=== PATIENT | male | born 1960 | race Asian ===

== ENCOUNTER 2016-11-29 18:27 | Inpatient (IN) | payer MEDICARE, OTHER ==
[~2016-11-29] VITALS: Ht 188 cm; Wt 108.4 kg
[~2016-11-29 18:27] MED LIST: DEPAKOTE ER250 MG ORAL
[2016-11-29 19:20] VITALS: BP 113/70
[2016-11-29] MEDS ORDERED: QUETIAPINE FUMA50 MG ORAL (19:25)
[2016-11-29] MEDS ORDERED: DEPAKOTE ER500 MG ORAL (19:25)
[2016-11-29] MEDS ORDERED: FLUOXETINE HCL20 MG ORAL (19:25)
[2016-11-29 19:34] LABS: EOSINOPHILS % (AUTO) 4.4 % (0.0-3.0); LYMPHOCYTES % (AUTO) 34.8 % (20.0-45.0); MEAN CORPUSCULAR HEMOGLOBIN 33.9 PG (27.0-31.0); MEAN CORPUSCULAR HGB CONC 35.6 G/DL (32.0-36.0); MEAN CORPUSCULAR VOLUME 95 FL (80-99); MEAN PLATELET VOLUME 8.1 FL (6.5-10.1); MONOCYTES % (AUTO) 8.4 % (1.0-10.0); NEUTROPHILS % (AUTO) 51.4 % (45.0-75.0); PLATELET COUNT 131 K/UL (150-450); RED BLOOD COUNT 3.56 M/UL (4.70-6.10); RED CELL DISTRIBUTION WIDTH 12.1 % (11.6-14.8); WHITE BLOOD COUNT 5.6 K/UL (4.8-10.8)
[2016-11-29 19:53] LABS: ANION GAP 15 (5-15); CARBON DIOXIDE 17 mEQ/L (20-30); CHLORIDE 113 mEQ/L (98-107); CREATININE 0.4 mg/dL (0.7-1.2); GLOMERULAR FILTRATION RATE > 60 mL/min (>60); HEMOLYSIS 67; POTASSIUM 2.8 mEQ/L (3.4-4.9); SODIUM 145 mEQ/L (135-145); VALPROIC ACID 27 ug/mL (50-100)
[2016-11-29 20:00] LABS: CALCIUM 5.8 mg/dL (8.6-10.2)
[2016-11-29 20:28] LABS: APPEARANCE,URINE CLEAR; KETONES,URINE NEGATIVE (NEGATIVE); LEUKOCYTE ESTERASE ,URINE NEGATIVE (NEGATIVE); NITRITE,URINE NEGATIVE (NEGATIVE); PH,URINE 6.5 (4.5-8.0); PROTEIN,URINE NEGATIVE (NEGATIVE); UROBILINOGEN,URINE NORMAL MG/DL (0.0-1.0)
--- NOTE | 2016-11-29 20:29 | Emergency Room Report ---
History of Present Illness General Chief Complaint: Behavioral Complaint Source: EMS Present Illness HPI The patient is a 56-year-old male brought in by ambulance from a senior care facility with a history of schizophrenia and seizure disorder for possible seizure. The patient states that he was feeling an aura and had a friend called 911. He denies actually having a seizure and EMS states patient did not have any signs of seizure. The patient denies any symptoms at this time including pain, dizziness, blurred vision, chest pain, shortness of breath Allergies: Coded Allergies: No Known Allergies (Unverified , 04/27/13) Patient History Past Medical History: see triage record, psych hx Pertinent Family History: none Reviewed Nursing Documentation: PMH: Agreed, PSxH: Agreed Nursing Documentation-PMH Past Medical History: No History, Except For History Of Psychiatric Problem: Yes - schizophrenia Hx Seizures: Yes Review of Systems All Other Systems: negative except mentioned in HPI Physical Exam Vital Signs Date Time Temp Pulse Resp B/P Pulse Ox O2 Delivery O2 Flow Rate FiO2 11/29/16 18:20 76 20 113/70 98 Room Air Sp02 EP Interpretation: reviewed, normal General Appearance: no apparent distress, alert, GCS 15, non-toxic Head: normocephalic, atraumatic Eyes: bilateral eye PERRL, bilateral eye normal inspection ENT: hearing grossly normal, normal pharynx, no angioedema, normal voice Neck: full range of motion, supple/symm/no masses Respiratory: chest non-tender, lungs clear, normal breath sounds, speaking full sentences Cardiovascular #1: regular rate, rhythm, no edema Cardiovascular #2: 2+ carotid (R), 2+ carotid (L), 2+ radial (R), 2+ radial (L) , 2+ dorsalis pedis (R), 2+ dorsalis pedis (L) Gastrointestinal: normal bowel sounds, non tender, soft, non-distended, no guarding, no rebound Rectal: deferred Genitourinary: normal inspection, no CVA tenderness Musculoskeletal: back normal, gait/station normal, normal range of motion, non- tender Neurologic: alert, responsive, motor strength/tone normal, sensory intact, speech normal Psychiatric: memory normal, no suicidal/homicidal ideation, no delusions, depressed affect Reflexes: 3+ bicep (R), 3+ bicep (L), 3+ tricep (R), 3+ tricep (L), 3+ knee (R) , 3+ knee (L) Skin: normal color, no rash, warm/dry, well hydrated Lymphatic: no adenopathy Medical Decision Making PA Attestation Dr. Almodovar is my supervising physician. Patient management was discussed with my supervising physician Diagnostic Impression: Primary Impression: Seizure disorder Additional Impressions: subtherapeutic antiepileptics Hypokalemia Hypocalcemia ER Course The patient is a 56-year-old male with a history of schizophrenia and seizure disorder presenting for possible seizure Differential diagnoses considered but not limited to: Seizure, psychosis, anxiety, electrolyte imbalance Physical exam: Vitals within normal limits. No apparent distress. The patient appears tired and continues to follow sleep during exam. PERRL. no tremors. No neurological deficit HEENT exam is unremarkable. RRR Lungs CTA bilat Abdomen is soft and nontender Lab work is significant for hypokalemia, hypocalcemia, and subtherapeutic Depakote levels. The patient is given IV fluids, potassium, and Depakote. The patient is stable and will be admitted to this hospital. This case was discussed with Dr. Almodovar who will speak with the admitting physician. The patient was informed that he will be admitted. Laboratory Tests Test 11/29/16 19:20 White Blood Count 5.6 K/UL (4.8-10.8) Red Blood Count 3.56 M/UL (4.70-6.10) L Hemoglobin 12.1 G/DL (14.2-18.0) L Hematocrit 34.0 % (42.0-52.0) L Mean Corpuscular Volume 95 FL (80-99) Mean Corpuscular Hemoglobin 33.9 PG (27.0-31.0) H Mean Corpuscular Hemoglobin Concent 35.6 G/DL (32.0-36.0) Red Cell Distribution Width 12.1 % (11.6-14.8) Platelet Count 131 K/UL (150-450) L Mean Platelet Volume 8.1 FL (6.5-10.1) Neutrophils (%) (Auto) 51.4 % (45.0-75.0) Lymphocytes (%) (Auto) 34.8 % (20.0-45.0) Monocytes (%) (Auto) 8.4 % (1.0-10.0) Eosinophils (%) (Auto) 4.4 % (0.0-3.0) H Basophils (%) (Auto) 1.0 % (0.0-2.0) Urine Color Pale yellow Urine Appearance Clear Urine pH 6.5 (4.5-8.0) Urine Specific [place] 1.010 (1.005-1.035) Urine Protein Negative (NEGATIVE) Urine Glucose (UA) Negative (NEGATIVE) Urine Ketones Negative (NEGATIVE) Urine Occult Blood Negative (NEGATIVE) Urine Nitrite Negative (NEGATIVE) Urine Bilirubin Negative (NEGATIVE) Urine Urobilinogen Normal MG/DL (0.0-1.0) Urine Leukocyte Esterase Negative (NEGATIVE) Sodium Level 145 mEQ/L (135-145) Potassium Level 2.8 mEQ/L (3.4-4.9) L Chloride Level 113 mEQ/L (98-107) H Carbon Dioxide Level 17 mEQ/L (20-30) L Anion Gap 15 (5-15) Blood Urea Nitrogen 10 mg/dL (7-23) Creatinine 0.4 mg/dL (0.7-1.2) L Estimate Glomerular Filtration Rate > 60 mL/min (>60) Glucose Level 69 mg/dL (74-106) L Calcium Level 5.8 mg/dL (8.6-10.2) *L Urine Opiates Screen Pending Urine Barbiturates Screen Pending Valproic Acid Level 27 ug/mL (50-100) L Phencyclidine (PCP) Screen Pending Urine Amphetamines Screen Pending Urine Benzodiazepines Screen Pending Urine Cocaine Screen Pending Urine Marijuana (THC) Screen Pending Lab Results Impression CBC unremarkable. BMP shows significant hypokalemia with hypocalcemia. Ionized calcium was ordered. Depakote levels are subtherapeutic Last Vital Signs Date Time Temp Pulse Resp B/P Pulse Ox O2 Delivery O2 Flow Rate FiO2 11/29/16 19:20 86 20 113/70 98 Room Air Status: improved Disposition: ADMITTED INPATIENT Condition: Stable CORONA KLINE November 29, 2016 20:28
[2016-11-29] MEDS ORDERED: Depakote 500mg tab ORAL ONE (20:30)
[2016-11-29] MEDS ORDERED: Zolpidem 5mg tab ORAL PRN (22:30)
[2016-11-29] MEDS ORDERED: Miralax 17gm pkt ORAL PRN (22:30)
[2016-11-29] MEDS ORDERED: Mylanta II UD 30ml ORAL PRN (22:30)
[2016-11-29] MEDS ORDERED: LORazepam Inj 2mg/ml 1ml IV PRN (22:30)
[2016-11-29] MEDS ORDERED: Morphine Sulfate 2mg/ml Inj IVP PRN (22:30)
--- NOTE | 2016-11-30 00:12 | History and Physical ---
History of Present Illness General Date patient seen: November 29, 2016 Reason for Hospitalization: Behavioral Complaint Present Illness HPI 56-year-old male with hx of schizophrenia, brought in by ambulance from [facility] for possible seizure. The patient states that he was feeling an aura and had a friend called 911. He denies actually having a seizure and EMS states patient did not have any signs of seizure. The patient denies any symptoms at this time including pain, dizziness, blurred vision, chest pain, shortness of breath. His Ca was extremely low in ER, therefore he is admitted for further work up. Allergies: Coded Allergies: No Known Allergies (Unverified , 04/27/13) Medication History Scheduled Divalproex Sodium* (Depakote Er*), 500 MG ORAL EVERY 12 HOURS, (Reported) Fluoxetine Hcl* (Fluoxetine Hcl*), 20 MG ORAL DAILY, (Reported) Quetiapine Fumarate* (Quetiapine Fumarate*), 100 MG ORAL DAILY, (Reported) Discontinued Medications Divalproex Sodium* (Depakote Er*), 250 MG ORAL EVERY 12 HOURS, (Reported) Discontinued Reason: Medication dose changed Patient History Healthcare decision maker Resuscitation status Advanced Directive on File Past Medical/Surgical History Past Medical/Surgical History: (1) Schizo-affective schizophrenia (2) Seizure disorder Review of Systems All Other Systems: negative except mentioned in HPI Physical Exam General Appearance: WD/WN Lines, tubes and drains: peripheral HEENT: normocephalic, atraumatic Neck: non-tender, normal alignment Respiratory/Chest: chest wall non-tender, lungs clear Cardiovascular/Chest: normal peripheral pulses, normal rate Abdomen: normal bowel sounds, non tender Genitourinary/Rectal: normal genital exam Extremities: normal range of motion 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 Last 24 Hour Vital Signs Date Time Temp Pulse Resp B/P Pulse Ox O2 Delivery O2 Flow Rate FiO2 11/29/16 19:20 86 20 113/70 98 Room Air 11/29/16 18:20 76 20 113/70 98 Room Air Intake and Output 11/29/16 11/30/16 19:00 07:00 Output Total 1000 ml Balance -1000 ml Output Urine Total 1000 ml # Voids 1 Laboratory Tests Test 11/29/16 19:20 11/29/16 22:29 White Blood Count 5.6 K/UL (4.8-10.8) Red Blood Count 3.56 M/UL (4.70-6.10) L Hemoglobin 12.1 G/DL (14.2-18.0) L Hematocrit 34.0 % (42.0-52.0) L Mean Corpuscular Volume 95 FL (80-99) Mean Corpuscular Hemoglobin 33.9 PG (27.0-31.0) H Mean Corpuscular Hemoglobin Concent 35.6 G/DL (32.0-36.0) Red Cell Distribution Width 12.1 % (11.6-14.8) Platelet Count 131 K/UL (150-450) L Mean Platelet Volume 8.1 FL (6.5-10.1) Neutrophils (%) (Auto) 51.4 % (45.0-75.0) Lymphocytes (%) (Auto) 34.8 % (20.0-45.0) Monocytes (%) (Auto) 8.4 % (1.0-10.0) Eosinophils (%) (Auto) 4.4 % (0.0-3.0) H Basophils (%) (Auto) 1.0 % (0.0-2.0) Urine Color Pale yellow Urine Appearance Clear Urine pH 6.5 (4.5-8.0) Urine Specific [place] 1.010 (1.005-1.035) Urine Protein Negative (NEGATIVE) Urine Glucose (UA) Negative (NEGATIVE) Urine Ketones Negative (NEGATIVE) Urine Occult Blood Negative (NEGATIVE) Urine Nitrite Negative (NEGATIVE) Urine Bilirubin Negative (NEGATIVE) Urine Urobilinogen Normal MG/DL (0.0-1.0) Urine Leukocyte Esterase Negative (NEGATIVE) Sodium Level 145 mEQ/L (135-145) Potassium Level 2.8 mEQ/L (3.4-4.9) L Chloride Level 113 mEQ/L (98-107) H Carbon Dioxide Level 17 mEQ/L (20-30) L Anion Gap 15 (5-15) Blood Urea Nitrogen 10 mg/dL (7-23) Creatinine 0.4 mg/dL (0.7-1.2) L Estimat Glomerular Filtration Rate > 60 mL/min (>60) Glucose Level 69 mg/dL (74-106) L Calcium Level 5.8 mg/dL (8.6-10.2) *L Urine Opiates Screen Negative (NEGATIVE) Urine Barbiturates Screen Negative (NEGATIVE) Valproic Acid (Depakene) Level 27 ug/mL (50-100) L Phencyclidine (PCP) Screen Negative (NEGATIVE) Urine Amphetamines Screen Negative (NEGATIVE) Urine Benzodiazepines Screen Negative (NEGATIVE) Urine Cocaine Screen Negative (NEGATIVE) Urine Marijuana (THC) Screen Negative (NEGATIVE) Ionized Calcium (Measured) Pending Height (Feet): 6 Height (Inches): 2.00 Weight (Pounds): 245 Medications Current Medications Medications (Trade) Dose Ordered Sig/Jonathan Route PRN Reason Start Time Stop Time Status Last Admin Dose Admin Acetaminophen (Tylenol) 650 mg Q4H PRN ORAL fever 11/29/16 22:30 12/29/16 22:29 Al Hydroxide/Mg Hydroxide (Mylanta II) 30 ml Q6H PRN ORAL dyspepsia 11/29/16 22:30 12/29/16 22:29 Dextrose STAT PRN IV Hypoglycemia 11/29/16 22:30 12/29/16 22:29 Divalproex Sodium (Depakote ER) 500 mg EVERY 12 HOURS ORAL 11/30/16 09:00 12/30/16 08:59 Fluoxetine HCl (PROzac) 20 mg DAILY ORAL 11/30/16 09:00 12/30/16 08:59 Folic Acid/ Magnesium Sulfate/ Multivitamins/ Calcium Gluconate/ Sodium Chloride (Folvite/ Magnesium Sulfate/ M.v.i.-12/Calcium Gluconate 10%/NS w/KCl 20mEq) 1,024.2 ml @ 125 mls/ hr Q24H IV 11/30/16 16:00 12/30/16 15:59 Heparin Sodium (Porcine) (Heparin 5000 units/ml) 5,000 units EVERY 12 HOURS SUBQ 11/30/16 09:00 12/30/16 08:59 UNV Lorazepam (Ativan 2mg/ml 1ml) 2 mg EVERY HOUR PRN IV seizures 11/29/16 22:30 12/06/16 22:29 Morphine Sulfate (Morphine Sulfate) 1 mg EVERY 4 HOURS PRN IVP For Pain 11/29/16 22:30 12/06/16 22:29 Ondansetron HCl (Zofran) 4 mg Q6H PRN IVP Nausea & Vomiting 11/29/16 22:30 12/29/16 22:29 Polyethylene Glycol (Miralax) 17 gm HSPRN PRN ORAL Constipation 11/29/16 22:30 12/29/16 22:29 Quetiapine Fumarate (SEROquel) 100 mg DAILY ORAL 11/30/16 09:00 12/30/16 08:59 Zolpidem Tartrate (Ambien) 5 mg HSPRN PRN ORAL Insomnia 11/29/16 22:30 12/29/16 22:29 Assessment/Plan Problem List: (1) Seizure disorder (2) Hypocalcemia ICD Codes: E83.51 - Hypocalcemia SNOMED: 4750357 (3) Hypokalemia ICD Codes: E87.6 - Hypokalemia SNOMED: 69094547 (4) Schizo-affective schizophrenia ICD Codes: F25.0 - Schizoaffective disorder, bipolar type SNOMED: 514242081 Assessment/Plan Ca supplement Renal w/u Neuro and psych to see. check electrolytes MARLENY JAIMES November 30, 2016 00:12
[2016-11-30 00:30] VITALS: BP 105/60
[2016-11-30 07:51] LABS: BASOPHILS % (AUTO) 2.3 % (0.0-2.0); EOSINOPHILS % (AUTO) 5.2 % (0.0-3.0); LYMPHOCYTES % (AUTO) 32.1 % (20.0-45.0); MEAN CORPUSCULAR HEMOGLOBIN 30.9 PG (27.0-31.0); MEAN CORPUSCULAR HGB CONC 32.2 G/DL (32.0-36.0); MEAN CORPUSCULAR VOLUME 96 FL (80-99); MEAN PLATELET VOLUME 8.1 FL (6.5-10.1); NEUTROPHILS % (AUTO) 51.4 % (45.0-75.0); PLATELET COUNT 127 K/UL (150-450); RED BLOOD COUNT 3.96 M/UL (4.70-6.10); RED CELL DISTRIBUTION WIDTH 12.5 % (11.6-14.8); WHITE BLOOD COUNT 4.1 K/UL (4.8-10.8)
[2016-11-30 08:00] VITALS: BP 103/61
[2016-11-30 08:13] LABS: ALANINE AMINOTRANSFERASE 10 U/L (3-41); ALBUMIN/GLOBULIN RATIO 1.8 (1.0-2.7); ANION GAP 13 (5-15); ASPARTATE AMINO TRANSFERASE 21 U/L (5-40); CALCIUM 8.8 mg/dL (8.6-10.2); CARBON DIOXIDE 24 mEQ/L (20-30); CHLORIDE 103 mEQ/L (98-107); CREATININE 0.7 mg/dL (0.7-1.2); GLOMERULAR FILTRATION RATE > 60 mL/min (>60); HEMOLYSIS 65; POTASSIUM 4.7 mEQ/L (3.4-4.9); SODIUM 140 mEQ/L (135-145); TOTAL PROTEIN 5.5 g/dL (6.6-8.7)
[2016-11-30 08:26] LABS: MAGNESIUM 1.9 mg/dL (1.7-2.5); PHOSPHORUS 2.9 mg/dL (2.5-4.8); URIC ACID 7.5 mg/dL (3.0-7.5)
[2016-11-30 08:36] LABS: THYROID STIMULATING HORMONE 1.03 uIU/mL (0.300-4.500)
[2016-11-30] MEDS: Heparin 5000 units/ml inj SUBQ SCH ×2 (08:47→22:35)
[2016-11-30] MEDS ORDERED: MULTIVITAMIN IV SCH ×11 (09:00→16:00)
[2016-11-30] MEDS ORDERED: Depakote ER 500mg tab ORAL SCH (09:00)
[2016-11-30] MEDS ORDERED: FOLIC ACID IV SCH ×11 (09:00→16:00)
[2016-11-30] MEDS ORDERED: [UNRECOGNIZED DRUG - OTHER] IV SCH (09:00)
[2016-11-30] MEDS ORDERED: MAGNESIUM SULFATE IV SCH ×10 (09:00→16:00)
[2016-11-30] MEDS ORDERED: CALCIUM GLUCONATE IV SCH (09:00)
[2016-11-30] MEDS ORDERED: [UNRECOGNIZED DRUG - OTHER] IV SCH ×10 (09:00→16:00)
--- NOTE | 2016-11-30 09:33 | Pulmonology Progress Note ---
Assessment/Plan Problems: (1) Seizure disorder (2) Hypocalcemia (3) Hypokalemia (4) Schizo-affective schizophrenia Assessment/Plan Ca better neuro and psych pending med/surg echo and venous doppler to evaluate pedeal edema Subjective ROS Limited/Unobtainable: No Interval Events: no new complains, doing better Allergies: Coded Allergies: No Known Allergies (Unverified , 04/27/13) Objective Last 24 Hour Vital Signs Date Time Temp Pulse Resp B/P Pulse Ox O2 Delivery O2 Flow Rate FiO2 11/30/16 04:00 61 11/30/16 00:30 97.5 65 20 105/60 98 Room Air 11/30/16 00:20 78 18 117/76 98 Room Air 11/29/16 19:20 86 20 113/70 98 Room Air 11/29/16 18:20 76 20 113/70 98 Room Air Intake and Output 11/29/16 11/30/16 19:00 07:00 Intake Total 120 ml Output Total 1000 ml Balance -880 ml Intake Oral 120 ml Output Urine Total 1000 ml # Voids 2 General Appearance: WD/WN HEENT: normocephalic, atraumatic Respiratory/Chest: chest wall non-tender, lungs clear Cardiovascular: normal peripheral pulses, normal rate Abdomen: normal bowel sounds, soft, non tender Genitourinary: normal external genitalia Skin: no rash 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 Lymphatic: no neck adenopathy Laboratory Tests 11/29/16 19:20: White Blood Count 5.6, Red Blood Count 3.56L, Hemoglobin 12.1L, Hematocrit 34.0L , Mean Corpuscular Volume 95, Mean Corpuscular Hemoglobin 33.9H, Mean Corpuscular Hemoglobin Concent 35.6, Red Cell Distribution Width 12.1, Platelet Count 131L, Mean Platelet Volume 8.1, Neutrophils (%) (Auto) 51.4, Lymphocytes ( %) (Auto) 34.8, Monocytes (%) (Auto) 8.4, Eosinophils (%) (Auto) 4.4H, Basophils (%) (Auto) 1.0, Urine Color Pale yellow, Urine Appearance Clear, Urine pH 6.5, Urine Specific [place] 1.010, Urine Protein Negative, Urine Glucose (UA) Negative, Urine Ketones Negative, Urine Occult Blood Negative, Urine Nitrite Negative, Urine Bilirubin Negative, Urine Urobilinogen Normal, Urine Leukocyte Esterase Negative, Sodium Level 145, Potassium Level 2.8L, Chloride Level 113H, Carbon Dioxide Level 17L, Anion Gap 15, Blood Urea Nitrogen 10, Creatinine 0.4L, Estimat Glomerular Filtration Rate > 60, Glucose Level 69L, Calcium Level 5.8*L, Urine Opiates Screen Negative, Urine Barbiturates Screen Negative, Valproic Acid (Depakene) Level 27L, Phencyclidine (PCP) Screen Negative, Urine Amphetamines Screen Negative, Urine Benzodiazepines Screen Negative, Urine Cocaine Screen Negative, Urine Marijuana (THC) Screen Negative 11/29/16 22:29: Ionized Calcium (Measured) 0.97L 11/30/16 06:40: White Blood Count 4.1L, Red Blood Count 3.96L, Hemoglobin 12.3L, Hematocrit 38.1L, Mean Corpuscular Volume 96, Mean Corpuscular Hemoglobin 30.9, Mean Corpuscular Hemoglobin Concent 32.2, Red Cell Distribution Width 12.5, Platelet Count 127L, Mean Platelet Volume 8.1, Neutrophils (%) (Auto) 51.4, Lymphocytes ( %) (Auto) 32.1, Monocytes (%) (Auto) 9.0, Eosinophils (%) (Auto) 5.2H, Basophils (%) (Auto) 2.3H, Sodium Level 140, Potassium Level 4.7#, Chloride Level 103, Carbon Dioxide Level 24, Anion Gap 13, Blood Urea Nitrogen 11, Creatinine 0.7#, Estimat Glomerular Filtration Rate > 60, Glucose Level 86, Calcium Level 8.8#, Uric Acid 7.5, Phosphorus Level 2.9, Magnesium Level 1.9, Total Bilirubin 0.3, Aspartate Amino Transf (AST/SGOT) 21, Alanine Aminotransferase (ALT/SGPT) 10, Alkaline Phosphatase 45, Total Protein 5.5L, Albumin 3.6, Globulin 1.9, Albumin/Globulin Ratio 1.8, Thyroid Stimulating Hormone (TSH) 1.030 Current Medications Medications (Trade) Dose Ordered Sig/Jonathan Route PRN Reason Start Time Stop Time Status Last Admin Dose Admin Acetaminophen (Tylenol) 650 mg Q4H PRN ORAL fever 11/29/16 22:30 12/29/16 22:29 Al Hydroxide/Mg Hydroxide (Mylanta II) 30 ml Q6H PRN ORAL dyspepsia 11/29/16 22:30 12/29/16 22:29 Dextrose STAT PRN IV Hypoglycemia 11/29/16 22:30 12/29/16 22:29 Divalproex Sodium (Depakote ER) 500 mg EVERY 12 HOURS ORAL 11/30/16 09:00 12/30/16 08:59 11/30/16 08:31 Fluoxetine HCl (PROzac) 20 mg DAILY ORAL 11/30/16 09:00 12/30/16 08:59 11/30/16 08:31 Folic Acid 1 mg/ Multivitamins 10 ml/Calcium Gluconate 1 gm/ Sodium Chloride 1,020.2 ml @ 124.512 mls/hr Q24H IV 11/30/16 09:00 12/30/16 08:59 Heparin Sodium (Porcine) (Heparin 5000 units/ml) 5,000 units EVERY 12 HOURS SUBQ 11/30/16 09:00 12/30/16 08:59 11/30/16 08:47 Lorazepam (Ativan 2mg/ml 1ml) 2 mg EVERY HOUR PRN IV seizures 11/29/16 22:30 12/06/16 22:29 11/30/16 01:30 Magnesium Sulfate 100 ml @ 100 mls/hr DAILY@0900 IVPB 11/30/16 09:00 12/30/16 08:59 11/30/16 08:32 Magnesium Sulfate (Magnesium Sulfate 1gm/100ml) 100 ml @ 100 mls/hr DAILY@1000 IVPB 11/30/16 10:00 12/30/16 09:59 Morphine Sulfate (Morphine Sulfate) 1 mg EVERY 4 HOURS PRN IVP For Pain 11/29/16 22:30 12/06/16 22:29 Ondansetron HCl (Zofran) 4 mg Q6H PRN IVP Nausea & Vomiting 11/29/16 22:30 12/29/16 22:29 Polyethylene Glycol (Miralax) 17 gm HSPRN PRN ORAL Constipation 11/29/16 22:30 12/29/16 22:29 Quetiapine Fumarate (SEROquel) 100 mg DAILY ORAL 11/30/16 09:00 12/30/16 08:59 11/30/16 08:31 Zolpidem Tartrate (Ambien) 5 mg HSPRN PRN ORAL Insomnia 11/29/16 22:30 12/29/16 22:29 MARLENY JAIMES November 30, 2016 09:33
--- NOTE | 2016-11-30 09:52 | Consultation ---
Consult Note Consult Note asked to eval for low K and low Ca The patient is a 56-year-old male brought in by ambulance from a shelter facility with a history of schizophrenia and seizure disorder for possible seizure. The patient states that he was feeling an aura and had a friend called 911. He denies actually having a seizure and EMS states patient did not have any signs of seizure. The patient denies any symptoms at this time including pain, dizziness, blurred vision, chest pain, shortness of breath Past Medical History: No History, Except For History Of Psychiatric Problem: Yes - schizophrenia Hx Seizures: Yes interviewed examined data reviewed Assessment/Plan (1) Seizure disorder (2) Hypocalcemia- corrected (3) Hypokalemia- corrected (4) Schizo-affective schizophrenia (5) Previous right leg surgery Plan: Observe for Sz monitor DEMETRIS Deras November 30, 2016 09:52
--- NOTE | 2016-11-30 11:28 | Diagnostic Imaging Report ---
Indication: DYSPNEA Technique: Single portable AP view of the chest. Findings: Comparison: None. The bones and extra pulmonary soft tissues, cardiomediastinal silhouette, pulmonary vasculature and parenchyma, and pleural surfaces are unremarkable. IMPRESSION: Negative portable AP chest.
[2016-11-30 11:57] VITALS: BP 99/50
--- NOTE | 2016-11-30 15:10 | Neurology Progress Note ---
Interim History Interim History ROS Limited/Unobtainable: No Objective Physical Exam Last Vital Signs Date Time Temp Pulse Resp B/P Pulse Ox O2 Delivery O2 Flow Rate FiO2 11/30/16 11:57 97.7 59 21 99/50 97 Room Air Laboratory Tests Test 11/29/16 19:20 11/29/16 22:29 11/30/16 06:40 White Blood Count 5.6 K/UL (4.8-10.8) 4.1 K/UL (4.8-10.8) L Red Blood Count 3.56 M/UL (4.70-6.10) L 3.96 M/UL (4.70-6.10) L Hemoglobin 12.1 G/DL (14.2-18.0) L 12.3 G/DL (14.2-18.0) L Hematocrit 34.0 % (42.0-52.0) L 38.1 % (42.0-52.0) L Mean Corpuscular Volume 95 FL (80-99) 96 FL (80-99) Mean Corpuscular Hemoglobin 33.9 PG (27.0-31.0) H 30.9 PG (27.0-31.0) Mean Corpuscular Hemoglobin Concent 35.6 G/DL (32.0-36.0) 32.2 G/DL (32.0-36.0) Red Cell Distribution Width 12.1 % (11.6-14.8) 12.5 % (11.6-14.8) Platelet Count 131 K/UL (150-450) L 127 K/UL (150-450) L Mean Platelet Volume 8.1 FL (6.5-10.1) 8.1 FL (6.5-10.1) Neutrophils (%) (Auto) 51.4 % (45.0-75.0) 51.4 % (45.0-75.0) Lymphocytes (%) (Auto) 34.8 % (20.0-45.0) 32.1 % (20.0-45.0) Monocytes (%) (Auto) 8.4 % (1.0-10.0) 9.0 % (1.0-10.0) Eosinophils (%) (Auto) 4.4 % (0.0-3.0) H 5.2 % (0.0-3.0) H Basophils (%) (Auto) 1.0 % (0.0-2.0) 2.3 % (0.0-2.0) H Urine Color Pale yellow Urine Appearance Clear Urine pH 6.5 (4.5-8.0) Urine Specific [place] 1.010 (1.005-1.035) Urine Protein Negative (NEGATIVE) Urine Glucose (UA) Negative (NEGATIVE) Urine Ketones Negative (NEGATIVE) Urine Occult Blood Negative (NEGATIVE) Urine Nitrite Negative (NEGATIVE) Urine Bilirubin Negative (NEGATIVE) Urine Urobilinogen Normal MG/DL (0.0-1.0) Urine Leukocyte Esterase Negative (NEGATIVE) Sodium Level 145 mEQ/L (135-145) 140 mEQ/L (135-145) Potassium Level 2.8 mEQ/L (3.4-4.9) L 4.7 mEQ/L (3.4-4.9) # Chloride Level 113 mEQ/L (98-107) H 103 mEQ/L (98-107) Carbon Dioxide Level 17 mEQ/L (20-30) L 24 mEQ/L (20-30) Anion Gap 15 (5-15) 13 (5-15) Blood Urea Nitrogen 10 mg/dL (7-23) 11 mg/dL (7-23) Creatinine 0.4 mg/dL (0.7-1.2) L 0.7 mg/dL (0.7-1.2) # Estimat Glomerular Filtration Rate > 60 mL/min (>60) > 60 mL/min (>60) Glucose Level 69 mg/dL (74-106) L 86 mg/dL (74-106) Calcium Level 5.8 mg/dL (8.6-10.2) *L 8.8 mg/dL (8.6-10.2) # Urine Opiates Screen Negative (NEGATIVE) Urine Barbiturates Screen Negative (NEGATIVE) Valproic Acid (Depakene) Level 27 ug/mL (50-100) L Phencyclidine (PCP) Screen Negative (NEGATIVE) Urine Amphetamines Screen Negative (NEGATIVE) Urine Benzodiazepines Screen Negative (NEGATIVE) Urine Cocaine Screen Negative (NEGATIVE) Urine Marijuana (THC) Screen Negative (NEGATIVE) Ionized Calcium (Measured) 0.97 mmol/L (1.10-1.35) L Uric Acid 7.5 mg/dL (3.0-7.5) Phosphorus Level 2.9 mg/dL (2.5-4.8) Magnesium Level 1.9 mg/dL (1.7-2.5) Total Bilirubin 0.3 mg/dL (0.0-1.2) Aspartate Amino Transf (AST/SGOT) 21 U/L (5-40) Alanine Aminotransferase (ALT/SGPT) 10 U/L (3-41) Alkaline Phosphatase 45 U/L (40-129) Total Protein 5.5 g/dL (6.6-8.7) L Albumin 3.6 g/dL (3.5-5.2) Globulin 1.9 g/dL Albumin/Globulin Ratio 1.8 (1.0-2.7) Thyroid Stimulating Hormone (TSH) 1.030 uIU/mL (0.300-4.500) Impression/Recommendations Problems: (1) h/o single generalised seizure in 1979 (2) transient both hands ,face twitching , very likely 2/2 hypocalcemia.r/o seizure event. (3) Schizo-affective schizophrenia (4) Hypocalcemia (5) subtherapeutic antiepileptics Status: unchanged Recommendations #[id number] DANIELE DUMONT November 30, 2016 15:10
--- NOTE | 2016-11-30 15:50 | Cardiology Report ---
APPROVED REPORT EXAM: Two-dimensional and M-mode echocardiogram with Doppler and color Doppler. INDICATION LV function M-Mode DIMENSIONS IVSd1.3 (0.7-1.1cm)Left Atrium (MM)3.9 (1.6-4.0cm) LVDd6.8 (3.5-5.6cm)Aortic Root4.2 (2.0-3.7cm) PWd1.3 (0.7-1.1cm)Aortic Cusp Exc.2.3 (1.5-2.0cm) LVDs4.5 (2.5-4.0cm) PWs2.1 cm Technically difficult study witih poor apical endocardial definition Left ventricular enlargement. Normal left ventricular systolic function and wall motion to the extent visualized Left ventricular ejection fraction estimated to be 55-60 %. Mild left ventricular hypertrophy. Anterior Echo-free space, may be due to pericardial fat or effusion. Mild bi-atrial enlargement. Right ventricular chamber size is within normal limits. Mild focal aortic valve sclerosis with adequate cusp excursion. Mildly thickened mitral valve leaflets with normal excursion. Mitral valve prolapse. Mitral annulus and aortic root calcification. Pulmonic valve not well visualized. Normal tricuspid valve structure. IVC dilated at 2.2 cm and and slightly collapsing with respiration suggestive of increased RA pressure. A color flow and spectral Doppler study was performed and revealed: Trace aortic insufficiency. Mild to moderate mitral regurgitation. Mitral inflow indicate normal left ventricular diastolic function. Trace to mild tricuspid regurgitation. Tricuspid systolic velocities suggests peak right ventricular systolic pressure of 38 mmHg, consistent with mild pulmonary hypertension.
[2016-11-30 15:59] VITALS: BP 99/62
[2016-11-30 20:00] VITALS: BP 104/61
[2016-11-30] MEDS ORDERED: Depakote 500mg tab ORAL SCH (21:00)
[2016-11-30] MEDS: Valproic Acid 250mg/5ml Liquid ORAL SCH (22:37)
--- NOTE | 2016-11-30 23:20 | Consultation ---
DATE OF CONSULTATION: 11/30/2016 HISTORY OF PRESENT ILLNESS: This is a 56-year-old male with a history of schizoaffective disorder, who has been admitted to the hospital for electrolyte imbalance and possible seizure. During the evaluation, the patient does not endorse any manic psychotic or depressive symptoms. However, he is anxious. He has been treated with fluoxetine and Seroquel. He denied any suicidal or homicidal ideation. He is afraid of having another seizure. PAST PSYCHIATRIC HISTORY: He has a history of schizophrenia versus schizoaffective disorder. Several psychiatric hospitalizations. He has been treated with fluoxetine as well as Seroquel. No suicide attempt in the past. PAST MEDICAL HISTORY: Seizure disorder and electrolyte imbalance. PAST SURGICAL HISTORY: Right neck surgery. ALLERGIES: No known drug allergies. SUBSTANCE ABUSE HISTORY: Denies any history of illicit drug use or alcohol. MENTAL STATUS EXAMINATION: The patient is alert and oriented x3. Cooperative with examination. Mood is anxious. Affect is constricted. Congruent with mood. Thought process is concrete. Thought content, there is no suicidal or homicidal ideation. Positive for paranoid ideation. ASSESSMENT: Schizophrenia versus schizoaffective disorder. PLAN: 1. We will increase the Seroquel to 150 mg h.s. 2. We will continue the fluoxetine 20 mg in the morning. 3. We will provide the patient with supportive therapy and reality orientation. Klaudia Little M.D. DR: EDGAR JOB#: [id number] CC:
[2016-12-01] VITALS: BP 118/67
--- NOTE | 2016-12-01 00:11 | Consultation ---
DATE OF CONSULTATION: 11/30/2016 NEUROLOGICAL CONSULTATION CONSULTING PHYSICIAN: Amol Campoverde M.D. REFERRING PHYSICIAN: Faviola Savage M.D. HISTORY OF PRESENT ILLNESS: This 66 years gentleman seen in neurological consultation to evaluate the possible seizure activity. According to the patient, approximately in 1979, he had an episode of generalized seizure. There was no further seizure except few years ago when he had "probably seizure" when he was at [facility]. He was treated with phenobarbital, Depakote, and Dilantin. Yesterday, he was feeling fairly well and was painting when suddenly, he felt what appears to be seizures. He developed a sensation of being woozy. There was a jerking in the left arm, which then switched to the right arm. He was doing quite weird movement with his mouth like trying to bite his tongue. His roommate tried to call administration, but then called 911 who found him fully awake, complaining of headaches. He was lying in bed and was screaming, punching in the air, grabbing and throwing his bed sheets. He stated that he thought he was going to have a seizure, but he did not. He had complaints of headache on the left side of the head. He complained of feeling like he is an "alien and it is trying to get out of him." The patient was brought to emergency room where he was stabilized and his vital signs were stable. He was in no apparent distress and alert. His Travis coma scale was 15. His examination was rather unremarkable. Laboratory work was obtained. This revealed valproic acid level of 27. Chemistry panel with very low calcium of 5.8, creatinine 0.4, potassium 2.8, ionized calcium came back at 0.97 with a total protein 5.5., and normal TSH. His hematology panel with mild anemia, hemoglobin 12.1, hematocrit 34.0, and platelet count 131,000. His chest x-ray was unremarkable. The patient was admitted. There was no further seizure activities reported. PAST MEDICAL HISTORY: The patient has a history of chronic psychiatric disorder. He is maintained on quetiapine 100 mg daily and fluoxetine 20 mg daily. He is on Depakote 500 mg b.i.d. There is no evidence of taking phenobarbital or Dilantin as the patient claimed. The patient noted to have pedal edema. Venous Dopplers were requested. He is hypercalcemia and hypokalemia during hospitalization and were corrected. MEDICATIONS: Current treatment list included normal saline, Tylenol p.r.n., Depakote 500 mg b.i.d. with extra dose 500 mg given on the site, fluoxetine, subcutaneous heparin, Ativan p.r.n., morphine p.r.n., Zofran p.r.n., MiraLAX, potassium supplement, and Seroquel 150 mg at bedtime. ALLERGIES: None reported. SOCIAL HISTORY: Resident of a [facility]. No alcohol. No drug abuse. Nonsmoker. FAMILY HISTORY: Noncontributory. REVIEW OF SYMPTOMS: At this time, the patient has no complaints except being concerned that he might have another seizure. He denies headache or dizziness. No chest pain. No palpitations. No respiratory problems. Denies abdominal pain or discomfort. No urine or bowel incontinence. PHYSICAL EXAMINATION: GENERAL: A well-developed, well-nourished man, not in acute distress, lying comfortably in bed. He is asleep, but arousable. VITAL SIGNS: His vital signs now are stable. Blood pressure 99/50, heart rate of 59, and afebrile. HEENT: Head, normocephalic. There is no evidence of injuries. Eyes, ears, nose, and throat are clear. NECK: Supple. No meningeal signs. MUSCULOSKELETAL: Examination unremarkable. No deformities. There is a slight puffiness of both ankles. There appears to be rash on both shins, more on the right. The patient informed this started only recently. PERIPHERAL PULSES: 1+ symmetric. NEUROLOGIC: Mental Status: He is alert and oriented x3. His speech is fluent with no evidence of aphasia or apraxia. Emotionally inappropriate, contradictory description of events. CRANIAL NERVE II: Pupils both responding to light and accommodation. Extraocular movements intact. No nystagmus. CRANIAL NERVE V: Corneal responses. CRANIAL NERVE VII: No facial asymmetry. CRANIAL NERVE VIII: Grossly normal hearing. CRANIAL NERVES IX THROUGH XII: Within normal limits. MOTOR EXAMINATION: Normal muscle tone. Strength 5/5 in all extremities. No involuntary movement. Deep tendon reflexes 1+ and symmetric with downgoing toes on both sides. SENSORY EXAM: Normal to pinprick and light touch. Gait is stable. IMPRESSION: 1. History of single generalized seizure episode. 2. New onset of involuntary both upper extremities and facial twitching, now resolved. Rule out probably result of significant hypocalcemia. Doubt presence of new seizure activities. 3. Chronic psychiatric disorder. 4. Seizure disorder. 5. Both lower extremity rash. Rule out scabies. RECOMMENDATIONS: 1. Maintain Dilantin level in the midtherapeutic range. Increase daily doses to 750 mg b.i.d. 2. EEG. 3. Observe for any paroxysmal events. 4. Continue with his current treatment. Thank you for allowing me to see this interesting patient in neurological consultation. Amol Anirudh Campoverde DR: YULISA JOB#: [id number] CC:
[2016-12-01 04:00] VITALS: BP 90/51
[2016-12-01 06:27] LABS: BASOPHILS % (AUTO) 0.8 % (0.0-2.0); EOSINOPHILS % (AUTO) 5.1 % (0.0-3.0); LYMPHOCYTES % (AUTO) 42.8 % (20.0-45.0); MEAN CORPUSCULAR HEMOGLOBIN 30.9 PG (27.0-31.0); MEAN CORPUSCULAR HGB CONC 32.6 G/DL (32.0-36.0); MEAN CORPUSCULAR VOLUME 95 FL (80-99); MEAN PLATELET VOLUME 8.4 FL (6.5-10.1); MONOCYTES % (AUTO) 7.9 % (1.0-10.0); NEUTROPHILS % (AUTO) 43.3 % (45.0-75.0); PLATELET COUNT 155 K/UL (150-450); RED BLOOD COUNT 4.03 M/UL (4.70-6.10); RED CELL DISTRIBUTION WIDTH 12.5 % (11.6-14.8)
[2016-12-01 06:52] LABS: ALANINE AMINOTRANSFERASE 9 U/L (3-41); ALBUMIN/GLOBULIN RATIO 1.6 (1.0-2.7); ANION GAP 12 (5-15); ASPARTATE AMINO TRANSFERASE 16 U/L (5-40); CALCIUM 9.1 mg/dL (8.6-10.2); CARBON DIOXIDE 27 mEQ/L (20-30); CHLORIDE 101 mEQ/L (98-107); CREATININE 0.8 mg/dL (0.7-1.2); GLOMERULAR FILTRATION RATE > 60 mL/min (>60); HEMOLYSIS 3; MAGNESIUM 1.9 mg/dL (1.7-2.5); PHOSPHORUS 3.1 mg/dL (2.5-4.8); POTASSIUM 4.3 mEQ/L (3.4-4.9); SODIUM 140 mEQ/L (135-145)
[2016-12-01 07:17] LABS: INR 1.1 (0.9-1.1); PROTHROMBIN TIME 10.8 SEC (9.30-11.50)
[2016-12-01 08:08] VITALS: BP 101/70
[2016-12-01] MEDS: Valproic Acid 250mg/5ml Liquid ORAL SCH (08:31)
[2016-12-01] MEDS: Heparin 5000 units/ml inj SUBQ SCH (08:33)
--- NOTE | 2016-12-01 11:18 | General Progress Note ---
Assessment/Plan Status: stable Status Narrative renal parameters and lytes now WNL Assessment/Plan status: (1) Seizure disorder (2) Hypocalcemia- corrected (3) Hypokalemia- corrected (4) Schizo-affective schizophrenia (5) Previous right leg surgery Plan: Observe for Sz monitor lytes Subjective ROS Limited/Unobtainable: No Allergies: Coded Allergies: No Known Allergies (Unverified , 04/27/13) Objective Last 24 Hour Vital Signs Date Time Temp Pulse Resp B/P Pulse Ox O2 Delivery O2 Flow Rate FiO2 12/01/16 08:08 97.2 63 20 101/70 100 Room Air 12/01/16 08:00 82 12/01/16 04:00 98.0 56 21 90/51 98 Room Air 12/01/16 04:00 63 12/01/16 01:11 63 12/01/16 00:00 97.7 61 20 118/67 97 Room Air 11/30/16 20:00 70 11/30/16 20:00 97.5 68 18 104/61 98 Room Air 11/30/16 15:59 98.2 63 21 99/62 98 Room Air 11/30/16 15:07 63 11/30/16 11:57 97.7 59 21 99/50 97 Room Air 11/30/16 11:51 63 Intake and Output 11/30/16 12/01/16 19:00 07:00 Intake Total 720 ml Output Total 300 ml Balance 420 ml Intake Oral 620 ml IV Total 100 ml Output Urine Total 300 ml # Voids 3 1 Laboratory Tests 12/01/16 05:50: White Blood Count 4.0L, Red Blood Count 4.03L, Hemoglobin 12.4L, Hematocrit 38.2L, Mean Corpuscular Volume 95, Mean Corpuscular Hemoglobin 30.9, Mean Corpuscular Hemoglobin Concent 32.6, Red Cell Distribution Width 12.5, Platelet Count 155, Mean Platelet Volume 8.4, Neutrophils (%) (Auto) 43.3L, Lymphocytes ( %) (Auto) 42.8, Monocytes (%) (Auto) 7.9, Eosinophils (%) (Auto) 5.1H, Basophils (%) (Auto) 0.8, Prothrombin Time 10.8, Prothromb Time International Ratio 1.1, Activated Partial Thromboplast Time 31, Sodium Level 140, Potassium Level 4.3, Chloride Level 101, Carbon Dioxide Level 27, Anion Gap 12, Blood Urea Nitrogen 14, Creatinine 0.8, Estimat Glomerular Filtration Rate > 60, Glucose Level 88, Uric Acid 7.3, Calcium Level 9.1, Phosphorus Level 3.1, Magnesium Level 1.9, Total Bilirubin 0.3, Aspartate Amino Transf (AST/SGOT) 16, Alanine Aminotransferase (ALT/SGPT) 9, Alkaline Phosphatase 46, Total Protein 6.0L, Albumin 3.7, Globulin 2.3, Albumin/Globulin Ratio 1.6 Height (Feet): 6 Height (Inches): 2.00 Weight (Pounds): 239 General Appearance: no apparent distress Objective no change DEMETRIS KAHN December 01, 2016 11:18
[2016-12-01 11:57] VITALS: BP 103/58
--- NOTE | 2016-12-01 13:08 | Pulmonology Progress Note ---
Assessment/Plan Problems: (1) Seizure disorder (2) Hypocalcemia (3) Hypokalemia (4) Schizo-affective schizophrenia Assessment/Plan electroltyes better no more seizures. dc to boarding care. Subjective ROS Limited/Unobtainable: No Constitutional: Reports: no symptoms HEENT: Repors: no symptoms Respiratory: Reports: no symptoms Allergies: Coded Allergies: No Known Allergies (Unverified , 04/27/13) Objective Last 24 Hour Vital Signs Date Time Temp Pulse Resp B/P Pulse Ox O2 Delivery O2 Flow Rate FiO2 12/01/16 11:57 97.0 63 20 103/58 99 Room Air 12/01/16 08:08 97.2 63 20 101/70 100 Room Air 12/01/16 08:00 82 12/01/16 04:00 98.0 56 21 90/51 98 Room Air 12/01/16 04:00 63 12/01/16 01:11 63 12/01/16 00:00 97.7 61 20 118/67 97 Room Air 11/30/16 20:00 70 11/30/16 20:00 97.5 68 18 104/61 98 Room Air 11/30/16 15:59 98.2 63 21 99/62 98 Room Air 11/30/16 15:07 63 Intake and Output 11/30/16 12/01/16 19:00 07:00 Intake Total 720 ml Output Total 300 ml Balance 420 ml Intake Oral 620 ml IV Total 100 ml Output Urine Total 300 ml # Voids 3 1 General Appearance: WD/WN HEENT: normocephalic, atraumatic Respiratory/Chest: chest wall non-tender, lungs clear, normal breath sounds Cardiovascular: normal peripheral pulses, normal rate Abdomen: normal bowel sounds, soft, non tender Extremities: no cyanosis, no clubbing Skin: no rash 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 Laboratory Tests 12/01/16 05:50: White Blood Count 4.0L, Red Blood Count 4.03L, Hemoglobin 12.4L, Hematocrit 38.2L, Mean Corpuscular Volume 95, Mean Corpuscular Hemoglobin 30.9, Mean Corpuscular Hemoglobin Concent 32.6, Red Cell Distribution Width 12.5, Platelet Count 155, Mean Platelet Volume 8.4, Neutrophils (%) (Auto) 43.3L, Lymphocytes ( %) (Auto) 42.8, Monocytes (%) (Auto) 7.9, Eosinophils (%) (Auto) 5.1H, Basophils (%) (Auto) 0.8, Prothrombin Time 10.8, Prothromb Time International Ratio 1.1, Activated Partial Thromboplast Time 31, Sodium Level 140, Potassium Level 4.3, Chloride Level 101, Carbon Dioxide Level 27, Anion Gap 12, Blood Urea Nitrogen 14, Creatinine 0.8, Estimat Glomerular Filtration Rate > 60, Glucose Level 88, Uric Acid 7.3, Calcium Level 9.1, Phosphorus Level 3.1, Magnesium Level 1.9, Total Bilirubin 0.3, Aspartate Amino Transf (AST/SGOT) 16, Alanine Aminotransferase (ALT/SGPT) 9, Alkaline Phosphatase 46, Total Protein 6.0L, Albumin 3.7, Globulin 2.3, Albumin/Globulin Ratio 1.6 Current Medications Medications (Trade) Dose Ordered Sig/Jonathan Route PRN Reason Start Time Stop Time Status Last Admin Dose Admin Acetaminophen (Tylenol) 650 mg Q4H PRN ORAL fever 11/29/16 22:30 12/29/16 22:29 Dextrose (Dextrose 50%) STAT PRN IV Hypoglycemia 11/29/16 22:30 12/29/16 22:29 Fluoxetine HCl (PROzac) 20 mg DAILY ORAL 11/30/16 09:00 12/30/16 08:59 12/01/16 08:31 Heparin Sodium (Porcine) (Heparin 5000 units/ml) 5,000 units EVERY 12 HOURS SUBQ 11/30/16 09:00 12/30/16 08:59 12/01/16 08:33 Lorazepam (Ativan 2mg/ml 1ml) 2 mg EVERY HOUR PRN IV seizures 11/29/16 22:30 12/06/16 22:29 11/30/16 01:30 Morphine Sulfate (Morphine Sulfate) 1 mg EVERY 4 HOURS PRN IVP For Pain 11/29/16 22:30 12/06/16 22:29 Ondansetron HCl (Zofran) 4 mg Q6H PRN IVP Nausea & Vomiting 11/29/16 22:30 12/29/16 22:29 Polyethylene Glycol (Miralax) 17 gm HSPRN PRN ORAL Constipation 11/29/16 22:30 12/29/16 22:29 Quetiapine Fumarate (SEROquel) 150 mg BEDTIME ORAL 11/30/16 21:00 12/30/16 20:59 11/30/16 22:36 Valproic Acid (Depakene) 750 mg EVERY 12 HOURS ORAL 11/30/16 21:00 12/30/16 20:59 12/01/16 08:31 Zolpidem Tartrate (Ambien) 5 mg HSPRN PRN ORAL Insomnia 11/29/16 22:30 12/29/16 22:29 MARLENY JAIMES December 01, 2016 13:07
[2016-12-01] MEDS ORDERED: Tubing IV Secondary IV ONE (16:04)
[2016-12-01] MEDS ORDERED: NS 275ml ONE (16:04)
[2016-12-01 16:09] VITALS: BP 113/63
--- NOTE | 2016-12-01 20:41 | Electroencephalogram ---
DATE OF TEST: 11/29/2016 REFERRING PHYSICIAN: Faviola Savage M.D. HISTORY: This is a 56-year-old man with a history of transient facial and hand twitching. EEG was obtained to rule out suspected seizure activities. The patient has a chronic seizure disorder. Current treatment include , Seroquel, Ambien, and Tylenol. EEG was done using 18 electrodes placed scalp to scalp, scalp to ear montages according to 10/20 International System. Throughout the recording, background activity consists of well regulated, medium voltage, 8 to 10 cycles per second, alpha activity with good response to physiological stimulation. Photic stimulation from 3 to 32 hertz was done, result no significant changes. No asymmetry from side to side. No spike or wave activities noted. IMPRESSION: Normal awake stage 1 sleep EEG with photic stimulation. COMMENT: Absence of paroxysmal event on a single recording does not rule out seizure disorder. Amol Campoverde M.D. DR: Avi JOB#: [id number] CC:
--- NOTE | 2016-12-02 12:12 | Discharge Summary ---
Discharge Summary Hospital Course Date of Admission November 29, 2016 at 20:46 Date of Discharge December 01, 2016 at 16:05 Admitting Diagnosis HYPOKALEMIA HPI Nakul Espinoza is a 56 year old male who was admitted on November 29, 2016 at 20:46 for Hypokalemia Hospital Course [id number] Discharge Discharge Disposition [facility] was [facility]charge Diagnoses: Elba Garza NP December 02, 2016 12:12
--- NOTE | 2016-12-03 02:46 | Discharge Summary 2 SIG ---
DATE OF ADMISSION: 11/29/2016 DATE OF DISCHARGE: 12/01/2016 CONSULTANTS: 1. Amol Campoverde M.D. 2. Klaudia Little M.D. 3. Clark Foley M.D. BRIEF HOSPITAL COURSE: The patient is a 56-year-old male, who came from [facility] with history of schizophrenia and seizure, who was brought in by ambulance for evaluation of possible seizure. The patient was laying in bed and felt what appeared to be a seizure. He developed a sensation of being oozy and there was some jerking in the left arm, which then switched to the right arm. He was doing weird movements with his mouth and thought that he was going to have seizures, however, he did not. Roommate called 911. He was taken to ED and on evaluation showed a very low calcium of 5.8 and potassium was 2.8. Valproic acid level was 27. Urine toxicology was negative. He has had a chest x-ray that was unremarkable. He was admitted for severe hypocalcemia, hypokalemia and possible seizure. He was seen by Dr. Campoverde. A new onset of involuntary upper extremity and facial twitching resolved. Involuntary movement probably result of significant hypocalcemia. He was continued on Dilantin and was increased to 750 mg b.i.d. with valproic acid 750 mg b.i.d. and p.r.n. Ativan for seizures. Dr. Foley was consulted for evaluation of electrolyte abnormalities. He was given potassium supplements, magnesium supplements, folic acid and calcium gluconate. He was also seen by Dr. Little for psychiatric evaluation and was diagnosed to have a schizophrenia and schizoaffective disorder. Seroquel was increased to 150 mg q.h.s. and was continued with fluoxetine 20 mg daily. An EEG performed showed normal awake stage I cycle. The patient did not have any seizure during inpatient stay. Electrolytes were improved. The patient was eventually discharged back to [facility]. FINAL DIAGNOSES: 1. Seizure disorder. 2. Hypocalcemia. 3. Hypokalemia. 4. Schizoaffective schizophrenia. 5. Subtherapeutic anticonvulsants. Mirali Zarrabi, M.D. I have been assigned to dictate discharge summary on this account and I was not involved in the patient's management. Elba Garza N.P. DR: LIZETH JOB#: [id number] CC: HALINA
== END 2016-12-01 16:05 | disposition home or self-care (01) | DRG 101 ==
LOC: EDBD 18:27 → EDBEDREQSVC 20:21 → EMR 20:43 → 2E 20:46 → EDBEDREQ 21:55 → 2E 11-30 12:41
DX: G40.909 Epilepsy, unspecified, not intractable, without status epilepticus (principal); E83.51 Hypocalcemia; E87.6 Hypokalemia; F25.9 Schizoaffective disorder, unspecified
CPT/HCPCS: 36415; 71010; 80048; 80053; 80164; 80300; 81003; 82330; 83735; 84100; 84443; 84550; 85025; 85610; 85730; 87081; 93306; 93970; 95819; J8499

== ENCOUNTER 2017-03-30 17:43 | Emergency (ER) | payer MEDICARE, OTHER ==
[~2017-03-30] VITALS: Ht 177.8 cm; Wt 72.6 kg
[2017-03-30 17:43] VITALS: BP 101/71
[~2017-03-30 17:43] MED LIST changes: +DEPAKOTE ER500 MG ORAL; +FLUOXETINE HCL20 MG ORAL; +QUETIAPINE FUMA50 MG ORAL
[2017-03-30] MEDS ORDERED: cefTRIAXone 1 GM in NS 55 ML IVPB ONE (18:15)
[2017-03-30 18:33] LABS: BASOPHILS % (AUTO) 1.1 % (0.0-2.0); EOSINOPHILS % (AUTO) 1.8 % (0.0-3.0); LYMPHOCYTES % (AUTO) 12.3 % (20.0-45.0); MEAN CORPUSCULAR HEMOGLOBIN 33.5 PG (27.0-31.0); MEAN CORPUSCULAR HGB CONC 34.1 G/DL (32.0-36.0); MEAN CORPUSCULAR VOLUME 98 FL (80-99); MEAN PLATELET VOLUME 8.2 FL (6.5-10.1); MONOCYTES % (AUTO) 9.8 % (1.0-10.0); NEUTROPHILS % (AUTO) 74.9 % (45.0-75.0); PLATELET COUNT 154 K/UL (150-450); RED BLOOD COUNT 3.22 M/UL (4.70-6.10); RED CELL DISTRIBUTION WIDTH 12.3 % (11.6-14.8); WHITE BLOOD COUNT 7.4 K/UL (4.8-10.8)
[2017-03-30 19:12] VITALS: BP 104/60
[2017-03-30 19:13] LABS: ALANINE AMINOTRANSFERASE 9 U/L (3-41); ALBUMIN/GLOBULIN RATIO 1.3 (1.0-2.7); ALCOHOL < 10 mg/dL; ANION GAP 10 (5-15); ASPARTATE AMINO TRANSFERASE 18 U/L (5-40); CALCIUM 8.2 mg/dL (8.6-10.2); CARBON DIOXIDE 29 mEQ/L (20-30); CHLORIDE 102 mEQ/L (98-107); CREATININE 1.1 mg/dL (0.7-1.2); GLOMERULAR FILTRATION RATE > 60 mL/min (>60); HEMOLYSIS 10; POTASSIUM 4.5 mEQ/L (3.4-4.9); SODIUM 141 mEQ/L (135-145); TOTAL PROTEIN 5.6 g/dL (6.6-8.7)
[2017-03-30 19:46] LABS: REFLEX LACTIC ACID YES OR NO YES
[2017-03-30 21:12] VITALS: BP 109/68
[2017-03-30] MEDS ORDERED: KEFLEX500 MG ORAL (21:31)
[2017-03-30 23:12] VITALS: BP 101/58
[2017-03-31 01:12] VITALS: BP 104/54
[2017-03-31 02:30] VITALS: BP 104/54
--- NOTE | 2017-04-01 02:17 | Emergency Room Report ---
History of Present Illness General Chief Complaint: Seizure Source: Patient, EMS Present Illness HPI Patient is a 57-year-old male who presented after increased seizure activity. Patient prior history of seizure disorder. He does not recall he medications are. Patient had history of partial seizures. He reports having increased pain to his right lower extremity which he noticed some redness. He denied severe headache. Allergies: Coded Allergies: No Known Allergies (Unverified , 04/27/13) Patient History Reviewed Nursing Documentation: PMH: Agreed, PSxH: Agreed Nursing Documentation-PMH Hx Cardiac Problems: No Hx Cancer: No Hx Gastrointestinal Problems: No History Of Psychiatric Problem: Yes Hx Neurological Problems: Yes Hx Seizures: Yes Review of Systems All Other Systems: negative except mentioned in HPI Physical Exam Vital Signs Date Time Temp Pulse Resp B/P (MAP) Pulse Ox O2 Delivery O2 Flow Rate FiO2 03/30/17 17:34 97.7 92 16 99/63 98 Room Air Sp02 EP Interpretation: reviewed, normal General Appearance: normal inspection, well appearing, no apparent distress, alert, GCS 15 Head: atraumatic ENT: normal ENT inspection, hearing grossly normal, normal voice Neck: normal inspection, full range of motion, supple, no bony tend Respiratory: normal inspection, lungs clear, normal breath sounds, no respiratory distress, no retraction, no wheezing Cardiovascular #1: regular rate, rhythm, no edema Gastrointestinal: normal inspection, normal bowel sounds, non tender, soft, no guarding, no hernia Genitourinary: no CVA tenderness Musculoskeletal: normal inspection, back normal, normal range of motion Neurologic: normal inspection, alert, oriented x3, responsive, 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 Differential diagnosis included cysticercosis, electrolyte abnormality, mass lesion, or cranial hemorrhage. Because of complexity of patient's case laboratory testing and imaging studies were ordered. The patient was noted to have unremarkable laboratory testing. Levels were ordered of multiple medications because of unknown medications for seizures. Patient was given IV antibiotics for right leg cellulitis. Given prescription for Keflex. Patient is advised to have wound rechecked. Patient was sent back to his facility.Patient will need to be rechecked in 2-3 days. Last Vital Signs Date Time Temp Pulse Resp B/P (MAP) Pulse Ox O2 Delivery O2 Flow Rate FiO2 03/31/17 02:30 97.7 83 15 104/54 99 Room Air Disposition: HOME, SELF-CARE Condition: Stable Scripts Cephalexin* (KEFLEX*) 500 Mg Capsule 500 MG ORAL EVERY 6 HOURS, #28 CAP 0 Refills Prov: Konrad Almodovar 03/30/17 Patient Instructions: Cellulitis, Seizure, Adult Konrad Almodovar Apr 01, 2017 02:17
== END 2017-03-31 02:30 | disposition home or self-care (01) ==
LOC: EDBD 17:43 → EMR 19:26
DX: G40.909 Epilepsy, unspecified, not intractable, without status epilepticus (principal); L03.115 Cellulitis of right lower limb
CPT/HCPCS: 36415; 80053; 80184; 80185; 82962; 83605; 85025; 87040; 96365; 99284; G0480; J0696; 80329

== ENCOUNTER 2017-04-10 17:36 | Emergency (ER) | payer MEDICARE, OTHER ==
[~2017-04-10] VITALS: Ht 180.3 cm; Wt 86.2 kg
[~2017-04-10 17:36] MED LIST changes: +KEFLEX500 MG ORAL
[2017-04-10] MEDS ORDERED: DILANTIN100 MG ORAL (17:39)
[2017-04-10] MEDS ORDERED: CLOZARIL25 MG ORAL (17:39)
[2017-04-10] MEDS ORDERED: ABILIFY2 MG ORAL (17:39)
[2017-04-10 19:10] VITALS: BP 120/71
[2017-04-10] MEDS ORDERED: BACTRIM DS TAB1 EAC1 ORAL (19:24)
[2017-04-10] MEDS ORDERED: LORazepam Inj 2mg/ml 1ml IV ONE (19:30)
[2017-04-10] MEDS ORDERED: Bactrim DS (160mg/800mg) tab ORAL ONE (19:30)
[2017-04-10 20:11] VITALS: BP 129/61
[2017-04-10 20:14] VITALS: BP 129/61
--- NOTE | 2017-04-10 21:42 | Emergency Room Report ---
History of Present Illness General Chief Complaint: Seizure Source: Patient, Medical Record, EMS Present Illness HPI [id number] sent from SNF for "pseudo-seizures" per RN. No other info from EMS and SNF as to why patient would be sent for pseudo-seizures. Review of EMR shows multiple visits for similar, questionable seizure disorder Patient has been on multiple anti-epileptics Today he states he is compliant with only depakote TID and he took the 3 doses already today prior to ED arrival During HPI, patient states "look I'm having a seizure" and then makes a unilateral one arm jerk motion for 1-2 seconds and then comes back to talking with me without any post-ictal period He otherwise denies headache, SOB, chest pain, abd pain He also endorses he is on Abx for "rash" on his right lower leg. EMR shows on previous visit he was given keflex for cellulitis of right lower extremity. Allergies: Coded Allergies: No Known Allergies (Unverified , 04/27/13) Patient History Past Medical History: seizures Past Surgical History: unable to obtain Pertinent Family History: unable to obtain Social History: Denies: smoking, alcohol use, drug use Immunizations: UTD Reviewed Nursing Documentation: PMH: Agreed, PSxH: Agreed Nursing Documentation-PMH Hx Cardiac Problems: No Hx Cancer: No Hx Gastrointestinal Problems: No Hx Neurological Problems: Yes Hx Seizures: Yes Review of Systems All Other Systems: negative except mentioned in HPI Physical Exam Vital Signs Date Time Temp Pulse Resp B/P (MAP) Pulse Ox O2 Delivery O2 Flow Rate FiO2 04/10/17 17:36 98.1 84 20 118/66 99 Room Air Sp02 EP Interpretation: reviewed, normal General Appearance: normal inspection, well appearing, no apparent distress, alert, GCS 15, non-toxic Head: normocephalic, atraumatic Eyes: bilateral eye PERRL, bilateral eye EOMI ENT: normal ENT inspection, hearing grossly normal, normal voice Neck: normal inspection, full range of motion, supple, no bony tend Respiratory: normal inspection, lungs clear, normal breath sounds, no respiratory distress, no retraction, no wheezing Cardiovascular #1: regular rate, rhythm, no edema Gastrointestinal: normal inspection, normal bowel sounds, non tender, soft, no guarding, no hernia Genitourinary: no CVA tenderness Musculoskeletal: normal inspection, back normal, normal range of motion, Joshua' s Sign negative, other - Right lower extremity: anterior suárez, 4cm area of erythema, warmth and 1/2cm area of necrotic tissue on erythema. 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 No post-ictal period. Likely pseudoseizure but actually seems also like a tic He was given 1mg ativan for the tic and muscle spasm He has continued right lower leg cellulitis. because of the 1/2cm small area of necrotic tissue on the cellulitis, will start patient on Bactrim to cover possible MRSA. Initial PO dose given in ED Patient is otherwise not septic, well-appearing and does not require admission for IV Abx at this time DC back to SNF Last Vital Signs Date Time Temp Pulse Resp B/P (MAP) Pulse Ox O2 Delivery O2 Flow Rate FiO2 04/10/17 20:14 82 16 129/61 100 Room Air 04/10/17 20:11 98.0 Status: improved Disposition: XFER SNF Condition: Improved Scripts Trimethoprim/Sulfamethoxazole 160/800* (BACTRIM DS TABLET*) 1 Each Tablet 1 TAB ORAL Q12H for 7 Days, #13 TAB 0 Refills Prov: CHAY TY M.D. 04/10/17 Patient Instructions: Cellulitis, [id number] Additional Instructions: - Take ALL Bactrim for right leg cellulitis CHAY TY M.D. Apr 10, 2017 21:42
== END 2017-04-10 20:15 ==
LOC: EDBD 17:36 → EMR 18:09
DX: L03.115 Cellulitis of right lower limb (principal); G40.89 Other seizures
CPT/HCPCS: 96374; 99284

== ENCOUNTER 2017-06-13 19:06 | Emergency (ER) | payer MEDICARE, OTHER ==
[~2017-06-13] VITALS: Ht 175.3 cm; Wt 72.6 kg
[~2017-06-13 19:06] MED LIST changes: +ABILIFY2 MG ORAL; +BACTRIM DS TAB1 EAC1 ORAL; +CLOZARIL25 MG ORAL; +DILANTIN100 MG ORAL
--- NOTE | 2017-06-13 19:09 | Emergency Room Report ---
History of Present Illness General Source: Patient, Medical Record, EMS Present Illness HPI 57-year-old male brought in by EMS with questionable seizure activity. Patient has history of seizure-like activity versus pseudoseizures states compliant with Depakote Per EMS episode lasted about 5 minutes however and there is no postictal period patient did not require additional antiseizure medication On encounter, no signs of trauma Per EMR patient has been in multiple times for similar I have seen patient in ER for this as well, complains of seizure-like activity, states he is having a seizure while still conversant with provider Allergies: Coded Allergies: No Known Allergies (Unverified , 04/27/13) Patient History Past Medical History: seizures, psych hx Past Surgical History: none Pertinent Family History: none Social History: Denies: alcohol use, drug use Immunizations: UTD Reviewed Nursing Documentation: PMH: Agreed, PSxH: Agreed Nursing Documentation-PMH Hx Cardiac Problems: No Hx Cancer: No Hx Gastrointestinal Problems: No Hx Neurological Problems: Yes Hx Seizures: Yes Review of Systems All Other Systems: negative except mentioned in HPI Physical Exam Sp02 EP Interpretation: reviewed, normal General Appearance: normal inspection, well appearing, no apparent distress, alert, GCS 15, non-toxic, other - not postictal Head: normocephalic, atraumatic Eyes: bilateral eye PERRL, bilateral eye EOMI ENT: normal ENT inspection, hearing grossly normal, normal voice Neck: normal inspection, full range of motion, supple, no bony tend Respiratory: normal inspection, lungs clear, normal breath sounds, no respiratory distress, no retraction, no wheezing Cardiovascular #1: regular rate, rhythm, no edema Gastrointestinal: normal inspection, normal bowel sounds, non tender, soft, no guarding, no hernia Genitourinary: no CVA tenderness Musculoskeletal: normal inspection, back normal, normal range of motion, Joshua' s Sign negative Neurologic: normal inspection, alert, oriented x3, responsive, scientific advisor III-XII nml as tested, speech normal Psychiatric: normal inspection, judgement/insight normal, mood/affect normal Skin: normal inspection, normal color, no rash Medical Decision Making Diagnostic Impression: Primary Impression: Seizure-like activity Additional Impression: Pseudoseizure ER Course Patient placed in stretcher, immediately went to sleep Known seizure-like activity and pseudoseizures Vital signs stable Per review of medications from [facility] house patient is compliant with Depakote No additional seizures in the ER DC home Status: improved Disposition: HOME, SELF-CARE CH[facility] TY M.D. Jun 13, 2017 19:09
[2017-06-13 19:16] VITALS: BP 107/70
[2017-06-13 20:40] VITALS: BP 111/73
== END 2017-06-13 20:40 | disposition home or self-care (01) ==
LOC: EDBD 19:06 → EMR 19:30
DX: R56.9 Unspecified convulsions (principal)
CPT/HCPCS: 99283

== ENCOUNTER 2017-10-24 16:14 | Emergency (ER) | payer MEDICARE, MEDICAID ==
[~2017-10-24] VITALS: Ht 172.7 cm; Wt 86.2 kg
--- NOTE | 2017-10-24 16:38 | Diagnostic Imaging Report ---
Indication: Chest pain Comparison: 11/30/2016 A single view chest radiograph was obtained. Findings: Cardiomediastinal appearance is within normal limits for age. Pulmonary vascularity is appropriate. The diaphragmatic contour is smooth and costophrenic angles are sharp. No pleural effusions are identified. The bones are unremarkable. Impression: No acute findings
--- NOTE | 2017-10-24 16:44 | Emergency Room Report ---
History of Present Illness General Chief Complaint: Seizure Source: Patient Present Illness HPI 57-year-old male, history of seizure, schizophrenia p/w seizure. Patient had witnessed seizure, generalized tonic clonic, Did not hit head on ground Patient states that staff was trying to remove right ring, however pain was so severe, states that it triggered his seizure Patient has been compliant with medication. No recent fever, chills, chest pain, sob, cough, n/v/d, abdominal pain. Denies hx of alcohol abuse or any drug abuse. Currently denying KEEN, neck pain, blurry vision, motor or sensory weakness. Allergies: Coded Allergies: No Known Allergies (Unverified , 04/27/13) Patient History Past Medical History: see triage record Past Surgical History: none Pertinent Family History: none Reviewed Nursing Documentation: PMH: Agreed; PSxH: Agreed Nursing Documentation-PMH Past Medical History: No History, Except For Hx Cardiac Problems: No Hx Cancer: No Hx Gastrointestinal Problems: No History Of Psychiatric Problem: Yes - Schizophrenia Hx Neurological Problems: Yes Hx Seizures: Yes Review of Systems All Other Systems: negative except mentioned in HPI Physical Exam Vital Signs Date Time Temp Pulse Resp B/P (MAP) Pulse Ox O2 Delivery O2 Flow Rate FiO2 10/24/17 16:14 99.1 72 16 110/74 99 Room Air 99.1 Sp02 EP Interpretation: reviewed, normal General Appearance: alert, GCS 15, non-toxic, moderate distress Head: normocephalic, atraumatic Eyes: bilateral eye normal inspection, bilateral eye PERRL, bilateral eye EOMI ENT: normal ENT inspection, normal pharynx, normal voice, moist mucus membranes Neck: normal inspection, full range of motion, supple Respiratory: normal inspection, lungs clear, normal breath sounds, no respiratory distress, no retraction, no wheezing, speaking full sentences, chest symmetrical Cardiovascular #1: normal inspection, regular rate, rhythm, no edema, normal capillary refill Cardiovascular #2: 2+ radial (R), 2+ radial (L) Gastrointestinal: normal inspection, non tender, soft, non-distended, no guarding Genitourinary: no CVA tenderness Musculoskeletal: other - Right ring finger swelling, tenderness, edema, ring is stuck Neurologic: normal inspection, alert, oriented x3, responsive, motor strength/ tone normal, sensory intact, normal gait, speech normal Psychiatric: normal inspection, judgement/insight normal, memory normal Skin: normal inspection, normal color, no rash, warm/dry, well hydrated, normal turgor Procedures Additional Procedure Procedure Narrative Procedure: Ring removal of right ring finger Lidocaine use, digital block, manual removal Patient tolerated procedure well No complications Medical Decision Making Diagnostic Impression: Primary Impression: Seizure disorder Additional Impression: H/O retained foreign body fully removed ER Course 57-year-old male with p/w seizure Also with ring being stuck on ring finger DDX: Primary seizure, triggered by infection UTI/PNA vs. dehydration vs. medication non compliance Electrolyte disturbance: hypoglycemia vs. hyponatremia vs. hypocalcemia vs. hypomagnesemia Cardiac: Arrythmia/acs Intracranial pathology: intracranial bleed, stroke Tox Plan: EKG Labs, seizure medication levels, tox labs Will hold CT, patient and no 4 no neurological signs or symptoms Will also remove right ring ER course: No further seizures in ED Has been stable during ED stay. AOx4, no neurological signs or symptoms Disposition: Patient will be discharged to home. Patient instructed to be compliant with anti seizure medications Patient is to follow up with their primary care doctor in 5 days and neurologist within 1 week. Strict return precautions discussed such as severe headache, fever, chills, neck pain, prolonged or increased frequency of seizures. Patient verbalized understanding and agrees with plan. EKG Diagnostic Results EP Interpretation: Yes Rate: normal Rhythm: NSR ST Segments: No acute changes ASA given to patient: No Rhythm Strip EP Interpretation: Yes Rate: 70 Rhythm: NSR, no PVCs, no ectopy Chest X-ray CXR: Ordered: Yes 1 view Indication: Seizure EP interpretation: Yes Interpretation: No consolidation, no effusion, no PTX, no acute cardiopulmonary disease Impression: No acute disease Electronically signed by Lora Quinn MD Laboratory Tests Test 10/24/17 16:54 White Blood Count 4.6 K/UL (4.8-10.8) L Red Blood Count 3.69 M/UL (4.70-6.10) L Hemoglobin 11.6 G/DL (14.2-18.0) L Hematocrit 34.6 % (42.0-52.0) L Mean Corpuscular Volume 94 FL (80-99) Mean Corpuscular Hemoglobin 31.5 PG (27.0-31.0) H Mean Corpuscular Hemoglobin Concent 33.7 G/DL (32.0-36.0) Red Cell Distribution Width 12.8 % (11.6-14.8) Platelet Count 141 K/UL (150-450) L Mean Platelet Volume 7.4 FL (6.5-10.1) Neutrophils (%) (Auto) 51.7 % (45.0-75.0) Lymphocytes (%) (Auto) 34.7 % (20.0-45.0) Monocytes (%) (Auto) 8.8 % (1.0-10.0) Eosinophils (%) (Auto) 3.3 % (0.0-3.0) H Basophils (%) (Auto) 1.5 % (0.0-2.0) Sodium Level 140 MMOL/L (136-145) Potassium Level 4.5 MMOL/L (3.5-5.1) Chloride Level 105 MMOL/L (98-107) Carbon Dioxide Level 29 MMOL/L (21-32) Anion Gap 6 mmol/L (5-15) Blood Urea Nitrogen 17 mg/dL (7-18) Creatinine 0.9 MG/DL (0.55-1.30) Estimate Glomerular Filtration Rate > 60 mL/min (>60) Glucose Level 99 MG/DL (74-106) Calcium Level 8.3 MG/DL (8.5-10.1) L Total Bilirubin 0.3 MG/DL (0.2-1.0) Aspartate Amino Transferase (AST) 34 U/L (15-37) Alanine Aminotransferase (ALT) 18 U/L (12-78) Alkaline Phosphatase 51 U/L (46-116) Total Creatine Kinase 1350 U/L (26-308) H Troponin I 0.000 ng/mL (0.000-0.056) Total Protein 6.5 G/DL (6.4-8.2) Albumin 3.2 G/DL (3.4-5.0) L Globulin 3.3 g/dL Albumin/Globulin Ratio 1.0 (1.0-2.7) Salicylates Level 0.8 ug/mL (2.8-20) L Acetaminophen Level < 2 MCG/ML (10-30) L Phenytoin (Dilantin) Level < 0.4 ug/mL (10-20) L Serum Alcohol < 3 mg/dL Last Vital Signs Date Time Temp Pulse Resp B/P (MAP) Pulse Ox O2 Delivery O2 Flow Rate FiO2 10/24/17 16:14 99.1 72 16 110/74 99 Room Air 99.1 Lora Quinn M.D. Oct 24, 2017 16:44
[2017-10-24] MEDS ORDERED: Lidocaine 1% Plain 30 ml INJ ONE (16:45)
[2017-10-24 17:02] VITALS: BP 123/61
[2017-10-24] MEDS ORDERED: Morphine Sulfate 4mg/ml Inj IVP ONE ×2 (17:15→18:00)
[2017-10-24 17:32] LABS: ANION GAP 6 mmol/L (5-15); BLOOD UREA NITROGEN 17 mg/dL (7-18); CALCIUM 8.3 MG/DL (8.5-10.1); CARBON DIOXIDE 29 MMOL/L (21-32); CHLORIDE 105 MMOL/L (98-107); CREATININE 0.9 MG/DL (0.55-1.30); POTASSIUM 4.5 MMOL/L (3.5-5.1); SODIUM 140 MMOL/L (136-145)
[2017-10-24 17:33] LABS: BASOPHILS % (AUTO) 1.5 % (0.0-2.0); EOSINOPHILS % (AUTO) 3.3 % (0.0-3.0); HEMATOCRIT 34.6 % (42.0-52.0); HEMOGLOBIN 11.6 G/DL (14.2-18.0); LYMPHOCYTES % (AUTO) 34.7 % (20.0-45.0); MEAN CORPUSCULAR VOLUME 94 FL (80-99); MONOCYTES % (AUTO) 8.8 % (1.0-10.0); NEUTROPHILS % (AUTO) 51.7 % (45.0-75.0); PLATELET COUNT 141 K/UL (150-450); RED BLOOD COUNT 3.69 M/UL (4.70-6.10); RED CELL DISTRIBUTION WIDTH 12.8 % (11.6-14.8); WHITE BLOOD COUNT 4.6 K/UL (4.8-10.8)
[2017-10-24 17:45] LABS: ALANINE AMINOTRANSFERASE 18 U/L (12-78); ALBUMIN 3.2 G/DL (3.4-5.0); ALKALINE PHOSPHATASE 51 U/L (46-116); ASPARTATE AMINO TRANSFERASE 34 U/L (15-37); BILIRUBIN,TOTAL 0.3 MG/DL (0.2-1.0); CREATINE KINASE 1350 U/L (26-308)
[2017-10-24] MEDS ORDERED: Lidocaine HCl 2% Jelly 5ml Tube TOPIC ONE (18:00)
[2017-10-24] MEDS ORDERED: LORazepam Inj 2mg/ml 1ml IV ONE (18:00)
[2017-10-24 19:20] VITALS: BP 125/84
[2017-10-24 19:47] LABS: APPEARANCE,URINE CLEAR; BILIRUBIN, URINE NEGATIVE (NEGATIVE); GLUCOSE, URINE (UA) NEGATIVE (NEGATIVE); KETONES,URINE 1+ (NEGATIVE); LEUKOCYTE ESTERASE ,URINE 1+ (NEGATIVE); NITRITE,URINE NEGATIVE (NEGATIVE); PH,URINE 7 (4.5-8.0); PROTEIN,URINE NEGATIVE (NEGATIVE); UROBILINOGEN,URINE NORMAL MG/DL (0.0-1.0)
[2017-10-24 19:49] LABS: COLOR,URINE YELLOW
[2017-10-24 20:35] VITALS: BP 111/69
[2017-10-24 20:40] VITALS: BP 111/69
--- NOTE | 2017-10-25 16:25 | Cardiology Report ---
APPROVED REPORT EKG Measurement Heart [id number] Normal sinus rhythm Normal ECG
== END 2017-10-24 20:40 | disposition home or self-care (01) ==
LOC: EDBD 16:14 → EMR 16:39
DX: G40.409 Other generalized epilepsy and epileptic syndromes, not intractable, without status epilepticus (principal); S60.454A Superficial foreign body of right ring finger, initial encounter; X58.XXXA Exposure to other specified factors, initial encounter; Y92.9 Unspecified place or not applicable; F20.9 Schizophrenia, unspecified
CPT/HCPCS: 36415; 71045; 80053; 80164; 80185; 80307; 81003; 82550; 82962; 84484; 85025; 93005; 96374; 96375; 99284; G0480; J2001; J2270; 80329

== ENCOUNTER 2019-01-28 13:41 | Inpatient (IN) | payer MEDICARE, MEDICAID ==
[~2019-01-28] VITALS: Ht 182.9 cm; Wt 99.8 kg
--- NOTE | 2019-01-28 13:53 | NUR ---
ED Nurse Note: PT [facility] DUE TO GENERALIZED BODY PAIN. NO APARRENT TRAUMA. PT HAS HX OD MENTAL DISABILITY AND PARKINSONS DISEASE. NOTED RIGHT HAND SHAKING. PER EMS, PT WAS FAKING A SEIZURE EN ROUTE. AAO X4, FOLLOWS COMMANDS WITH NON LABORED BREATHING. VSS.
[2019-01-28] MEDS ORDERED: Morphine Sulfate 2mg/ml Inj(IV/IM USE ONLY) IVP ONE (14:15)
--- NOTE | 2019-01-28 14:16 | Emergency Room Report ---
History of Present Illness General Chief Complaint: Pain Source: Patient, EMS Present Illness HPI The patient was brought in by EMS. They claim that he has pain for 6 months and decided to call today. The patient reports that he has chest pain and headache. Is worse today. He states he had a seizure yesterday. He takes valproic acid and Dilantin. He believes he is taking his medication but is not sure. He does have occasional seizures but cannot recall the last time he had one. He denies any oral trauma or pain in his back or extremities. The patient states that his Parkinson's disease is out of control. He does take medication for this. He has tremors frequently. The patient also is on Seroquel. The patient states he vomited yesterday. He does not feel nauseated now. He also had diarrhea. This is not an infrequent problem for him. He reports multiple colors of the diarrhea however no melena. Occasionally he states there is some red diarrhea. He does not believe it is blood. The patient denies dysuria or joint pain. Allergies: Coded Allergies: No Known Allergies (Unverified , 04/27/13) Patient History Past Medical History: see triage record Social History: Denies: smoking, alcohol use, drug use Social History Narrative SNF Reviewed Nursing Documentation: PMH: Agreed; PSxH: Agreed Nursing Documentation-PMH Hx Cardiac Problems: No Hx Cancer: No Hx Gastrointestinal Problems: No Hx Neurological Problems: Yes Hx Seizures: Yes Review of Systems All Other Systems: negative except mentioned in HPI Physical Exam Vital Signs Date Time Temp Pulse Resp B/P (MAP) Pulse Ox O2 Delivery O2 Flow Rate FiO2 01/28/19 13:43 98.1 105 16 134/65 (88) 96 Room Air Sp02 EP Interpretation: reviewed, normal General Appearance: alert, non-toxic, Chronically Ill Head: normocephalic, atraumatic Eyes: bilateral eye normal inspection, bilateral eye PERRL, bilateral eye EOMI ENT: moist mucus membranes - No lingual trauma, poor dentition, underbite Neck: supple Respiratory: chest non-tender, lungs clear, normal breath sounds Cardiovascular #1: regular rate, rhythm, edema - Trace bilaterally Cardiovascular #2: 2+ radial (R) Gastrointestinal: normal inspection, normal bowel sounds, non tender, no mass, non-distended, overweight Genitourinary: no CVA tenderness Musculoskeletal: back normal, other - No deformity or joint pain Neurologic: emotionally impaired teacher III-XII nml as tested, motor strength/tone normal, DTRs symmetric - brisk, sensory intact, speech normal, other - Resting tremors, oriented - X2 Psychiatric: mood/affect normal - Flat affect Skin: no rash Medical Decision Making Diagnostic Impression: Primary Impression: Chest pain Qualified Codes: R07.9 - Chest pain, unspecified Additional Impressions: Subtherapeutic serum dilantin level Parkinson's disease ER Course The patient presents with increased chest pain and headache with a history of having a seizure yesterday. Differential includes subtherapeutic antiepileptics , breakthrough seizure, to light imbalance, acute myocardial infarction amongst others. The patient will be evaluated with EKG, chest x-ray and labs. Antiepileptic medication levels will be checked. Patient is placed on a classroom monitor. The patient will receive gentle IV hydration. EKG with sinus rhythm and normal EKG. Chest x-ray no infiltrates. Labs with low valproic acid and no Dilantin. CBC and CMP unremarkable. Urinalysis clear. Patient is given IV Dilantin as well as oral Depakote. Patient needs observation for uncontrolled seizures and subtherapeutic anticonvulsant levels. In addition he is repeat troponins as these had chest pain. It may be helpful to undergo a neurologic evaluation for the effectiveness of treatment of his Parkinson's disease. Laboratory Tests Test 01/28/19 14:15 01/28/19 15:15 White Blood Count 5.2 K/UL (4.8-10.8) Red Blood Count 3.99 M/UL (4.70-6.10) L Hemoglobin 12.3 G/DL (14.2-18.0) L Hematocrit 37.1 % (42.0-52.0) L Mean Corpuscular Volume 93 FL (80-99) Mean Corpuscular Hemoglobin 30.8 PG (27.0-31.0) Mean Corpuscular Hemoglobin Concent 33.1 G/DL (32.0-36.0) Red Cell Distribution Width 13.2 % (11.6-14.8) Platelet Count 127 K/UL (150-450) L Mean Platelet Volume 8.2 FL (6.5-10.1) Neutrophils (%) (Auto) 65.5 % (45.0-75.0) Lymphocytes (%) (Auto) 22.1 % (20.0-45.0) Monocytes (%) (Auto) 9.0 % (1.0-10.0) Eosinophils (%) (Auto) 2.4 % (0.0-3.0) Basophils (%) (Auto) 1.0 % (0.0-2.0) Prothrombin Time 10.9 SEC (9.30-11.50) Prothrombin Time INR 1.0 (0.9-1.1) PTT 26 SEC (23-33) Sodium Level 138 MMOL/L (136-145) Potassium Level 4.8 MMOL/L (3.5-5.1) Chloride Level 102 MMOL/L (98-107) Carbon Dioxide Level 30 MMOL/L (21-32) Anion Gap 6 mmol/L (5-15) Blood Urea Nitrogen 17 mg/dL (7-18) Creatinine 0.8 MG/DL (0.55-1.30) Estimate Glomerular Filtration Rate > 60 mL/min (>60) Glucose Level 83 MG/DL (74-106) Lactic Acid Level 1.50 mmol/L (0.4-2.0) Calcium Level 8.4 MG/DL (8.5-10.1) L Total Bilirubin 0.4 MG/DL (0.2-1.0) Aspartate Amino Transferase (AST) 31 U/L (15-37) Alanine Aminotransferase (ALT) 14 U/L (12-78) Alkaline Phosphatase 45 U/L (46-116) L Total Creatine Kinase 308 U/L (26-308) Troponin I 0.000 ng/mL (0.000-0.056) Pro-B-Type Natriuretic Peptide 71 pg/mL (0-125) Total Protein 6.3 G/DL (6.4-8.2) L Albumin 3.6 G/DL (3.4-5.0) Globulin 2.7 g/dL Albumin/Globulin Ratio 1.3 (1.0-2.7) Lipase 106 U/L (73-393) Thyroid Stimulating Hormone (TSH) 1.281 uiU/mL (0.358-3.740) Phenytoin (Dilantin) Level < 0.5 ug/mL (10-20) L Valproic Acid Level 38 MCG/ML (50-100) L Urine Color Pale yellow Urine Appearance Clear Urine pH 6.5 (4.5-8.0) Urine Specific [place] 1.010 (1.005-1.035) Urine Protein Negative (NEGATIVE) Urine Glucose (UA) Negative (NEGATIVE) Urine Ketones Negative (NEGATIVE) Urine Blood Negative (NEGATIVE) Urine Nitrite Negative (NEGATIVE) Urine Bilirubin Negative (NEGATIVE) Urine Urobilinogen Normal MG/DL (0.0-1.0) Urine Leukocyte Esterase Negative (NEGATIVE) EKG Diagnostic Results Rate: normal Rhythm: NSR ST Segments: no acute changes Rhythm Strip Diag. Results EP Interpretation: yes Rhythm: NSR, no PVC's, no ectopy Chest X-Ray Diagnostic Results Chest X-Ray Diagnostic Results : Chest X-Ray Ordered: Yes # of Views/Limited/Complete: 1 View Indication: Chest Pain EP Interpretation: Yes Interpretation: no consolidation, no effusion, no pneumothorax Impression: No acute disease Electronically Signed by: Electronically signed by Eder Conn MD Last Vital Signs Date Time Temp Pulse Resp B/P (MAP) Pulse Ox O2 Delivery O2 Flow Rate FiO2 01/29/19 00:00 97.6 85 18 96/57 (70) 99 01/28/19 21:00 Room Air Status: improved Disposition: PLACE IN OBSERVATION Condition: Serious Eder Conn MD Jan 28, 2019 14:16
[2019-01-28 14:23] LABS: EOSINOPHILS % (AUTO) 2.4 % (0.0-3.0); HEMATOCRIT 37.1 % (42.0-52.0); HEMOGLOBIN 12.3 G/DL (14.2-18.0); LYMPHOCYTES % (AUTO) 22.1 % (20.0-45.0); MEAN CORPUSCULAR VOLUME 93 FL (80-99); NEUTROPHILS % (AUTO) 65.5 % (45.0-75.0); PLATELET COUNT 127 K/UL (150-450); RED BLOOD COUNT 3.99 M/UL (4.70-6.10); RED CELL DISTRIBUTION WIDTH 13.2 % (11.6-14.8); WHITE BLOOD COUNT 5.2 K/UL (4.8-10.8)
[2019-01-28 14:26] VITALS: BP 111/93
--- NOTE | 2019-01-28 14:26 | NUR ---
ED Nurse Note: COLLECTED BLOOD THEN SENT.
--- NOTE | 2019-01-28 14:30 | NUR ---
ED Nurse Note: AUDIO NARRATOR AT THE BED SIDE FOR CXR.
[2019-01-28 14:37] LABS: ANION GAP 6 mmol/L (5-15); BLOOD UREA NITROGEN 17 mg/dL (7-18); CALCIUM 8.4 MG/DL (8.5-10.1); CARBON DIOXIDE 30 MMOL/L (21-32); CHLORIDE 102 MMOL/L (98-107); CREATININE 0.8 MG/DL (0.55-1.30); POTASSIUM 4.8 MMOL/L (3.5-5.1); SODIUM 138 MMOL/L (136-145)
[2019-01-28] MEDS ORDERED: Phenytoin 500 MG in NS 110 ML IVPB STA (14:44)
[2019-01-28] MEDS ORDERED: Depakote 500mg tab ORAL ONE (14:45)
[2019-01-28 14:48] LABS: ALANINE AMINOTRANSFERASE 14 U/L (12-78); ALBUMIN 3.6 G/DL (3.4-5.0); ALBUMIN/GLOBULIN RATIO 1.3 (1.0-2.7); ALKALINE PHOSPHATASE 45 U/L (46-116); ASPARTATE AMINO TRANSFERASE 31 U/L (15-37); BILIRUBIN,TOTAL 0.4 MG/DL (0.2-1.0); CREATINE KINASE 308 U/L (26-308)
[2019-01-28] MEDS ORDERED: Miralax 17gm pkt ORAL PRN (15:15)
[2019-01-28] MEDS ORDERED: Dextrose 50% 25ml Syringe IV PRN (15:15)
[2019-01-28] MEDS ORDERED: Zolpidem 5mg tab ORAL PRN (15:15)
[2019-01-28] MEDS ORDERED: LORazepam Inj 2mg/ml 1ml IV PRN (15:15)
[2019-01-28] MEDS ORDERED: Morphine Sulfate 2mg/ml Inj(IV/IM USE ONLY) IVP PRN (15:15)
--- NOTE | 2019-01-28 15:20 | NUR ---
ED Nurse Note: COLLECTED URINE THEN SENT.
[2019-01-28 15:26] LABS: APPEARANCE,URINE CLEAR; BILIRUBIN, URINE NEGATIVE (NEGATIVE); COLOR,URINE PALE YELLOW; GLUCOSE, URINE (UA) NEGATIVE (NEGATIVE); KETONES,URINE NEGATIVE (NEGATIVE); LEUKOCYTE ESTERASE ,URINE NEGATIVE (NEGATIVE); NITRITE,URINE NEGATIVE (NEGATIVE); PH,URINE 6.5 (4.5-8.0); PROTEIN,URINE NEGATIVE (NEGATIVE); UROBILINOGEN,URINE NORMAL MG/DL (0.0-1.0)
--- NOTE | 2019-01-28 15:42 | NUR ---
ED Nurse Note: REPORT GIVEN TO JANINA HO OF TELEMETRY UNIT.
--- NOTE | 2019-01-28 15:45 | NUR ---
ED Nurse Note: WAITING FOR ADMISSION PACKET.
[2019-01-28 15:57] VITALS: BP 115/86
--- NOTE | 2019-01-28 15:57 | NUR ---
ED Nurse Note: PT TRANSFERRED TO TELEMETRY UNIT VIA GURNEY. BELONGINGS SENT. VSS.
--- NOTE | 2019-01-28 16:19 | NUR ---
NURSE NOTES: Pt, in bed in stable condition received report form [facility]. v/s within normal limit bp 122/66. Belongings sheet signed by pt. Confirmed with pt all belongings are with him right now. quality assurance monitor chassis on no signs of cardiac distress or respiratory distress at this time. AOx4 talkative. Pt is continuously shaking. Bed side rails are padded. Bed in lowest position and locked. Call light at bedside. showed pt how to use call light.
--- NOTE | 2019-01-28 19:20 | NUR ---
NURSE NOTES: Received report from GEORGIA Rothman, patient seen in bed in semi corral position. ON room air with no respiratory distress noted. Alert, verbally responsive, able to make needs known. denies any pain at this time. noted IV site to right forearm 20g and is intact. No acute distress is noted. bed is in lowest position. call light is within easy reach while in room. will continue to monitor.
[2019-01-28 20:00] VITALS: BP 107/53
--- NOTE | 2019-01-28 20:01 | NUR ---
HAND-OFF: Report given to Elda HO, pt in stable condition.
--- NOTE | 2019-01-28 20:53 | History & Physical ---
History and Physical History & Physicial Maximus Carrillo MD Jan 28, 2019 20:53
[2019-01-28] MEDS: Phenytoin 100mg cap ORAL SCH (21:06)
[2019-01-28] MEDS: Depakote ER 500mg tab ORAL SCH (21:07)
[2019-01-28] MEDS: Heparin 5000 units/ml inj SUBQ SCH (21:07)
[2019-01-29] VITALS: BP 96/57
--- NOTE | 2019-01-29 01:00 | History and Physical Report ---
DATE OF ADMISSION: 01/28/2019 CHIEF COMPLAINT: Chest pain. HISTORY OF PRESENT ILLNESS: This is a 59-year-old morbidly obese gentleman with past medical history significant for schizoaffective disorder, Parkinson disease, seizure disorder, who was presented to the hospital after he was complaining about chest pain and headaches. He stated that he has been having symptoms for the past 6 months. However, past 24 hours today, got progressively worsening. He had history of seizures yesterday and has been taking Wellbutrin, valproic acid as well as Dilantin. He believes that his medication is helpful. Shortly after initial evaluation in the emergency room, the patient was admitted to the hospital for atypical chest pain. PAST MEDICAL HISTORY/PAST SURGICAL HISTORY: As above, history of Parkinson disease. He has schizoaffective disorder and seizure disorder. MEDICATIONS: Medications at home, please refer to medication reconciliation. ALLERGIES: No known drug allergies. SOCIAL HISTORY: The patient lives in [place]. No smoking, alcohol, or drugs. FAMILY HISTORY: Noncontributory. REVIEW OF SYSTEMS: Mostly as above, denies any dysuria, frequency, hematuria. Denies any hemoptysis or hematochezia. Denies any suicidal ideation. Denies any loss of consciousness. Denies any fall or head trauma. Denies any double vision. PHYSICAL EXAMINATION: VITAL SIGNS: On admission, temperature 98.1, pulse of 105, respirations 16, and blood pressure 134/66. GENERAL: The patient is awake, responsive, in no acute distress. HEAD AND NECK: Pupils are equal and reactive to light. Extraocular movements intact. Neck was supple. No JVD. LUNGS: Good air entry with no wheeze or rales. HEART: S1, S2. Distant heart sounds. No murmur or gallop. ABDOMEN: Soft, nondistended, nontender, morbidly obese. EXTREMITIES: No cyanosis, clubbing, or edema. NEUROLOGIC: Cranial nerves II through XII grossly intact. Motor is 5/5 in all extremities. The patient has uncontrolled myoclonic movement, generalized movement, most likely secondary to the parkinsonian movement. RECTAL/GENITOURINARY: Refused and deferred. PSYCHIATRIC: Mood and affect is intact. LABORATORY DATA: On admission is significant for WBC of 5.2, hemoglobin 12, hematocrit 37, platelet is 127,000. Sodium 138, potassium 4.8, chloride 102, bicarb 30, BUN 17, creatinine 0.8, GFR greater than 60. Glucose is 83. Lactic acid is 1.50, calcium is 8.4. Troponin 0.00. TSH is 1.28. PT of 10, INR 1.0, PTT of 26. The patient phenytoin level is less than 0.5 and valproic acid level is 38 low. Urinalysis unremarkable. ASSESSMENT: 1. Atypical chest pain. 2. Seizure disorder. 3. Parkinson disease. 4. Schizoaffective disorder. PLAN: 1. Admit the patient to telemetry. We will follow up laboratory including troponin. 2. Resume home medications. Code status is Full Code. DVT prophylaxis, heparin subcutaneous. Maximus Carrillo M.D. DR: ALEXANDRE JOB#: [id number] CC:
[2019-01-29 04:00] VITALS: BP 94/61
[2019-01-29] MEDS: Phenytoin 100mg cap ORAL SCH ×3 (05:17→21:48)
[2019-01-29 07:04] LABS: BASOPHILS % (AUTO) 0.6 % (0.0-2.0); EOSINOPHILS % (AUTO) 4.8 % (0.0-3.0); HEMATOCRIT 34.7 % (42.0-52.0); HEMOGLOBIN 11.5 G/DL (14.2-18.0); LYMPHOCYTES % (AUTO) 34.9 % (20.0-45.0); MEAN CORPUSCULAR VOLUME 93 FL (80-99); MONOCYTES % (AUTO) 9.6 % (1.0-10.0); NEUTROPHILS % (AUTO) 50.2 % (45.0-75.0); PLATELET COUNT 117 K/UL (150-450); RED BLOOD COUNT 3.74 M/UL (4.70-6.10); RED CELL DISTRIBUTION WIDTH 13.1 % (11.6-14.8); WHITE BLOOD COUNT 4.3 K/UL (4.8-10.8)
[2019-01-29 07:13] LABS: ALANINE AMINOTRANSFERASE 11 U/L (12-78); ALKALINE PHOSPHATASE 41 U/L (46-116); ANION GAP 1 mmol/L (5-15); ASPARTATE AMINO TRANSFERASE 18 U/L (15-37); BILIRUBIN,TOTAL 0.5 MG/DL (0.2-1.0); BLOOD UREA NITROGEN 13 mg/dL (7-18); CALCIUM 8.5 MG/DL (8.5-10.1); CARBON DIOXIDE 31 MMOL/L (21-32); CHLORIDE 106 MMOL/L (98-107); POTASSIUM 4.3 MMOL/L (3.5-5.1); SODIUM 138 MMOL/L (136-145)
--- NOTE | 2019-01-29 07:15 | NUR ---
NURSE NOTES: Report given to Renetta Chavez RN
--- NOTE | 2019-01-29 07:33 | NUR ---
CASE MANAGEMENT: INITIAL REVIEW 59 YO M SAURAV FROM [facility] CC: PAIN PMHx: SZ SI:JUANPABLO. TASNEEM. T 98.1 HR 105 RR 16 B/P 135/65 SATS 96% ON RA CA 8.4 ALP 45 IS: MORPHINE IV X1 ZOFRAN IV X1 PHENYTOIN IV X1 DEPAKOTE IV X1 PATIENT ADMITTED TO TELE 01/28/2019 @ 3272 DCP: PATIENT TO BE DISCHARGED TO SNF ONCE MEDICALLY CLEARED. PLAN OF CARE: TASNEEM PRECAUTIONS Addendum: 01/29/19 at 0739 by Vioelta Miller CM 01/29/2019 SI:JUANPABLO. TASNEEM. T 98.6 HR 80 RR 20 B/P 94/61 SATS 99% ON RA WBC 4.3 ALT 11 ALP 41 IS: CLOZARIL PO Q12H DEPAKOTE PO Q12H PROZAC PO QD SEROQUEL PO QD DILANTIN PO Q8H TELE STATUS PLAN OF CARE: NEURO AND CARDIO CONSULT Addendum: 01/29/19 at 0740 by Violeta Miller CM INTERQUAL MET
--- NOTE | 2019-01-29 07:55 | NUR ---
NURSE NOTES: Received report from GEORGIA Schroeder. Patient in bed resting, no active s/s cardiac, respiratory distress noticed at this time. Patient on room air, AOx3, SR with HR 80. IV on left FA 20G, asymptomatic, patent, intact. Bed in lowest position, side rails padded and up x2, call light within reach, bed alarm on. Will continue to monitor.
[2019-01-29 08:00] VITALS: BP 115/72
[2019-01-29] MEDS: Depakote ER 500mg tab ORAL SCH ×2 (08:16→21:48)
[2019-01-29] MEDS: Heparin 5000 units/ml inj SUBQ SCH ×2 (08:18→21:53)
--- NOTE | 2019-01-29 11:28 | Consultation ---
History of Present Illness General Date patient seen: Jan 29, 2019 Chief Complaint: Pain Present Illness HPI 59 year old male with hx of seizures, parkinson disease, schizophrenia, residing in a ARF was brought in by EMS with CC of chest pain and headache. Pt has multiple other complains. I am not sure how true they are. He stated, he vomited yesterday. He also had diarrhea. He had seizures the day prior to admission. Allergies: Coded Allergies: No Known Allergies (Unverified , 04/27/13) Medication History Scheduled Aripiprazole* (Abilify*), Unknown Dose ORAL DAILY, (Reported) Cephalexin* (Keflex*), 500 MG ORAL EVERY 6 HOURS Clozapine* (Clozaril*), Unknown Dose ORAL EVERY 12 HOURS, (Reported) Divalproex Sodium* (Depakote Er*), 500 MG ORAL EVERY 12 HOURS, (Reported) Fluoxetine Hcl* (Fluoxetine Hcl*), 20 MG ORAL DAILY, (Reported) Phenytoin Sodium Extended* (Dilantin*), Unknown Dose ORAL THREE TIMES A DAY, ( Reported) Quetiapine Fumarate* (Quetiapine Fumarate*), 100 MG ORAL DAILY, (Reported) Trimethoprim/Sulfamethoxazole 160/800* (Bactrim Ds Tablet*), 1 TAB ORAL Q12H Patient History Healthcare decision maker Resuscitation status Full Code Advanced Directive on File Past Medical/Surgical History Past Medical/Surgical History: (1) Seizure disorder (2) Parkinson's disease (3) Schizo-affective schizophrenia Review of Systems All Other Systems: negative except mentioned in HPI Physical Exam General Appearance: WD/WN, no apparent distress Lines, tubes and drains: peripheral HEENT: normocephalic, atraumatic Neck: non-tender, normal alignment Respiratory/Chest: chest wall non-tender, lungs clear Breasts: no masses Cardiovascular/Chest: normal peripheral pulses, regular rhythm Abdomen: normal bowel sounds, soft Genitourinary/Rectal: normal genital exam Extremities: normal range of motion Last 24 Hour Vital Signs Date Time Temp Pulse Resp B/P (MAP) Pulse Ox O2 Delivery O2 Flow Rate FiO2 01/29/19 09:00 Room Air 01/29/19 08:00 97.7 84 20 115/72 (86) 97 01/29/19 04:00 98.6 80 20 94/61 (72) 99 01/29/19 03:26 72 01/29/19 00:00 97.6 85 18 96/57 (70) 99 01/28/19 23:29 75 01/28/19 21:00 Room Air 01/28/19 20:03 88 01/28/19 20:00 98.4 93 18 107/53 (71) 97 01/28/19 17:45 Room Air 01/28/19 15:57 98.4 75 20 115/86 99 Room Air 01/28/19 15:57 98.4 75 20 115/86 99 Room Air 01/28/19 14:26 98.1 83 18 111/93 98 Room Air 01/28/19 13:43 98.1 105 16 134/65 (88) 96 Room Air Intake and Output 01/28/19 01/29/19 19:00 07:00 Intake Total 360 ml 480 ml Output Total 1300 ml Balance 360 ml -820 ml Intake Oral 240 ml 480 ml IV Total 120 ml Output Urine Total 1300 ml # Voids 1 Laboratory Tests Test 01/28/19 14:15 01/28/19 15:15 01/29/19 05:40 White Blood Count 5.2 K/UL (4.8-10.8) 4.3 K/UL (4.8-10.8) L Red Blood Count 3.99 M/UL (4.70-6.10) L 3.74 M/UL (4.70-6.10) L Hemoglobin 12.3 G/DL (14.2-18.0) L 11.5 G/DL (14.2-18.0) L Hematocrit 37.1 % (42.0-52.0) L 34.7 % (42.0-52.0) L Mean Corpuscular Volume 93 FL (80-99) 93 FL (80-99) Mean Corpuscular Hemoglobin 30.8 PG (27.0-31.0) 30.9 PG (27.0-31.0) Mean Corpuscular Hemoglobin Concent 33.1 G/DL (32.0-36.0) 33.3 G/DL (32.0-36.0) Red Cell Distribution Width 13.2 % (11.6-14.8) 13.1 % (11.6-14.8) Platelet Count 127 K/UL (150-450) L 117 K/UL (150-450) L Mean Platelet Volume 8.2 FL (6.5-10.1) 8.0 FL (6.5-10.1) Neutrophils (%) (Auto) 65.5 % (45.0-75.0) 50.2 % (45.0-75.0) Lymphocytes (%) (Auto) 22.1 % (20.0-45.0) 34.9 % (20.0-45.0) Monocytes (%) (Auto) 9.0 % (1.0-10.0) 9.6 % (1.0-10.0) Eosinophils (%) (Auto) 2.4 % (0.0-3.0) 4.8 % (0.0-3.0) H Basophils (%) (Auto) 1.0 % (0.0-2.0) 0.6 % (0.0-2.0) Prothrombin Time 10.9 SEC (9.30-11.50) Prothromb Time International Ratio 1.0 (0.9-1.1) Activated Partial Thromboplast Time 26 SEC (23-33) Sodium Level 138 MMOL/L (136-145) 138 MMOL/L (136-145) Potassium Level 4.8 MMOL/L (3.5-5.1) 4.3 MMOL/L (3.5-5.1) Chloride Level 102 MMOL/L (98-107) 106 MMOL/L (98-107) Carbon Dioxide Level 30 MMOL/L (21-32) 31 MMOL/L (21-32) Anion Gap 6 mmol/L (5-15) 1 mmol/L (5-15) L Blood Urea Nitrogen 17 mg/dL (7-18) 13 mg/dL (7-18) Creatinine 0.8 MG/DL (0.55-1.30) 1.0 MG/DL (0.55-1.30) Estimat Glomerular Filtration Rate > 60 mL/min (>60) > 60 mL/min (>60) Glucose Level 83 MG/DL (74-106) 92 MG/DL (74-106) Lactic Acid Level 1.50 mmol/L (0.4-2.0) Calcium Level 8.4 MG/DL (8.5-10.1) L 8.5 MG/DL (8.5-10.1) Total Bilirubin 0.4 MG/DL (0.2-1.0) 0.5 MG/DL (0.2-1.0) Aspartate Amino Transf (AST/SGOT) 31 U/L (15-37) 18 U/L (15-37) Alanine Aminotransferase (ALT/SGPT) 14 U/L (12-78) 11 U/L (12-78) L Alkaline Phosphatase 45 U/L (46-116) L 41 U/L (46-116) L Total Creatine Kinase 308 U/L (26-308) Troponin I 0.000 ng/mL (0.000-0.056) Pro-B-Type Natriuretic Peptide 71 pg/mL (0-125) Total Protein 6.3 G/DL (6.4-8.2) L 6.1 G/DL (6.4-8.2) L Albumin 3.6 G/DL (3.4-5.0) 3.0 G/DL (3.4-5.0) L Globulin 2.7 g/dL 3.1 g/dL Albumin/Globulin Ratio 1.3 (1.0-2.7) 1.0 (1.0-2.7) Lipase 106 U/L (73-393) Thyroid Stimulating Hormone (TSH) 1.281 uiU/mL (0.358-3.740) Phenytoin (Dilantin) Level < 0.5 ug/mL (10-20) L Valproic Acid (Depakene) Level 38 MCG/ML (50-100) L Urine Color Pale yellow Urine Appearance Clear Urine pH 6.5 (4.5-8.0) Urine Specific [place] 1.010 (1.005-1.035) Urine Protein Negative (NEGATIVE) Urine Glucose (UA) Negative (NEGATIVE) Urine Ketones Negative (NEGATIVE) Urine Blood Negative (NEGATIVE) Urine Nitrite Negative (NEGATIVE) Urine Bilirubin Negative (NEGATIVE) Urine Urobilinogen Normal MG/DL (0.0-1.0) Urine Leukocyte Esterase Negative (NEGATIVE) Height (Feet): 6 Height (Inches): 0.00 Weight (Pounds): 220 Medications Current Medications Medications (Trade) Dose Ordered Sig/Jonathan Route PRN Reason Start Time Stop Time Status Last Admin Dose Admin Acetaminophen (Tylenol) 650 mg Q4H PRN ORAL fever 01/28/19 15:15 02/27/19 15:14 Clozapine (Clozaril) 25 mg EVERY 12 HOURS ORAL 01/28/19 21:00 02/04/19 20:59 UNV Dextrose (Dextrose 50%) 25 ml Q30M PRN IV Hypoglycemia 01/28/19 15:15 02/27/19 15:13 Dextrose (Dextrose 50%) 50 ml Q30M PRN IV hypoglycemia 01/28/19 15:15 02/27/19 15:14 Divalproex Sodium (Depakote ER) 500 mg EVERY 12 HOURS ORAL 01/28/19 21:00 02/27/19 20:59 01/29/19 08:16 Fluoxetine HCl (PROzac) 20 mg DAILY ORAL 01/29/19 09:00 02/28/19 08:59 01/29/19 08:16 Heparin Sodium (Porcine) (Heparin 5000 units/ml) 5,000 units EVERY 12 HOURS SUBQ 01/28/19 21:00 02/27/19 20:59 01/29/19 08:18 Lorazepam (Ativan 2mg/ml 1ml) 2 mg Q1H PRN IV seizures 01/28/19 15:15 02/04/19 15:14 Morphine Sulfate (Morphine Sulfate) 1 mg Q4H PRN IVP For Pain 01/28/19 15:15 02/04/19 15:14 Ondansetron HCl (Zofran) 4 mg Q6H PRN IVP Nausea & Vomiting 01/28/19 15:15 02/27/19 15:14 Phenytoin (Dilantin) 100 mg Q8HR ORAL 01/28/19 22:00 02/27/19 21:59 01/29/19 05:17 Polyethylene Glycol (Miralax) 17 gm HSPRN PRN ORAL Constipation 01/28/19 15:15 02/27/19 15:14 Quetiapine Fumarate (SEROquel) 100 mg DAILY ORAL 01/29/19 09:00 02/28/19 08:59 01/29/19 08:16 Zolpidem Tartrate (Ambien) 5 mg HSPRN PRN ORAL Insomnia 01/28/19 15:15 02/04/19 15:14 Assessment/Plan Problem List: (1) ACS (acute coronary syndrome) ICD Codes: I24.9 - Acute ischemic heart disease, unspecified SNOMED: 404229157 (2) Multiple complaints ICD Codes: R68.89 - Other general symptoms and signs SNOMED: 62292140 (3) Schizo-affective schizophrenia ICD Codes: F25.0 - Schizoaffective disorder, bipolar type SNOMED: 052250760 (4) Seizure disorder ICD Codes: G40.909 - Seizure disorder SNOMED: 913293021 (5) Parkinson's disease ICD Codes: G20 - Parkinson's disease SNOMED: 79923212 Assessment/Plan: telemetry monitoring resume ARF meds seizure precaution Echocardiogram resume psychiatric meds. Faviola Savage MD Jan 29, 2019 11:28
--- NOTE | 2019-01-29 11:59 | Diagnostic Imaging Report ---
Indication: Chest pain Technique: One view of the chest Comparison: For 04/06/2018 Findings: Lungs and pleural spaces are clear. Heart size is normal . No significant interim change Impression: No acute process
[2019-01-29 12:00] VITALS: BP 100/69
[2019-01-29 16:00] VITALS: BP 106/65
--- NOTE | 2019-01-29 18:43 | NUR ---
NURSE NOTES: Paged Dr. Carrillo regarding observation status. No order given at this time. Will continue to monitor.
--- NOTE | 2019-01-29 19:18 | NUR ---
NURSE NOTES: Per Dr. Carrillo, change observation status to inpatient. Order noted, entered, carried out.
--- NOTE | 2019-01-29 19:19 | NUR ---
HAND-OFF: Report given to GEORGIA Valencia.
--- NOTE | 2019-01-29 19:20 | NUR ---
NURSE NOTES: Pt received from Hugh RN alert and oriented x3 with no s/s of acute distress noted. IV site asymptomatic and patent on L fa 20g saline lock. Seizure precautions implemented - side rails padded, O2 and suction at bedside. Bed in lowest position, call light and belongings within reach.
[2019-01-29 20:00] VITALS: BP 118/59
--- NOTE | 2019-01-29 23:20 | Internal Med Progress Note ---
Subjective Physician Name Maximus Carrillo Attending Physician Maximus Carrillo MD Current Medications Medications (Trade) Dose Ordered Sig/Jonathan Route PRN Reason Start Time Stop Time Status Last Admin Dose Admin Acetaminophen (Tylenol) 650 mg Q4H PRN ORAL fever 01/28/19 15:15 02/27/19 15:14 Dextrose (Dextrose 50%) 25 ml Q30M PRN IV Hypoglycemia 01/28/19 15:15 02/27/19 15:13 Dextrose (Dextrose 50%) 50 ml Q30M PRN IV hypoglycemia 01/28/19 15:15 02/27/19 15:14 Divalproex Sodium (Depakote ER) 500 mg EVERY 12 HOURS ORAL 01/28/19 21:00 02/27/19 20:59 01/29/19 21:48 Fluoxetine HCl (PROzac) 20 mg DAILY ORAL 01/29/19 09:00 02/28/19 08:59 01/29/19 08:16 Heparin Sodium (Porcine) (Heparin 5000 units/ml) 5,000 units EVERY 12 HOURS SUBQ 01/28/19 21:00 02/27/19 20:59 01/29/19 21:53 Lorazepam (Ativan 2mg/ml 1ml) 2 mg Q1H PRN IV seizures 01/28/19 15:15 02/04/19 15:14 Morphine Sulfate (Morphine Sulfate) 1 mg Q4H PRN IVP For Pain 01/28/19 15:15 02/04/19 15:14 Ondansetron HCl (Zofran) 4 mg Q6H PRN IVP Nausea & Vomiting 01/28/19 15:15 02/27/19 15:14 Phenytoin (Dilantin) 100 mg Q8HR ORAL 01/28/19 22:00 02/27/19 21:59 01/29/19 21:48 Polyethylene Glycol (Miralax) 17 gm HSPRN PRN ORAL Constipation 01/28/19 15:15 02/27/19 15:14 Quetiapine Fumarate (SEROquel) 100 mg DAILY ORAL 01/29/19 09:00 02/28/19 08:59 01/29/19 08:16 Zolpidem Tartrate (Ambien) 5 mg HSPRN PRN ORAL Insomnia 01/28/19 15:15 02/04/19 15:14 Allergies: Coded Allergies: No Known Allergies (Unverified , 04/27/13) Subjective awake, alert, responsive, NAD, No CP or SOB. Objective Last Vital Signs Date Time Temp Pulse Resp B/P (MAP) Pulse Ox O2 Delivery O2 Flow Rate FiO2 01/29/19 16:00 98.0 79 18 106/65 (79) 96 01/29/19 09:00 Room Air Laboratory Tests Test 01/29/19 05:40 White Blood Count 4.3 K/UL (4.8-10.8) L Red Blood Count 3.74 M/UL (4.70-6.10) L Hemoglobin 11.5 G/DL (14.2-18.0) L Hematocrit 34.7 % (42.0-52.0) L Mean Corpuscular Volume 93 FL (80-99) Mean Corpuscular Hemoglobin 30.9 PG (27.0-31.0) Mean Corpuscular Hemoglobin Concent 33.3 G/DL (32.0-36.0) Red Cell Distribution Width 13.1 % (11.6-14.8) Platelet Count 117 K/UL (150-450) L Mean Platelet Volume 8.0 FL (6.5-10.1) Neutrophils (%) (Auto) 50.2 % (45.0-75.0) Lymphocytes (%) (Auto) 34.9 % (20.0-45.0) Monocytes (%) (Auto) 9.6 % (1.0-10.0) Eosinophils (%) (Auto) 4.8 % (0.0-3.0) H Basophils (%) (Auto) 0.6 % (0.0-2.0) Sodium Level 138 MMOL/L (136-145) Potassium Level 4.3 MMOL/L (3.5-5.1) Chloride Level 106 MMOL/L (98-107) Carbon Dioxide Level 31 MMOL/L (21-32) Anion Gap 1 mmol/L (5-15) L Blood Urea Nitrogen 13 mg/dL (7-18) Creatinine 1.0 MG/DL (0.55-1.30) Estimat Glomerular Filtration Rate > 60 mL/min (>60) Glucose Level 92 MG/DL (74-106) Calcium Level 8.5 MG/DL (8.5-10.1) Total Bilirubin 0.5 MG/DL (0.2-1.0) Aspartate Amino Transf (AST/SGOT) 18 U/L (15-37) Alanine Aminotransferase (ALT/SGPT) 11 U/L (12-78) L Alkaline Phosphatase 41 U/L (46-116) L Total Protein 6.1 G/DL (6.4-8.2) L Albumin 3.0 G/DL (3.4-5.0) L Globulin 3.1 g/dL Albumin/Globulin Ratio 1.0 (1.0-2.7) Intake and Output 01/28/19 01/29/19 19:00 07:00 Intake Total 360 ml 480 ml Output Total 1300 ml Balance 360 ml -820 ml Intake Oral 240 ml 480 ml IV Total 120 ml Output Urine Total 1300 ml # Voids 1 Objective GENERAL: The patient is awake, responsive, in no acute distress. HEAD AND NECK: Pupils are equal and reactive to light. Extraocular movements intact. Neck was supple. No JVD. LUNGS: Good air entry with no wheeze or rales. HEART: S1, S2. Distant heart sounds. No murmur or gallop. ABDOMEN: Soft, nondistended, nontender, morbidly obese. EXTREMITIES: No cyanosis, clubbing, or edema. NEUROLOGIC: Cranial nerves II through XII grossly intact. Motor is 5/5 in all extremities. The patient has uncontrolled myoclonic movement, generalized movement, most likely secondary to the parkinsonian movement. RECTAL/GENITOURINARY: Refused and deferred. PSYCHIATRIC: Mood and affect is intact. Assessment/Plan Assessment/Plan ASSESSMENT: 1. Atypical chest pain. 2. Seizure disorder. 3. Parkinson disease. 4. Schizoaffective disorder. PLAN: 1. In telemetry. We will follow up laboratory including troponin. 2. Resume home medications. Code status is Full Code. DVT prophylaxis, heparin subcutaneous. 3. DC home in AM Maximus Carrillo MD Jan 29, 2019 23:20
[2019-01-30] VITALS: BP 138/75
[2019-01-30 04:00] VITALS: BP 126/66
[2019-01-30] MEDS: Phenytoin 100mg cap ORAL SCH (06:08)
[2019-01-30 07:19] LABS: HEMATOCRIT 37.5 % (42.0-52.0); HEMOGLOBIN 12.2 G/DL (14.2-18.0); MEAN CORPUSCULAR VOLUME 94 FL (80-99); PLATELET COUNT 93 K/UL (150-450); RED BLOOD COUNT 3.97 M/UL (4.70-6.10); RED CELL DISTRIBUTION WIDTH 13.3 % (11.6-14.8)
[2019-01-30 07:44] LABS: ALANINE AMINOTRANSFERASE 11 U/L (12-78); ALBUMIN 3.3 G/DL (3.4-5.0); ALBUMIN/GLOBULIN RATIO 1.2 (1.0-2.7); ALKALINE PHOSPHATASE 42 U/L (46-116); ANION GAP 11 mmol/L (5-15); ASPARTATE AMINO TRANSFERASE 24 U/L (15-37); BILIRUBIN,TOTAL 0.4 MG/DL (0.2-1.0); BLOOD UREA NITROGEN 16 mg/dL (7-18); CALCIUM 8.6 MG/DL (8.5-10.1); CARBON DIOXIDE 24 MMOL/L (21-32); CHLORIDE 104 MMOL/L (98-107); CREATININE 0.8 MG/DL (0.55-1.30); PHOSPHORUS 3.2 MG/DL (2.5-4.9); SODIUM 139 MMOL/L (136-145)
--- NOTE | 2019-01-30 07:45 | NUR ---
HAND-OFF: Report given to GEORGIA Carter. No s/s of acute distress noted.
--- NOTE | 2019-01-30 07:46 | NUR ---
NURSE NOTES: Received patient and report from GEORGIA Valencia. Denies any pain. No s/s of distress or discomfort noted. Patient is resting in bed comfortably. Bed in low and locked position, brakes engaged for safety. Call light within reach, bedside table within reach. Continue with the plan of care.
[2019-01-30 08:00] VITALS: BP 119/78
[2019-01-30] MEDS: Depakote ER 500mg tab ORAL SCH (08:17)
[2019-01-30] MEDS: Heparin 5000 units/ml inj SUBQ SCH (08:21)
[2019-01-30 12:00] VITALS: BP 112/63
--- NOTE | 2019-01-30 12:03 | Pulmonology Progress Note ---
Assessment/Plan Problems: (1) ACS (acute coronary syndrome) (2) Multiple complaints (3) Schizo-affective schizophrenia (4) Seizure disorder (5) Parkinson's disease Assessment/Plan feeling better all reviewed troponin negative All medications and treatment were reviewed. dc medication reconciled Subjective ROS Limited/Unobtainable: No Interval Events: no new complains Allergies: Coded Allergies: No Known Allergies (Unverified , 04/27/13) Objective Last 24 Hour Vital Signs Date Time Temp Pulse Resp B/P (MAP) Pulse Ox O2 Delivery O2 Flow Rate FiO2 01/30/19 09:00 Room Air 01/30/19 08:00 89 01/30/19 08:00 98.2 87 20 119/78 (92) 94 01/30/19 04:00 82 01/30/19 04:00 98.0 75 22 126/66 (86) 96 01/30/19 00:00 98.4 76 20 138/75 (96) 97 01/29/19 21:00 Room Air 01/29/19 20:00 75 01/29/19 20:00 98.0 89 20 118/59 (78) 96 01/29/19 16:00 98.0 79 18 106/65 (79) 96 01/29/19 16:00 73 Intake and Output 01/29/19 01/30/19 19:00 07:00 Intake Total 360 ml Output Total 300 ml Balance 60 ml Intake Oral 360 ml Output Urine Total 300 ml # Voids 4 1 General Appearance: WD/WN HEENT: normocephalic, atraumatic Respiratory/Chest: chest wall non-tender, lungs clear Abdomen: normal bowel sounds, soft, non tender, no scars Genitourinary: normal external genitalia Extremities: no cyanosis 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 Complete 01/28/19 14:45 Rectum VRE Culture - Final NO VANCOMYCIN RESISTANT ENTEROCOCCUS ... Resulted 01/28/19 14:45 Rectum Pending Resulted Laboratory Tests 01/30/19 05:38: White Blood Count 5.0, Red Blood Count 3.97L, Hemoglobin 12.2L, Hematocrit 37.5L , Mean Corpuscular Volume 94, Mean Corpuscular Hemoglobin 30.8, Mean Corpuscular Hemoglobin Concent 32.5, Red Cell Distribution Width 13.3, Platelet Count 93L, Mean Platelet Volume 8.3, Neutrophils (%) (Auto) , Lymphocytes (%) ( Auto) , Monocytes (%) (Auto) , Eosinophils (%) (Auto) , Basophils (%) (Auto) , Differential Total Cells Counted 100, Neutrophils % (Manual) 60, Lymphocytes % ( Manual) 27, Monocytes % (Manual) 13H, Eosinophils % (Manual) 0, Basophils % ( Manual) 0, Band Neutrophils 0, Platelet Estimate DecreasedL, Platelet Morphology Normal, Erythrocyte Sedimentation Rate 10, Sodium Level 139, Potassium Level 5.0, Chloride Level 104, Carbon Dioxide Level 24, Anion Gap 11, Blood Urea Nitrogen 16, Creatinine 0.8, Estimat Glomerular Filtration Rate > 60 , Glucose Level 84, Calcium Level 8.6, Phosphorus Level 3.2, Magnesium Level 1.9 , Total Bilirubin 0.4, Aspartate Amino Transf (AST/SGOT) 24, Alanine Aminotransferase (ALT/SGPT) 11L, Alkaline Phosphatase 42L, Troponin I 0.000, Total Protein 6.0L, Albumin 3.3L, Globulin 2.7, Albumin/Globulin Ratio 1.2 Current Medications Medications (Trade) Dose Ordered Sig/Jonathan Route PRN Reason Start Time Stop Time Status Last Admin Dose Admin Acetaminophen (Tylenol) 650 mg Q4H PRN ORAL fever 01/28/19 15:15 02/27/19 15:14 Dextrose (Dextrose 50%) 25 ml Q30M PRN IV Hypoglycemia 01/28/19 15:15 02/27/19 15:13 Dextrose (Dextrose 50%) 50 ml Q30M PRN IV hypoglycemia 01/28/19 15:15 02/27/19 15:14 Divalproex Sodium (Depakote ER) 500 mg EVERY 12 HOURS ORAL 01/28/19 21:00 02/27/19 20:59 01/30/19 08:17 Fluoxetine HCl (PROzac) 20 mg DAILY ORAL 01/29/19 09:00 02/28/19 08:59 01/30/19 08:15 Heparin Sodium (Porcine) (Heparin 5000 units/ml) 5,000 units EVERY 12 HOURS SUBQ 01/28/19 21:00 02/27/19 20:59 01/29/19 21:53 Lorazepam (Ativan 2mg/ml 1ml) 2 mg Q1H PRN IV seizures 01/28/19 15:15 02/04/19 15:14 Morphine Sulfate (Morphine Sulfate) 1 mg Q4H PRN IVP For Pain 01/28/19 15:15 02/04/19 15:14 Ondansetron HCl (Zofran) 4 mg Q6H PRN IVP Nausea & Vomiting 01/28/19 15:15 02/27/19 15:14 Phenytoin (Dilantin) 100 mg Q8HR ORAL 01/28/19 22:00 02/27/19 21:59 01/30/19 06:08 Polyethylene Glycol (Miralax) 17 gm HSPRN PRN ORAL Constipation 01/28/19 15:15 02/27/19 15:14 Quetiapine Fumarate (SEROquel) 100 mg DAILY ORAL 01/29/19 09:00 02/28/19 08:59 01/30/19 08:18 Zolpidem Tartrate (Ambien) 5 mg HSPRN PRN ORAL Insomnia 01/28/19 15:15 02/04/19 15:14 Faviola Savage MD Jan 30, 2019 12:03
--- NOTE | 2019-01-30 13:58 | NUR ---
NURSE NOTES: Patient is discharged home to [facility] via ambulance. IV removed, no bleeding, no infiltration noted. quality assurance monitor final removed and logged. All belongings accounted for and signed by patient. Patient in stable condition.
--- NOTE | 2019-01-30 19:36 | Internal Med Progress Note ---
Subjective Physician Name Maximus Carrillo Attending Physician Maximus Carrillo MD Allergies: Coded Allergies: No Known Allergies (Unverified , 04/27/13) Subjective awake, alert, responsive, NAD, No CP or SOB. Objective Last Vital Signs Date Time Temp Pulse Resp B/P (MAP) Pulse Ox O2 Delivery O2 Flow Rate FiO2 01/30/19 12:00 98.1 79 20 112/63 (79) 94 20 01/30/19 09:00 Room Air Laboratory Tests Test 01/30/19 05:38 White Blood Count 5.0 K/UL (4.8-10.8) Red Blood Count 3.97 M/UL (4.70-6.10) L Hemoglobin 12.2 G/DL (14.2-18.0) L Hematocrit 37.5 % (42.0-52.0) L Mean Corpuscular Volume 94 FL (80-99) Mean Corpuscular Hemoglobin 30.8 PG (27.0-31.0) Mean Corpuscular Hemoglobin Concent 32.5 G/DL (32.0-36.0) Red Cell Distribution Width 13.3 % (11.6-14.8) Platelet Count 93 K/UL (150-450) L Mean Platelet Volume 8.3 FL (6.5-10.1) Neutrophils (%) (Auto) % (45.0-75.0) Lymphocytes (%) (Auto) % (20.0-45.0) Monocytes (%) (Auto) % (1.0-10.0) Eosinophils (%) (Auto) % (0.0-3.0) Basophils (%) (Auto) % (0.0-2.0) Differential Total Cells Counted 100 Neutrophils % (Manual) 60 % (45-75) Lymphocytes % (Manual) 27 % (20-45) Monocytes % (Manual) 13 % (1-10) H Eosinophils % (Manual) 0 % (0-3) Basophils % (Manual) 0 % (0-2) Band Neutrophils 0 % (0-8) Platelet Estimate Decreased L Platelet Morphology Normal Erythrocyte Sedimentation Rate 10 MM/HR (0-20) Sodium Level 139 MMOL/L (136-145) Potassium Level 5.0 MMOL/L (3.5-5.1) Chloride Level 104 MMOL/L (98-107) Carbon Dioxide Level 24 MMOL/L (21-32) Anion Gap 11 mmol/L (5-15) Blood Urea Nitrogen 16 mg/dL (7-18) Creatinine 0.8 MG/DL (0.55-1.30) Estimat Glomerular Filtration Rate > 60 mL/min (>60) Glucose Level 84 MG/DL (74-106) Calcium Level 8.6 MG/DL (8.5-10.1) Phosphorus Level 3.2 MG/DL (2.5-4.9) Magnesium Level 1.9 MG/DL (1.8-2.4) Total Bilirubin 0.4 MG/DL (0.2-1.0) Aspartate Amino Transf (AST/SGOT) 24 U/L (15-37) Alanine Aminotransferase (ALT/SGPT) 11 U/L (12-78) L Alkaline Phosphatase 42 U/L (46-116) L Troponin I 0.000 ng/mL (0.000-0.056) Total Protein 6.0 G/DL (6.4-8.2) L Albumin 3.3 G/DL (3.4-5.0) L Globulin 2.7 g/dL Albumin/Globulin Ratio 1.2 (1.0-2.7) Microbiology Date/Time Source Procedure Growth Status 01/28/19 14:45 Nasal Nares MRSA Culture - Final NO METHICILLIN RESISTANT STAPH AUREUS... Complete 01/28/19 14:45 Rectum VRE Culture - Final NO VANCOMYCIN RESISTANT ENTEROCOCCUS ... Resulted 01/28/19 14:45 Rectum Pending Resulted Intake and Output 01/29/19 01/30/19 18:59 06:59 Intake Total 360 ml Output Total 300 ml Balance 60 ml Intake Oral 360 ml Output Urine Total 300 ml # Voids 4 1 Objective GENERAL: The patient is awake, responsive, in no acute distress. HEAD AND NECK: Pupils are equal and reactive to light. Extraocular movements intact. Neck was supple. No JVD. LUNGS: Good air entry with no wheeze or rales. HEART: S1, S2. Distant heart sounds. No murmur or gallop. ABDOMEN: Soft, nondistended, nontender, morbidly obese. EXTREMITIES: No cyanosis, clubbing, or edema. NEUROLOGIC: Cranial nerves II through XII grossly intact. Motor is 5/5 in all extremities. The patient has uncontrolled myoclonic movement, generalized movement, most likely secondary to the parkinsonian movement. RECTAL/GENITOURINARY: Refused and deferred. PSYCHIATRIC: Mood and affect is intact. Assessment/Plan Assessment/Plan ASSESSMENT: 1. Atypical chest pain. 2. Seizure disorder. 3. Parkinson disease. 4. Schizoaffective disorder. PLAN: 1. In telemetry. 2. Resume home medications. Code status is Full Code. DVT prophylaxis, heparin subcutaneous. 3. DC home today. Maximus Carrillo MD Jan 30, 2019 19:36
--- NOTE | 2019-01-31 08:49 | Discharge Summary ---
Discharge Summary Discharge Summary _ DATE OF ADMISSION: 01/28/2019 DATE OF DISCHARGE: 05/02/2019 DISCHARGED BY: Dr. Carrillo REASON FOR ADMISSION: 59 years old male with past medical history significant for schizoaffective disorder, Parkinson disease, seizure disorder, morbid obesity, presented to the hospital , complaining of the headache and chest pain. Patient had above named symptoms for the past 6 months. However in the past 24 hours , they were getting worse. Patient reported seizure episode day prior to presentation to ED. Patient was taking Depakote and Dilantin. Patient reported that he thinks he took the medications, but was not sure about it. Patient reported occasional seizure breakthrough episodes, but was unable to recall the last time he had one prior to the last one. He denied any oral trauma or pain in the back or extremity. Laboratory work-up revealed no leukocytosis , hemoglobin 12.3 , hematocrit 37.1. Platelets 127. Stable electrolytes and renal parameters. Glucose 83. Lactic acid 1.5. Stable LFT. Troponin negative. Pro BNP 71. CK 308. EKG revealed normal sinus rhythm, no acute ischemic changes. TSH 1.28 Dilantin level subtherapeutic, less than 0.5; valproic acid level subtherapeutic -38. Urinalysis revealed no evidence of UTI. Chest x-ray revealed no acute cardiopulmonary pathology. In emergency department patient received IV Dilantin and oral Depakote, started on gentle IV hydration. Patient subsequently was admitted for atypical chest pain CONSULTANTS: pulmonary/critical care Dr. Savage [facility]: Patient admitted to telemetry floor. Repeated troponin negative. EKG/telemetry revealed no acute ischemic changes. Patient was ruled out for acute OH. Pain management was addressed as needed. Supplemental oxygen was on board as needed. Pulse oximetry was stable on room air. Chest pain resolved. Home medication were resumed. Seizure precaution maintained. Dilantin and Depakote continued. No further seizure activity while in the hospital. Patient was reinforced compliance with medication regimen. DVT prophylaxis provided. Supportive care provided. Bowel regimen instituted. Psychiatric medication from home continued. Patient clinically stabilized and was ready for patient was discharged home . FINAL DIAGNOSES: Atypical chest pain Seizure disorder with subtherapeutic Dilantin and Depakote levels Parkinson disorder Schizoaffective disorder. DISCHARGE MEDICATIONS: See Medication Reconciliation list. DISCHARGE INSTRUCTIONS: Patient was discharged home.. Follow up with primary care provider in one week. I have been assigned to dictate discharge summary for this account. I was not involved in the patient's management. Wanda Coates NP Jan 31, 2019 08:49
== END 2019-01-30 13:55 | disposition home or self-care (01) | DRG 101 ==
LOC: EDBD 13:41 → EMR 14:25 → 2E 14:51 → OBSVTOIN 14:51 → EDBEDREQ 15:07
DX: G40.909 Epilepsy, unspecified, not intractable, without status epilepticus (principal); R07.89 Other chest pain; G20 Parkinson's disease; F25.9 Schizoaffective disorder, unspecified
CPT/HCPCS: 36415; 71045; 80053; 80164; 80185; 81003; 82550; 83605; 83690; 83735; 83880; 84100; 84443; 84484; 85007; 85025; 85610; 85651; 85730; 87081; 93005; 96365; 96375; 99285; J1165; J2405

== ENCOUNTER 2019-02-06 19:37 | Emergency (ER) | payer MEDICARE, MEDICAID ==
[~2019-02-06] VITALS: Ht 175.3 cm; Wt 81.6 kg
[2019-02-06] MEDS ORDERED: BENZTROPINE ME0.5 MG PO (19:42)
[2019-02-06] MEDS ORDERED: CYMBALTA30 MG ORAL (19:42)
--- NOTE | 2019-02-06 19:45 | NUR ---
ED Nurse Note: pt brought in by TORRESD from home c/c chest pain pleuritic area, pt reports he's been having chest pain for about one week, pt denies any sob at this time but noted audible expiratory wheezing, hx asthma, stroke, parkinson and seizure, pt states he was sitting in the bench outside when the chest pain started. 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
--- NOTE | 2019-02-06 19:49 | Emergency Room Report ---
History of Present Illness General Chief Complaint: Chest Pain Source: Patient Present Illness HPI Patient presents with complaints of chest pain midsternal after initial evaluation patient also complains of possible asthma Denies any vomiting or diarrhea Pain in the chest is midsternal denies any change with position or exertion ongoing for the past 2 to 3 days Denies any focal weakness patient did have a fairly extensive recent hospitalization For similar chest pain Allergies: Coded Allergies: No Known Allergies (Unverified , 04/27/13) Patient History Past Medical History: see triage record Reviewed Nursing Documentation: PMH: Agreed; PSxH: Agreed Nursing Documentation-PMH Past Medical History: No History, Except For Hx Cardiac Problems: No Hx Cancer: No Hx Gastrointestinal Problems: No Hx Neurological Problems: Yes Hx Cerebrovascular Accident: Yes Hx Parkinson's Disease: Yes Hx Seizures: Yes Review of Systems All Other Systems: negative except mentioned in HPI Physical Exam Vital Signs Date Time Temp Pulse Resp B/P (MAP) Pulse Ox O2 Delivery O2 Flow Rate FiO2 02/06/19 19:38 99.1 118 14 106/58 (74) 98 Room Air Sp02 EP Interpretation: reviewed, normal General Appearance: well appearing, no apparent distress Head: normocephalic, atraumatic Eyes: bilateral eye PERRL, bilateral eye EOMI ENT: hearing grossly normal, normal pharynx, TMs + canals normal, uvula midline Neck: full range of motion, supple, no meningismus, no bony tend Respiratory: lungs clear, normal breath sounds, no rhonchi, no respiratory distress, no retraction, no accessory muscle use Cardiovascular #1: normal peripheral pulses, regular rate, rhythm, no edema, no gallop, no JVD, no murmur Gastrointestinal: normal bowel sounds, non tender, soft, no mass, no organomegaly, non-distended, no guarding, no hernia, no pulsatile mass, no rebound Genitourinary: no CVA tenderness Musculoskeletal: normal inspection Neurologic: oriented x3, responsive, lumber tailer III-XII nml as tested, motor strength/ tone normal, sensory intact Psychiatric: mood/affect normal Skin: no rash Lymphatic: normal inspection, no adenopathy Medical Decision Making Diagnostic Impression: Primary Impression: Chest pain ER Course Patient is a fairly complex patient with multiple differential to consideration including but not limited to cardiac cardiopulmonary and vascular emergencies Patient's blood work is at baseline levels cardiac enzymes negative patient continues to rest well And at this time stable for close follow-up Labs Test 02/06/19 19:53 White Blood Count 5.5 K/UL (4.8-10.8) Red Blood Count 4.16 M/UL (4.70-6.10) Hemoglobin 12.9 G/DL (14.2-18.0) Hematocrit 38.2 % (42.0-52.0) Mean Corpuscular Volume 92 FL (80-99) Mean Corpuscular Hemoglobin 31.1 PG (27.0-31.0) Mean Corpuscular Hemoglobin Concent 33.8 G/DL (32.0-36.0) Red Cell Distribution Width 13.4 % (11.6-14.8) Platelet Count 161 K/UL (150-450) Mean Platelet Volume 7.0 FL (6.5-10.1) Neutrophils (%) (Auto) 51.2 % (45.0-75.0) Lymphocytes (%) (Auto) 35.4 % (20.0-45.0) Monocytes (%) (Auto) 8.5 % (1.0-10.0) Eosinophils (%) (Auto) 3.9 % (0.0-3.0) Basophils (%) (Auto) 1.1 % (0.0-2.0) Sodium Level 143 MMOL/L (136-145) Potassium Level 4.0 MMOL/L (3.5-5.1) Chloride Level 104 MMOL/L (98-107) Carbon Dioxide Level 34 MMOL/L (21-32) Anion Gap 5 mmol/L (5-15) Blood Urea Nitrogen 22 mg/dL (7-18) Creatinine 1.0 MG/DL (0.55-1.30) Estimat Glomerular Filtration Rate > 60 mL/min (>60) Glucose Level 87 MG/DL (74-106) Calcium Level 8.8 MG/DL (8.5-10.1) Total Bilirubin 0.2 MG/DL (0.2-1.0) Aspartate Amino Transf (AST/SGOT) 21 U/L (15-37) Alanine Aminotransferase (ALT/SGPT) 18 U/L (12-78) Alkaline Phosphatase 63 U/L (46-116) Total Creatine Kinase 153 U/L (26-308) Creatine Kinase MB 0.8 NG/ML (0.0-3.6) Creatine Kinase MB Relative Index 0.5 Troponin I 0.007 ng/mL (0.000-0.056) Total Protein 6.4 G/DL (6.4-8.2) Albumin 3.7 G/DL (3.4-5.0) Globulin 2.7 g/dL Albumin/Globulin Ratio 1.4 (1.0-2.7) Valproic Acid (Depakene) Level 70 MCG/ML (50-100) EKG Diagnostic Results Rate: normal Rhythm: NSR ST Segments: no acute changes Rhythm Strip Diag. Results EP Interpretation: yes Rate: 66 Rhythm: NSR, no PVC's, no ectopy Chest X-Ray Diagnostic Results Chest X-Ray Diagnostic Results : Chest X-Ray Ordered: Yes # of Views/Limited/Complete: 1 View Indication: Chest Pain EP Interpretation: Yes Interpretation: no consolidation, no effusion, no pneumothorax Impression: No acute disease Electronically Signed by: Sanjuanita De Anda DO Last Vital Signs Date Time Temp Pulse Resp B/P (MAP) Pulse Ox O2 Delivery O2 Flow Rate FiO2 02/06/19 19:38 99.1 118 14 106/58 (74) 98 Room Air Status: improved Disposition: HOME, SELF-CARE Condition: Improved Additional Instructions: Patient is provided with the discharge instructions notified to follow up with primary doctor in the next 2-3 days otherwise return to the er with any worsening symptoms. Please note that this report is being documented using DRAGON technology. This can lead to erroneous entry secondary to incorrect interpretation by the dictating instrument. Sanjuanita De Anda DO Feb 06, 2019 19:49
[2019-02-06 20:11] VITALS: BP 110/79
[2019-02-06 20:15] LABS: BASOPHILS % (AUTO) 1.1 % (0.0-2.0); EOSINOPHILS % (AUTO) 3.9 % (0.0-3.0); HEMATOCRIT 38.2 % (42.0-52.0); HEMOGLOBIN 12.9 G/DL (14.2-18.0); LYMPHOCYTES % (AUTO) 35.4 % (20.0-45.0); MEAN CORPUSCULAR VOLUME 92 FL (80-99); MONOCYTES % (AUTO) 8.5 % (1.0-10.0); NEUTROPHILS % (AUTO) 51.2 % (45.0-75.0); PLATELET COUNT 161 K/UL (150-450); RED BLOOD COUNT 4.16 M/UL (4.70-6.10); RED CELL DISTRIBUTION WIDTH 13.4 % (11.6-14.8); WHITE BLOOD COUNT 5.5 K/UL (4.8-10.8)
[2019-02-06 20:21] LABS: ANION GAP 5 mmol/L (5-15); BLOOD UREA NITROGEN 22 mg/dL (7-18); CALCIUM 8.8 MG/DL (8.5-10.1); CARBON DIOXIDE 34 MMOL/L (21-32); CHLORIDE 104 MMOL/L (98-107); SODIUM 143 MMOL/L (136-145)
[2019-02-06 20:36] LABS: ALANINE AMINOTRANSFERASE 18 U/L (12-78); ALBUMIN 3.7 G/DL (3.4-5.0); ALBUMIN/GLOBULIN RATIO 1.4 (1.0-2.7); ALKALINE PHOSPHATASE 63 U/L (46-116); ASPARTATE AMINO TRANSFERASE 21 U/L (15-37); BILIRUBIN,TOTAL 0.2 MG/DL (0.2-1.0); CKMB 0.8 NG/ML (0.0-3.6); CREATINE KINASE 153 U/L (26-308)
[2019-02-06 21:18] VITALS: BP 115/70
[2019-02-06 21:30] VITALS: BP 105/86
--- NOTE | 2019-02-06 21:30 | NUR ---
ED Nurse Note: pt cleared to be d/c per ERMD, pt discharge and aftercare instruction provided, pt education done via discussion and handout, pt advised to follow up with pcp or return to ed if changes in condition, vss, ambulatory w/ steady gait, iv d/c and id band removed, left w/ all belongings, pt left in taxi. taxi voucher provided.
--- NOTE | 2019-02-07 10:56 | Diagnostic Imaging Report ---
Indication: Chest pain Comparison: 01/28/2019 A single view chest radiograph was obtained. Findings: Cardiomediastinal appearance is within normal limits for age. The lungs are clear. Pulmonary vascularity is appropriate. The diaphragmatic contour is smooth and costophrenic angles are sharp. No pleural effusions are identified. The bones are unremarkable. Impression: No acute findings
--- NOTE | 2019-02-07 15:20 | Cardiology Report ---
APPROVED REPORT EKG Measurement Heart [id number] Normal sinus rhythm Normal ECG
== END 2019-02-06 21:35 | disposition home or self-care (01) ==
LOC: EDBD 19:37 → EMR 20:51
DX: R07.9 Chest pain, unspecified (principal); G40.909 Epilepsy, unspecified, not intractable, without status epilepticus; G20 Parkinson's disease
CPT/HCPCS: 36415; 71045; 80053; 80164; 82550; 82553; 84484; 85025; 93005; 99284

== ENCOUNTER 2019-02-15 16:53 | Emergency (ER) | payer MEDICARE, MEDICAID ==
[~2019-02-15] VITALS: Ht 182.9 cm; Wt 113.4 kg
[~2019-02-15 16:53] MED LIST changes: +BENZTROPINE ME0.5 MG PO; +CYMBALTA30 MG ORAL
[2019-02-15 17:14] VITALS: BP 156/89
--- NOTE | 2019-02-15 17:17 | NUR ---
ED Nurse Note: BIB [facility]BULANCE [facility] d/t SEIZURE LIKE ACTIVITY. PER EMS ON THE SCENE PATIENT WAS ANSWERING QUESTIONS WHILE HE WAS SHAKING. Pt aaox3 at this time. Pt states he has hx of PKD; pt presents with severe tremors.
--- NOTE | 2019-02-15 17:20 | NUR ---
Parag matson in [facility] - 02/15/19 at 1720 by OTONIEL ELENA:
[2019-02-15 17:50] VITALS: BP 109/75
[2019-02-15 18:32] LABS: ANION GAP 9 mmol/L (5-15); BLOOD UREA NITROGEN 19 mg/dL (7-18); CALCIUM 8.9 MG/DL (8.5-10.1); CARBON DIOXIDE 28 MMOL/L (21-32); CHLORIDE 105 MMOL/L (98-107); CREATININE 1.2 MG/DL (0.55-1.30); POTASSIUM 4.2 MMOL/L (3.5-5.1); SODIUM 142 MMOL/L (136-145)
[2019-02-15 18:37] LABS: ALANINE AMINOTRANSFERASE 13 U/L (12-78); ALBUMIN 3.6 G/DL (3.4-5.0); ALKALINE PHOSPHATASE 49 U/L (46-116); ASPARTATE AMINO TRANSFERASE 20 U/L (15-37); BILIRUBIN,TOTAL 0.3 MG/DL (0.2-1.0)
[2019-02-15 18:43] LABS: BASOPHILS % (AUTO) 1.5 % (0.0-2.0); EOSINOPHILS % (AUTO) 4.8 % (0.0-3.0); HEMATOCRIT 36.4 % (42.0-52.0); HEMOGLOBIN 12.9 G/DL (14.2-18.0); LYMPHOCYTES % (AUTO) 26.8 % (20.0-45.0); MEAN CORPUSCULAR VOLUME 90 FL (80-99); PLATELET COUNT 121 K/UL (150-450); RED BLOOD COUNT 4.06 M/UL (4.70-6.10); RED CELL DISTRIBUTION WIDTH 12.7 % (11.6-14.8); WHITE BLOOD COUNT 4.6 K/UL (4.8-10.8)
--- NOTE | 2019-02-15 18:47 | Diagnostic Imaging Report ---
Indications: Seizure Technique: Spiral acquisitions obtained through the brain. Angled axial and coronal 5 x 5 mm slices were reconstructed. Total dose length product 1509.36 mGycm. CTDI vol(s) 70.38 mGy. Dose reduction achieved using automated exposure control Comparison: None. Findings: There is image degradation due to motion artifact. Per technologist, patient was unable to hold still during the exam. No acute intracranial hemorrhage or edema, mass effect, nor midline shift. There is minimal age-related enlargement of the ventricles and extra axial CSF spaces. There is some periventricularly deep white matter low attenuation consistent with chronic microvascular ischemic change. The calvarium is intact. There is some mastoid opacification on the left. The visualized sinuses are clear. The orbits are unremarkable. Impression: Limited exam, due to motion artifact Mild age-related changes, as described. Negative for acute intracranial bleed or mass effect This agrees with the preliminary interpretation provided overnight by [facility] teleradiology service. The CT scanner at [facility] is accredited by the [employer] and the scans are performed using protocols designed to limit radiation exposure to as low as reasonably achievable to attain images of sufficient resolution adequate for diagnostic evaluation.
[2019-02-15 19:14] LABS: APPEARANCE,URINE CLEAR; BILIRUBIN, URINE NEGATIVE (NEGATIVE); COLOR,URINE YELLOW; GLUCOSE, URINE (UA) NEGATIVE (NEGATIVE); KETONES,URINE NEGATIVE (NEGATIVE); LEUKOCYTE ESTERASE ,URINE NEGATIVE (NEGATIVE); NITRITE,URINE NEGATIVE (NEGATIVE); PH,URINE 6 (4.5-8.0); PROTEIN,URINE NEGATIVE (NEGATIVE); UROBILINOGEN,URINE 1 MG/DL (0.0-1.0)
--- NOTE | 2019-02-15 19:24 | NUR ---
ED Nurse Note: received patient from [place]
[2019-02-15 20:00] VITALS: BP 109/75
--- NOTE | 2019-02-15 20:05 | Emergency Room Report ---
History of Present Illness General Chief Complaint: Seizure Source: Patient Present Illness HPI This patient presents from a boarding care facility. He has a history of Parkinson's disease. He states that he believes his Parkinson's medications are causing him to tremor more. He also states he feels that his tremors worse when he drinks caffeine or coffee. He denies recent illness. He denies fever or chills. He denies nausea or vomiting. He has no other complaints. Allergies: Coded Allergies: No Known Allergies (Unverified , 04/27/13) Patient History Past Medical History: see triage record, CVA/TIA, dementia - schizophrenia, other - Parkinsons Social History: Denies: smoking, alcohol use, drug use Reviewed Nursing Documentation: PMH: Agreed; PSxH: Agreed Nursing Documentation-PMH Past Medical History: No History, Except For Hx Cancer: No Hx Gastrointestinal Problems: No Hx Neurological Problems: Yes Hx Cerebrovascular Accident: Yes Hx Parkinson's Disease: Yes Hx Seizures: Yes Review of Systems All Other Systems: negative except mentioned in HPI Physical Exam Vital Signs Date Time Temp Pulse Resp B/P (MAP) Pulse Ox O2 Delivery O2 Flow Rate FiO2 02/15/19 16:49 100 16 165/100 (121) 94 Room Air 02/15/19 17:14 97.8 Sp02 EP Interpretation: reviewed, normal General Appearance: no apparent distress, alert, GCS 15, non-toxic Head: normocephalic, atraumatic Eyes: bilateral eye normal inspection, bilateral eye PERRL ENT: hearing grossly normal, normal pharynx, no angioedema, normal voice Neck: full range of motion, supple/symm/no masses Respiratory: chest non-tender, lungs clear, normal breath sounds, no respiratory distress, no retraction, no accessory muscle use, speaking full sentences Cardiovascular #1: regular rate, rhythm, no edema Gastrointestinal: normal bowel sounds, non tender, soft, non-distended, no guarding, no rebound Rectal: deferred Musculoskeletal: back normal, gait/station normal, normal range of motion, non- tender Neurologic: alert, oriented x3, responsive, motor strength/tone normal, sensory intact, speech normal, other - Develops a tremor when speaking with medical staff. If resting along in room, no tremor. Psychiatric: judgement/insight normal, memory normal, mood/affect normal, no suicidal/homicidal ideation Skin: no rash, normal color Medical Decision Making Diagnostic Impression: Primary Impression: Parkinson's disease ER Course This patient has multiple chronic medical problems. This includes Parkinson's disease. When the patient speaks or interacts with staff he develops a repetitive movement. I am unsure whether this is related Parkinson's or is psychosomatic. He does seem to have control of these movements. Work-up in the emergency department was unremarkable. This included CT of the head, CBC, CMP. No emergency medical condition was identified. The patient was instructed to follow-up with his primary neurologist and psychiatrist. Patient is given close return precautions and follow-up instructions. Laboratory Tests Test 02/15/19 17:00 02/15/19 18:55 White Blood Count 4.6 K/UL (4.8-10.8) L Red Blood Count 4.06 M/UL (4.70-6.10) L Hemoglobin 12.9 G/DL (14.2-18.0) L Hematocrit 36.4 % (42.0-52.0) L Mean Corpuscular Volume 90 FL (80-99) Mean Corpuscular Hemoglobin 31.8 PG (27.0-31.0) H Mean Corpuscular Hemoglobin Concent 35.5 G/DL (32.0-36.0) Red Cell Distribution Width 12.7 % (11.6-14.8) Platelet Count 121 K/UL (150-450) L Mean Platelet Volume 7.1 FL (6.5-10.1) Neutrophils (%) (Auto) 57.0 % (45.0-75.0) Lymphocytes (%) (Auto) 26.8 % (20.0-45.0) Monocytes (%) (Auto) 10.0 % (1.0-10.0) Eosinophils (%) (Auto) 4.8 % (0.0-3.0) H Basophils (%) (Auto) 1.5 % (0.0-2.0) Prothrombin Time 10.7 SEC (9.30-11.50) Prothrombin Time INR 1.0 (0.9-1.1) PTT 27 SEC (23-33) Sodium Level 142 MMOL/L (136-145) Potassium Level 4.2 MMOL/L (3.5-5.1) Chloride Level 105 MMOL/L (98-107) Carbon Dioxide Level 28 MMOL/L (21-32) Anion Gap 9 mmol/L (5-15) Blood Urea Nitrogen 19 mg/dL (7-18) H Creatinine 1.2 MG/DL (0.55-1.30) Estimate Glomerular Filtration Rate > 60 mL/min (>60) Glucose Level 126 MG/DL (74-106) H Calcium Level 8.9 MG/DL (8.5-10.1) Total Bilirubin 0.3 MG/DL (0.2-1.0) Aspartate Amino Transferase (AST) 20 U/L (15-37) Alanine Aminotransferase (ALT) 13 U/L (12-78) Alkaline Phosphatase 49 U/L (46-116) Total Protein 7.1 G/DL (6.4-8.2) Albumin 3.6 G/DL (3.4-5.0) Globulin 3.5 g/dL Albumin/Globulin Ratio 1.0 (1.0-2.7) Urine Color Yellow Urine Appearance Clear Urine pH 6 (4.5-8.0) Urine Specific [place] 1.015 (1.005-1.035) Urine Protein Negative (NEGATIVE) Urine Glucose (UA) Negative (NEGATIVE) Urine Ketones Negative (NEGATIVE) Urine Blood Negative (NEGATIVE) Urine Nitrite Negative (NEGATIVE) Urine Bilirubin Negative (NEGATIVE) Urine Urobilinogen 1 MG/DL (0.0-1.0) H Urine Leukocyte Esterase Negative (NEGATIVE) EKG Diagnostic Results EP Interpretation: Unable to obtain, secondary to patient anxiety. CT/MRI/US Diagnostic Results CT/MRI/US Diagnostic Results : Imaging Test Ordered: CT head Impression No acute findings. Specifically no intracranial bleed, mass effect or edema. See official report. Last Vital Signs Date Time Temp Pulse Resp B/P (MAP) Pulse Ox O2 Delivery O2 Flow Rate FiO2 02/15/19 17:50 97.8 98 20 109/75 98 Room Air Status: improved Disposition: HOME, SELF-CARE Condition: Improved Nery Isbell DO Feb 15, 2019 20:05
--- NOTE | 2019-02-15 21:00 | NUR ---
ER DISCHARGE NOTE: Patient is cleared to be discharged per ERMD, pt is aox4, on room air, with stable vital signs. pt was given dc and prescription instructions, pt was able to verbalize understanding, pt id band and iv site removed without complications. pt is able to ambulate with steady gait. pt took all belongings.
== END 2019-02-15 21:00 | disposition home or self-care (01) ==
LOC: EDBD 16:53 → EMR 18:36
DX: G20 Parkinson's disease (principal); F03.90 Unspecified dementia, unspecified severity, without behavioral disturbance, psychotic disturbance, mood disturbance, and anxiety; F20.9 Schizophrenia, unspecified; Z86.73 Personal history of transient ischemic attack (TIA), and cerebral infarction without residual deficits
CPT/HCPCS: 36415; 70450; 80053; 81003; 82962; 85025; 85610; 85730; 99284

== ENCOUNTER 2019-06-21 14:46 | Inpatient (IN) | payer MEDICARE, MEDICAID ==
[~2019-06-21] VITALS: Ht 182.9 cm; Wt 104.4 kg
[2019-06-21 15:00] VITALS: BP 114/73
--- NOTE | 2019-06-21 15:09 | NUR ---
ED Nurse Note: pt came in via [id number] from a boarding care for sz and parkinsons. carlos eason done blood sent pt down to ct and now back emd informed that pt's vission just went black per pt.
--- NOTE | 2019-06-21 15:32 | Diagnostic Imaging Report ---
Indications: Seizures Technique: Spiral acquisitions obtained through the brain. Angled axial and coronal 5 x 5 mm slices were reconstructed. Total dose length product 1426 mGycm. CTDI vol(s) 62 mGy. Dose reduction achieved using automated exposure control Comparison: None. Findings: Ventricles and extra axial CSF spaces are within normal limits. However, there is periventricular deep white matter low-attenuation, consistent with chronic microvascular ischemic change. More focal areas of low-attenuation in the left frontal and right posterior parietal deep white matter may reflect old deep white matter lacunar infarcts. No acute intracranial hemorrhage or edema. No mass effect nor midline shift. Normal hagen-white differentiation otherwise. Visualized orbits are unremarkable. There is mucosal thickening and chronic periosteal thickening of the bilateral maxillary and ethmoid sinuses. There is a small air-fluid level within the sphenoid sinus. There is chronic sclerosis of the left mastoids. The right mastoids are clear. Prior exam, there is no significant interim change. Impression: Chronic changes as described, including periventricular deep white matter ischemic changes and possible old deep white matter lacunar infarcts Negative for acute intracranial bleed or mass effect Sinus disease The CT scanner at [facility] is accredited by the [employer] and the scans are performed using protocols designed to limit radiation exposure to as low as reasonably achievable to attain images of sufficient resolution adequate for diagnostic evaluation.
--- NOTE | 2019-06-21 15:57 | Emergency Room Report ---
History of Present Illness General Chief Complaint: Seizure Source: Patient, EMS Present Illness HPI 59-year-old male presents with seizure tonic clonic prior to arrival, lasting a few mins he feels a little confused he state that he passed out, he endorses a headache, changes in vision, no shortness of breath no chest pain, feels a little shaky he presents for evaluation and management. He also reports being blind after the seizure Allergies: Coded Allergies: No Known Allergies (Unverified , 04/27/13) Patient History Past Medical History: see triage record Reviewed Nursing Documentation: PMH: Agreed; PSxH: Agreed Nursing Documentation-PMH Hx Cancer: No Hx Gastrointestinal Problems: No Hx Neurological Problems: Yes Hx Cerebrovascular Accident: Yes Hx Parkinson's Disease: Yes Hx Seizures: Yes Review of Systems All Other Systems: negative except mentioned in HPI Physical Exam Vital Signs Date Time Temp Pulse Resp B/P (MAP) Pulse Ox O2 Delivery O2 Flow Rate FiO2 06/21/19 14:42 98.8 98 17 114/73 (87) 97 Room Air 06/21/19 15:02 2.0 Sp02 EP Interpretation: reviewed, normal General Appearance: well appearing, no apparent distress, alert Head: normocephalic, atraumatic Eyes: bilateral eye PERRL, bilateral eye EOMI, bilateral eye other - Patient is tracking he has a move, additionally patient will blink when exposed to confrontation to the eye ENT: uvula midline, moist mucus membranes Neck: supple, thyroid normal, supple/symm/no masses Respiratory: lungs clear, no respiratory distress, no retraction, no accessory muscle use Cardiovascular #1: normal peripheral pulses, regular rate, rhythm, no edema, no gallop, no murmur Gastrointestinal: non tender, soft, no guarding, no rebound Musculoskeletal: normal inspection Neurologic: alert, oriented x3 Psychiatric: mood/affect normal Skin: no rash, warm/dry Medical Decision Making Diagnostic Impression: Primary Impression: Epileptic seizure, generalized Additional Impression: Syncope, convulsive ER Course 59-year-old male presents with possible seizure, will check levels, patient with possible breakthrough seizure, patient also reporting blindness however it is inconsistent with my physical exam, patient will blink when exposed to confrontation, differential diagnosis includes seizure, headache, complex migraine Will rehydrate patient, Patient is currently signing papers however he may be a little altered secondary to seizure we will admit patient for breakthrough seizures and AMS Patient's vision is now intact Patient admitted to Dr. Carrillo Laboratory Tests Test 06/21/19 15:30 White Blood Count 6.6 K/UL (4.8-10.8) Red Blood Count 4.28 M/UL (4.70-6.10) L Hemoglobin 13.6 G/DL (14.2-18.0) L Hematocrit 37.4 % (42.0-52.0) L Mean Corpuscular Volume 88 FL (80-99) Mean Corpuscular Hemoglobin 31.8 PG (27.0-31.0) H Mean Corpuscular Hemoglobin Concent 36.3 G/DL (32.0-36.0) H Red Cell Distribution Width 10.5 % (11.6-14.8) L Platelet Count 187 K/UL (150-450) Mean Platelet Volume 7.0 FL (6.5-10.1) Neutrophils (%) (Auto) 70.5 % (45.0-75.0) Lymphocytes (%) (Auto) 21.2 % (20.0-45.0) Monocytes (%) (Auto) 7.6 % (1.0-10.0) Eosinophils (%) (Auto) 0.1 % (0.0-3.0) Basophils (%) (Auto) 0.7 % (0.0-2.0) Sodium Level 143 MMOL/L (136-145) Potassium Level 4.0 MMOL/L (3.5-5.1) Chloride Level 105 MMOL/L (98-107) Carbon Dioxide Level 30 MMOL/L (21-32) Anion Gap 8 mmol/L (5-15) Blood Urea Nitrogen 19 mg/dL (7-18) H Creatinine 0.8 MG/DL (0.55-1.30) Estimate Glomerular Filtration Rate > 60 mL/min (>60) Glucose Level 80 MG/DL (74-106) Calcium Level 9.3 MG/DL (8.5-10.1) Total Bilirubin 0.5 MG/DL (0.2-1.0) Aspartate Amino Transferase (AST) 19 U/L (15-37) Alanine Aminotransferase (ALT) 18 U/L (12-78) Alkaline Phosphatase 66 U/L (46-116) Total Protein 7.0 G/DL (6.4-8.2) Albumin 3.8 G/DL (3.4-5.0) Globulin 3.2 g/dL Albumin/Globulin Ratio 1.2 (1.0-2.7) Salicylates Level 0.4 ug/mL (2.8-20) L Acetaminophen Level < 2 MCG/ML (10-30) L Phenytoin (Dilantin) Level < 0.5 ug/mL (10-20) L Valproic Acid Level 31 MCG/ML (50-100) L Carbamazepine (Tegretol) Level < 0.5 ug/mL (4.0-12.0) L Phenobarbital Level < 1.0 ug/mL (15-40) L Serum Alcohol Pending EKG Diagnostic Results EKG Time: 15:15 EP Interpretation: NSR, rate 97, QTc 487, no acute ST elevations, normal axis no acute ST elev Rhythm Strip Diag. Results Rhythm Strip Time: 16:50 EP Interpretation: yes Rate: 112 Rhythm: other - Sinus tachycardia Chest X-Ray Diagnostic Results Chest X-Ray Diagnostic Results : Chest X-Ray Ordered: Yes # of Views/Limited/Complete: 1 View Indication: Other - AMS EP Interpretation: Yes Interpretation: no consolidation, no effusion, no pneumothorax, no acute cardiopulmonary disease Impression: No acute disease Electronically Signed by: Robson Shah MD CT/MRI/US Diagnostic Results CT/MRI/US Diagnostic Results : Impression Procedure: CT Head no Contrast Indications: Seizures Technique: Spiral acquisitions obtained through the brain. Angled axial and coronal 5 x 5 mm slices were reconstructed. Total dose length product 1426 mGycm. CTDI vol(s) 62 mGy. Dose reduction achieved using automated exposure control Comparison: None. Findings: Ventricles and extra axial CSF spaces are within normal limits. However, there is periventricular deep white matter low-attenuation, consistent with chronic microvascular ischemic change. More focal areas of low-attenuation in the left frontal and right posterior parietal deep white matter may reflect old deep white matter lacunar infarcts. No acute intracranial hemorrhage or edema. No mass effect nor midline shift. Normal hagen-white differentiation otherwise. Visualized orbits are unremarkable. There is mucosal thickening and chronic periosteal thickening of the bilateral maxillary and ethmoid sinuses. There is a small air-fluid level within the sphenoid sinus. There is chronic sclerosis of the left mastoids. The right mastoids are clear. Prior exam, there is no significant interim change. Impression: Chronic changes as described, including periventricular deep white matter ischemic changes and possible old deep white matter lacunar infarcts Negative for acute intracranial bleed or mass effect Sinus disease The CT scanner at [facility] is accredited by the [employer] and the scans are performed using protocols designed to limit radiation exposure to as low as reasonably achievable to attain images of sufficient resolution adequate for diagnostic evaluation. Dictated By: Srinivas Mancia MD Electronically Signed By: Srinivas Mancia MD Signed Date/Time 06/21/19 1527 CC: Robson Shah MD Last Vital Signs Date Time Temp Pulse Resp B/P (MAP) Pulse Ox O2 Delivery O2 Flow Rate FiO2 06/21/19 15:02 98 17 Nasal Cannula 2.0 06/21/19 15:00 98.8 114/73 97 Disposition: ADMITTED INPATIENT Condition: Stable Robson Shah MD Jun 21, 2019 15:57
[2019-06-21 16:08] LABS: BASOPHILS % (AUTO) 0.7 % (0.0-2.0); EOSINOPHILS % (AUTO) 0.1 % (0.0-3.0); HEMATOCRIT 37.4 % (42.0-52.0); HEMOGLOBIN 13.6 G/DL (14.2-18.0); LYMPHOCYTES % (AUTO) 21.2 % (20.0-45.0); MEAN CORPUSCULAR VOLUME 88 FL (80-99); MONOCYTES % (AUTO) 7.6 % (1.0-10.0); NEUTROPHILS % (AUTO) 70.5 % (45.0-75.0); PLATELET COUNT 187 K/UL (150-450); RED BLOOD COUNT 4.28 M/UL (4.70-6.10); RED CELL DISTRIBUTION WIDTH 10.5 % (11.6-14.8); WHITE BLOOD COUNT 6.6 K/UL (4.8-10.8)
[2019-06-21 16:24] LABS: ANION GAP 8 mmol/L (5-15); BLOOD UREA NITROGEN 19 mg/dL (7-18); CALCIUM 9.3 MG/DL (8.5-10.1); CARBON DIOXIDE 30 MMOL/L (21-32); CHLORIDE 105 MMOL/L (98-107); CREATININE 0.8 MG/DL (0.55-1.30); SODIUM 143 MMOL/L (136-145)
[2019-06-21 16:30] LABS: ALANINE AMINOTRANSFERASE 18 U/L (12-78); ALBUMIN 3.8 G/DL (3.4-5.0); ALBUMIN/GLOBULIN RATIO 1.2 (1.0-2.7); ALKALINE PHOSPHATASE 66 U/L (46-116); ASPARTATE AMINO TRANSFERASE 19 U/L (15-37); BILIRUBIN,TOTAL 0.5 MG/DL (0.2-1.0)
--- NOTE | 2019-06-21 16:48 | Diagnostic Imaging Report ---
Indication: Chest pain Technique: One view of the chest Comparison: 02/06/2019 Findings: Lungs and pleural spaces are clear. Heart size is normal. Inspiration currently, otherwise no significant interim change Impression: No acute process
[2019-06-21] MEDS ORDERED: LORazepam Inj 2mg/ml 1ml IV PRN (17:00)
[2019-06-21] MEDS ORDERED: Miralax 17gm pkt ORAL PRN (17:00)
[2019-06-21] MEDS ORDERED: Depakote ER 500mg tab ORAL ONE (17:00)
[2019-06-21] MEDS ORDERED: Zolpidem 5mg tab ORAL PRN (17:00)
--- NOTE | 2019-06-21 19:19 | NUR ---
HAND-OFF: Report given to Tung HO.
[2019-06-21 20:50] LABS: APPEARANCE,URINE CLEAR; BILIRUBIN, URINE NEGATIVE (NEGATIVE); GLUCOSE, URINE (UA) 3+ (NEGATIVE); KETONES,URINE 3+ (NEGATIVE); LEUKOCYTE ESTERASE ,URINE NEGATIVE (NEGATIVE); NITRITE,URINE NEGATIVE (NEGATIVE); PH,URINE 6 (4.5-8.0); PROTEIN,URINE 2+ (NEGATIVE); UROBILINOGEN,URINE 4 MG/DL (0.0-1.0)
[2019-06-21 20:53] LABS: COLOR,URINE YELLOW
--- NOTE | 2019-06-21 21:24 | NUR ---
ED Nurse Note: Report called into Raj HO.
--- NOTE | 2019-06-21 21:25 | NUR ---
ED Nurse Note: Patient tyanported to floor without incident by flight radio operator and rn.
[2019-06-21 21:30] VITALS: BP 132/78
--- NOTE | 2019-06-21 21:30 | NUR ---
NURSE NOTES: Received report from Shanelle kitchen aide Nurse at Tele. Pt is AO x3 calm and comfortable. Oriented to the unit. Rails are up x3. Call light is within reach. Bed alarm is on. Will call MD for further orders.
--- NOTE | 2019-06-21 22:18 | NUR ---
NURSE NOTES: Notified MD Carrillo that the patient arrived to the floor. Notified that MD Savage put admission orders. Will wait for further orders.
[2019-06-21] MEDS: Depakote ER 500mg tab ORAL SCH (22:37)
[2019-06-21] MEDS: Heparin 5000 units/ml inj SUBQ SCH (22:44)
--- NOTE | 2019-06-21 22:44 | NUR ---
NURSE NOTES: Per MD Carrillo no further at this time. Pt is calm and comfortable at this time.
[2019-06-21] MEDS: Morphine Sulfate 2mg/ml Inj(IV/IM USE ONLY) IVP PRN (23:27)
[2019-06-22] VITALS: BP 122/77
--- NOTE | 2019-06-22 00:32 | NUR ---
NURSE NOTES: Removed Ativan 2 mg x1 vial. Ativan marques lock is broken. Charge nurse and nursing melter supervisor electric arc furnace notified.
[2019-06-22 04:00] VITALS: BP 113/68
[2019-06-22 07:21] LABS: BASOPHILS % (AUTO) 0.8 % (0.0-2.0); EOSINOPHILS % (AUTO) 1.2 % (0.0-3.0); HEMATOCRIT 34.2 % (42.0-52.0); HEMOGLOBIN 11.5 G/DL (14.2-18.0); LYMPHOCYTES % (AUTO) 27.6 % (20.0-45.0); MEAN CORPUSCULAR VOLUME 92 FL (80-99); NEUTROPHILS % (AUTO) 62.4 % (45.0-75.0); PLATELET COUNT 164 K/UL (150-450); RED CELL DISTRIBUTION WIDTH 11.7 % (11.6-14.8); WHITE BLOOD COUNT 4.4 K/UL (4.8-10.8)
--- NOTE | 2019-06-22 07:22 | NUR ---
HAND-OFF: Report given to Evaristo HO.
[2019-06-22 07:41] LABS: ALANINE AMINOTRANSFERASE 18 U/L (12-78); ALBUMIN 3.3 G/DL (3.4-5.0); ALBUMIN/GLOBULIN RATIO 1.1 (1.0-2.7); ALKALINE PHOSPHATASE 58 U/L (46-116); ANION GAP 7 mmol/L (5-15); ASPARTATE AMINO TRANSFERASE 17 U/L (15-37); BILIRUBIN,TOTAL 0.6 MG/DL (0.2-1.0); BLOOD UREA NITROGEN 20 mg/dL (7-18); CALCIUM 8.7 MG/DL (8.5-10.1); CARBON DIOXIDE 28 MMOL/L (21-32); CHLORIDE 107 MMOL/L (98-107); CREATININE 0.7 MG/DL (0.55-1.30); POTASSIUM 3.9 MMOL/L (3.5-5.1); SODIUM 142 MMOL/L (136-145)
--- NOTE | 2019-06-22 07:51 | NUR ---
NURSE NOTES: HANDOFF RECEIVED FROM GEORGIA VERAS. PATIENT RECEIVED AWAKE AND ALERT AND RESTING IN BED. IV SITE IS CLEAN DRY AND INTACT, SALINE LOCKED. NO ACUTE SIGNS OF DISTRESS NOTED. BED IN THE LOW AND LOCKED POSITION WITH CALL LIGHT WITHIN REACH. PATIENT HAS SIDE RAILS PADDED. WILL CONTINUE TO MONITOR.
[2019-06-22 08:00] VITALS: BP 113/60
[2019-06-22] MEDS: Depakote ER 500mg tab ORAL SCH ×2 (09:13→20:36)
[2019-06-22] MEDS: DULoxetine 30mg cap ORAL SCH (09:13)
[2019-06-22] MEDS: Heparin 5000 units/ml inj SUBQ SCH ×2 (09:17→20:38)
[2019-06-22] MEDS: Morphine Sulfate 2mg/ml Inj(IV/IM USE ONLY) IVP PRN (09:17)
[2019-06-22 12:00] VITALS: BP 138/92
--- NOTE | 2019-06-22 12:11 | Consultation ---
History of Present Illness General Date patient seen: Jun 22, 2019 Chief Complaint: Seizure Reason for Consultation: inpatient management Present Illness HPI 59 year old male with hx of seizures, parkinson disease, schizophrenia, residing in a [facility] was brought in by EMS with CC of seizures. He was recently hospitalized for chest pain. He looks comfortable now and didn't have any seizures since admission. Allergies: Coded Allergies: No Known Allergies (Unverified , 04/27/13) Medication History Scheduled Aripiprazole* (Abilify*), Unknown Dose ORAL DAILY, (Reported) Cephalexin* (Keflex*), 500 MG ORAL EVERY 6 HOURS Clozapine* (Clozaril*), Unknown Dose ORAL EVERY 12 HOURS, (Reported) Divalproex Sodium* (Depakote Er*), 500 MG ORAL EVERY 12 HOURS, (Reported) Duloxetine Hcl* (Cymbalta*), 30 MG ORAL DAILY, (Reported) Fluoxetine Hcl* (Fluoxetine Hcl*), 20 MG ORAL DAILY, (Reported) Phenytoin Sodium Extended* (Dilantin*), Unknown Dose ORAL THREE TIMES A DAY, ( Reported) Quetiapine Fumarate* (Quetiapine Fumarate*), 100 MG ORAL DAILY, (Reported) Trimethoprim/Sulfamethoxazole 160/800* (Bactrim Ds Tablet*), 1 TAB ORAL Q12H Miscellaneous Medications Benztropine Mesylate* (Cogentin*), 2 MG PO, (Reported) Patient History Healthcare decision maker N Resuscitation status Advanced Directive on File Past Medical/Surgical History Past Medical/Surgical History: (1) Seizure disorder (2) Schizo-affective schizophrenia (3) h/o single generalised seizure in 1979 Review of Systems Constitutional: Reports: no symptoms Eye: Reports: no symptoms Physical Exam General Appearance: WD/WN Lines, tubes and drains: peripheral HEENT: normocephalic, atraumatic Neck: non-tender, normal alignment, supple Respiratory/Chest: chest wall non-tender, lungs clear Abdomen: normal bowel sounds, non tender Genitourinary/Rectal: normal rectal exam Extremities: normal range of motion Skin Exam: normal pigmentation Last 24 Hour Vital Signs Date Time Temp Pulse Resp B/P (MAP) Pulse Ox O2 Delivery O2 Flow Rate FiO2 06/22/19 08:41 Room Air 06/22/19 08:00 106 06/22/19 08:00 98.6 88 18 113/60 (77) 100 06/22/19 04:00 92 06/22/19 04:00 103 06/22/19 04:00 97.4 78 20 113/68 (83) 96 06/22/19 00:00 97.7 95 20 122/77 (92) 97 06/21/19 22:59 Room Air 06/21/19 21:50 93 06/21/19 21:30 97.9 97 20 132/78 (96) 97 06/21/19 21:25 98.8 17 114/73 97 Nasal Cannula 2.0 06/21/19 15:02 98 17 Nasal Cannula 2.0 06/21/19 15:00 98.8 17 114/73 97 Room Air 06/21/19 14:42 98.8 98 17 114/73 (87) 97 Room Air Intake and Output 06/21/19 06/22/19 19:00 07:00 Intake Total 1000 ml Output Total 100 ml Balance 1000 ml -100 ml Intake IV Total 1000 ml Output Urine Total 100 ml # Voids 1 Laboratory Tests Test 06/21/19 15:30 06/21/19 20:35 06/22/19 06:34 White Blood Count 6.6 K/UL (4.8-10.8) 4.4 K/UL (4.8-10.8) L Red Blood Count 4.28 M/UL (4.70-6.10) L 3.70 M/UL (4.70-6.10) L Hemoglobin 13.6 G/DL (14.2-18.0) L 11.5 G/DL (14.2-18.0) L Hematocrit 37.4 % (42.0-52.0) L 34.2 % (42.0-52.0) L Mean Corpuscular Volume 88 FL (80-99) 92 FL (80-99) Mean Corpuscular Hemoglobin 31.8 PG (27.0-31.0) H 31.2 PG (27.0-31.0) H Mean Corpuscular Hemoglobin Concent 36.3 G/DL (32.0-36.0) H 33.8 G/DL (32.0-36.0) Red Cell Distribution Width 10.5 % (11.6-14.8) L 11.7 % (11.6-14.8) Platelet Count 187 K/UL (150-450) 164 K/UL (150-450) Mean Platelet Volume 7.0 FL (6.5-10.1) 6.7 FL (6.5-10.1) Neutrophils (%) (Auto) 70.5 % (45.0-75.0) 62.4 % (45.0-75.0) Lymphocytes (%) (Auto) 21.2 % (20.0-45.0) 27.6 % (20.0-45.0) Monocytes (%) (Auto) 7.6 % (1.0-10.0) 8.0 % (1.0-10.0) Eosinophils (%) (Auto) 0.1 % (0.0-3.0) 1.2 % (0.0-3.0) Basophils (%) (Auto) 0.7 % (0.0-2.0) 0.8 % (0.0-2.0) Sodium Level 143 MMOL/L (136-145) 142 MMOL/L (136-145) Potassium Level 4.0 MMOL/L (3.5-5.1) 3.9 MMOL/L (3.5-5.1) Chloride Level 105 MMOL/L (98-107) 107 MMOL/L (98-107) Carbon Dioxide Level 30 MMOL/L (21-32) 28 MMOL/L (21-32) Anion Gap 8 mmol/L (5-15) 7 mmol/L (5-15) Blood Urea Nitrogen 19 mg/dL (7-18) H 20 mg/dL (7-18) H Creatinine 0.8 MG/DL (0.55-1.30) 0.7 MG/DL (0.55-1.30) Estimat Glomerular Filtration Rate > 60 mL/min (>60) > 60 mL/min (>60) Glucose Level 80 MG/DL (74-106) 97 MG/DL (74-106) Calcium Level 9.3 MG/DL (8.5-10.1) 8.7 MG/DL (8.5-10.1) Total Bilirubin 0.5 MG/DL (0.2-1.0) 0.6 MG/DL (0.2-1.0) Aspartate Amino Transf (AST/SGOT) 19 U/L (15-37) 17 U/L (15-37) Alanine Aminotransferase (ALT/SGPT) 18 U/L (12-78) 18 U/L (12-78) Alkaline Phosphatase 66 U/L (46-116) 58 U/L (46-116) Troponin I 0.000 ng/mL (0.000-0.056) Total Protein 7.0 G/DL (6.4-8.2) 6.2 G/DL (6.4-8.2) L Albumin 3.8 G/DL (3.4-5.0) 3.3 G/DL (3.4-5.0) L Globulin 3.2 g/dL 2.9 g/dL Albumin/Globulin Ratio 1.2 (1.0-2.7) 1.1 (1.0-2.7) Salicylates Level 0.4 ug/mL (2.8-20) L Acetaminophen Level < 2 MCG/ML (10-30) L Phenytoin (Dilantin) Level < 0.5 ug/mL (10-20) L Valproic Acid (Depakene) Level 31 MCG/ML (50-100) L Carbamazepine (Tegretol) Level < 0.5 ug/mL (4.0-12.0) L Phenobarbital Level < 1.0 ug/mL (15-40) L Serum Alcohol < 3 mg/dL Urine Color Yellow Urine Appearance Clear Urine pH 6 (4.5-8.0) Urine Specific [place] 1.025 (1.005-1.035) Urine Protein 2+ (NEGATIVE) H Urine Glucose (UA) 3+ (NEGATIVE) H Urine Ketones 3+ (NEGATIVE) H Urine Blood 1+ (NEGATIVE) H Urine Nitrite Negative (NEGATIVE) Urine Bilirubin Negative (NEGATIVE) Urine Urobilinogen 4 MG/DL (0.0-1.0) H Urine Leukocyte Esterase Negative (NEGATIVE) Urine RBC 2-4 /HPF (0 - 0) H Urine WBC 0-2 /HPF (0 - 0) Urine Squamous Epithelial Cells Occasional /LPF Urine Bacteria Few /HPF (NONE) Urine Opiates Screen Negative (NEGATIVE) Urine Barbiturates Screen Negative (NEGATIVE) Phencyclidine (PCP) Screen Negative (NEGATIVE) Urine Amphetamines Screen Negative (NEGATIVE) Urine Benzodiazepines Screen Positive (NEGATIVE) H Urine Cocaine Screen Negative (NEGATIVE) Urine Marijuana (THC) Screen Negative (NEGATIVE) Height (Feet): 6 Height (Inches): 0.00 Weight (Pounds): 225 Medications Current Medications Medications (Trade) Dose Ordered Sig/Jonathan Route PRN Reason Start Time Stop Time Status Last Admin Dose Admin Acetaminophen (Tylenol) 650 mg Q4H PRN ORAL fever 06/21/19 17:00 07/21/19 16:59 Dextrose (Dextrose 50%) 25 ml Q30M PRN IV Hypoglycemia 06/21/19 17:00 07/21/19 16:59 Dextrose (Dextrose 50%) 25 ml Q30M PRN IV Hypoglycemia 06/21/19 17:00 07/21/19 16:59 Divalproex Sodium (Depakote ER) 500 mg EVERY 12 HOURS ORAL 06/21/19 23:00 07/21/19 22:59 06/22/19 09:13 Duloxetine HCl (Cymbalta) 30 mg DAILY ORAL 06/22/19 09:00 07/22/19 08:59 06/22/19 09:13 Heparin Sodium (Porcine) (Heparin 5000 units/ml) 5,000 units EVERY 12 HOURS SUBQ 06/21/19 21:00 07/21/19 20:59 06/22/19 09:17 Lorazepam (Ativan 2mg/ml 1ml) 2 mg Q1H PRN IV seizures 06/21/19 17:00 06/28/19 16:59 06/22/19 00:29 Morphine Sulfate (Morphine Sulfate) 1 mg Q4H PRN IVP For Pain 06/21/19 17:00 06/28/19 16:59 06/22/19 09:17 Ondansetron HCl (Zofran) 4 mg Q6H PRN IVP Nausea & Vomiting 06/21/19 17:00 07/21/19 16:59 Polyethylene Glycol (Miralax) 17 gm HSPRN PRN ORAL Constipation 06/21/19 17:00 07/21/19 16:59 Quetiapine Fumarate (SEROqueL) 100 mg DAILY ORAL 06/22/19 09:00 07/22/19 08:59 06/22/19 09:13 Zolpidem Tartrate (Ambien) 5 mg HSPRN PRN ORAL Insomnia 06/21/19 17:00 06/28/19 16:59 Assessment/Plan Problem List: (1) Epileptic seizure, generalized ICD Codes: G40.309 - Generalized idiopathic epilepsy and epileptic syndromes, not intractable, without status epilepticus SNOMED: 22036468 (2) Schizo-affective schizophrenia ICD Codes: F25.0 - Schizoaffective disorder, bipolar type SNOMED: 573105794 Assessment/Plan: poor compliance with seizure meds all are subtherapeutic neuro evaluation med/surg dvt prophylaxis continue psychiatric meds Faviola Savage MD Jun 22, 2019 12:11
--- NOTE | 2019-06-22 13:46 | Cardiology Report ---
APPROVED REPORT EKG Measurement Heart [id number] Normal sinus rhythm Prolonged QT Abnormal ECG
--- NOTE | 2019-06-22 15:30 | History & Physical ---
History and Physical History & Physicial Maximus Carrillo MD Jun 22, 2019 15:30
--- NOTE | 2019-06-22 15:37 | NUR ---
CASE MANAGEMENT:REVIEW 59 YR OLD MALE BIBA FROM [facility] PMH: MENTALLY DELAYED CC: SEIZURE SI: SEIZURE. AMS. SYNCOPE 98.7 98 17 114/73 97% ON RA IS: VERSED 5MG DEPAKOTE 500MG PO X1 1L NS BOLUS CT HEAD CXR : TO TELEMETRY DCP; [facility]URN TO [facility]
[2019-06-22 16:00] VITALS: BP 121/57
--- NOTE | 2019-06-22 19:40 | NUR ---
HAND-OFF: Report given to dany mendez.
[2019-06-22 20:00] VITALS: BP 110/62
--- NOTE | 2019-06-22 20:00 | NUR ---
NURSE NOTES: RECEIVED PATIENT LYING IN BED, AWAKE, ALERT/ORIENTED TO PERSON/PLACE, REALITY ORIENTATION DURING ASSESSMENT. DENIES PAIN. NO SIGNS AND SYMPTOMS OF ACUTE CARDIO RESPIRATORY DISTRESS/SHORTNESS OF BREATH, PERIPHERAL EDEMA NOTED TO BILATERAL LOWER EXTREMITIES, NON COMPLIANT WITH ELEVATION. NO SEIZURE ACTIVITY NOTED., PRECAUTIONS OBSERVED/SIDE RAILS PADDED. NO REPORT OF GI DISCOMFORT, NO NAUSEA/VOMITING. SIDE RAILS UP X3/BED IN LOWEST POSITION FOR SAFETY. CALL LIGHT WITHIN REACH. FREQUENT ROUNDING FOR SAFETY/NEEDS. NAD. CONTINUE WITH CURRENT PLAN OF CARE. OFF MONITOR.
--- NOTE | 2019-06-22 20:15 | History and Physical Report ---
DATE OF ADMISSION: 06/21/2019 CHIEF COMPLAINT: Seizure activity. HISTORY OF PRESENT ILLNESS: This is a 59-year-old gentleman with past medical history significant for seizure disorder, history of schizophrenia, morbid obesity, Parkinson disease, who was presented to the hospital, after was noted with a tonic-clonic seizure activity. Upon arrival, lasted for few minutes, he feels a little bit confused. He stated that he had passed out. He endorsed that he has been having a headache, change of vision. Denies any shortness of breath or chest pain in the. He feels little shaky. He re-presented for evaluation and management. Shortly after initial evaluation in the emergency room, the patient was admitted to the hospital with uncontrolled seizure, possible epilepsy. PAST MEDICAL HISTORY/PAST SURGICAL HISTORY: As above. History of morbid obesity, schizophrenia, Parkinson disease, seizure disorder. MEDICATIONS: At home, is significant for Abilify, Keflex, Clozaril, Depakote, Cymbalta, fluoxetine, Dilantin, Seroquel, and Bactrim. ALLERGIES: No known drug allergies. SOCIAL HISTORY: Denies any smoking, alcohol, or drugs at this time. FAMILY HISTORY: Noncontributory. REVIEW OF SYSTEMS: Mostly as above. Denies any dysuria, frequency, OR hematuria. Denies any hemoptysis or hematochezia. Denies any double vision. Denies any fall or head trauma. Denies any suicidal or homicidal ideation. PHYSICAL EXAMINATION: VITAL SIGNS: On admission from the ER, temperature 98.8, pulse of 98, respirations 17, blood pressure 114/73. GENERAL: The patient is awake, responsive, in no acute distress. HEAD AND NECK: Pupils are equal and reactive to light. Anicteric. Neck was supple. No JVD. poor dentition with maxillary protrusion. LUNGS: Good air entry. No wheezes or rales. HEART: S1, S2. Regular rhythm. No gallops. ABDOMEN: Soft, nondistended, and nontender. Morbid obesity. EXTREMITIES: No cyanosis, clubbing, or edema. NEUROLOGIC: Cranial nerves II through XII grossly intact. Motor is 5/5 in all extremities. Gait was not assessed due to patient's status. RECTAL: Refused and deferred. GENITOURINARY: Refused and deferred. PSYCHIATRIC: Mood and affect is intact at this time. LABORATORY DATA: On admission WBC of 6.6, hemoglobin 13, hematocrit 37, platelet is 187,000. Sodium 142, potassium 4.4, chloride 105, bicarbonate 30, BUN 19, creatinine 0.8. First troponin 0.00. Urine drug screen negative except benzodiazepine positive. Alcohol level is negative. Phenobarb level negative. Carbamazepine negative. Valproic acid is 31. Dilantin level less than 0.05 and salicylate is 0.4. Urinalysis, +2 protein, +3 glucose, +3 ketones, +1 blood, negative nitrite. The patient had a CT of the head was done, showed that no acute intracranial bleed or mass effect. The chronic changes described including periventricular deep white matter ischemic changes with possible old deep white matter lacunar infarction. Chest x-ray, no acute process. ASSESSMENT: 1. Acute tonic-colonic seizure, uncontrolled. 2. Schizophrenia. 3. Parkinson disease. 4. Morbid obesity. 5. Prior history of stroke. PLAN: 1. Admit the patient to monitor unit. 2. We will follow up laboratory. 3. Seizure precaution. 4. Code status is Full Code. 5. Resume home medication. 6. We will follow up with Neurology consultation. Maximus Carrillo M.D. DR: DANIEL JOB#: [id number] CC:
[2019-06-23] VITALS (7 sets, daily range): BP systolic 110–133; BP diastolic 61–80
--- NOTE | 2019-06-23 01:04 | NUR ---
NURSE NOTES: RESTING WELL ON ROUNDS, NO SIGNS AND SYMPTOMS OF DISTRESS. CONTINUE WITH CURRENT PLAN OF CARE.
--- NOTE | 2019-06-23 04:50 | NUR ---
NURSE NOTES: RESTING WELL ON ROUNDS, NAD.
--- NOTE | 2019-06-23 06:34 | NUR ---
NURSE NOTES: RESTED WELL, NO SIGNIFICANT CHANGE OF CONDITION NOTED THROUGHOUT THE NIGHT. SAFETY MAINTAINED. NAD.
--- NOTE | 2019-06-23 07:29 | NUR ---
HAND-OFF: Report given to GEORGIA VELEZ.
--- NOTE | 2019-06-23 07:46 | NUR ---
NURSE NOTES: Received report from GEORGIA Gomes. Patient in bed resting, no active s/s cardiac, respiratory distress noticed at this time. Patient on room air, AO x3-4. Patient denies pain at this time. IV on right AC 20G, asymptomatic, patent, intact. Bed in lowest position, side rails upx2, call light within reach, bed alarm on. Will continue to monitor. Addendum: 06/23/19 at 0749 by AGUSTIN MCCANN RN Endorsed no seizure activity during the night, waiting for bed from med-surgi.
[2019-06-23] MEDS: Depakote ER 500mg tab ORAL SCH ×2 (08:08→20:26)
[2019-06-23] MEDS: DULoxetine 30mg cap ORAL SCH (08:08)
[2019-06-23] MEDS: Heparin 5000 units/ml inj SUBQ SCH ×2 (08:11→20:26)
--- NOTE | 2019-06-23 15:32 | Internal Med Progress Note ---
Subjective Date of Service: Jun 23, 2019 Physician Name Regis Jauregui Attending Physician Maximus Carrillo MD Current Medications Medications (Trade) Dose Ordered Sig/Jonathan Route PRN Reason Start Time Stop Time Status Last Admin Dose Admin Acetaminophen (Tylenol) 650 mg Q4H PRN ORAL fever 06/21/19 17:00 07/21/19 16:59 Dextrose (Dextrose 50%) 25 ml Q30M PRN IV Hypoglycemia 06/21/19 17:00 07/21/19 16:59 Dextrose (Dextrose 50%) 25 ml Q30M PRN IV Hypoglycemia 06/21/19 17:00 07/21/19 16:59 Divalproex Sodium (Depakote ER) 500 mg EVERY 12 HOURS ORAL 06/21/19 23:00 07/21/19 22:59 06/23/19 08:08 Duloxetine HCl (Cymbalta) 30 mg DAILY ORAL 06/22/19 09:00 07/22/19 08:59 06/23/19 08:08 Heparin Sodium (Porcine) (Heparin 5000 units/ml) 5,000 units EVERY 12 HOURS SUBQ 06/21/19 21:00 07/21/19 20:59 06/23/19 08:11 Lorazepam (Ativan 2mg/ml 1ml) 2 mg Q1H PRN IV seizures 06/21/19 17:00 06/28/19 16:59 06/22/19 00:29 Morphine Sulfate (Morphine Sulfate) 1 mg Q4H PRN IVP For Pain 06/21/19 17:00 06/28/19 16:59 06/22/19 09:17 Ondansetron HCl (Zofran) 4 mg Q6H PRN IVP Nausea & Vomiting 06/21/19 17:00 07/21/19 16:59 Polyethylene Glycol (Miralax) 17 gm HSPRN PRN ORAL Constipation 06/21/19 17:00 07/21/19 16:59 Quetiapine Fumarate (SEROqueL) 100 mg DAILY ORAL 06/22/19 09:00 07/22/19 08:59 06/23/19 08:08 Zolpidem Tartrate (Ambien) 5 mg HSPRN PRN ORAL Insomnia 06/21/19 17:00 06/28/19 16:59 Allergies: Coded Allergies: No Known Allergies (Unverified , 04/27/13) ROS Limited/Unobtainable: No Constitutional: Reports: no symptoms HEENT: Reports: no symptoms Cardiovascular: Reports: no symptoms Respiratory: Reports: no symptoms Gastrointestinal/Abdominal: Reports: no symptoms Genitourinary: Reports: no symptoms Neurologic/Psychiatric: Reports: no symptoms Subjective 59 YO M admitted with seizure. Cover for Int Arnie-Dr Carrillo Objective Last Vital Signs Date Time Temp Pulse Resp B/P (MAP) Pulse Ox O2 Delivery O2 Flow Rate FiO2 06/23/19 12:00 98.4 82 18 115/76 (89) 94 06/23/19 09:00 Room Air 06/21/19 21:25 2.0 Intake and Output 06/22/19 06/23/19 19:00 07:00 Intake Total 520 ml 140 ml Balance 520 ml 140 ml Intake Oral 520 ml 140 ml # Voids 2 # Bowel Movements 1 1 Objective PHYSICAL EXAMINATION: GENERAL: The patient is awake, responsive, in no acute distress. HEAD AND NECK: Pupils are equal and reactive to light. Anicteric. Neck was supple. No JVD. Poor dentition with maxillary protrusion. LUNGS: Good air entry. No wheezes or rales. HEART: S1, S2. Regular rhythm. No gallops. ABDOMEN: Soft, nondistended, and nontender. Morbid obesity. EXTREMITIES: No cyanosis, clubbing, or edema. NEUROLOGIC: Cranial nerves II through XII grossly intact. Motor is 5/5 in all extremities. Gait was not assessed due to patient's status. RECTAL: Refused and deferred. GENITOURINARY: Refused and deferred. PSYCHIATRIC: Mood and affect is intact at this time. Assessment/Plan Assessment/Plan ASSESSMENT: 1. Acute tonic-colonic seizure, uncontrolled. 2. Schizophrenia. 3. Parkinson disease. 4. Morbid obesity. 5. Prior history of stroke. PLAN: 1. Admit the patient to monitor unit. 2. We will follow up laboratory. 3. Seizure precaution. 4. Code status is Full Code. 5. Resume home medication. 6. We will follow up with Neurology consultation. Regis Jauregui MD Jun 23, 2019 15:32
--- NOTE | 2019-06-23 17:45 | NUR ---
NURSE NOTES: Received report form Hugh Tillman RN. Patient transferred from telemetry. All belongings checked and verified. In stable condition. Will continue to monitor.
--- NOTE | 2019-06-23 17:49 | NUR ---
TRANSFER TO FLOOR: Patient transferred to 3E, per Dr. Carrillo. Report given to GEORGIA Dumont. Belongings and medications given to GEORGIA Dumont. Family and or S/O informed of transfer.
[2019-06-23] MEDS ORDERED: Morphine Sulfate 2mg/ml Inj(IV/IM USE ONLY) IVP PRN (18:00)
[2019-06-23] MEDS ORDERED: Miralax 17gm pkt ORAL PRN (18:00)
[2019-06-23] MEDS ORDERED: Zolpidem 5mg tab ORAL PRN (18:00)
--- NOTE | 2019-06-23 19:15 | NUR ---
HAND-OFF: Report given to GEORGIA Hess.
--- NOTE | 2019-06-23 19:20 | NUR ---
NURSE NOTES: Received patient on bed,awake and verbally responsive. breathing even and unlabored. no SOB. denies any pain or discomfort. bed locked and in lowest position. with padded side rails noted. will continue plan of care.
--- NOTE | 2019-06-23 21:09 | Pulmonology Progress Note ---
Assessment/Plan Problems: (1) Epileptic seizure, generalized (2) Schizo-affective schizophrenia Assessment/Plan doing better all are subtherapeutic neuro evaluation med/surg dvt prophylaxis continue psychiatric meds try to get a neurologist Subjective ROS Limited/Unobtainable: No Interval Events: no seizures Allergies: Coded Allergies: No Known Allergies (Unverified , 04/27/13) Objective Last 24 Hour Vital Signs Date Time Temp Pulse Resp B/P (MAP) Pulse Ox O2 Delivery O2 Flow Rate FiO2 06/23/19 20:00 98.2 78 19 110/66 (81) 97 06/23/19 18:00 98.1 69 19 110/61 (77) 99 06/23/19 16:00 98.2 89 18 112/69 (83) 97 06/23/19 12:00 98.4 82 18 115/76 (89) 94 06/23/19 09:00 Room Air 06/23/19 08:00 97.7 106 18 133/63 (86) 95 06/23/19 04:00 97.3 93 18 110/70 (83) 97 06/23/19 00:00 97.9 89 18 129/80 (96) 96 Intake and Output 06/22/19 06/23/19 19:00 07:00 Intake Total 520 ml 140 ml Balance 520 ml 140 ml Intake Oral 520 ml 140 ml # Voids 2 # Bowel Movements 1 1 Objective General Appearance: WD/WN, no apparent distress Lines, tubes and drains: peripheral HEENT: normocephalic, atraumatic Neck: non-tender, normal alignment Respiratory/Chest: chest wall non-tender, lungs clear Breasts: no masses Cardiovascular/Chest: normal peripheral pulses Abdomen: non tender Extremities: normal range of motion Skin Exam: normal pigmentation Current Medications Medications (Trade) Dose Ordered Sig/Jonathan Route PRN Reason Start Time Stop Time Status Last Admin Dose Admin Acetaminophen (Tylenol) 650 mg Q4H PRN ORAL fever 06/23/19 18:00 07/21/19 17:59 Dextrose (Dextrose 50%) 25 ml Q30M PRN IV Hypoglycemia 06/23/19 18:00 07/21/19 16:59 Dextrose (Dextrose 50%) 25 ml Q30M PRN IV Hypoglycemia 06/23/19 18:00 07/21/19 16:59 Divalproex Sodium (Depakote ER) 500 mg EVERY 12 HOURS ORAL 06/23/19 21:00 07/21/19 22:59 06/23/19 20:26 Duloxetine HCl (Cymbalta) 30 mg DAILY ORAL 06/24/19 09:00 07/22/19 08:59 Heparin Sodium (Porcine) (Heparin 5000 units/ml) 5,000 units EVERY 12 HOURS SUBQ 06/23/19 21:00 07/21/19 20:59 06/23/19 20:26 Lorazepam (Ativan 2mg/ml 1ml) 2 mg Q1H PRN IV seizures 06/23/19 18:00 06/28/19 16:59 Morphine Sulfate (Morphine Sulfate) 1 mg Q4H PRN IVP For Pain 06/23/19 18:00 06/28/19 17:59 06/23/19 18:52 Ondansetron HCl (Zofran) 4 mg Q6H PRN IVP Nausea & Vomiting 06/23/19 18:00 07/21/19 17:59 Polyethylene Glycol (Miralax) 17 gm HSPRN PRN ORAL Constipation 06/23/19 18:00 07/23/19 17:59 Quetiapine Fumarate (SEROqueL) 100 mg DAILY ORAL 06/24/19 09:00 07/22/19 08:59 Zolpidem Tartrate (Ambien) 5 mg HSPRN PRN ORAL Insomnia 06/23/19 18:00 06/30/19 17:59 Faviola Savage MD Jun 23, 2019 21:09
[2019-06-24] VITALS: BP 109/69
[2019-06-24 04:00] VITALS: BP 109/66
[2019-06-24 05:43] LABS: BASOPHILS % (AUTO) 0.9 % (0.0-2.0); EOSINOPHILS % (AUTO) 2.6 % (0.0-3.0); HEMATOCRIT 35.2 % (42.0-52.0); HEMOGLOBIN 11.8 G/DL (14.2-18.0); LYMPHOCYTES % (AUTO) 43.9 % (20.0-45.0); MEAN CORPUSCULAR VOLUME 93 FL (80-99); NEUTROPHILS % (AUTO) 44.7 % (45.0-75.0); PLATELET COUNT 154 K/UL (150-450); RED CELL DISTRIBUTION WIDTH 11.9 % (11.6-14.8); WHITE BLOOD COUNT 4.2 K/UL (4.8-10.8)
[2019-06-24 06:03] LABS: ANION GAP 2 mmol/L (5-15); BLOOD UREA NITROGEN 17 mg/dL (7-18); CALCIUM 8.8 MG/DL (8.5-10.1); CARBON DIOXIDE 33 MMOL/L (21-32); CHLORIDE 107 MMOL/L (98-107); CREATININE 0.7 MG/DL (0.55-1.30); SODIUM 142 MMOL/L (136-145)
--- NOTE | 2019-06-24 07:05 | NUR ---
NURSE NOTES: Report received from Ashley HO, rounds made. Patient sitting upright in bed, eating breakfast, appetite good. Seizure pads in place. RAC heplock intact. No pain, SOB on RA, NV at this time. Call light in reach, bed in lowest position, will continue to monitor.
--- NOTE | 2019-06-24 07:08 | NUR ---
HAND-OFF: Report given to GEORGIA Zepeda.
--- NOTE | 2019-06-24 07:13 | NUR ---
HAND-OFF: Report given to GEORGIA solorzano.
[2019-06-24 08:00] VITALS: BP 109/70
[2019-06-24] MEDS: Heparin 5000 units/ml inj SUBQ SCH ×2 (09:44→20:47)
[2019-06-24] MEDS: Depakote ER 500mg tab ORAL SCH ×2 (09:44→20:45)
[2019-06-24] MEDS: DULoxetine 30mg cap ORAL SCH (09:45)
[2019-06-24 12:00] VITALS: BP 108/74
--- NOTE | 2019-06-24 15:01 | Internal Med Progress Note ---
Subjective Date of Service: Jun 24, 2019 Physician Name Regis Jauregui Attending Physician Maximus Carrillo MD Current Medications Medications (Trade) Dose Ordered Sig/Jonathan Route PRN Reason Start Time Stop Time Status Last Admin Dose Admin Acetaminophen (Tylenol) 650 mg Q4H PRN ORAL fever 06/23/19 18:00 07/21/19 17:59 Dextrose (Dextrose 50%) 25 ml Q30M PRN IV Hypoglycemia 06/23/19 18:00 07/21/19 16:59 Dextrose (Dextrose 50%) 25 ml Q30M PRN IV Hypoglycemia 06/23/19 18:00 07/21/19 16:59 Divalproex Sodium (Depakote ER) 500 mg EVERY 12 HOURS ORAL 06/23/19 21:00 07/21/19 22:59 06/24/19 09:44 Duloxetine HCl (Cymbalta) 30 mg DAILY ORAL 06/24/19 09:00 07/22/19 08:59 06/24/19 09:45 Heparin Sodium (Porcine) (Heparin 5000 units/ml) 5,000 units EVERY 12 HOURS SUBQ 06/23/19 21:00 07/21/19 20:59 06/24/19 09:44 Lorazepam (Ativan 2mg/ml 1ml) 2 mg Q1H PRN IV seizures 06/23/19 18:00 06/28/19 16:59 Morphine Sulfate (Morphine Sulfate) 1 mg Q4H PRN IVP For Pain 06/23/19 18:00 06/28/19 17:59 06/23/19 18:52 Ondansetron HCl (Zofran) 4 mg Q6H PRN IVP Nausea & Vomiting 06/23/19 18:00 07/21/19 17:59 Polyethylene Glycol (Miralax) 17 gm HSPRN PRN ORAL Constipation 06/23/19 18:00 07/23/19 17:59 Quetiapine Fumarate (SEROqueL) 100 mg DAILY ORAL 06/24/19 09:00 07/22/19 08:59 06/24/19 09:44 Zolpidem Tartrate (Ambien) 5 mg HSPRN PRN ORAL Insomnia 06/23/19 18:00 06/30/19 17:59 Allergies: Coded Allergies: No Known Allergies (Unverified , 04/27/13) ROS Limited/Unobtainable: No Constitutional: Reports: no symptoms HEENT: Reports: no symptoms Cardiovascular: Reports: no symptoms Respiratory: Reports: no symptoms Gastrointestinal/Abdominal: Reports: no symptoms Genitourinary: Reports: no symptoms Neurologic/Psychiatric: Reports: no symptoms Subjective 59 YO M admitted with seizure. Cover for Int Arnie-Dr Carrillo Objective Last Vital Signs Date Time Temp Pulse Resp B/P (MAP) Pulse Ox O2 Delivery O2 Flow Rate FiO2 06/24/19 12:00 97.7 105 20 108/74 (85) 96 06/24/19 09:00 Room Air 06/21/19 21:25 2.0 Laboratory Tests Test 06/24/19 05:10 White Blood Count 4.2 K/UL (4.8-10.8) L Red Blood Count 3.80 M/UL (4.70-6.10) L Hemoglobin 11.8 G/DL (14.2-18.0) L Hematocrit 35.2 % (42.0-52.0) L Mean Corpuscular Volume 93 FL (80-99) Mean Corpuscular Hemoglobin 31.0 PG (27.0-31.0) Mean Corpuscular Hemoglobin Concent 33.5 G/DL (32.0-36.0) Red Cell Distribution Width 11.9 % (11.6-14.8) Platelet Count 154 K/UL (150-450) Mean Platelet Volume 7.3 FL (6.5-10.1) Neutrophils (%) (Auto) 44.7 % (45.0-75.0) L Lymphocytes (%) (Auto) 43.9 % (20.0-45.0) Monocytes (%) (Auto) 8.0 % (1.0-10.0) Eosinophils (%) (Auto) 2.6 % (0.0-3.0) Basophils (%) (Auto) 0.9 % (0.0-2.0) Sodium Level 142 MMOL/L (136-145) Potassium Level 4.0 MMOL/L (3.5-5.1) Chloride Level 107 MMOL/L (98-107) Carbon Dioxide Level 33 MMOL/L (21-32) H Anion Gap 2 mmol/L (5-15) L Blood Urea Nitrogen 17 mg/dL (7-18) Creatinine 0.7 MG/DL (0.55-1.30) Estimat Glomerular Filtration Rate > 60 mL/min (>60) Glucose Level 90 MG/DL (74-106) Calcium Level 8.8 MG/DL (8.5-10.1) Microbiology Date/Time Source Procedure Growth Status 06/21/19 21:15 Nasal Nares MRSA Culture - Final NO METHICILLIN RESISTANT STAPH AUREUS... Complete 06/21/19 21:15 Rectum - Final NO CARBAPENEM-RESISTANT ENTEROBACTERI... Complete 06/21/19 21:15 Rectum VRE Culture - Final NO VANCOMYCIN RESISTANT ENTEROCOCCUS ... Complete Intake and Output 06/23/19 06/24/19 19:00 07:00 Intake Total 840 ml 250 ml Output Total 500 ml Balance 840 ml -250 ml Intake Oral 840 ml 250 ml Output Urine Total 500 ml # Voids 3 1 Objective PHYSICAL EXAMINATION: GENERAL: The patient is awake, responsive, in no acute distress. HEAD AND NECK: Pupils are equal and reactive to light. Anicteric. Neck was supple. No JVD. Poor dentition with maxillary protrusion. LUNGS: Good air entry. No wheezes or rales. HEART: S1, S2. Regular rhythm. No gallops. ABDOMEN: Soft, nondistended, and nontender. Morbid obesity. EXTREMITIES: No cyanosis, clubbing, or edema. NEUROLOGIC: Cranial nerves II through XII grossly intact. Motor is 5/5 in all extremities. Gait was not assessed due to patient's status. RECTAL: Refused and deferred. GENITOURINARY: Refused and deferred. PSYCHIATRIC: Mood and affect is intact at this time. Assessment/Plan Assessment/Plan ASSESSMENT: 1. Acute tonic-colonic seizure, uncontrolled. 2. Schizophrenia. 3. Parkinson disease. 4. Morbid obesity. 5. Prior history of stroke. PLAN: 1. Admit the patient to monitor unit. 2. We will follow up laboratory. 3. Seizure precaution. 4. Code status is Full Code. 5. Resume home medication. 6. We will follow up with Neurology consultation. Reigs Jauregui MD Jun 24, 2019 15:00
[2019-06-24 16:00] VITALS: BP 121/68
--- NOTE | 2019-06-24 17:00 | NUR ---
NURSE NOTES: Patient alert oriented x3, calm, pleasant throughout shift. No seizure activity. Denies pain/SOB/NV. Up to bathroom x3, gait steady. Will continue to monitor.
--- NOTE | 2019-06-24 19:20 | NUR ---
HAND-OFF: Report given to Celeste HO.
--- NOTE | 2019-06-24 19:20 | NUR ---
NURSE NOTES: Receive a report from GEORGIA Colunga. Pt is asleep but easily aroused by sound. No acute distress noted. Denies any pain. No seizure or aura noted. Side rail pads are both sides with side rails up x3. IV site on right AC is intact without infiltration. Call light within reach. Will continue to monitor.
[2019-06-24 20:00] VITALS: BP 100/66
--- NOTE | 2019-06-24 21:31 | Pulmonology Progress Note ---
Assessment/Plan Problems: (1) Epileptic seizure, generalized (2) Schizo-affective schizophrenia Assessment/Plan doing better all are subtherapeutic neuro evaluation med/surg dvt prophylaxis continue psychiatric meds try to get a neurologist all meds reviewed Subjective ROS Limited/Unobtainable: No Constitutional: Reports: no symptoms HEENT: Repors: no symptoms Allergies: Coded Allergies: No Known Allergies (Unverified , 04/27/13) Objective Last 24 Hour Vital Signs Date Time Temp Pulse Resp B/P (MAP) Pulse Ox O2 Delivery O2 Flow Rate FiO2 06/24/19 20:00 97.9 92 20 100/66 (77) 96 06/24/19 16:00 97.6 80 16 121/68 (85) 97 06/24/19 12:00 97.7 105 20 108/74 (85) 96 06/24/19 09:00 Room Air 06/24/19 08:00 97.5 96 20 109/70 (83) 96 06/24/19 04:00 98.3 87 20 109/66 (80) 97 06/24/19 00:00 98.1 80 19 109/69 (82) 95 Intake and Output 06/23/19 06/24/19 19:00 07:00 Intake Total 840 ml 250 ml Output Total 500 ml Balance 840 ml -250 ml Intake Oral 840 ml 250 ml Output Urine Total 500 ml # Voids 3 1 Objective General Appearance: WD/WN, no apparent distress Lines, tubes and drains: peripheral HEENT: normocephalic, atraumatic Neck: non-tender, normal alignment Respiratory/Chest: chest wall non-tender, lungs clear Breasts: no masses Cardiovascular/Chest: normal peripheral pulses Abdomen: non tender Extremities: normal range of motion Skin Exam: normal pigmentation Laboratory Tests 06/24/19 05:10: White Blood Count 4.2L, Red Blood Count 3.80L, Hemoglobin 11.8L, Hematocrit 35.2L, Mean Corpuscular Volume 93, Mean Corpuscular Hemoglobin 31.0, Mean Corpuscular Hemoglobin Concent 33.5, Red Cell Distribution Width 11.9, Platelet Count 154, Mean Platelet Volume 7.3, Neutrophils (%) (Auto) 44.7L, Lymphocytes ( %) (Auto) 43.9, Monocytes (%) (Auto) 8.0, Eosinophils (%) (Auto) 2.6, Basophils (%) (Auto) 0.9, Sodium Level 142, Potassium Level 4.0, Chloride Level 107, Carbon Dioxide Level 33H, Anion Gap 2L, Blood Urea Nitrogen 17, Creatinine 0.7, Estimat Glomerular Filtration Rate > 60, Glucose Level 90, Calcium Level 8.8 Current Medications Medications (Trade) Dose Ordered Sig/Jonathan Route PRN Reason Start Time Stop Time Status Last Admin Dose Admin Acetaminophen (Tylenol) 650 mg Q4H PRN ORAL fever 06/23/19 18:00 07/21/19 17:59 Dextrose (Dextrose 50%) 25 ml Q30M PRN IV Hypoglycemia 06/23/19 18:00 07/21/19 16:59 Dextrose (Dextrose 50%) 25 ml Q30M PRN IV Hypoglycemia 06/23/19 18:00 07/21/19 16:59 Divalproex Sodium (Depakote ER) 500 mg EVERY 12 HOURS ORAL 06/23/19 21:00 07/21/19 22:59 06/24/19 20:45 Duloxetine HCl (Cymbalta) 30 mg DAILY ORAL 06/24/19 09:00 07/22/19 08:59 06/24/19 09:45 Heparin Sodium (Porcine) (Heparin 5000 units/ml) 5,000 units EVERY 12 HOURS SUBQ 06/23/19 21:00 07/21/19 20:59 06/24/19 20:47 Lorazepam (Ativan 2mg/ml 1ml) 2 mg Q1H PRN IV seizures 06/23/19 18:00 06/28/19 16:59 Morphine Sulfate (Morphine Sulfate) 1 mg Q4H PRN IVP For Pain 06/23/19 18:00 06/28/19 17:59 06/23/19 18:52 Ondansetron HCl (Zofran) 4 mg Q6H PRN IVP Nausea & Vomiting 06/23/19 18:00 07/21/19 17:59 Polyethylene Glycol (Miralax) 17 gm HSPRN PRN ORAL Constipation 06/23/19 18:00 07/23/19 17:59 Quetiapine Fumarate (SEROqueL) 100 mg DAILY ORAL 06/24/19 09:00 07/22/19 08:59 06/24/19 09:44 Zolpidem Tartrate (Ambien) 5 mg HSPRN PRN ORAL Insomnia 06/23/19 18:00 06/30/19 17:59 Faviola Savage MD Jun 24, 2019 21:31
[2019-06-25] VITALS (11 sets, daily range): BP systolic 91–117; BP diastolic 59–72
--- NOTE | 2019-06-25 05:10 | NUR ---
NURSE NOTES: Pt slept without seizure activities. Lab withdrawn. Both side rails are up and padding up. Will continue to monitor.
--- NOTE | 2019-06-25 05:36 | NUR ---
NURSE NOTES: @0536 Call light is on and went to pt's room immediately. Pt states that he is not feeling well and has parkinsonism. Right after he said that he lost of consciousness level. Side rail padding on. Keep pt safe and tongue pressor on with head on right side. @0538 Called BEREAVEMENT COUNSELOR. @0540 Ativan 2mg IVS. Pt is on unconscious. @0545 Noted screaming with both arms tremor noted less than one minute and stopped. No voiding noted. On O2 2L NC inhalation. Spo2 97% remained. Reorder for Valproic acid lab by BEREAVEMENT COUNSELOR. Called lab to run the test. V/S has been taken and monitored. @[address] Carrillo and left a message and waiting for a return call. @0558 Noted clonic focal seizure repeated 3 times after Ativan 2mg IVS. O2 is on and continue to monitor.
--- NOTE | 2019-06-25 05:38 | NUR ---
MSW Note: MSW was called at 0538 by calixto knott,rn, and notified MD dr chan. Pt transferred to at . See MSW documentation form for full report.intellectual property paralegal called for seizures,ativan 2mg ivp given by primary rn, patient stayed in the room
[2019-06-25] MEDS: LORazepam Inj 2mg/ml 1ml IV PRN ×2 (05:40→07:02)
[2019-06-25 06:15] LABS: BASOPHILS % (AUTO) 0.5 % (0.0-2.0); EOSINOPHILS % (AUTO) 2.9 % (0.0-3.0); HEMATOCRIT 36.7 % (42.0-52.0); HEMOGLOBIN 12.4 G/DL (14.2-18.0); LYMPHOCYTES % (AUTO) 38.9 % (20.0-45.0); MEAN CORPUSCULAR VOLUME 92 FL (80-99); MONOCYTES % (AUTO) 8.6 % (1.0-10.0); NEUTROPHILS % (AUTO) 49.1 % (45.0-75.0); PLATELET COUNT 154 K/UL (150-450); RED BLOOD COUNT 3.99 M/UL (4.70-6.10); WHITE BLOOD COUNT 4.5 K/UL (4.8-10.8)
[2019-06-25 06:28] LABS: ANION GAP 4 mmol/L (5-15); BLOOD UREA NITROGEN 15 mg/dL (7-18); CALCIUM 8.6 MG/DL (8.5-10.1); CARBON DIOXIDE 34 MMOL/L (21-32); CHLORIDE 105 MMOL/L (98-107); CREATININE 0.7 MG/DL (0.55-1.30); POTASSIUM 4.2 MMOL/L (3.5-5.1); SODIUM 142 MMOL/L (136-145)
--- NOTE | 2019-06-25 06:45 | NUR ---
NURSE NOTES: No seizure activities noted at this time. Sleep and awaking are on and off. Will continue to monitor.
--- NOTE | 2019-06-25 07:00 | NUR ---
NURSE NOTES: @0700 Pt is awake and says, " I am having Parkinsonism." Right after that he lost his consciousness. O2 is on and head moved on the side. Noted both L/E tremor and lip smacking. @0702 PRN Ativan 2mg IVS given and noted left shoulder movement and L/E tremor with facial grimacing. V/S remained stable. Will continue to monitor.
--- NOTE | 2019-06-25 07:15 | NUR ---
HAND-OFF: Report given to GEORGIA Kelly. Round is done. No seizure movement noted at this time.
--- NOTE | 2019-06-25 07:39 | NUR ---
NURSE NOTES: Received report from GEORGIA Alonso. Rounding done with outgoing nurse. Pt in bed, asleep. Outgoing MANUFACTURING TEST ENGINEER is with the pt. Rt AC IV access is patent. Bed is padded and alarm on. Bed in lowest position, call light within reach. Will continue to monitor.
--- NOTE | 2019-06-25 08:00 | NUR ---
NURSE NOTES: Spoke to Dr. Carrillo and updated for pt's seizure activities. will contact Dr. Savage as well. Endorse AM shift RN. Will continue to monitor.
--- NOTE | 2019-06-25 08:02 | NUR ---
NURSE NOTES: Dr. Savage was notified regarding previous seizure episodes. MD is aware and pt is still asleep. No seizure episodes noted.
--- NOTE | 2019-06-25 09:04 | NUR ---
NURSE NOTES: Patient woke up and needed his breakfast. Pt a/o x 3-4 and V/S is stable at this time.
[2019-06-25] MEDS: DULoxetine 30mg cap ORAL SCH (09:09)
[2019-06-25] MEDS: Depakote ER 500mg tab ORAL SCH (09:09)
[2019-06-25] MEDS: Heparin 5000 units/ml inj SUBQ SCH (09:10)
--- NOTE | 2019-06-25 14:20 | Pulmonology Progress Note ---
Assessment/Plan Problems: (1) Epileptic seizure, generalized (2) Schizo-affective schizophrenia Assessment/Plan increase the dose of depakote all are subtherapeutic neuro evaluation med/surg dvt prophylaxis continue psychiatric meds try to get a neurologist all meds reviewed Subjective ROS Limited/Unobtainable: No Interval Events: had seizure twice this morning Allergies: Coded Allergies: No Known Allergies (Unverified , 04/27/13) Objective Last 24 Hour Vital Signs Date Time Temp Pulse Resp B/P (MAP) Pulse Ox O2 Delivery O2 Flow Rate FiO2 06/25/19 12:00 97.3 87 18 107/60 (76) 98 06/25/19 09:00 Room Air 06/25/19 08:00 98.6 93 18 116/72 (87) 98 06/25/19 07:00 87 18 117/71 (86) 98 06/25/19 06:00 84 18 108/64 (79) 98 06/25/19 05:38 98.1 75 18 94/61 (72) 98 06/25/19 04:00 98.0 85 19 112/69 (83) 98 06/25/19 00:00 98.0 89 19 91/59 (70) 96 06/24/19 21:00 Room Air 06/24/19 20:00 97.9 92 20 100/66 (77) 96 06/24/19 16:00 97.6 80 16 121/68 (85) 97 Intake and Output 06/24/19 06/25/19 19:00 07:00 Intake Total 1511 ml Output Total 400 ml Balance 1511 ml -400 ml Intake Oral 1511 ml Output Urine Total 400 ml # Voids 3 Objective General Appearance: WD/WN, no apparent distress Lines, tubes and drains: peripheral HEENT: normocephalic, atraumatic Neck: non-tender, normal alignment Respiratory/Chest: chest wall non-tender, lungs clear Breasts: no masses Cardiovascular/Chest: normal peripheral pulses Abdomen: non tender Extremities: normal range of motion Skin Exam: normal pigmentation Laboratory Tests 06/25/19 05:10: White Blood Count 4.5L, Red Blood Count 3.99L, Hemoglobin 12.4L, Hematocrit 36.7L, Mean Corpuscular Volume 92, Mean Corpuscular Hemoglobin 31.0, Mean Corpuscular Hemoglobin Concent 33.7, Red Cell Distribution Width 12.0, Platelet Count 154, Mean Platelet Volume 7.4, Neutrophils (%) (Auto) 49.1, Lymphocytes (% ) (Auto) 38.9, Monocytes (%) (Auto) 8.6, Eosinophils (%) (Auto) 2.9, Basophils ( %) (Auto) 0.5, Sodium Level 142, Potassium Level 4.2, Chloride Level 105, Carbon Dioxide Level 34H, Anion Gap 4L, Blood Urea Nitrogen 15, Creatinine 0.7, Estimat Glomerular Filtration Rate > 60, Glucose Level 82, Calcium Level 8.6, Valproic Acid (Depakene) Level 82 Current Medications Medications (Trade) Dose Ordered Sig/Jonathan Route PRN Reason Start Time Stop Time Status Last Admin Dose Admin Acetaminophen (Tylenol) 650 mg Q4H PRN ORAL fever 06/23/19 18:00 07/21/19 17:59 Dextrose (Dextrose 50%) 25 ml Q30M PRN IV Hypoglycemia 06/23/19 18:00 07/21/19 16:59 Dextrose (Dextrose 50%) 25 ml Q30M PRN IV Hypoglycemia 06/23/19 18:00 07/21/19 16:59 Divalproex Sodium (Depakote ER) 500 mg EVERY 12 HOURS ORAL 06/23/19 21:00 07/21/19 22:59 06/25/19 09:09 Duloxetine HCl (Cymbalta) 30 mg DAILY ORAL 06/24/19 09:00 07/22/19 08:59 06/25/19 09:09 Heparin Sodium (Porcine) (Heparin 5000 units/ml) 5,000 units EVERY 12 HOURS SUBQ 06/23/19 21:00 07/21/19 20:59 06/25/19 09:10 Lorazepam (Ativan 2mg/ml 1ml) 2 mg Q1H PRN IV seizures 06/23/19 18:00 06/28/19 16:59 06/25/19 07:02 Morphine Sulfate (Morphine Sulfate) 1 mg Q4H PRN IVP For Pain 06/23/19 18:00 06/28/19 17:59 06/23/19 18:52 Ondansetron HCl (Zofran) 4 mg Q6H PRN IVP Nausea & Vomiting 06/23/19 18:00 07/21/19 17:59 Polyethylene Glycol (Miralax) 17 gm HSPRN PRN ORAL Constipation 06/23/19 18:00 07/23/19 17:59 Quetiapine Fumarate (SEROqueL) 100 mg DAILY ORAL 06/24/19 09:00 07/22/19 08:59 06/25/19 09:09 Zolpidem Tartrate (Ambien) 5 mg HSPRN PRN ORAL Insomnia 06/23/19 18:00 06/30/19 17:59 Faviola Savage MD Jun 25, 2019 14:20
--- NOTE | 2019-06-25 14:37 | NUR ---
NURSE NOTES: Dr. Santillan was notified regarding consult.
--- NOTE | 2019-06-25 15:45 | NUR ---
CASE MANAGEMENT:REVIEW 06/25/19 SI: ACUTE TONIC-CLONIC SEIZURE SCHIZOPHRENIA 97.3 87 18 107/60 98% ON RA H/H-12.4/36.7 IS: DEPAKOTE PO Q12 CYMBALTA PO QD SEROQUEL PO QD HEPARIN SQ Q12 IV ATIVAN Q1HRS PRN IV MORPHINE Q4HRS PRN : MED/SURG STATUS 3 [facility]AST DCP: FROM [facility]
[2019-06-25] MEDS ORDERED: NS 500ML ONE (15:48)
--- NOTE | 2019-06-25 15:55 | NUR ---
DISCHARGE PLANNING PATIENT HAS BEEN REFERRED TO [facility]
--- NOTE | 2019-06-25 18:09 | NUR ---
NURSE NOTES: Dr. Santillan came and saw the pt. No seizure episodes noted.
--- NOTE | 2019-06-25 18:50 | Internal Med Progress Note ---
Subjective Date of Service: Jun 25, 2019 Physician Name Regis Jauregui Attending Physician Maximus Carrillo MD Current Medications Medications (Trade) Dose Ordered Sig/Jonathan Route PRN Reason Start Time Stop Time Status Last Admin Dose Admin Acetaminophen (Tylenol) 650 mg Q4H PRN ORAL fever 06/23/19 18:00 07/21/19 17:59 Dextrose (Dextrose 50%) 25 ml Q30M PRN IV Hypoglycemia 06/23/19 18:00 07/21/19 16:59 Dextrose (Dextrose 50%) 25 ml Q30M PRN IV Hypoglycemia 06/23/19 18:00 07/21/19 16:59 Divalproex Sodium (Depakote ER) 1,000 mg EVERY 12 HOURS ORAL 06/25/19 21:00 07/21/19 22:59 Duloxetine HCl (Cymbalta) 30 mg DAILY ORAL 06/24/19 09:00 07/22/19 08:59 06/25/19 09:09 Heparin Sodium (Porcine) (Heparin 5000 units/ml) 5,000 units EVERY 12 HOURS SUBQ 06/23/19 21:00 07/21/19 20:59 06/25/19 09:10 Lorazepam (Ativan 2mg/ml 1ml) 2 mg Q1H PRN IV seizures 06/23/19 18:00 06/28/19 16:59 06/25/19 07:02 Morphine Sulfate (Morphine Sulfate) 1 mg Q4H PRN IVP For Pain 06/23/19 18:00 06/28/19 17:59 06/23/19 18:52 Ondansetron HCl (Zofran) 4 mg Q6H PRN IVP Nausea & Vomiting 06/23/19 18:00 07/21/19 17:59 Polyethylene Glycol (Miralax) 17 gm HSPRN PRN ORAL Constipation 06/23/19 18:00 07/23/19 17:59 Quetiapine Fumarate (SEROqueL) 100 mg DAILY ORAL 06/24/19 09:00 07/22/19 08:59 06/25/19 09:09 Zolpidem Tartrate (Ambien) 5 mg HSPRN PRN ORAL Insomnia 06/23/19 18:00 06/30/19 17:59 Allergies: Coded Allergies: No Known Allergies (Unverified , 04/27/13) ROS Limited/Unobtainable: No Constitutional: Reports: no symptoms HEENT: Reports: no symptoms Cardiovascular: Reports: no symptoms Respiratory: Reports: no symptoms Gastrointestinal/Abdominal: Reports: no symptoms Genitourinary: Reports: no symptoms Neurologic/Psychiatric: Reports: no symptoms Subjective 59 YO M admitted with seizure. Cover for Int Arnie-Dr aCrrillo Objective Last Vital Signs Date Time Temp Pulse Resp B/P (MAP) Pulse Ox O2 Delivery O2 Flow Rate FiO2 06/25/19 16:00 98.0 102 20 102/69 (80) 96 06/25/19 09:00 Room Air 06/21/19 21:25 2.0 Laboratory Tests Test 06/25/19 05:10 White Blood Count 4.5 K/UL (4.8-10.8) L Red Blood Count 3.99 M/UL (4.70-6.10) L Hemoglobin 12.4 G/DL (14.2-18.0) L Hematocrit 36.7 % (42.0-52.0) L Mean Corpuscular Volume 92 FL (80-99) Mean Corpuscular Hemoglobin 31.0 PG (27.0-31.0) Mean Corpuscular Hemoglobin Concent 33.7 G/DL (32.0-36.0) Red Cell Distribution Width 12.0 % (11.6-14.8) Platelet Count 154 K/UL (150-450) Mean Platelet Volume 7.4 FL (6.5-10.1) Neutrophils (%) (Auto) 49.1 % (45.0-75.0) Lymphocytes (%) (Auto) 38.9 % (20.0-45.0) Monocytes (%) (Auto) 8.6 % (1.0-10.0) Eosinophils (%) (Auto) 2.9 % (0.0-3.0) Basophils (%) (Auto) 0.5 % (0.0-2.0) Sodium Level 142 MMOL/L (136-145) Potassium Level 4.2 MMOL/L (3.5-5.1) Chloride Level 105 MMOL/L (98-107) Carbon Dioxide Level 34 MMOL/L (21-32) H Anion Gap 4 mmol/L (5-15) L Blood Urea Nitrogen 15 mg/dL (7-18) Creatinine 0.7 MG/DL (0.55-1.30) Estimat Glomerular Filtration Rate > 60 mL/min (>60) Glucose Level 82 MG/DL (74-106) Calcium Level 8.6 MG/DL (8.5-10.1) Magnesium Level 2.0 MG/DL (1.8-2.4) Valproic Acid (Depakene) Level 82 MCG/ML (50-100) Intake and Output 06/24/19 06/25/19 19:00 07:00 Intake Total 1511 ml Output Total 400 ml Balance 1511 ml -400 ml Intake Oral 1511 ml Output Urine Total 400 ml # Voids 3 Objective PHYSICAL EXAMINATION: GENERAL: The patient is awake, responsive, in no acute distress. HEAD AND NECK: Pupils are equal and reactive to light. Anicteric. Neck was supple. No JVD. Poor dentition with maxillary protrusion. LUNGS: Good air entry. No wheezes or rales. HEART: S1, S2. Regular rhythm. No gallops. ABDOMEN: Soft, nondistended, and nontender. Morbid obesity. EXTREMITIES: No cyanosis, clubbing, or edema. NEUROLOGIC: Cranial nerves II through XII grossly intact. Motor is 5/5 in all extremities. Gait was not assessed due to patient's status. RECTAL: Refused and deferred. GENITOURINARY: Refused and deferred. PSYCHIATRIC: Mood and affect is intact at this time. Assessment/Plan Assessment/Plan ASSESSMENT: 1. Acute tonic-colonic seizure, uncontrolled. 2. Schizophrenia. 3. Parkinson disease. 4. Morbid obesity. 5. Prior history of stroke. PLAN: 1. Admit the patient to monitor unit. 2. We will follow up laboratory. 3. Seizure precaution. 4. Code status is Full Code. 5. Resume home medication. 6. We will follow up with Neurology consultation. Regis Jauregui MD Jun 25, 2019 18:50
--- NOTE | 2019-06-25 18:54 | NUR ---
NURSE NOTES: Call light was on and went to pt's room immediately. Pt states "I don't feel good. I think I will get seizure soon." Right after he said that he lost his consciousness level @1854. Bed is padded and side rails up. Called FISH NET MAKER @ 1855. V/S was checked by Thomas, charge nurse. It was stable. Ativan 2 mg was given thru Rt AC @0702. Called Dr. Savage and ordered transfer to tele. Seizure was stopped. Continue to monitor.
--- NOTE | 2019-06-25 18:55 | NUR ---
WHEEL ROLLER Note: LATE ENTRY WHEEL ROLLER was called at 1855 by 3E, and notified MD. YOUNG . Pt transferred to N/A REMAIN IN ROOM at 310. See WHEEL ROLLER documentation form for full report, COPY IN CHART. NO STRIP AVAILABLE.
--- NOTE | 2019-06-25 19:48 | NUR ---
NURSE NOTES: Received report from GEORGIA Kelly. Rounds done, patient asleep. Bed in low position, locked, side rails up x2, padded. Call light within reach. No seizure activity noted. will continue to monitor. Awaiting telemetry bed for transfer.
--- NOTE | 2019-06-25 19:51 | NUR ---
HAND-OFF: Report given to GEORGIA Thao. Pt is asleep.
[2019-06-25] MEDS ORDERED: Depakote ER 500mg tab ORAL SCH (21:00)
--- NOTE | 2019-06-25 21:30 | NUR ---
HAND-OFF: Patient transfered to [facility], telemetry via bed. Report given to GEORGIA Charlton.
--- NOTE | 2019-06-25 21:35 | NUR ---
NURSE NOTES: Received report from GEORGIA Thao. Rounds done, patient asleep. Bed in low position, locked, side rails up x2, padded, bed alarm on. Call light within reach. No seizure activity noted at this time- although he had one at 1855- will monitor closely. pt transferred to tele to . Belongings list signed.
[2019-06-25] MEDS ORDERED: Miralax 17gm pkt ORAL PRN (22:00)
[2019-06-25] MEDS ORDERED: Morphine Sulfate 2mg/ml Inj(IV/IM USE ONLY) IVP PRN (22:00)
[2019-06-25] MEDS ORDERED: Zolpidem 5mg tab ORAL PRN (22:00)
[2019-06-25] MEDS ORDERED: LORazepam Inj 2mg/ml 1ml IV PRN (22:00)
[2019-06-26] VITALS (20 sets, daily range): BP systolic 91–115; BP diastolic 53–73
--- NOTE | 2019-06-26 01:15 | Consultation ---
DATE OF CONSULTATION: 06/25/2019 NEUROLOGIC CONSULTATION CONSULTING PHYSICIAN: Terry Santillan M.D. CHIEF COMPLAINT: This is second [facility] admissions for this 59-year-old right-handed Mexican Maldivian male with schizophrenia who was admitted with seizure disorder going back to at least 1979. The patient has been treated here before since at least 11/12/2010 and 01/22/2012 and 04/27/2013 as well as 03/30/2017 and 06/13/2017 when he was treated for seizures. The patient also had a seizure on 10/24/2017. On that day, his toxicology was positive for urine opiates. His valproic acid level was 57. The patient on 06/21/2019 noted to have at least 1 tonic-clonic seizure. When he arrived to the emergency room, he had apparently another generalized tonic-clonic seizure, which lasted for few minutes. Afterwards, he was confused. At the time, he was complaining of headache and changes in vision. The patient was admitted to the hospital. The patient has trouble to give any history. He did have a previous head injury, was knocked unconscious in high school in a football game. He states he has an aura of "pain." His legs got shaky and he does not remember anything after that. He is usually unconscious for "10 minutes." Afterwards, he has had episodes of incontinence and headache and may have been bitten his tongue. However, he denied any myalgias. He denies any muscle weakness. He denies any alcohol use. He does not drink at this time. He has no illegal drug use. The patient denies any loss of smell or taste or diplopia. He may have visual hallucinations. He denies auditory hallucinations. He has no gait disorder or loss of bowel or bladder function. He has tremor-predominant Parkinson disease going back several years. The right side is worse than the left. He complains of some paresthesias in his hands. He denies any dysarthria or dysphagia. Sometimes, he falls asleep after seizures. Does complain of hearing loss, but no dizzy spells. He does have tinnitus in both ears. The patient is admitted to this hospital. He is noted to be anemic with a white count of 6600. Platelet counts were normal. His anemia is little hyperchromic with mainly elevated indices. On his toxicology screen on admission, he was noted to have less than 0.5 Dilantin, 31 mg/dL of valproic acid, his carbamazepine was less than 0.5, and his phenobarbital of less than 1. Today, his valproic acid level is 82. He does have benzodiazepines in his urine. Serum alcohol was negative as well as opiates. The patient's general urinalysis revealed some protein in urine, few bacteria with essentially no white cells, +3 glucose. His chemistries on admission revealed a slightly elevated BUN of 20. He had a normal calcium. His magnesium today is 2. His total protein is low with a low albumin. Sodium is normal. The patient's CT scan of the brain is abnormal. It is negative for any acute disease, but he has chronic microvascular ischemic changes, more so in the left frontal and right posterior parietal deep white matter. The chest x-ray revealed no acute process. No significant changes. His cultures are negative. The patient was started initially on Depakote 500 mg q.12 hours and the dose is increased to 1000 mg q.12 hours. He is given morphine, given few doses of Lorazepam on 06/23/2019. He is also on Zofran and Seroquel 100 mg in the a.m. and Ambien 5 mg p.r.n. insomnia. The patient states he takes his medicines daily. There is no family history of any neurologic disease. PAST MEDICAL HISTORY: 1. Morbid obesity. 2. Parkinson disease. 3. Seizure disorder. MEDICATIONS: Abilify, Keflex, Clozaril, Depakote, Cymbalta, fluoxetine, Dilantin, Seroquel, Bactrim. ALLERGIES: None. HABITS: See above. . REVIEW OF SYSTEMS: His appetite is good. He is 318 pounds and 6 feet tall. PHYSICAL EXAMINATION: GENERAL: He is a well-developed, obese man, lying in bed, in no obvious distress. VITAL SIGNS: The pulse is 102, respiration rate is 20, blood pressure is 103/69, temperature is 98 degrees. HEENT: Reveals a scar on his nose going up to the base of the nose, mostly in the right side. He has extremely poor dentition. NECK: Actually supple. There is some minimal tenderness. Carotids are +2. No bruits were noted. LUNGS: Clear to auscultation. CARDIOVASCULAR: PMI could not be felt. The JVP is not well visualized. The patient had a normal S1. S2 is physiologically split. There is no S3, S4, murmurs, or rubs. ABDOMEN: Obese. Bowel sounds intact. There is some diffuse tenderness to palpation. BACK: There is minimal tenderness on percussion of his back. EXTREMITIES: He has a surgical scar on the right lower leg due to a previous fracture. NEUROLOGIC EVALUATION: MENTAL STATUS: He was mildly lethargic. Would yawn during the exam. Judgment could not be tested. Affect was a little flat. Intellect, he did not know how a train and bicycle were the same. Memory, he did not quite know his date of saying 1960, it is actually 1960. Immediate recall is 3/3 objects. Recent recall is 0/3 objects. Language function, spoken speech was dysarthric, however, repetition, comprehension were intact. There was no right and left confusion or finger agnosia. He spelled world forwards normally, but spelling it backwards spelled it "DLORW." CRANIAL NERVE EXAMINATION: CRANIAL NERVE II: Visual mathew were intact to confrontation. Fundi were not visualized. CRANIAL NERVES III, IV, AND : Extraocular motility was full with flaccid smooth pursuit noted. No complaints of diplopia. Pupils are about 6 mm, round, and reactive to light. CRANIAL NERVE V: Corneal and facial sensation were intact to fine touch. CRANIAL NERVE VII: Facial strength appeared to be 5/5 bilaterally. CRANIAL NERVE VIII: Auditory acuity was mildly decreased to whisper to moderately loud whisper. CRANIAL NERVES IX AND X: Gag was decreased bilaterally. CRANIAL NERVE XI: Sternocleidomastoid strength is 5/5. CRANIAL NERVE XII: Tongue protrudes in the midline without fasciculations or atrophy. MUSCLE EXAMINATION: Muscle bulk and tone were normal. There was episodic 4 or 3 cycle per second resting tremor in the right upper, right lower extremity, occasionally in the left side. Strength was 5/5 with negative asterixis. REFLEXES: Trace in the upper extremities, 0 at the knees and ankles with a downgoing toe on the right side and an indefinite upgoing toe on the left side and testing for Babinski response. COORDINATION: Onrgif-yq-kxle revealed pinpoint tremor on the right, essentially none on the left without . Iyxd-au-zdxf testing was basically intact. GAIT AND STATION: Not tested. SENSORY EXAMINATION: Proprioception was intact. Pinprick and fine touch were subjectively normal. IMPRESSION: This patient has tremor-predominant Parkinson disease. Interestingly enough, Depakote can cause a parkinsonian syndrome. I would not change his medications at this time. However, we can try changing as an outpatient. However, it is unclear what to change it to. Cause of his seizures are probably related to not taking his medication given the abnormal toxicology screen. He also has evidence of vascular disease and this could act as a nidus for abnormal electrical activity in the cortex as he has a cortical scar. The patient also has at least 2 drugs, which can lower the seizure threshold, Seroquel and duloxetine as well as Clozaril, which he is on as an outpatient. The patient also has encephalopathy. I do not think he is postictal at this time. Even does not appear that he has had another seizure at this point. The patient should get an EEG before he leaves. Continue his Depakote with the possibility of changing it as an outpatient. The nurses at the care home should make sure he swallows his medication while he is in the care home. As far as the patient's tremor is concerned, he is not bothered by his tremor. There is no necessity to treat it unless it interferes with his activities of daily living. We may have to take him off the Depakote and see if the Parkinson's tremor is improved at some point. PLAN: 1. EEG awake and asleep. 2. Get B12, methylmalonic acid level. 3. Continue Depakote 1000 mg b.i.d. with possible change of the medication. Thank you for this interesting case. Terry Santillan MD DR: EDWARD JOB#: [id number] CC:
--- NOTE | 2019-06-26 07:40 | NUR ---
NURSE NOTES: Nurse report was given by GEORGIA Rogel. Patient's having tonic-clonic and also absent seizures while receiving report. Turned patient sideway to the left side, bed low and locked, side rails 2 padded for seizure precaution, suction is ready when needed. Patient had on and off seizures from 0740 to 0750. Gave 2mg Ativan IVP on L hand IV. Patient stopped having seizure for 1 minute and having postictal phase for 30 second and then going back to tonic clonic phase. Dr. Santillan was present at 0755 and ordered to transferred patient to ICU STAT. Patient's on 2L nasal cannula. Patient stopped having seizure for 2 minutes, able to ask patient questions, AO x 3, complains headache and chest pain after the seizure. Transferred order is in, acknowledged and carried out.
--- NOTE | 2019-06-26 07:58 | NUR ---
HAND-OFF: Report given to GEORGIA Maloney. I am assezisisting though as patient is actively seizing from 0745-8 am on and off tonic clonic, aura present- pt feels it coming on, becomes absence seizure, no loss of consciousness but periods of non responsiveness
--- NOTE | 2019-06-26 08:03 | NUR ---
NURSE NOTES: Pt turned on side, head cradled, siderails padded, bed alarm on, ativan given, endorsed to day shift, calling MD Carrillo, and WADE Santillan to report seizure activity
--- NOTE | 2019-06-26 08:10 | NUR ---
NURSE NOTES: Patient's transferred to ICU stat for Dr. Santillan's Order. Nurse report given to GEORGIA Cutler. Patient's in stable condition, still in postictal phase while transferring. Patient's belonging list went over and signed by both nurses at bedside. lamp shade joiner removed. Dr. Santillan was present when transferring and order another ativan 2mg Stat, will be given by ICU nurse.
--- NOTE | 2019-06-26 08:27 | NUR ---
HAND-OFF: Report given to GEROGIA sagastume. MD Santillan writing order for transfer to ICU due to repeated intermittent seizure activity for further close monitoring- endorsed to nurse Amara
[2019-06-26] MEDS ORDERED: Miralax 17gm pkt ORAL PRN (08:39)
[2019-06-26] MEDS ORDERED: Zolpidem 5mg tab ORAL PRN (08:39)
[2019-06-26] MEDS ORDERED: Morphine Sulfate 2mg/ml Inj(IV/IM USE ONLY) IVP PRN (08:39)
[2019-06-26] MEDS ORDERED: LORazepam Inj 2mg/ml 1ml IV PRN (08:39)
--- NOTE | 2019-06-26 08:40 | NUR ---
NURSE NOTES: Report received from GEORGIA Maloney
[2019-06-26] MEDS ORDERED: LORazepam Inj 2mg/ml 1ml IV SCH (08:45)
[2019-06-26] MEDS ORDERED: DULoxetine 30mg cap ORAL SCH (09:00)
[2019-06-26] MEDS ORDERED: Heparin 5000 units/ml inj SUBQ SCH (09:00)
[2019-06-26] MEDS ORDERED: Depakote ER 500mg tab ORAL SCH (09:00)
[2019-06-26] MEDS: DULoxetine 30mg cap ORAL SCH (09:30)
[2019-06-26] MEDS: Depakote ER 500mg tab ORAL SCH ×2 (09:31→20:06)
[2019-06-26] MEDS: Heparin 5000 units/ml inj SUBQ SCH ×2 (09:33→20:07)
--- NOTE | 2019-06-26 10:13 | NUR ---
NURSE NOTES: Patient report was received from GEORGIA Maloney. Patient was transferred to ICU due to intermittent episode of seizures.Side rails pad and up for safety.Patient afebrile and awake.Oriented x 4 with flat affect. Denied of any pain and discomfort.EEG pending. No apparent signs of acute distress and on oxygen nasal canula at 2LPM , saturate at 100%.Speech slurred, gag reflex present,noted with hands tremors as related to Parkinson's disease.Skin intact and all belongings verified, no verduzco, no dentures,no hearing aid, no cell phone.Per Dr Santillan, give one dose 2mg Ativan.Order noted and carried out.Patient noted with right thumb peripheral line gauge 22 patent.Will continue to monitor
--- NOTE | 2019-06-26 10:44 | Pulmonolgy Critical Care Note ---
Critical Care - Asmt/Plan Problems: (1) Epileptic seizure, generalized (2) subtherapeutic antiepileptics (3) Schizo-affective schizophrenia (4) Parkinson disease Respiratory: monitor respiratory rate, adjust FIO2, CXR Cardiac: continue pressors, continue to monitor HR/BP Renal: F/U I&O, keep IV fluid Infectious Disease: check cultures Gastrointestinal: continue feedings/current rate Endocrine: monitor blood sugar Hematologic: monitor H/H, transfuse if hgb<8.5 Neurologic: PRN Ativan, keep patient comfortable Affect: PRN ativan Prophylaxis: Protonix Time Spent (Minutes): 40 Notes Reviewed: blockers skiver, neuro - neuro will see today Critical Care - Objective Last 24 Hour Vital Signs Date Time Temp Pulse Resp B/P (MAP) Pulse Ox O2 Delivery O2 Flow Rate FiO2 06/26/19 10:00 79 18 101/67 (78) 99 06/26/19 09:00 82 19 99/60 (73) 99 06/26/19 09:00 Room Air 06/26/19 08:40 97.7 82 20 115/69 (84) 94 06/26/19 08:00 97.2 90 20 114/61 (78) 95 06/26/19 04:54 78 06/26/19 04:00 98.0 73 18 107/59 (75) 95 06/26/19 00:00 98.7 86 18 100/59 (73) 96 06/26/19 00:00 80 06/25/19 21:40 97.9 72 18 109/63 (78) 98 06/25/19 21:00 Room Air 06/25/19 20:00 98.4 83 20 105/64 (78) 98 06/25/19 19:00 98.2 84 20 104/66 (79) 97 06/25/19 16:00 98.0 102 20 102/69 (80) 96 06/25/19 12:00 97.3 87 18 107/60 (76) 98 Status: awake Condition: critical HEENT: atraumatic Neck: full ROM Lungs: clear Heart: HR/BP stable Abdomen: soft, non-tender, feeding tube Extremities: no C/C/E Accucheck: 80 Critical Care - Subjective Condition: critical EKG Rhythm: Sinus Rhythm I&O: Intake and Output 06/25/19 06/26/19 18:59 06:59 Intake Total 800 ml Output Total 600 ml 500 ml Balance 200 ml -500 ml Intake Oral 800 ml Output Urine Total 600 ml 500 ml # Voids 1 Faviola Savage MD Jun 26, 2019 10:44
--- NOTE | 2019-06-26 12:18 | NUR ---
NURSE NOTES: Patient consumed 75% at lunch.Denied of any pain and discomfort at this time.Call light within reach.No episode seizure noted. Dr Santillan made aware EEG will be done in afternoon.Patient stable at this time.Will continue to monitor
--- NOTE | 2019-06-26 14:01 | NUR ---
NURSE NOTES: Patient asleep with no apparent signs acute distress.Call light within easy reach.Bed in low position and side rails up for safety and repositioning.Will continue to monitor
--- NOTE | 2019-06-26 16:30 | NUR ---
NURSE NOTES: Patient asleep. no significant change in condition.No seizure episode, will continue with same care plan
--- NOTE | 2019-06-26 18:20 | NUR ---
NURSE NOTES: Patient awake and eating dinner. Tray set up and packages open. Call light within easy reach.No episode of seizures , still noted with hand tremors. Will continue to monitor.No significant change in condition.Call light within easy reach
--- NOTE | 2019-06-26 18:54 | Internal Med Progress Note ---
Subjective Date of Service: Jun 26, 2019 Physician Name Regis Jauregui Attending Physician Maximus Carrillo MD Current Medications Medications (Trade) Dose Ordered Sig/Jonathan Route PRN Reason Start Time Stop Time Status Last Admin Dose Admin Acetaminophen (Tylenol) 650 mg Q4H PRN ORAL fever 06/26/19 08:38 07/26/19 08:37 Clozapine (Clozaril) 50 mg BEDTIME ORAL 06/26/19 21:00 07/03/19 20:59 Dextrose (Dextrose 50%) 25 ml Q30M PRN IV Hypoglycemia 06/26/19 09:00 07/21/19 16:59 Dextrose (Dextrose 50%) 25 ml Q30M PRN IV Hypoglycemia 06/26/19 09:00 07/21/19 16:59 Divalproex Sodium (Depakote ER) 1,000 mg EVERY 12 HOURS ORAL 06/26/19 09:00 07/21/19 22:59 06/26/19 09:31 Duloxetine HCl (Cymbalta) 30 mg DAILY ORAL 06/26/19 09:00 07/22/19 08:59 06/26/19 09:30 Heparin Sodium (Porcine) (Heparin 5000 units/ml) 5,000 units EVERY 12 HOURS SUBQ 06/26/19 09:00 07/21/19 20:59 06/26/19 09:33 Lorazepam (Ativan 2mg/ml 1ml) 2 mg Q1H PRN IV seizures 06/26/19 08:39 07/03/19 08:38 Morphine Sulfate (Morphine Sulfate) 1 mg Q4H PRN IVP For Pain 06/26/19 08:39 07/03/19 08:38 Ondansetron HCl (Zofran) 4 mg Q6H PRN IVP Nausea & Vomiting 06/26/19 08:39 07/26/19 08:38 Polyethylene Glycol (Miralax) 17 gm HSPRN PRN ORAL Constipation 06/26/19 08:39 07/26/19 08:38 Quetiapine Fumarate (SEROqueL) 100 mg BEDTIME ORAL 06/26/19 21:00 07/26/19 20:59 Zolpidem Tartrate (Ambien) 5 mg HSPRN PRN ORAL Insomnia 06/26/19 08:39 07/03/19 08:38 Allergies: Coded Allergies: No Known Allergies (Unverified , 10/11/13) ROS Limited/Unobtainable: No Constitutional: Reports: no symptoms HEENT: Reports: no symptoms Cardiovascular: Reports: no symptoms Respiratory: Reports: no symptoms Gastrointestinal/Abdominal: Reports: no symptoms Genitourinary: Reports: no symptoms Neurologic/Psychiatric: Reports: no symptoms Subjective 59 YO M admitted with seizure. Transfered to ICU for increased seizure activity. Cover for Int Med-Dr Carrillo. ICU. Objective Last Vital Signs Date Time Temp Pulse Resp B/P (MAP) Pulse Ox O2 Delivery O2 Flow Rate FiO2 06/26/19 18:00 78 19 115/61 (79) 100 06/26/19 16:00 Nasal Cannula 2.0 06/26/19 16:00 Intake and Output 06/25/19 06/26/19 19:00 07:00 Intake Total 800 ml Output Total 600 ml 500 ml Balance 200 ml -500 ml Intake Oral 800 ml Output Urine Total 600 ml 500 ml # Voids 1 Objective PHYSICAL EXAMINATION: GENERAL: The patient is awake, responsive, in no acute distress. HEAD AND NECK: Pupils are equal and reactive to light. Anicteric. Neck was supple. No JVD. Poor dentition with maxillary protrusion. LUNGS: Good air entry. No wheezes or rales. HEART: S1, S2. Regular rhythm. No gallops. ABDOMEN: Soft, nondistended, and nontender. Morbid obesity. EXTREMITIES: No cyanosis, clubbing, or edema. NEUROLOGIC: Cranial nerves II through XII grossly intact. Motor is 5/5 in all extremities. Gait was not assessed due to patient's status. RECTAL: Refused and deferred. GENITOURINARY: Refused and deferred. PSYCHIATRIC: Mood and affect is intact at this time. Assessment/Plan Assessment/Plan ASSESSMENT: 1. Acute tonic-colonic seizure, uncontrolled. 2. Schizophrenia. 3. Parkinson disease. 4. Morbid obesity. 5. Prior history of stroke. PLAN: 1. Admit the patient to monitor unit. 2. We will follow up laboratory. 3. Seizure precaution. 4. Code status is Full Code. 5. Resume home medication. 6. Neurology consultation=Dr Santillan 7. continue depakote per neurology Regis Jauregui MD Jun 26, 2019 18:54
--- NOTE | 2019-06-26 19:17 | NUR ---
HAND-OFF: Report given to GEORGIA Sun.
--- NOTE | 2019-06-26 19:30 | NUR ---
NURSE NOTES: Pt report received from [facility]. pt remains stable as of now. pt is alert and oriented times 4, able to follow simple commands. 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 pt is on 2 L NC, able to sat at 99%, no resp distress noted. pt bed is low, locked, armed, bed rails up times 3, call light within reach. will follow plan of care.
--- NOTE | 2019-06-26 21:30 | NUR ---
NURSE NOTES: kasia equipment engineering technician is starting EEG.
--- NOTE | 2019-06-26 21:45 | Consultation ---
DATE OF CONSULTATION: 06/26/2019 CONSULTING PHYSICIAN: Klaudia Little M.D. REFERRING PHYSICIAN: Maximus Carrillo M.D. HISTORY OF PRESENT ILLNESS: The patient is a 59-year-old male who has been admitted at this hospital before. The patient is living in a board and care. He has a long history of schizophrenia, . The patient is slow, minimally verbal, delusional. Denies any suicidal or homicidal ideation. The patient chronically takes Clozaril and he is still with Parkinson disease most likely due to taking first generation antipsychotics. The patient also is on Seroquel. PAST PSYCHIATRIC HISTORY: Schizophrenia. The patient stated that he has [facility]. No suicide attempt. PAST MEDICAL HISTORY: Significant for cellulitis, chest pain, , seizure disorder, Parkinson disease. ALLERGIES: No known drug allergies. SUBSTANCE ABUSE HISTORY: No known history of illicit drug use or alcohol. MENTAL STATUS EXAMINATION: The patient is alert, oriented times self, place, and situation. Mood is dysphoric and anxious. Affect is constricted, congruent with mood. Thought process is concrete. Thought content, no suicidal or homicidal ideations. ASSESSMENT: [place] I Schizoaffective disorder. [place] II Deferred. [place] III As above. [place] IV Low. [place] V 25. PLAN: 1. The patient will be continued on Cymbalta. 2. We will change the Seroquel to bedtime. 3. We will start the patient on Clozaril 50 mg at bedtime since the patient has been taking Clozaril outside of the hospital. Klaudia Little M.D. DR: LEO JOB#: [id number] CC:
[2019-06-27] VITALS (23 sets, daily range): BP systolic 76–127; BP diastolic 39–83
[2019-06-27 05:48] LABS: BASOPHILS % (AUTO) 0.7 % (0.0-2.0); EOSINOPHILS % (AUTO) 3.3 % (0.0-3.0); HEMATOCRIT 34.3 % (42.0-52.0); HEMOGLOBIN 12.2 G/DL (14.2-18.0); LYMPHOCYTES % (AUTO) 32.7 % (20.0-45.0); MEAN CORPUSCULAR VOLUME 89 FL (80-99); NEUTROPHILS % (AUTO) 55.3 % (45.0-75.0); PLATELET COUNT 144 K/UL (150-450); RED BLOOD COUNT 3.88 M/UL (4.70-6.10); RED CELL DISTRIBUTION WIDTH 10.7 % (11.6-14.8); WHITE BLOOD COUNT 3.6 K/UL (4.8-10.8)
[2019-06-27 06:19] LABS: ALANINE AMINOTRANSFERASE 11 U/L (12-78); ALBUMIN 2.9 G/DL (3.4-5.0); ALKALINE PHOSPHATASE 48 U/L (46-116); ANION GAP 5 mmol/L (5-15); ASPARTATE AMINO TRANSFERASE 14 U/L (15-37); BILIRUBIN,TOTAL 0.2 MG/DL (0.2-1.0); BLOOD UREA NITROGEN 17 mg/dL (7-18); CALCIUM 8.8 MG/DL (8.5-10.1); CARBON DIOXIDE 31 MMOL/L (21-32); CHLORIDE 106 MMOL/L (98-107); CREATININE 0.7 MG/DL (0.55-1.30); PHOSPHORUS 3.6 MG/DL (2.5-4.9); POTASSIUM 3.9 MMOL/L (3.5-5.1); SODIUM 142 MMOL/L (136-145)
--- NOTE | 2019-06-27 07:20 | NUR ---
HAND-OFF: Report given to [facility]. Pt remains stable.
--- NOTE | 2019-06-27 07:20 | NUR ---
NURSE NOTES: Pt received from Dino Dalton RN in stable condition without cardiopulmonary distress noted. Pt is awake in bed watching TV, AAOx4. speech and cognition noted delayed, bilateral pupils 3mm PERRLA +. No signs of seizure activity noted at this time. Pt is on 2L O2 via NC, bilateral upper lobes noted with crackles upon auscultation, bilateral lower lobes diminished. SpO2 99%. Pt is SR on log washer. bilateral radial and dorsalis pedis pulses palpable, 2+ and 1+ respectively. Pt is warm to touch with cap refill of 2 sec. No skin alterations noted at this time. Urinal at bedside. Pt has a RH 22g IV. Pt provided with call light and fall education, verbalized understanding. Yellow socks on, bed in lowest position with alarm on, side rails up x 3 and padded per seizure precaution, call light within reach. Will continue to monitor.
[2019-06-27] MEDS: Depakote ER 500mg tab ORAL SCH ×2 (08:40→20:43)
[2019-06-27] MEDS: DULoxetine 30mg cap ORAL SCH (08:40)
[2019-06-27] MEDS: Heparin 5000 units/ml inj SUBQ SCH ×2 (08:41→20:45)
--- NOTE | 2019-06-27 09:20 | NUR ---
NURSE NOTES: Condom cath placed on pt, explained indication. Yellow urine noted flowing through bag. Will continue to monitor. Pt ate 100% breakfast. Now watching TV.
--- NOTE | 2019-06-27 10:14 | Pulmonolgy Critical Care Note ---
Critical Care - Asmt/Plan Problems: (1) Status epilepticus (2) Epileptic seizure, generalized (3) subtherapeutic antiepileptics (4) Schizo-affective schizophrenia (5) Parkinson disease Respiratory: monitor respiratory rate, adjust FIO2 Cardiac: continue to monitor HR/BP Renal: F/U I&O Infectious Disease: check cultures Gastrointestinal: continue feedings/current rate Hematologic: transfuse if hgb<8.5 Neurologic: PRN Ativan, PRN Morphine, keep patient comfortable Prophylaxis: Protonix Disposition: keep in ICU - transfer to [facility] if ok with Neurologist Notes Reviewed: electric fork operator, cardio, renal Discussed with: nurses, consultants, case management specialistconsulting services project manager - Objective Last 24 Hour Vital Signs Date Time Temp Pulse Resp B/P (MAP) Pulse Ox O2 Delivery O2 Flow Rate FiO2 06/27/19 09:04 91 17 127/60 (82) 98 06/27/19 08:30 87 19 104/83 (90) 98 06/27/19 08:00 97.6 78 17 91/65 (74) 96 06/27/19 07:00 81 20 93/60 (71) 99 06/27/19 06:00 82 20 92/64 (73) 99 06/27/19 05:00 79 22 88/61 (70) 99 06/27/19 04:00 83 06/27/19 04:00 Nasal Cannula 2.0 06/27/19 04:00 98.3 80 21 93/66 (75) 98 06/27/19 03:00 84 19 96/59 (71) 99 06/27/19 02:00 81 19 90/58 (69) 98 06/27/19 01:00 83 19 90/59 (69) 99 06/27/19 00:00 Nasal Cannula 2.0 06/27/19 00:00 88 06/27/19 00:00 98.1 84 19 88/60 (69) 99 06/26/19 23:00 91 19 98/67 (77) 98 06/26/19 22:00 87 19 96/56 (69) 99 06/26/19 21:00 88 20 96/53 (67) 99 06/26/19 21:00 Room Air 06/26/19 20:00 98.3 85 19 100/58 (72) 99 06/26/19 20:00 Nasal Cannula 2.0 06/26/19 20:00 88 06/26/19 19:00 102 20 112/73 (86) 99 06/26/19 18:00 78 19 115/61 (79) 100 06/26/19 17:00 75 0 91/54 (66) 96 06/26/19 16:00 Nasal Cannula 2.0 06/26/19 16:00 77 18 101/66 (78) 98 06/26/19 16:00 97.8 86 18 101/57 (72) 99 06/26/19 15:00 100 13 97/67 (77) 99 06/26/19 15:00 87 15 112/73 (86) 99 06/26/19 14:00 100 13 97/67 (77) 99 06/26/19 14:00 89 16 107/67 (80) 99 06/26/19 13:00 68 18 110/67 (81) 100 06/26/19 12:00 Nasal Cannula 2.0 06/26/19 12:00 97.4 77 18 101/66 (78) 98 06/26/19 12:00 73 06/26/19 11:00 89 16 107/67 (80) 99 Status: awake, sedated Condition: critical, improving HEENT: atraumatic Neck: full ROM Lungs: clear Heart: HR/BP stable, regular Abdomen: soft, non-tender, feeding tube Accucheck: 80 Critical Care - Subjective ROS Limited/Unobtainable: No ICU Day: 2 Interval Events: no more seizures in the last day Condition: improving I&O: Intake and Output 06/26/19 06/27/19 18:59 06:59 Intake Total 540 ml 200 ml Output Total 1300 ml 500 ml Balance -760 ml -300 ml Intake Oral 540 ml 200 ml Output Urine Total 1300 ml 500 ml # Voids 3 Labs: Laboratory Tests Test 06/27/19 03:00 White Blood Count 3.6 K/UL (4.8-10.8) L Red Blood Count 3.88 M/UL (4.70-6.10) L Hemoglobin 12.2 G/DL (14.2-18.0) L Hematocrit 34.3 % (42.0-52.0) L Mean Corpuscular Volume 89 FL (80-99) Mean Corpuscular Hemoglobin 31.5 PG (27.0-31.0) H Mean Corpuscular Hemoglobin Concent 35.6 G/DL (32.0-36.0) Red Cell Distribution Width 10.7 % (11.6-14.8) L Platelet Count 144 K/UL (150-450) L Mean Platelet Volume 7.2 FL (6.5-10.1) Neutrophils (%) (Auto) 55.3 % (45.0-75.0) Lymphocytes (%) (Auto) 32.7 % (20.0-45.0) Monocytes (%) (Auto) 8.0 % (1.0-10.0) Eosinophils (%) (Auto) 3.3 % (0.0-3.0) H Basophils (%) (Auto) 0.7 % (0.0-2.0) Erythrocyte Sedimentation Rate 6 MM/HR (0-20) Sodium Level 142 MMOL/L (136-145) Potassium Level 3.9 MMOL/L (3.5-5.1) Chloride Level 106 MMOL/L (98-107) Carbon Dioxide Level 31 MMOL/L (21-32) Anion Gap 5 mmol/L (5-15) Blood Urea Nitrogen 17 mg/dL (7-18) Creatinine 0.7 MG/DL (0.55-1.30) Estimat Glomerular Filtration Rate > 60 mL/min (>60) Glucose Level 98 MG/DL (74-106) Calcium Level 8.8 MG/DL (8.5-10.1) Phosphorus Level 3.6 MG/DL (2.5-4.9) Magnesium Level 1.8 MG/DL (1.8-2.4) Total Bilirubin 0.2 MG/DL (0.2-1.0) Aspartate Amino Transf (AST/SGOT) 14 U/L (15-37) L Alanine Aminotransferase (ALT/SGPT) 11 U/L (12-78) L Alkaline Phosphatase 48 U/L (46-116) C-Reactive Protein, Quantitative < 0.4 mg/dL (0.00-0.90) Total Protein 5.8 G/DL (6.4-8.2) L Albumin 2.9 G/DL (3.4-5.0) L Globulin 2.9 g/dL Albumin/Globulin Ratio 1.0 (1.0-2.7) Faviola Savage MD Jun 27, 2019 10:14
--- NOTE | 2019-06-27 11:15 | NUR ---
NURSE NOTES: Dr Santillan came in to see pt and cleared him for transfer to tele.
--- NOTE | 2019-06-27 11:40 | NUR ---
NURSE NOTES: Pt awake in no acute distress. Will continue to monitor.
--- NOTE | 2019-06-27 12:27 | Internal Med Progress Note ---
Subjective Date of Service: Jun 27, 2019 Physician Name Regis Jauregui Attending Physician Maximus Carrillo MD Current Medications Medications (Trade) Dose Ordered Sig/Jonathan Route PRN Reason Start Time Stop Time Status Last Admin Dose Admin Acetaminophen (Tylenol) 650 mg Q4H PRN ORAL fever 06/26/19 08:38 07/26/19 08:37 Clozapine (Clozaril) 50 mg BEDTIME ORAL 06/26/19 21:00 07/03/19 20:59 06/26/19 20:05 Dextrose (Dextrose 50%) 25 ml Q30M PRN IV Hypoglycemia 06/26/19 09:00 07/21/19 16:59 Dextrose (Dextrose 50%) 25 ml Q30M PRN IV Hypoglycemia 06/26/19 09:00 07/21/19 16:59 Divalproex Sodium (Depakote ER) 1,000 mg EVERY 12 HOURS ORAL 06/26/19 09:00 07/21/19 22:59 06/27/19 08:40 Duloxetine HCl (Cymbalta) 30 mg DAILY ORAL 06/26/19 09:00 07/22/19 08:59 06/27/19 08:40 Heparin Sodium (Porcine) (Heparin 5000 units/ml) 5,000 units EVERY 12 HOURS SUBQ 06/26/19 09:00 07/21/19 20:59 06/27/19 08:41 Lorazepam (Ativan 2mg/ml 1ml) 2 mg Q1H PRN IV seizures 06/26/19 08:39 07/03/19 08:38 Morphine Sulfate (Morphine Sulfate) 1 mg Q4H PRN IVP For Pain 06/26/19 08:39 07/03/19 08:38 Ondansetron HCl (Zofran) 4 mg Q6H PRN IVP Nausea & Vomiting 06/26/19 08:39 07/26/19 08:38 Polyethylene Glycol (Miralax) 17 gm HSPRN PRN ORAL Constipation 06/26/19 08:39 07/26/19 08:38 Quetiapine Fumarate (SEROqueL) 100 mg BEDTIME ORAL 06/26/19 21:00 07/26/19 20:59 06/26/19 20:06 Zolpidem Tartrate (Ambien) 5 mg HSPRN PRN ORAL Insomnia 06/26/19 08:39 07/03/19 08:38 Allergies: Coded Allergies: No Known Allergies (Unverified , 04/27/13) ROS Limited/Unobtainable: No Constitutional: Reports: no symptoms HEENT: Reports: no symptoms Cardiovascular: Reports: no symptoms Respiratory: Reports: no symptoms Gastrointestinal/Abdominal: Reports: no symptoms Genitourinary: Reports: no symptoms Neurologic/Psychiatric: Reports: no symptoms Subjective 59 YO M admitted with seizure. Transfered to ICU for increased seizure activity. Cover for Int Arnie-Dr Carrillo. ICU. Objective Last Vital Signs Date Time Temp Pulse Resp B/P (MAP) Pulse Ox O2 Delivery O2 Flow Rate FiO2 06/27/19 12:00 2.0 06/27/19 11:00 88 16 99/58 (72) 98 06/27/19 08:00 97.6 06/27/19 08:00 Nasal Cannula Nasal Cannula Laboratory Tests Test 06/27/19 03:00 White Blood Count 3.6 K/UL (4.8-10.8) L Red Blood Count 3.88 M/UL (4.70-6.10) L Hemoglobin 12.2 G/DL (14.2-18.0) L Hematocrit 34.3 % (42.0-52.0) L Mean Corpuscular Volume 89 FL (80-99) Mean Corpuscular Hemoglobin 31.5 PG (27.0-31.0) H Mean Corpuscular Hemoglobin Concent 35.6 G/DL (32.0-36.0) Red Cell Distribution Width 10.7 % (11.6-14.8) L Platelet Count 144 K/UL (150-450) L Mean Platelet Volume 7.2 FL (6.5-10.1) Neutrophils (%) (Auto) 55.3 % (45.0-75.0) Lymphocytes (%) (Auto) 32.7 % (20.0-45.0) Monocytes (%) (Auto) 8.0 % (1.0-10.0) Eosinophils (%) (Auto) 3.3 % (0.0-3.0) H Basophils (%) (Auto) 0.7 % (0.0-2.0) Erythrocyte Sedimentation Rate 6 MM/HR (0-20) Sodium Level 142 MMOL/L (136-145) Potassium Level 3.9 MMOL/L (3.5-5.1) Chloride Level 106 MMOL/L (98-107) Carbon Dioxide Level 31 MMOL/L (21-32) Anion Gap 5 mmol/L (5-15) Blood Urea Nitrogen 17 mg/dL (7-18) Creatinine 0.7 MG/DL (0.55-1.30) Estimat Glomerular Filtration Rate > 60 mL/min (>60) Glucose Level 98 MG/DL (74-106) Calcium Level 8.8 MG/DL (8.5-10.1) Phosphorus Level 3.6 MG/DL (2.5-4.9) Magnesium Level 1.8 MG/DL (1.8-2.4) Total Bilirubin 0.2 MG/DL (0.2-1.0) Aspartate Amino Transf (AST/SGOT) 14 U/L (15-37) L Alanine Aminotransferase (ALT/SGPT) 11 U/L (12-78) L Alkaline Phosphatase 48 U/L (46-116) C-Reactive Protein, Quantitative < 0.4 mg/dL (0.00-0.90) Total Protein 5.8 G/DL (6.4-8.2) L Albumin 2.9 G/DL (3.4-5.0) L Globulin 2.9 g/dL Albumin/Globulin Ratio 1.0 (1.0-2.7) Intake and Output 06/26/19 06/27/19 18:59 06:59 Intake Total 540 ml 200 ml Output Total 1300 ml 500 ml Balance -760 ml -300 ml Intake Oral 540 ml 200 ml Output Urine Total 1300 ml 500 ml # Voids 3 Objective PHYSICAL EXAMINATION: GENERAL: The patient is awake, responsive, in no acute distress. HEAD AND NECK: Pupils are equal and reactive to light. Anicteric. Neck was supple. No JVD. Poor dentition with maxillary protrusion. LUNGS: Good air entry. No wheezes or rales. HEART: S1, S2. Regular rhythm. No gallops. ABDOMEN: Soft, nondistended, and nontender. Morbid obesity. EXTREMITIES: No cyanosis, clubbing, or edema. NEUROLOGIC: Cranial nerves II through XII grossly intact. Motor is 5/5 in all extremities. Gait was not assessed due to patient's status. RECTAL: Refused and deferred. GENITOURINARY: Refused and deferred. PSYCHIATRIC: Mood and affect is intact at this time. Assessment/Plan Assessment/Plan ASSESSMENT: 1. Acute tonic-colonic seizure, uncontrolled. 2. Schizophrenia. 3. Parkinson disease. 4. Morbid obesity. 5. Prior history of stroke. PLAN: 1. Admit the patient to monitor unit. 2. We will follow up laboratory. 3. Seizure precaution. 4. Code status is Full Code. 5. Resume home medication. 6. Neurology consultation=Dr Santillan 7. continue depakote per neurology Regis Jauregui MD Jun 27, 2019 12:27
--- NOTE | 2019-06-27 12:49 | NUR ---
NURSE NOTES: Pt ate 100% lunch tray. Neuro check performed. No seizure activity noted. Pt in no acute distress. Awaiting tele bed.
--- NOTE | 2019-06-27 14:17 | NUR ---
CASE MANAGEMENT:REVIEW 06/27/19 SI: ACUTE TONIC-CLONIC SEIZURE SCHIZOPHRENIA.INCREASED SEIZURE 97.5 101 20 98/62 99% ON RA H/H12.2/34.3 IS: DEPAKOTE 1,000MG PO Q12 CYMBALTA PO QD SEROQUEL PO QD HEPARIN SQ Q12 IV ATIVAN Q1HRS PRN IV MORPHINE Q4HRS PRN : MED/SURG STATUS 3 EAST DCP: FROM [facility]
--- NOTE | 2019-06-27 14:22 | NUR ---
DISCHARGE PLANNING [facility] ~ DECLINED TO ACCEPT [facility] ~ DECLINED TO ACCEPT
--- NOTE | 2019-06-27 15:44 | NUR ---
NURSE NOTES: Pt ready for transfer and hooked to tele box, all belongings accompanied with pt, room in tele is being cleaned.
[2019-06-27] MEDS ORDERED: Miralax 17gm pkt ORAL PRN (16:00)
[2019-06-27] MEDS ORDERED: Morphine Sulfate 2mg/ml Inj(IV/IM USE ONLY) IVP PRN (16:00)
[2019-06-27] MEDS ORDERED: Zolpidem 5mg tab ORAL PRN (16:00)
--- NOTE | 2019-06-27 16:10 | NUR ---
NURSE NOTES: Patient's transferred to tele floor by hospital bed with assistance of Jenn and GEORGIA Go. Nurse report was given by GEORGIA Barajas. Patient's in stable condition, awake and eyes open spontaneously. AO x 4, delayed speech, PERRLA, denies pain, no s/s of distress or SOB. Bed low and locked, call light within reach, side rails x 3 and padded for seizure precautions, bed alarm is armed. Seizure precaution in the room with suction and oxygen ready. Belonging bag went over with patient and 2 nurses at bedside and signed by both nurses. IV is saline locked, patent and asymptomatic. Patient's appearance is groomed, skin cool to touch, bradykinesia movements noted with both arms. Orders are acknowledged and carried out. Will continue to monitor.
--- NOTE | 2019-06-27 16:10 | NUR ---
TRANSFER TO FLOOR: Patient transferred to [facility] in stable condition, per Dr. Carrillo. Report and belongings given to GEORGIA Maloney. Suction canister and Oxygen available in new room, pt remains on seizure and fall precuation. Bed in lowest spoition, alarm on, side rails up x 3 and padded.
--- NOTE | 2019-06-27 17:45 | NUR ---
NURSE NOTES: Patient reported to have seizure. Recorded at 1745 for 40 seconds, 1749 for 30 seconds and 1750 for 4 seconds and patient went to postictal phase and no response. Patient is turned to left side, suction is ready, oxygen sharon is attached. Patient's lethargic from the seizure. Vital signs are taken: BP 124/76, SC 86, RR 16, O2 98%, Temp 97.6. Contacted Dr. Santillan's office and left message for the physician to report patient's condition. Waiting for response.
--- NOTE | 2019-06-27 19:11 | NUR ---
HAND-OFF: Report given to GEORGIA Johnston. Plan of care endorsed. Patient's stable.
--- NOTE | 2019-06-27 19:12 | NUR ---
NURSE NOTES: Received pt from GEORGIA Maloney. Pt is awake in bed in no acute distress. IV site intact and patent. Bed locked in lowest position, bed alarm on, call light within reach. Seizure precautions implemented. HOB at 30 degrees. Will continue with plan of care.
--- NOTE | 2019-06-27 22:15 | Electroencephalogram ---
DATE OF PROCEDURE: 06/26/2019 REQUESTING PHYSICIAN: Terry Santillan M.D. READING PHYSICIAN: Kash Houston M.D. PROCEDURE PERFORMED: EEG. HISTORY: This EEG was performed on a 59-year-old gentleman with a history of an altered mental state and a seizure disorder. The purpose of this EEG was to evaluate the patient for the degree and type of cerebral dysfunction and to exclude ongoing ictal or interictal phenomena. TECHNICAL NOTE: This EEG was performed on a [employer] with electrodes placed on the scalp according to the international 10-20 system. [id number] and [id number] montages were used. The EEG was technically satisfactory and was performed in the awake, drowsy, and sleep states. OBSERVATIONS: In the best awake state, the background activity consisted of 8.5 to 9 hertz posteriorly predominant alpha activity. Drowsiness was characterized by slowing of the background in the 5 to 6 hertz theta range. Stage 2 sleep was characterized by further slowing of the background in the delta and theta range, the presence of vertex waves, and 14 hertz sleep spindles. No focal abnormalities or epileptiform discharges were seen. IMPRESSION: Normal awake, drowsy, and stage 2 sleep EEG. COMMENT: Normal EEG, does not rule out a seizure disorder. Kash Houston M.D. DR: GRACIE JOB#: [id number] CC:
[2019-06-28] VITALS: BP 98/63
--- NOTE | 2019-06-28 02:15 | Progress Note ---
DATE: 06/27/2019 NOTE: UNCLEAR AUDIO SUBJECTIVE: The patient has had no seizures basically since coming to the ICU IV Ativan. He is on Depakote 1 g q.12 hours. The patient had an EEG, which revealed "no clear epileptiform discharge." It was done in the awake, drowsy, and sleep states. It was read by the tech. The frequencies were not noted. PHYSICAL EXAMINATION: VITAL SIGNS: Blood pressure is 99/58, respiration rate is 16, pulse is 88 and regular. NEUROLOGIC EXAMINATION: MENTAL STATUS: He was basically alert and awake. Judgment could not be tested. Affect was flat to appropriate. Memory, immediate recall was 3/3 words. Recent recall was 1/3 words at 2 minutes. Orientation - time, he knew it is June . He knew he was in the hospital, but does not know the name. CRANIAL NERVE EXAMINATION: CRANIAL NERVE II: Visual mathew CRANIAL NERVES III, IV, AND : Extraocular motilitly was full CRANIAL NERVE V: Corneal and facial sensation were intact to fine touch. CRANIAL NERVE VII: Facial strength appeared to be 5/5 bilaterally. CRANIAL NERVE VIII: Auditory acuity was slightly decreased CRANIAL NERVES IX AND X: Gag decreased. CRANIAL NERVE XI: Sternocleidomastoid strength is 5/5. CRANIAL NERVE XII: Tongue protrudes in the midline without fasciculations or atrophy. MUSCLE EXAMINATION: Muscle bulk was normal. Tone REFLEXES: Trace in the upper extremities, 0 at the knees, 0 at the ankles with a downgoing toe on the right side and an indefinite upgoing toe on the left side and testing for Babinski response. 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 Discharge the patient 2. Depakote . 3. Terry Santillan MD DR: EDWARD JOB#: [id number] CC:
[2019-06-28 04:00] VITALS: BP 101/61
--- NOTE | 2019-06-28 07:07 | NUR ---
HAND-OFF: Report given to GEORGIA Srinivasan. Endorsed plan of care.
--- NOTE | 2019-06-28 07:10 | NUR ---
NURSE NOTES: Received report from Calvin/RN, Patient is awake, AAO 2-3, sitting up on bed, eating breakfast, Breathing even and unlabored, On room air, no acute distress/SOB noted. Denies pain at this time. IV on right hand patent, no bleeding or infiltration noted. Seizure precaution in place. Bed in low position and locked, Bed alarm engaged. Side-rails up x2 and padded. Call light within reach, Encourage to use call light when needed. Will continue plan of care.
[2019-06-28 08:00] VITALS: BP 104/66
[2019-06-28] MEDS: LORazepam Inj 2mg/ml 1ml IV PRN ×2 (08:18→21:38)
[2019-06-28] MEDS: DULoxetine 30mg cap ORAL SCH (08:35)
[2019-06-28] MEDS: Depakote ER 500mg tab ORAL SCH ×2 (08:36→20:56)
[2019-06-28] MEDS: Heparin 5000 units/ml inj SUBQ SCH ×2 (08:37→20:59)
[2019-06-28 08:47] LABS: HEMATOCRIT 38.1 % (42.0-52.0); HEMOGLOBIN 12.6 G/DL (14.2-18.0); MEAN CORPUSCULAR VOLUME 93 FL (80-99); PLATELET COUNT 147 K/UL (150-450); RED CELL DISTRIBUTION WIDTH 12.2 % (11.6-14.8); WHITE BLOOD COUNT 3.2 K/UL (4.8-10.8)
[2019-06-28 09:15] LABS: ALANINE AMINOTRANSFERASE 13 U/L (12-78); ALBUMIN 2.9 G/DL (3.4-5.0); ALBUMIN/GLOBULIN RATIO 0.9 (1.0-2.7); ALKALINE PHOSPHATASE 49 U/L (46-116); ANION GAP 6 mmol/L (5-15); ASPARTATE AMINO TRANSFERASE 15 U/L (15-37); BILIRUBIN,TOTAL 0.3 MG/DL (0.2-1.0); BLOOD UREA NITROGEN 18 mg/dL (7-18); CALCIUM 8.7 MG/DL (8.5-10.1); CARBON DIOXIDE 29 MMOL/L (21-32); CHLORIDE 108 MMOL/L (98-107); CREATININE 0.7 MG/DL (0.55-1.30); PHOSPHORUS 3.1 MG/DL (2.5-4.9); POTASSIUM 4.1 MMOL/L (3.5-5.1); SODIUM 142 MMOL/L (136-145)
[2019-06-28 12:00] VITALS: BP 98/65
--- NOTE | 2019-06-28 12:06 | Pulmonology Progress Note ---
Assessment/Plan Problems: (1) Epileptic seizure, generalized (2) Schizo-affective schizophrenia Assessment/Plan one episode of seizure or pseudo seizure this morning increase the dose of depakote all are subtherapeutic neuro evaluation med/surg dvt prophylaxis continue psychiatric meds try to get a neurologist all meds reviewed Subjective ROS Limited/Unobtainable: No Interval Events: possible Constitutional: Reports: no symptoms Allergies: Coded Allergies: No Known Allergies (Unverified , 04/27/13) Objective Last 24 Hour Vital Signs Date Time Temp Pulse Resp B/P (MAP) Pulse Ox O2 Delivery O2 Flow Rate FiO2 06/28/19 09:00 Room Air Room Air 06/28/19 08:00 97.7 91 20 104/66 (79) 100 06/28/19 08:00 93 06/28/19 04:00 83 06/28/19 04:00 97.3 83 18 101/61 (74) 95 06/28/19 00:00 90 06/28/19 00:00 97.5 90 17 98/63 (75) 94 06/27/19 21:00 Room Air Room Air 06/27/19 20:00 92 06/27/19 20:00 97.5 92 17 94/55 (68) 98 06/27/19 16:00 83 06/27/19 16:00 97.5 80 19 110/65 (80) 95 06/27/19 15:22 88 25 99/60 (73) 99 06/27/19 15:00 88 17 76/39 (51) 98 06/27/19 14:00 93 17 107/63 (78) 99 06/27/19 13:30 95 18 108/64 (79) 98 06/27/19 13:00 102 16 86/63 (71) 98 06/27/19 12:30 101 13 104/62 (76) 98 Intake and Output 06/27/19 06/28/19 19:00 07:00 Intake Total 320 ml Output Total 1075 ml Balance -755 ml Intake Oral 320 ml Output Urine Total 1075 ml # Voids 1 2 Objective General Appearance: WD/WN, no apparent distress Lines, tubes and drains: peripheral HEENT: normocephalic, atraumatic Neck: non-tender, normal alignment Respiratory/Chest: chest wall non-tender, lungs clear Breasts: no masses Cardiovascular/Chest: normal peripheral pulses Abdomen: non tender Extremities: normal range of motion Skin Exam: normal pigmentation Laboratory Tests 06/28/19 07:15: White Blood Count 3.2L, Red Blood Count 4.10L, Hemoglobin 12.6L, Hematocrit 38.1L, Mean Corpuscular Volume 93, Mean Corpuscular Hemoglobin 30.8, Mean Corpuscular Hemoglobin Concent 33.2, Red Cell Distribution Width 12.2, Platelet Count 147L, Mean Platelet Volume 8.0, Neutrophils (%) (Auto) , Lymphocytes (%) ( Auto) , Monocytes (%) (Auto) , Eosinophils (%) (Auto) , Basophils (%) (Auto) , Differential Total Cells Counted 100, Neutrophils % (Manual) 50, Lymphocytes % ( Manual) 30, Monocytes % (Manual) 13H, Eosinophils % (Manual) 7H, Basophils % ( Manual) 0, Band Neutrophils 0, Platelet Estimate DecreasedL, Platelet Morphology Normal, Red Blood Cell Morphology Normal, Erythrocyte Sedimentation Rate 4, Sodium Level 142, Potassium Level 4.1, Chloride Level 108H, Carbon Dioxide Level 29, Anion Gap 6, Blood Urea Nitrogen 18, Creatinine 0.7, Estimat Glomerular Filtration Rate > 60, Glucose Level 88, Calcium Level 8.7, Phosphorus Level 3.1, Magnesium Level 1.9, Total Bilirubin 0.3, Aspartate Amino Transf (AST/SGOT) 15, Alanine Aminotransferase (ALT/SGPT) 13, Alkaline Phosphatase 49, C-Reactive Protein, Quantitative < 0.4, Total Protein 6.1L, Albumin 2.9L, Globulin 3.2, Albumin/Globulin Ratio 0.9L 06/28/19 08:13: Arterial Blood pH 7.423, Arterial Blood Partial Pressure CO2 40.3, Arterial Blood Partial Pressure O2 81.9, Arterial Blood HCO3 25.7, Arterial Blood Oxygen Saturation 95.7, Arterial Blood Base Excess 1.3, Gene Test Positive Current Medications Medications (Trade) Dose Ordered Sig/Jonathan Route PRN Reason Start Time Stop Time Status Last Admin Dose Admin Acetaminophen (Tylenol) 650 mg Q4H PRN ORAL fever 06/27/19 15:45 07/26/19 15:44 Clozapine (Clozaril) 50 mg BEDTIME ORAL 06/27/19 21:00 07/03/19 20:59 06/27/19 20:44 Dextrose (Dextrose 50%) 25 ml Q30M PRN IV Hypoglycemia 06/27/19 16:00 07/21/19 16:59 Dextrose (Dextrose 50%) 25 ml Q30M PRN IV Hypoglycemia 06/27/19 16:00 07/21/19 16:59 Divalproex Sodium (Depakote ER) 1,000 mg EVERY 12 HOURS ORAL 06/27/19 21:00 07/21/19 22:59 06/28/19 08:36 Duloxetine HCl (Cymbalta) 30 mg DAILY ORAL 06/28/19 09:00 07/22/19 08:59 06/28/19 08:35 Heparin Sodium (Porcine) (Heparin 5000 units/ml) 5,000 units EVERY 12 HOURS SUBQ 06/27/19 21:00 07/21/19 20:59 06/28/19 08:37 Lorazepam (Ativan 2mg/ml 1ml) 2 mg Q1H PRN IV seizures 06/27/19 16:00 07/03/19 15:59 06/28/19 08:18 Morphine Sulfate (Morphine Sulfate) 1 mg Q4H PRN IVP For Pain 06/27/19 16:00 07/03/19 15:59 Ondansetron HCl (Zofran) 4 mg Q6H PRN IVP Nausea & Vomiting 06/27/19 16:00 07/26/19 15:59 Polyethylene Glycol (Miralax) 17 gm HSPRN PRN ORAL Constipation 06/27/19 16:00 07/27/19 15:59 Quetiapine Fumarate (SEROqueL) 100 mg BEDTIME ORAL 06/27/19 21:00 07/26/19 20:59 06/27/19 20:44 Zolpidem Tartrate (Ambien) 5 mg HSPRN PRN ORAL Insomnia 06/27/19 16:00 07/04/19 15:59 Faviola Savage MD Jun 28, 2019 12:06
--- NOTE | 2019-06-28 12:16 | NUR ---
RD ASSESSMENT & RECOMMENDATIONS SEE CARE ACTIVITY FOR COMPLETE ASSESSMENT DAILY ESTIMATED NEEDS: Needs based on cardiac, 84kg abw 25-30 kcals/kg 7702-8369 total kcals 1-1.2 g protein/kg 84-101 g total protein 25-30 mL/kg 2100/2520 total fluid mLs NUTRITION DIAGNOSIS: Altered nutrition related lab values r/t clinical status, as evidenced by uglu 3+ on adm, low WBC (3.2). CURRENT DIET: Regular PO DIET RECOMMENDATIONS: Maintain Regular diet/ texture as tolerate ADDITIONAL RECOMMENDATIONS: 1) Obtain a calibrated bed scale wt OR standing wt EMR wt: 205#, ADM wt: 218#, BED wt: 238# 2) Monitor for regular bm (last noted 2 days ago) 3) H/o PD, CVA-> rec LEAD MAN OVER ALL DIES IN PATTERN SHOP eval for appropriate diet 4) Uglu 3+ on adm, monitor BG, need for diet change
--- NOTE | 2019-06-28 13:03 | NUR ---
DISCHARGE PLANNING PATIENT WAS PREVIOUSLY AT [facility] HE WAS DISCHARGED ON 06/19/19 TO [facility] AND ADMITTED TO [facility] ON 06/21 SPOKE WITH ANNE AT [facility] (T:[phone]) WHO STATED PATIENT CAN RETURN UPON DISCHARGE
[2019-06-28 16:00] VITALS: BP 105/68
--- NOTE | 2019-06-28 17:09 | Internal Med Progress Note ---
Subjective Date of Service: Jun 28, 2019 Physician Name Regis Jauregui Attending Physician Maximus Carrillo MD Current Medications Medications (Trade) Dose Ordered Sig/Jonathan Route PRN Reason Start Time Stop Time Status Last Admin Dose Admin Acetaminophen (Tylenol) 650 mg Q4H PRN ORAL fever 06/27/19 15:45 07/26/19 15:44 Clozapine (Clozaril) 50 mg BEDTIME ORAL 06/27/19 21:00 07/03/19 20:59 06/27/19 20:44 Dextrose (Dextrose 50%) 25 ml Q30M PRN IV Hypoglycemia 06/27/19 16:00 07/21/19 16:59 Dextrose (Dextrose 50%) 25 ml Q30M PRN IV Hypoglycemia 06/27/19 16:00 07/21/19 16:59 Divalproex Sodium (Depakote ER) 1,000 mg EVERY 12 HOURS ORAL 06/27/19 21:00 07/21/19 22:59 06/28/19 08:36 Duloxetine HCl (Cymbalta) 30 mg DAILY ORAL 06/28/19 09:00 07/22/19 08:59 06/28/19 08:35 Heparin Sodium (Porcine) (Heparin 5000 units/ml) 5,000 units EVERY 12 HOURS SUBQ 06/27/19 21:00 07/21/19 20:59 06/28/19 08:37 Lorazepam (Ativan 2mg/ml 1ml) 2 mg Q1H PRN IV seizures 06/27/19 16:00 07/03/19 15:59 06/28/19 08:18 Morphine Sulfate (Morphine Sulfate) 1 mg Q4H PRN IVP For Pain 06/27/19 16:00 07/03/19 15:59 Ondansetron HCl (Zofran) 4 mg Q6H PRN IVP Nausea & Vomiting 06/27/19 16:00 07/26/19 15:59 Polyethylene Glycol (Miralax) 17 gm HSPRN PRN ORAL Constipation 06/27/19 16:00 07/27/19 15:59 Quetiapine Fumarate (SEROqueL) 100 mg BEDTIME ORAL 06/27/19 21:00 07/26/19 20:59 06/27/19 20:44 Zolpidem Tartrate (Ambien) 5 mg HSPRN PRN ORAL Insomnia 06/27/19 16:00 07/04/19 15:59 Allergies: Coded Allergies: No Known Allergies (Unverified , 04/27/13) ROS Limited/Unobtainable: No Constitutional: Reports: no symptoms HEENT: Reports: no symptoms Cardiovascular: Reports: no symptoms Respiratory: Reports: no symptoms Gastrointestinal/Abdominal: Reports: no symptoms Genitourinary: Reports: no symptoms Neurologic/Psychiatric: Reports: no symptoms Subjective 59 YO M admitted with seizure. Cover for [facility] Arnie-Dr Carrillo. Telemetry Objective Last Vital Signs Date Time Temp Pulse Resp B/P (MAP) Pulse Ox O2 Delivery O2 Flow Rate FiO2 06/28/19 16:00 98.4 88 20 105/68 (80) 95 06/28/19 09:00 Room Air Room Air 06/27/19 12:00 2.0 Laboratory Tests Test 06/28/19 07:15 06/28/19 08:13 White Blood Count 3.2 K/UL (4.8-10.8) L Red Blood Count 4.10 M/UL (4.70-6.10) L Hemoglobin 12.6 G/DL (14.2-18.0) L Hematocrit 38.1 % (42.0-52.0) L Mean Corpuscular Volume 93 FL (80-99) Mean Corpuscular Hemoglobin 30.8 PG (27.0-31.0) Mean Corpuscular Hemoglobin Concent 33.2 G/DL (32.0-36.0) Red Cell Distribution Width 12.2 % (11.6-14.8) Platelet Count 147 K/UL (150-450) L Mean Platelet Volume 8.0 FL (6.5-10.1) Neutrophils (%) (Auto) % (45.0-75.0) Lymphocytes (%) (Auto) % (20.0-45.0) Monocytes (%) (Auto) % (1.0-10.0) Eosinophils (%) (Auto) % (0.0-3.0) Basophils (%) (Auto) % (0.0-2.0) Differential Total Cells Counted 100 Neutrophils % (Manual) 50 % (45-75) Lymphocytes % (Manual) 30 % (20-45) Monocytes % (Manual) 13 % (1-10) H Eosinophils % (Manual) 7 % (0-3) H Basophils % (Manual) 0 % (0-2) Band Neutrophils 0 % (0-8) Platelet Estimate Decreased L Platelet Morphology Normal Red Blood Cell Morphology Normal Erythrocyte Sedimentation Rate 4 MM/HR (0-20) Sodium Level 142 MMOL/L (136-145) Potassium Level 4.1 MMOL/L (3.5-5.1) Chloride Level 108 MMOL/L (98-107) H Carbon Dioxide Level 29 MMOL/L (21-32) Anion Gap 6 mmol/L (5-15) Blood Urea Nitrogen 18 mg/dL (7-18) Creatinine 0.7 MG/DL (0.55-1.30) Estimat Glomerular Filtration Rate > 60 mL/min (>60) Glucose Level 88 MG/DL (74-106) Calcium Level 8.7 MG/DL (8.5-10.1) Phosphorus Level 3.1 MG/DL (2.5-4.9) Magnesium Level 1.9 MG/DL (1.8-2.4) Total Bilirubin 0.3 MG/DL (0.2-1.0) Aspartate Amino Transf (AST/SGOT) 15 U/L (15-37) Alanine Aminotransferase (ALT/SGPT) 13 U/L (12-78) Alkaline Phosphatase 49 U/L (46-116) C-Reactive Protein, Quantitative < 0.4 mg/dL (0.00-0.90) Total Protein 6.1 G/DL (6.4-8.2) L Albumin 2.9 G/DL (3.4-5.0) L Globulin 3.2 g/dL Albumin/Globulin Ratio 0.9 (1.0-2.7) L Arterial Blood pH 7.423 (7.350-7.450) Arterial Blood Partial Pressure CO2 40.3 mmHg (35.0-45.0) Arterial Blood Partial Pressure O2 81.9 mmHg (75.0-100.0) Arterial Blood HCO3 25.7 mmol/L (22.0-26.0) Arterial Blood Oxygen Saturation 95.7 % (95-100) Arterial Blood Base Excess 1.3 (-2-2) Gene Test Positive Intake and Output 06/27/19 06/28/19 18:59 06:59 Intake Total 320 ml Output Total 1075 ml Balance -755 ml Intake Oral 320 ml Output Urine Total 1075 ml # Voids 1 2 Objective PHYSICAL EXAMINATION: GENERAL: The patient is awake, responsive, in no acute distress. HEAD AND NECK: Pupils are equal and reactive to light. Anicteric. Neck was supple. No JVD. Poor dentition with maxillary protrusion. LUNGS: Good air entry. No wheezes or rales. HEART: S1, S2. Regular rhythm. No gallops. ABDOMEN: Soft, nondistended, and nontender. Morbid obesity. EXTREMITIES: No cyanosis, clubbing, or edema. NEUROLOGIC: Cranial nerves II through XII grossly intact. Motor is 5/5 in all extremities. Gait was not assessed due to patient's status. RECTAL: Refused and deferred. GENITOURINARY: Refused and deferred. PSYCHIATRIC: Mood and affect is intact at this time. Assessment/Plan Assessment/Plan ASSESSMENT: 1. Acute tonic-colonic seizure, uncontrolled. 2. Schizophrenia. 3. Parkinson disease. 4. Morbid obesity. 5. Prior history of stroke. PLAN: 1. Admit the patient to monitor unit. 2. We will follow up laboratory. 3. Seizure precaution. 4. Code status is Full Code. 5. Resume home medication. 6. Neurology consultation=Dr Santillan 7. continue depakote per neurology Reigs Jauregui MD Jun 28, 2019 17:09
--- NOTE | 2019-06-28 19:10 | NUR ---
HAND-OFF: Report given to Calvin/RN, Patient is in stable condition. Plan of care endorsed.
--- NOTE | 2019-06-28 19:11 | NUR ---
NURSE NOTES: Report received from GEORGIA Simpson. Patient lying in bed in no distress. Iv site intact. seizure precautions implemented. Bed locked in lowest position, bed alarm on, call light within reach. will continue with plan of care.
[2019-06-29 04:00] VITALS: BP 107/59
--- NOTE | 2019-06-29 07:10 | NUR ---
HAND-OFF: Report given to GEORGIA Srinivasan. Endorsed plan of care.
--- NOTE | 2019-06-29 07:19 | NUR ---
NURSE NOTES: Received report from Calvin/RN, Patient is awake, AAO 2-3, Lying on bed, resting comfortably. Breathing even and unlabored, On room air, no acute distress/SOB noted. Denies pain at this time. IV on right hand patent, no bleeding or infiltration noted. Seizure precaution in place. Bed in low position and locked, Bed alarm engaged. Side-rails up x2 and padded. Call light within reach, Encourage to use call light when needed. Will continue plan of care.
[2019-06-29 07:51] LABS: BASOPHILS % (AUTO) 0.9 % (0.0-2.0); EOSINOPHILS % (AUTO) 3.1 % (0.0-3.0); HEMATOCRIT 37.2 % (42.0-52.0); HEMOGLOBIN 12.4 G/DL (14.2-18.0); LYMPHOCYTES % (AUTO) 31.1 % (20.0-45.0); MEAN CORPUSCULAR VOLUME 93 FL (80-99); MONOCYTES % (AUTO) 9.3 % (1.0-10.0); NEUTROPHILS % (AUTO) 55.5 % (45.0-75.0); PLATELET COUNT 156 K/UL (150-450); RED BLOOD COUNT 3.98 M/UL (4.70-6.10); RED CELL DISTRIBUTION WIDTH 12.1 % (11.6-14.8); WHITE BLOOD COUNT 3.7 K/UL (4.8-10.8)
[2019-06-29 08:00] VITALS: BP 105/61
[2019-06-29] MEDS: DULoxetine 30mg cap ORAL SCH (08:51)
[2019-06-29] MEDS: Depakote ER 500mg tab ORAL SCH ×2 (08:52→20:49)
[2019-06-29] MEDS: Heparin 5000 units/ml inj SUBQ SCH ×2 (08:52→20:50)
[2019-06-29 09:18] LABS: ANION GAP 6 mmol/L (5-15); BLOOD UREA NITROGEN 20 mg/dL (7-18); CALCIUM 8.3 MG/DL (8.5-10.1); CARBON DIOXIDE 28 MMOL/L (21-32); CHLORIDE 107 MMOL/L (98-107); CREATININE 0.7 MG/DL (0.55-1.30); POTASSIUM 4.1 MMOL/L (3.5-5.1); SODIUM 141 MMOL/L (136-145)
[2019-06-29 12:00] VITALS: BP 101/60
--- NOTE | 2019-06-29 12:36 | Pulmonology Progress Note ---
Assessment/Plan Problems: (1) Epileptic seizure, generalized (2) Schizo-affective schizophrenia Assessment/Plan no new complains f/u neuro recommendations pt/ot evaluation increase the dose of depakote all are subtherapeutic neuro evaluation med/surg dvt prophylaxis continue psychiatric meds try to get a neurologist all meds reviewed Subjective ROS Limited/Unobtainable: No Constitutional: Reports: no symptoms HEENT: Repors: no symptoms Respiratory: Reports: no symptoms Allergies: Coded Allergies: No Known Allergies (Unverified , 04/27/13) Objective Last 24 Hour Vital Signs Date Time Temp Pulse Resp B/P (MAP) Pulse Ox O2 Delivery O2 Flow Rate FiO2 06/29/19 09:00 Room Air Room Air Room Air 06/29/19 08:00 97.3 92 20 105/61 (76) 95 06/29/19 08:00 97 06/29/19 04:00 81 06/29/19 04:00 96.8 81 20 107/59 (75) 95 06/29/19 00:00 89 06/29/19 00:00 89 06/28/19 21:00 Room Air Room Air 06/28/19 20:00 97 06/28/19 20:00 97 06/28/19 16:00 96 06/28/19 16:00 98.4 88 20 105/68 (80) 95 Intake and Output 06/28/19 06/29/19 19:00 07:00 Intake Total 1490 ml 240 ml Output Total 400 ml Balance 1090 ml 240 ml Intake Oral 1490 ml 240 ml Output Urine Total 400 ml # Voids 3 2 Objective General Appearance: WD/WN, no apparent distress Lines, tubes and drains: peripheral HEENT: normocephalic, atraumatic Neck: non-tender, normal alignment Respiratory/Chest: chest wall non-tender, lungs clear Breasts: no masses Cardiovascular/Chest: normal peripheral pulses Abdomen: non tender Extremities: normal range of motion Skin Exam: normal pigmentation Laboratory Tests 06/29/19 07:19: White Blood Count 3.7L, Red Blood Count 3.98L, Hemoglobin 12.4L, Hematocrit 37.2L, Mean Corpuscular Volume 93, Mean Corpuscular Hemoglobin 31.3H, Mean Corpuscular Hemoglobin Concent 33.5, Red Cell Distribution Width 12.1, Platelet Count 156, Mean Platelet Volume 8.0, Neutrophils (%) (Auto) 55.5, Lymphocytes (% ) (Auto) 31.1, Monocytes (%) (Auto) 9.3, Eosinophils (%) (Auto) 3.1H, Basophils (%) (Auto) 0.9, Sodium Level 141, Potassium Level 4.1, Chloride Level 107, Carbon Dioxide Level 28, Anion Gap 6, Blood Urea Nitrogen 20H, Creatinine 0.7, Estimat Glomerular Filtration Rate > 60, Glucose Level 91, Calcium Level 8.3L, Valproic Acid (Depakene) Level 86 Current Medications Medications (Trade) Dose Ordered Sig/Jonathan Route PRN Reason Start Time Stop Time Status Last Admin Dose Admin Acetaminophen (Tylenol) 650 mg Q4H PRN ORAL fever 06/27/19 15:45 07/26/19 15:44 Clozapine (Clozaril) 50 mg BEDTIME ORAL 06/27/19 21:00 07/03/19 20:59 06/28/19 20:56 Dextrose (Dextrose 50%) 25 ml Q30M PRN IV Hypoglycemia 06/27/19 16:00 07/21/19 16:59 Dextrose (Dextrose 50%) 25 ml Q30M PRN IV Hypoglycemia 06/27/19 16:00 07/21/19 16:59 Divalproex Sodium (Depakote ER) 1,000 mg EVERY 12 HOURS ORAL 06/27/19 21:00 07/21/19 22:59 06/29/19 08:52 Duloxetine HCl (Cymbalta) 30 mg DAILY ORAL 06/28/19 09:00 07/22/19 08:59 06/29/19 08:51 Heparin Sodium (Porcine) (Heparin 5000 units/ml) 5,000 units EVERY 12 HOURS SUBQ 06/27/19 21:00 07/21/19 20:59 06/29/19 08:52 Lorazepam (Ativan 2mg/ml 1ml) 2 mg Q1H PRN IV seizures 06/27/19 16:00 07/03/19 15:59 06/28/19 21:38 Morphine Sulfate (Morphine Sulfate) 1 mg Q4H PRN IVP For Pain 06/27/19 16:00 07/03/19 15:59 06/29/19 08:53 Ondansetron HCl (Zofran) 4 mg Q6H PRN IVP Nausea & Vomiting 06/27/19 16:00 07/26/19 15:59 Polyethylene Glycol (Miralax) 17 gm HSPRN PRN ORAL Constipation 06/27/19 16:00 07/27/19 15:59 Quetiapine Fumarate (SEROqueL) 100 mg BEDTIME ORAL 06/27/19 21:00 07/26/19 20:59 06/28/19 20:56 Zolpidem Tartrate (Ambien) 5 mg HSPRN PRN ORAL Insomnia 06/27/19 16:00 07/04/19 15:59 Faviola Savage MD Jun 29, 2019 12:36
--- NOTE | 2019-06-29 13:29 | NUR ---
CASE MANAGEMENT:REVIEW 06/29/19 SI: SEIZURES. SCHIZOPHRENIA 97.2 88 19 101/60 97% ON RA WBC-3.7 H/H-12.4/37.2 IS: CYMBALTA PO QD CLOZAPINE PO QHS DEPAKOTE 1,000MG PO Q12 HEPARIN SQ Q12 SEROQUEL PO QHS : TELEMETRY STATUS DCP: FROM [facility] ~ NEEDS SNF PLACEMENT ~ WAS [facility]VIOUSLY AT [facility]
--- NOTE | 2019-06-29 13:50 | NUR ---
PT EVALUATION NOTE Patient seen for initial evaluation. Patient presents with generalized weakness which impairs patient's ability to perform mobility tasks safely. Patient requires min assist for bed mobility and transfers with FWW. Patient unsteady in standing and is at risk for falls. Patient able to ambulate 20 ft with min/mod assist to manage FWW. Patient will benefit from skilled inpatient PT intervention to address strength, balance and safety for improved level of functional mobility. Recommend discharge to SNF for further rehab once medically cleared by MD. Addendum: 06/29/19 at 1439 by KANWAL WALTERS PT Amended: Links added.
--- NOTE | 2019-06-29 15:31 | Internal Med Progress Note ---
Subjective Physician Name Maximus Carrillo Attending Physician Maximus Carrillo MD Current Medications Medications (Trade) Dose Ordered Sig/Jonathan Route PRN Reason Start Time Stop Time Status Last Admin Dose Admin Acetaminophen (Tylenol) 650 mg Q4H PRN ORAL fever 06/27/19 15:45 07/26/19 15:44 Clozapine (Clozaril) 50 mg BEDTIME ORAL 06/27/19 21:00 07/03/19 20:59 06/28/19 20:56 Dextrose (Dextrose 50%) 25 ml Q30M PRN IV Hypoglycemia 06/27/19 16:00 07/21/19 16:59 Dextrose (Dextrose 50%) 25 ml Q30M PRN IV Hypoglycemia 06/27/19 16:00 07/21/19 16:59 Divalproex Sodium (Depakote ER) 1,000 mg EVERY 12 HOURS ORAL 06/27/19 21:00 07/21/19 22:59 06/29/19 08:52 Duloxetine HCl (Cymbalta) 30 mg DAILY ORAL 06/28/19 09:00 07/22/19 08:59 06/29/19 08:51 Heparin Sodium (Porcine) (Heparin 5000 units/ml) 5,000 units EVERY 12 HOURS SUBQ 06/27/19 21:00 07/21/19 20:59 06/29/19 08:52 Lorazepam (Ativan 2mg/ml 1ml) 2 mg Q1H PRN IV seizures 06/27/19 16:00 07/03/19 15:59 06/28/19 21:38 Morphine Sulfate (Morphine Sulfate) 1 mg Q4H PRN IVP For Pain 06/27/19 16:00 07/03/19 15:59 06/29/19 08:53 Ondansetron HCl (Zofran) 4 mg Q6H PRN IVP Nausea & Vomiting 06/27/19 16:00 07/26/19 15:59 Polyethylene Glycol (Miralax) 17 gm HSPRN PRN ORAL Constipation 06/27/19 16:00 07/27/19 15:59 Quetiapine Fumarate (SEROqueL) 100 mg BEDTIME ORAL 06/27/19 21:00 07/26/19 20:59 06/28/19 20:56 Zolpidem Tartrate (Ambien) 5 mg HSPRN PRN ORAL Insomnia 06/27/19 16:00 07/04/19 15:59 Allergies: Coded Allergies: No Known Allergies (Unverified , 04/27/13) Subjective awake, alert, responsive, NAD, NO CP or SOB Objective Last Vital Signs Date Time Temp Pulse Resp B/P (MAP) Pulse Ox O2 Delivery O2 Flow Rate FiO2 06/29/19 12:00 97.2 88 19 101/60 (74) 97 06/29/19 09:00 Room Air Room Air Room Air 06/27/19 12:00 2.0 Laboratory Tests Test 06/29/19 07:19 White Blood Count 3.7 K/UL (4.8-10.8) L Red Blood Count 3.98 M/UL (4.70-6.10) L Hemoglobin 12.4 G/DL (14.2-18.0) L Hematocrit 37.2 % (42.0-52.0) L Mean Corpuscular Volume 93 FL (80-99) Mean Corpuscular Hemoglobin 31.3 PG (27.0-31.0) H Mean Corpuscular Hemoglobin Concent 33.5 G/DL (32.0-36.0) Red Cell Distribution Width 12.1 % (11.6-14.8) Platelet Count 156 K/UL (150-450) Mean Platelet Volume 8.0 FL (6.5-10.1) Neutrophils (%) (Auto) 55.5 % (45.0-75.0) Lymphocytes (%) (Auto) 31.1 % (20.0-45.0) Monocytes (%) (Auto) 9.3 % (1.0-10.0) Eosinophils (%) (Auto) 3.1 % (0.0-3.0) H Basophils (%) (Auto) 0.9 % (0.0-2.0) Sodium Level 141 MMOL/L (136-145) Potassium Level 4.1 MMOL/L (3.5-5.1) Chloride Level 107 MMOL/L (98-107) Carbon Dioxide Level 28 MMOL/L (21-32) Anion Gap 6 mmol/L (5-15) Blood Urea Nitrogen 20 mg/dL (7-18) H Creatinine 0.7 MG/DL (0.55-1.30) Estimat Glomerular Filtration Rate > 60 mL/min (>60) Glucose Level 91 MG/DL (74-106) Calcium Level 8.3 MG/DL (8.5-10.1) L Valproic Acid (Depakene) Level 86 MCG/ML (50-100) Intake and Output 06/28/19 06/29/19 18:59 06:59 Intake Total 1490 ml 240 ml Output Total 400 ml Balance 1090 ml 240 ml Intake Oral 1490 ml 240 ml Output Urine Total 400 ml # Voids 3 2 Objective GENERAL: The patient is awake, responsive, in no acute distress. HEAD AND NECK: Pupils are equal and reactive to light. Anicteric. Neck was supple. No JVD,poor dentition with maxillary protrusion. LUNGS: Good air entry. No wheezes or rales. HEART: S1, S2. Regular rhythm. No gallops. ABDOMEN: Soft, nondistended, and nontender. Morbid obesity. EXTREMITIES: No cyanosis, clubbing, or edema. NEUROLOGIC: Cranial nerves II through XII grossly intact. Motor is 5/5 in all extremities. Gait was not assessed due to patient's status. RECTAL: Refused and deferred. GENITOURINARY: Refused and deferred. PSYCHIATRIC: Mood and affect is intact at this time. Assessment/Plan Assessment/Plan ASSESSMENT: 1. Epileptic seizure 2. Schizophrenia. 3. Parkinson disease. 4. Morbid obesity. 5. Prior history of stroke. PLAN: 1. In monitor unit. 2. We will follow up laboratory. 3. Seizure precaution. 4. Code status is Full Code. 5. DC Planning. Maximus Carrillo MD Jun 29, 2019 15:31
[2019-06-29 16:00] VITALS: BP 110/62
--- NOTE | 2019-06-29 17:11 | NUR ---
DISCHARGE PLANNING [facility] IS NOW RE-REVIEWING CASE AND IS CONSIDERING ACCEPTING THIS PATIENT REZA IS TRYING TO GET IN TOUCH WITH PATIENT'S SISTER
--- NOTE | 2019-06-29 19:13 | NUR ---
HAND-OFF: Report given to Calvin/RN, Patient is lying semi-corral's, resting comfortably, in stable condition. Endorsed plan of care.
--- NOTE | 2019-06-29 19:14 | NUR ---
NURSE NOTES: Received pt from GEORGIA Srinivasan. pt is awake and resting in bed with HOB elevated. Side rails padded, suction equipment at bedside. Iv site intact. Bed locked in lowest position, bed alarm on, call light within reach. Will continue with plan of care.
[2019-06-29 20:00] VITALS: BP 113/65
[2019-06-30] VITALS: BP 98/59
--- NOTE | 2019-06-30 01:30 | Progress Note ---
DATE: 06/29/2019 SUBJECTIVE: The patient is doing well. No behavior issues. He has episodes of anxiety, compliant with medication. Pleasant. MENTAL STATUS EXAMINATION: The patient is alert, oriented times self, place, and situation. Mood is anxious. Affect is constricted. Congruent mood. Thought process is linear and goal oriented. Thought content, no suicidal or homicidal ideation. ASSESSMENT: Schizoaffective disorder. PLAN: 1. We will continue current medications. 2. Provide the patient with reality orientation and supportive therapy. Klaudia Little M.D. DR: JO JOB#: [id number] CC:
[2019-06-30 04:00] VITALS: BP 114/74
--- NOTE | 2019-06-30 07:15 | NUR ---
HAND-OFF: Report given to GEORGIA Dumont. Pt resting in bed in no distress. Endorsed plan of care.
--- NOTE | 2019-06-30 07:25 | Pulmonology Progress Note ---
Assessment/Plan Problems: (1) Epileptic seizure, generalized (2) Schizo-affective schizophrenia Assessment/Plan no new complains f/u neuro recommendations pt/ot evaluation on depakote neuro evaluation reviewed and appreciated med/surg dvt prophylaxis continue psychiatric meds all meds reviewed Subjective ROS Limited/Unobtainable: No Constitutional: Reports: no symptoms HEENT: Repors: no symptoms Respiratory: Reports: no symptoms Allergies: Coded Allergies: No Known Allergies (Unverified , 04/27/13) Objective Last 24 Hour Vital Signs Date Time Temp Pulse Resp B/P (MAP) Pulse Ox O2 Delivery O2 Flow Rate FiO2 06/30/19 04:00 81 06/30/19 04:00 97.1 82 18 114/74 (87) 96 06/30/19 00:00 81 06/30/19 00:00 97.0 83 18 98/59 (72) 96 06/29/19 21:00 Room Air Room Air Room Air 06/29/19 20:00 90 06/29/19 20:00 97.2 90 20 113/65 (81) 97 06/29/19 16:00 97.5 90 19 110/62 (78) 95 06/29/19 16:00 86 06/29/19 12:00 97.2 88 19 101/60 (74) 97 06/29/19 12:00 85 06/29/19 09:00 Room Air Room Air Room Air 06/29/19 08:00 97.3 92 20 105/61 (76) 95 06/29/19 08:00 97 Intake and Output 06/29/19 06/30/19 19:00 07:00 Intake Total 800 ml 220 ml Output Total 600 ml Balance 200 ml 220 ml Intake Oral 800 ml 220 ml Output Urine Total 600 ml # Voids 2 Objective General Appearance: WD/WN, no apparent distress Lines, tubes and drains: peripheral HEENT: normocephalic, atraumatic Neck: non-tender, normal alignment Respiratory/Chest: chest wall non-tender, lungs clear Breasts: no masses Cardiovascular/Chest: normal peripheral pulses Abdomen: non tender Extremities: normal range of motion Skin Exam: normal pigmentation Current Medications Medications (Trade) Dose Ordered Sig/Jonathan Route PRN Reason Start Time Stop Time Status Last Admin Dose Admin Acetaminophen (Tylenol) 650 mg Q4H PRN ORAL fever 06/27/19 15:45 1/9/20 15:44 Clozapine (Clozaril) 50 mg BEDTIME ORAL 06/27/19 21:00 07/03/19 20:59 06/29/19 20:48 Dextrose (Dextrose 50%) 25 ml Q30M PRN IV Hypoglycemia 06/27/19 16:00 07/21/19 16:59 Dextrose (Dextrose 50%) 25 ml Q30M PRN IV Hypoglycemia 06/27/19 16:00 07/21/19 16:59 Divalproex Sodium (Depakote ER) 1,000 mg EVERY 12 HOURS ORAL 06/27/19 21:00 07/21/19 22:59 06/29/19 20:49 Duloxetine HCl (Cymbalta) 30 mg DAILY ORAL 06/28/19 09:00 07/22/19 08:59 06/29/19 08:51 Heparin Sodium (Porcine) (Heparin 5000 units/ml) 5,000 units EVERY 12 HOURS SUBQ 06/27/19 21:00 07/21/19 20:59 06/29/19 20:50 Lorazepam (Ativan 2mg/ml 1ml) 2 mg Q1H PRN IV seizures 06/27/19 16:00 07/03/19 15:59 06/28/19 21:38 Morphine Sulfate (Morphine Sulfate) 1 mg Q4H PRN IVP For Pain 06/27/19 16:00 07/03/19 15:59 06/29/19 08:53 Ondansetron HCl (Zofran) 4 mg Q6H PRN IVP Nausea & Vomiting 06/27/19 16:00 07/26/19 15:59 Polyethylene Glycol (Miralax) 17 gm HSPRN PRN ORAL Constipation 06/27/19 16:00 07/27/19 15:59 Quetiapine Fumarate (SEROqueL) 100 mg BEDTIME ORAL 06/27/19 21:00 07/26/19 20:59 06/29/19 20:48 Zolpidem Tartrate (Ambien) 5 mg HSPRN PRN ORAL Insomnia 06/27/19 16:00 07/04/19 15:59 Faviola Savage MD Jun 30, 2019 07:25
[2019-06-30 08:00] VITALS: BP 111/67
--- NOTE | 2019-06-30 08:00 | NUR ---
NURSE NOTES: Received report from GEORGIA Simpson. Pt in bed, awake, talkative, eating breakfast, calm, no distress noted, bed in lowest position, call light within reach.
[2019-06-30] MEDS: DULoxetine 30mg cap ORAL SCH (08:33)
[2019-06-30] MEDS: Depakote ER 500mg tab ORAL SCH ×2 (08:34→21:14)
[2019-06-30] MEDS: Heparin 5000 units/ml inj SUBQ SCH ×2 (08:37→21:15)
[2019-06-30 11:30] VITALS: BP 105/67
--- NOTE | 2019-06-30 12:13 | NUR ---
Received pt from GEORGIA Dumont, pt was alert x2, no c/o pain, or acute distress, or seizure, side rails are padded, call light w/in reach
[2019-06-30] MEDS ORDERED: Miralax 17gm pkt ORAL PRN (12:15)
[2019-06-30] MEDS ORDERED: Morphine Sulfate 2mg/ml Inj(IV/IM USE ONLY) IVP PRN (12:15)
[2019-06-30] MEDS ORDERED: Zolpidem 5mg tab ORAL PRN (12:15)
--- NOTE | 2019-06-30 12:19 | NUR ---
HAND-OFF: Report given to GEORGIA Laurent. Pt stable.
[2019-06-30] MEDS ORDERED: LORazepam Inj 2mg/ml 1ml IV PRN (13:00)
--- NOTE | 2019-06-30 14:43 | Internal Med Progress Note ---
Subjective Date of Service: Jun 30, 2019 Physician Name Regis Jauregui Attending Physician Maximus Carrillo MD Current Medications Medications (Trade) Dose Ordered Sig/Jonathan Route PRN Reason Start Time Stop Time Status Last Admin Dose Admin Acetaminophen (Tylenol) 650 mg Q4H PRN ORAL fever 06/30/19 12:15 07/26/19 12:14 Clozapine (Clozaril) 50 mg BEDTIME ORAL 06/30/19 21:00 07/03/19 20:59 Dextrose (Dextrose 50%) 25 ml Q30M PRN IV Hypoglycemia 06/30/19 12:30 07/21/19 16:59 Dextrose (Dextrose 50%) 25 ml Q30M PRN IV Hypoglycemia 06/30/19 12:30 07/21/19 16:59 Divalproex Sodium (Depakote ER) 1,000 mg EVERY 12 HOURS ORAL 06/30/19 21:00 07/21/19 22:59 Duloxetine HCl (Cymbalta) 30 mg DAILY ORAL 07/01/19 09:00 07/22/19 08:59 Heparin Sodium (Porcine) (Heparin 5000 units/ml) 5,000 units EVERY 12 HOURS SUBQ 06/30/19 21:00 07/21/19 20:59 Lorazepam (Ativan 2mg/ml 1ml) 2 mg Q1H PRN IV seizures 06/30/19 13:00 07/03/19 15:59 Morphine Sulfate (Morphine Sulfate) 1 mg Q4H PRN IVP For Pain 06/30/19 12:15 07/03/19 12:14 Ondansetron HCl (Zofran) 4 mg Q6H PRN IVP Nausea & Vomiting 06/30/19 12:15 07/26/19 12:14 Polyethylene Glycol (Miralax) 17 gm HSPRN PRN ORAL Constipation 06/30/19 12:15 07/27/19 12:14 Quetiapine Fumarate (SEROqueL) 100 mg BEDTIME ORAL 06/30/19 21:00 07/26/19 20:59 Zolpidem Tartrate (Ambien) 5 mg HSPRN PRN ORAL Insomnia 06/30/19 12:15 07/04/19 12:14 Allergies: Coded Allergies: No Known Allergies (Unverified , 04/27/13) ROS Limited/Unobtainable: No Constitutional: Reports: no symptoms HEENT: Reports: no symptoms Cardiovascular: Reports: no symptoms Respiratory: Reports: no symptoms Gastrointestinal/Abdominal: Reports: no symptoms Genitourinary: Reports: no symptoms Neurologic/Psychiatric: Reports: no symptoms Subjective 59 YO M admitted with seizure. Cover for Int Med-Dr Carrillo. Objective Last Vital Signs Date Time Temp Pulse Resp B/P (MAP) Pulse Ox O2 Delivery O2 Flow Rate FiO2 06/30/19 11:30 97.2 98 18 105/67 (80) 96 06/30/19 08:42 Room Air 06/27/19 12:00 2.0 Intake and Output 06/29/19 06/30/19 19:00 07:00 Intake Total 800 ml 220 ml Output Total 600 ml Balance 200 ml 220 ml Intake Oral 800 ml 220 ml Output Urine Total 600 ml # Voids 2 Objective PHYSICAL EXAMINATION: GENERAL: The patient is awake, responsive, in no acute distress. HEAD AND NECK: Pupils are equal and reactive to light. Anicteric. Neck was supple. No JVD. Poor dentition with maxillary protrusion. LUNGS: Good air entry. No wheezes or rales. HEART: S1, S2. Regular rhythm. No gallops. ABDOMEN: Soft, nondistended, and nontender. Morbid obesity. EXTREMITIES: No cyanosis, clubbing, or edema. NEUROLOGIC: Cranial nerves II through XII grossly intact. Motor is 5/5 in all extremities. Gait was not assessed due to patient's status. RECTAL: Refused and deferred. GENITOURINARY: Refused and deferred. PSYCHIATRIC: Mood and affect is intact at this time. Assessment/Plan Assessment/Plan ASSESSMENT: 1. Acute tonic-colonic seizure, uncontrolled. 2. Schizophrenia. 3. Parkinson disease. 4. Morbid obesity. 5. Prior history of stroke. PLAN: 1. Admit the patient to monitor unit. 2. We will follow up laboratory. 3. Seizure precaution. 4. Code status is Full Code. 5. Resume home medication. 6. Neurology consultation=Dr Santillan 7. continue depakote per neurology 8. Discharge planning: [facility] Regis Jauregui MD Jun 30, 2019 14:43
[2019-06-30 16:00] VITALS: BP 112/65
--- NOTE | 2019-06-30 19:53 | NUR ---
HAND-OFF: Report given to GEORGIA Herrera. pt is stable condition.
--- NOTE | 2019-06-30 19:54 | NUR ---
NURSE NOTES: Received report from Mehran HO. Rounding is done with outgoing nurse. Patient A/O x3, sleepy. No c/o pain or any distress at this time. Bed is lowest position. Call light within reach. Will continue to monitor.
[2019-06-30 20:00] VITALS: BP 97/59
[2019-07-01] VITALS: BP 96/61
[2019-07-01 04:00] VITALS: BP 108/67
[2019-07-01 05:43] LABS: HEMATOCRIT 38.2 % (42.0-52.0); HEMOGLOBIN 12.8 G/DL (14.2-18.0); MEAN CORPUSCULAR VOLUME 93 FL (80-99); PLATELET COUNT 138 K/UL (150-450); RED BLOOD COUNT 4.09 M/UL (4.70-6.10); RED CELL DISTRIBUTION WIDTH 11.9 % (11.6-14.8); WHITE BLOOD COUNT 3.4 K/UL (4.8-10.8)
[2019-07-01 05:59] LABS: ANION GAP 7 mmol/L (5-15); BLOOD UREA NITROGEN 21 mg/dL (7-18); CALCIUM 8.9 MG/DL (8.5-10.1); CARBON DIOXIDE 28 MMOL/L (21-32); CHLORIDE 107 MMOL/L (98-107); CREATININE 0.8 MG/DL (0.55-1.30); POTASSIUM 4.1 MMOL/L (3.5-5.1); SODIUM 142 MMOL/L (136-145)
--- NOTE | 2019-07-01 07:35 | NUR ---
HAND-OFF: Report given to Mehran HO.
[2019-07-01 08:00] VITALS: BP 109/72
--- NOTE | 2019-07-01 08:00 | NUR ---
NURSE NOTES: Received pt from GEORGIA Herrera, pt was sleeping, no acute distress, call light w/in reach. side rails are padded.
--- NOTE | 2019-07-01 08:59 | Pulmonology Progress Note ---
Assessment/Plan Problems: (1) Epileptic seizure, generalized (2) Schizo-affective schizophrenia Assessment/Plan no new complains f/u neuro recommendations pt/ot evaluation on depakote neuro evaluation reviewed and appreciated med/surg dvt prophylaxis continue psychiatric meds all meds reviewed Subjective ROS Limited/Unobtainable: No Constitutional: Reports: no symptoms HEENT: Repors: no symptoms Respiratory: Reports: no symptoms Allergies: Coded Allergies: No Known Allergies (Unverified , 04/27/13) Objective Last 24 Hour Vital Signs Date Time Temp Pulse Resp B/P (MAP) Pulse Ox O2 Delivery O2 Flow Rate FiO2 07/01/19 08:00 Room Air 07/01/19 08:00 97.9 90 18 109/72 (84) 96 07/01/19 04:00 97.5 80 18 108/67 (81) 96 07/01/19 00:00 97.7 89 18 96/61 (73) 97 06/30/19 21:00 Room Air 06/30/19 20:00 97.5 60 18 97/59 (72) 97 06/30/19 16:00 97.9 95 18 112/65 (81) 96 82 06/30/19 11:30 97.2 98 18 105/67 (80) 96 Intake and Output 06/30/19 07/01/19 19:00 07:00 Intake Total 810 ml 50 ml Output Total 250 ml Balance 810 ml -200 ml Intake Oral 810 ml 50 ml Output Urine Total 250 ml # Voids 2 Objective General Appearance: WD/WN, no apparent distress Lines, tubes and drains: peripheral HEENT: normocephalic, atraumatic Neck: non-tender, normal alignment Respiratory/Chest: chest wall non-tender, lungs clear Breasts: no masses Cardiovascular/Chest: normal peripheral pulses Abdomen: non tender Extremities: normal range of motion Skin Exam: normal pigmentation Laboratory Tests 07/01/19 04:35: White Blood Count 3.4L, Red Blood Count 4.09L, Hemoglobin 12.8L, Hematocrit 38.2L, Mean Corpuscular Volume 93, Mean Corpuscular Hemoglobin 31.2H, Mean Corpuscular Hemoglobin Concent 33.4, Red Cell Distribution Width 11.9, Platelet Count 138L, Mean Platelet Volume 7.5, Neutrophils (%) (Auto) , Lymphocytes (%) ( Auto) , Monocytes (%) (Auto) , Eosinophils (%) (Auto) , Basophils (%) (Auto) , Differential Total Cells Counted 100, Neutrophils % (Manual) 44L, Lymphocytes % (Manual) 43, Monocytes % (Manual) 13H, Eosinophils % (Manual) 0, Basophils % ( Manual) 0, Band Neutrophils 0, Platelet Estimate DecreasedL, Platelet Morphology Normal, Red Blood Cell Morphology Normal, Sodium Level 142, Potassium Level 4.1, Chloride Level 107, Carbon Dioxide Level 28, Anion Gap 7, Blood Urea Nitrogen 21H, Creatinine 0.8, Estimat Glomerular Filtration Rate > 60 , Glucose Level 97, Calcium Level 8.9 Current Medications Medications (Trade) Dose Ordered Sig/Jonathan Route PRN Reason Start Time Stop Time Status Last Admin Dose Admin Acetaminophen (Tylenol) 650 mg Q4H PRN ORAL fever 06/30/19 12:15 07/26/19 12:14 Clozapine (Clozaril) 50 mg BEDTIME ORAL 06/30/19 21:00 07/03/19 20:59 06/30/19 21:14 Dextrose (Dextrose 50%) 25 ml Q30M PRN IV Hypoglycemia 06/30/19 12:30 07/21/19 16:59 Dextrose (Dextrose 50%) 25 ml Q30M PRN IV Hypoglycemia 06/30/19 12:30 07/21/19 16:59 Divalproex Sodium (Depakote ER) 1,000 mg EVERY 12 HOURS ORAL 06/30/19 21:00 07/21/19 22:59 06/30/19 21:14 Duloxetine HCl (Cymbalta) 30 mg DAILY ORAL 07/01/19 09:00 07/22/19 08:59 Heparin Sodium (Porcine) (Heparin 5000 units/ml) 5,000 units EVERY 12 HOURS SUBQ 06/30/19 21:00 07/21/19 20:59 06/30/19 21:15 Lorazepam (Ativan 2mg/ml 1ml) 2 mg Q1H PRN IV seizures 06/30/19 13:00 07/03/19 15:59 Morphine Sulfate (Morphine Sulfate) 1 mg Q4H PRN IVP For Pain 06/30/19 12:15 07/03/19 12:14 Ondansetron HCl (Zofran) 4 mg Q6H PRN IVP Nausea & Vomiting 06/30/19 12:15 07/26/19 12:14 Polyethylene Glycol (Miralax) 17 gm HSPRN PRN ORAL Constipation 06/30/19 12:15 07/27/19 12:14 Quetiapine Fumarate (SEROqueL) 100 mg BEDTIME ORAL 06/30/19 21:00 07/26/19 20:59 06/30/19 21:14 Zolpidem Tartrate (Ambien) 5 mg HSPRN PRN ORAL Insomnia 06/30/19 12:15 07/04/19 12:14 Faviola Savage MD Jul 01, 2019 08:59
[2019-07-01] MEDS: Heparin 5000 units/ml inj SUBQ SCH ×2 (09:00→20:16)
[2019-07-01] MEDS: Depakote ER 500mg tab ORAL SCH ×2 (09:18→20:15)
[2019-07-01] MEDS: DULoxetine 30mg cap ORAL SCH (09:18)
[2019-07-01 12:00] VITALS: BP 106/67
--- NOTE | 2019-07-01 14:41 | Internal Med Progress Note ---
Subjective Date of Service: Jul 01, 2019 Physician Name Regis Jauregui Attending Physician Maximus Carrillo MD Current Medications Medications (Trade) Dose Ordered Sig/Jonathan Route PRN Reason Start Time Stop Time Status Last Admin Dose Admin Acetaminophen (Tylenol) 650 mg Q4H PRN ORAL fever 06/30/19 12:15 07/26/19 12:14 Clozapine (Clozaril) 50 mg BEDTIME ORAL 06/30/19 21:00 07/03/19 20:59 06/30/19 21:14 Dextrose (Dextrose 50%) 25 ml Q30M PRN IV Hypoglycemia 06/30/19 12:30 07/21/19 16:59 Dextrose (Dextrose 50%) 25 ml Q30M PRN IV Hypoglycemia 06/30/19 12:30 07/21/19 16:59 Divalproex Sodium (Depakote ER) 1,000 mg EVERY 12 HOURS ORAL 06/30/19 21:00 07/21/19 22:59 07/01/19 09:18 Duloxetine HCl (Cymbalta) 30 mg DAILY ORAL 07/01/19 09:00 07/22/19 08:59 07/01/19 09:18 Heparin Sodium (Porcine) (Heparin 5000 units/ml) 5,000 units EVERY 12 HOURS SUBQ 06/30/19 21:00 07/21/19 20:59 06/30/19 21:15 Lorazepam (Ativan 2mg/ml 1ml) 2 mg Q1H PRN IV seizures 06/30/19 13:00 07/03/19 15:59 Morphine Sulfate (Morphine Sulfate) 1 mg Q4H PRN IVP For Pain 06/30/19 12:15 07/03/19 12:14 Ondansetron HCl (Zofran) 4 mg Q6H PRN IVP Nausea & Vomiting 06/30/19 12:15 07/26/19 12:14 Polyethylene Glycol (Miralax) 17 gm HSPRN PRN ORAL Constipation 06/30/19 12:15 07/27/19 12:14 Quetiapine Fumarate (SEROqueL) 100 mg BEDTIME ORAL 06/30/19 21:00 07/26/19 20:59 06/30/19 21:14 Zolpidem Tartrate (Ambien) 5 mg HSPRN PRN ORAL Insomnia 06/30/19 12:15 07/04/19 12:14 Allergies: Coded Allergies: No Known Allergies (Unverified , 04/27/13) ROS Limited/Unobtainable: No Constitutional: Reports: no symptoms HEENT: Reports: no symptoms Cardiovascular: Reports: no symptoms Respiratory: Reports: no symptoms Gastrointestinal/Abdominal: Reports: no symptoms Genitourinary: Reports: no symptoms Neurologic/Psychiatric: Reports: no symptoms Subjective 59 YO M admitted with seizure. Cover for Int Arnie-Dr Carrillo. Objective Last Vital Signs Date Time Temp Pulse Resp B/P (MAP) Pulse Ox O2 Delivery O2 Flow Rate FiO2 07/01/19 12:00 98.2 85 18 106/67 (80) 99 07/01/19 08:00 Room Air 06/27/19 12:00 2.0 Laboratory Tests Test 07/01/19 04:35 White Blood Count 3.4 K/UL (4.8-10.8) L Red Blood Count 4.09 M/UL (4.70-6.10) L Hemoglobin 12.8 G/DL (14.2-18.0) L Hematocrit 38.2 % (42.0-52.0) L Mean Corpuscular Volume 93 FL (80-99) Mean Corpuscular Hemoglobin 31.2 PG (27.0-31.0) H Mean Corpuscular Hemoglobin Concent 33.4 G/DL (32.0-36.0) Red Cell Distribution Width 11.9 % (11.6-14.8) Platelet Count 138 K/UL (150-450) L Mean Platelet Volume 7.5 FL (6.5-10.1) Neutrophils (%) (Auto) % (45.0-75.0) Lymphocytes (%) (Auto) % (20.0-45.0) Monocytes (%) (Auto) % (1.0-10.0) Eosinophils (%) (Auto) % (0.0-3.0) Basophils (%) (Auto) % (0.0-2.0) Differential Total Cells Counted 100 Neutrophils % (Manual) 44 % (45-75) L Lymphocytes % (Manual) 43 % (20-45) Monocytes % (Manual) 13 % (1-10) H Eosinophils % (Manual) 0 % (0-3) Basophils % (Manual) 0 % (0-2) Band Neutrophils 0 % (0-8) Platelet Estimate Decreased L Platelet Morphology Normal Red Blood Cell Morphology Normal Sodium Level 142 MMOL/L (136-145) Potassium Level 4.1 MMOL/L (3.5-5.1) Chloride Level 107 MMOL/L (98-107) Carbon Dioxide Level 28 MMOL/L (21-32) Anion Gap 7 mmol/L (5-15) Blood Urea Nitrogen 21 mg/dL (7-18) H Creatinine 0.8 MG/DL (0.55-1.30) Estimat Glomerular Filtration Rate > 60 mL/min (>60) Glucose Level 97 MG/DL (74-106) Calcium Level 8.9 MG/DL (8.5-10.1) Intake and Output 06/30/19 07/01/19 19:00 07:00 Intake Total 810 ml 50 ml Output Total 250 ml Balance 810 ml -200 ml Intake Oral 810 ml 50 ml Output Urine Total 250 ml # Voids 2 Objective PHYSICAL EXAMINATION: GENERAL: The patient is awake, responsive, in no acute distress. HEAD AND NECK: Pupils are equal and reactive to light. Anicteric. Neck was supple. No JVD. Poor dentition with maxillary protrusion. LUNGS: Good air entry. No wheezes or rales. HEART: S1, S2. Regular rhythm. No gallops. ABDOMEN: Soft, nondistended, and nontender. Morbid obesity. EXTREMITIES: No cyanosis, clubbing, or edema. NEUROLOGIC: Cranial nerves II through XII grossly intact. Motor is 5/5 in all extremities. Gait was not assessed due to patient's status. RECTAL: Refused and deferred. GENITOURINARY: Refused and deferred. PSYCHIATRIC: Mood and affect is intact at this time. Assessment/Plan Assessment/Plan ASSESSMENT: 1. Acute tonic-colonic seizure, uncontrolled. 2. Schizophrenia. 3. Parkinson disease. 4. Morbid obesity. 5. Prior history of stroke. PLAN: 1. Admit the patient to monitor unit. 2. We will follow up laboratory. 3. Seizure precaution. 4. Code status is Full Code. 5. Resume home medication. 6. Neurology consultation=Dr Santillan 7. continue depakote per neurology 8. [facility] Regis Jauregui MD Jul 01, 2019 14:41
[2019-07-01 16:00] VITALS: BP 114/71
--- NOTE | 2019-07-01 19:43 | NUR ---
HAND-OFF: Report given to GEORGIA Herrera. pt is stable condition.
--- NOTE | 2019-07-01 19:45 | NUR ---
NURSE NOTES: Received report from Meharn HO. Rounding is done with outgoing nurse. Patient A/O x3 and awake. No c/o pain or any distress at this time. Bed is lowest position. Call light within reach. Will continue to monitor.
[2019-07-01 20:00] VITALS: BP 115/65
[2019-07-02] VITALS: BP 104/75
[2019-07-02 04:00] VITALS: BP 103/64
--- NOTE | 2019-07-02 07:30 | NUR ---
NURSE NOTES: Pt lying in bed w/bed in lowest position and call light within reach. Pt A&Ox4, VSS, and in no apparent distress. IV site intact/asymptomatic & H/L'd; seizure precautions implemented w/bed rails padded; and skin intact. Pt has no complaints or concerns at this time. Will continue to monitor.
--- NOTE | 2019-07-02 07:44 | NUR ---
HAND-OFF: Report given to GEORGIA De Jesus. Pt in stable condition.
[2019-07-02 08:00] VITALS: BP 104/66
[2019-07-02] MEDS: Heparin 5000 units/ml inj SUBQ SCH ×2 (09:00→20:20)
[2019-07-02] MEDS: DULoxetine 30mg cap ORAL SCH (09:25)
[2019-07-02] MEDS: Depakote ER 500mg tab ORAL SCH ×2 (09:26→20:18)
[2019-07-02 12:00] VITALS: BP 118/64
--- NOTE | 2019-07-02 13:34 | NUR ---
CASE MANAGEMENT:REVIEW 07/02/19 SI: UNCONTROLLED SEIZURES 97.4 89 18 104/66 97% ON RA NO LABS TODAY IS: CYMBALTA PO QD CLOZAPINE PO QHS DEPAKOTE 1,000MG PO Q12 HEPARIN SQ Q12 SEROQUEL PO QHS : MED/SURG STATUS DCP: [facility] PL[facility]: MD [facility]AUGH[facility] PATIENT REFERRED TO SNF
--- NOTE | 2019-07-02 13:46 | Pulmonology Progress Note ---
Assessment/Plan Problems: (1) Epileptic seizure, generalized (2) Schizo-affective schizophrenia Assessment/Plan no new complains f/u neuro recommendations pt/ot evaluation on depakote neuro evaluation reviewed and appreciated med/surg dvt prophylaxis continue psychiatric meds all meds reviewed dc planning in process Subjective Constitutional: Reports: no symptoms HEENT: Repors: no symptoms Respiratory: Reports: no symptoms Allergies: Coded Allergies: No Known Allergies (Unverified , 04/27/13) Objective Last 24 Hour Vital Signs Date Time Temp Pulse Resp B/P (MAP) Pulse Ox O2 Delivery O2 Flow Rate FiO2 07/02/19 12:00 97.8 78 20 118/64 (82) 98 07/02/19 09:00 Room Air 07/02/19 08:00 97.4 89 18 104/66 (79) 97 07/02/19 04:00 97.3 78 18 103/64 (77) 95 07/02/19 00:00 97.6 90 17 104/75 (85) 97 07/01/19 21:00 Room Air 07/01/19 20:00 97.9 89 17 115/65 (82) 100 07/01/19 16:00 97.3 91 18 114/71 (85) 97 Intake and Output 07/01/19 07/02/19 19:00 07:00 Output Total 500 ml 620 ml Balance -500 ml -620 ml Output Urine Total 500 ml 620 ml Objective General Appearance: WD/WN, no apparent distress Lines, tubes and drains: peripheral HEENT: normocephalic, atraumatic Neck: non-tender, normal alignment Respiratory/Chest: chest wall non-tender, lungs clear Breasts: no masses Cardiovascular/Chest: normal peripheral pulses Abdomen: non tender Extremities: normal range of motion Skin Exam: normal pigmentation Current Medications Medications (Trade) Dose Ordered Sig/Jonathan Route PRN Reason Start Time Stop Time Status Last Admin Dose Admin Acetaminophen (Tylenol) 650 mg Q4H PRN ORAL fever 06/30/19 12:15 07/26/19 12:14 Clozapine (Clozaril) 50 mg BEDTIME ORAL 06/30/19 21:00 07/03/19 20:59 07/01/19 20:15 Dextrose (Dextrose 50%) 25 ml Q30M PRN IV Hypoglycemia 06/30/19 12:30 07/21/19 16:59 Dextrose (Dextrose 50%) 25 ml Q30M PRN IV Hypoglycemia 06/30/19 12:30 07/21/19 16:59 Divalproex Sodium (Depakote ER) 1,000 mg EVERY 12 HOURS ORAL 06/30/19 21:00 07/21/19 22:59 07/02/19 09:26 Duloxetine HCl (Cymbalta) 30 mg DAILY ORAL 07/01/19 09:00 07/22/19 08:59 07/02/19 09:25 Heparin Sodium (Porcine) (Heparin 5000 units/ml) 5,000 units EVERY 12 HOURS SUBQ 06/30/19 21:00 07/21/19 20:59 06/30/19 21:15 Lorazepam (Ativan 2mg/ml 1ml) 2 mg Q1H PRN IV seizures 06/30/19 13:00 07/03/19 15:59 Morphine Sulfate (Morphine Sulfate) 1 mg Q4H PRN IVP For Pain 06/30/19 12:15 07/03/19 12:14 Ondansetron HCl (Zofran) 4 mg Q6H PRN IVP Nausea & Vomiting 06/30/19 12:15 07/26/19 12:14 Polyethylene Glycol (Miralax) 17 gm HSPRN PRN ORAL Constipation 06/30/19 12:15 07/27/19 12:14 Quetiapine Fumarate (SEROqueL) 100 mg BEDTIME ORAL 06/30/19 21:00 07/26/19 20:59 07/01/19 20:15 Zolpidem Tartrate (Ambien) 5 mg HSPRN PRN ORAL Insomnia 06/30/19 12:15 07/04/19 12:14 Faviola Savage MD Jul 02, 2019 13:46
[2019-07-02] MEDS ORDERED: DIVALPROEX SOD500 M2 ORAL (13:48)
--- NOTE | 2019-07-02 13:52 | NUR ---
DISCHARGE PLANNING PATIENT CAME FROM [facility] NONE OF THE ABOVE WERE ABLE TO ACCEPT FAXED TO [facility] AWAITING RESPONSE
--- NOTE | 2019-07-02 15:24 | NUR ---
DISCHARGE PLANNING PATIENT IS FROM [facility] RAMP SERVICE AGENT IS ANNE Young: [phone]
[2019-07-02 16:00] VITALS: BP 112/64
--- NOTE | 2019-07-02 19:09 | Internal Med Progress Note ---
Subjective Date of Service: Jul 02, 2019 Physician Name Regis Jauregui Attending Physician Maximus Carrillo MD Current Medications Medications (Trade) Dose Ordered Sig/Jonathan Route PRN Reason Start Time Stop Time Status Last Admin Dose Admin Acetaminophen (Tylenol) 650 mg Q4H PRN ORAL fever 06/30/19 12:15 07/26/19 12:14 Clozapine (Clozaril) 50 mg BEDTIME ORAL 06/30/19 21:00 07/03/19 20:59 07/01/19 20:15 Dextrose (Dextrose 50%) 25 ml Q30M PRN IV Hypoglycemia 06/30/19 12:30 07/21/19 16:59 Dextrose (Dextrose 50%) 25 ml Q30M PRN IV Hypoglycemia 06/30/19 12:30 07/21/19 16:59 Divalproex Sodium (Depakote ER) 1,000 mg EVERY 12 HOURS ORAL 06/30/19 21:00 07/21/19 22:59 07/02/19 09:26 Duloxetine HCl (Cymbalta) 30 mg DAILY ORAL 07/01/19 09:00 07/22/19 08:59 07/02/19 09:25 Heparin Sodium (Porcine) (Heparin 5000 units/ml) 5,000 units EVERY 12 HOURS SUBQ 06/30/19 21:00 07/21/19 20:59 06/30/19 21:15 Lorazepam (Ativan 2mg/ml 1ml) 2 mg Q1H PRN IV seizures 06/30/19 13:00 07/03/19 15:59 Morphine Sulfate (Morphine Sulfate) 1 mg Q4H PRN IVP For Pain 06/30/19 12:15 07/03/19 12:14 Ondansetron HCl (Zofran) 4 mg Q6H PRN IVP Nausea & Vomiting 06/30/19 12:15 07/26/19 12:14 Polyethylene Glycol (Miralax) 17 gm HSPRN PRN ORAL Constipation 06/30/19 12:15 07/27/19 12:14 Quetiapine Fumarate (SEROqueL) 100 mg BEDTIME ORAL 06/30/19 21:00 07/26/19 20:59 07/01/19 20:15 Zolpidem Tartrate (Ambien) 5 mg HSPRN PRN ORAL Insomnia 06/30/19 12:15 07/04/19 12:14 Allergies: Coded Allergies: No Known Allergies (Unverified , 04/27/13) ROS Limited/Unobtainable: No Constitutional: Reports: no symptoms HEENT: Reports: no symptoms Cardiovascular: Reports: no symptoms Respiratory: Reports: no symptoms Gastrointestinal/Abdominal: Reports: no symptoms Genitourinary: Reports: no symptoms Neurologic/Psychiatric: Reports: no symptoms Subjective 59 YO M admitted with seizure. Cover for Int Med-Dr Carrillo. Objective Last Vital Signs Date Time Temp Pulse Resp B/P (MAP) Pulse Ox O2 Delivery O2 Flow Rate FiO2 07/02/19 16:00 97.3 91 20 112/64 (80) 97 07/02/19 09:00 Room Air 06/27/19 12:00 2.0 Intake and Output 07/01/19 07/02/19 19:00 07:00 Output Total 500 ml 620 ml Balance -500 ml -620 ml Output Urine Total 500 ml 620 ml Objective PHYSICAL EXAMINATION: GENERAL: The patient is awake, responsive, in no acute distress. HEAD AND NECK: Pupils are equal and reactive to light. Anicteric. Neck was supple. No JVD. Poor dentition with maxillary protrusion. LUNGS: Good air entry. No wheezes or rales. HEART: S1, S2. Regular rhythm. No gallops. ABDOMEN: Soft, nondistended, and nontender. Morbid obesity. EXTREMITIES: No cyanosis, clubbing, or edema. NEUROLOGIC: Cranial nerves II through XII grossly intact. Motor is 5/5 in all extremities. Gait was not assessed due to patient's status. RECTAL: Refused and deferred. GENITOURINARY: Refused and deferred. PSYCHIATRIC: Mood and affect is intact at this time. Assessment/Plan Assessment/Plan ASSESSMENT: 1. Acute tonic-colonic seizure, uncontrolled. 2. Schizophrenia. 3. Parkinson disease. 4. Morbid obesity. 5. Prior history of stroke. PLAN: 1. Admit the patient to monitor unit. 2. We will follow up laboratory. 3. Seizure precaution. 4. Code status is Full Code. 5. Resume home medication. 6. Neurology consultation=Dr Santillan 7. continue depakote per neurology 8. [facility] Regis Jauregui MD Jul 02, 2019 19:09
--- NOTE | 2019-07-02 19:30 | NUR ---
NURSE NOTES: Received report from GEORGIA De Jesus. Patient is resting comfortably in bed. No c/o pain, discomfort or SOB on room air. Fall precautions and Seizure precautions in place. Padding on bed rails. Bed in low and locked position with call light within reach. Instructed to call if need assistance or to use the restroom. Calm, alert and oriented. No seizure activity. Will continue to monitor.
--- NOTE | 2019-07-02 19:44 | NUR ---
HAND-OFF: Report given to GEORGIA Carvajal.
[2019-07-02 20:00] VITALS: BP 102/66
--- NOTE | 2019-07-02 22:19 | Psych Consult Progress Note ---
Psychiatry Progress Note Psychiatry Progress Note Medications Current Medications Medications (Trade) Dose Ordered Sig/Jonathan Route PRN Reason Start Time Stop Time Status Last Admin Dose Admin Acetaminophen (Tylenol) 650 mg Q4H PRN ORAL fever 06/30/19 12:15 07/26/19 12:14 Clozapine (Clozaril) 50 mg BEDTIME ORAL 06/30/19 21:00 07/03/19 20:59 07/02/19 20:18 Dextrose (Dextrose 50%) 25 ml Q30M PRN IV Hypoglycemia 06/30/19 12:30 07/21/19 16:59 Dextrose (Dextrose 50%) 25 ml Q30M PRN IV Hypoglycemia 06/30/19 12:30 07/21/19 16:59 Divalproex Sodium (Depakote ER) 1,000 mg EVERY 12 HOURS ORAL 06/30/19 21:00 07/21/19 22:59 07/02/19 20:18 Duloxetine HCl (Cymbalta) 30 mg DAILY ORAL 07/01/19 09:00 07/22/19 08:59 07/02/19 09:25 Heparin Sodium (Porcine) (Heparin 5000 units/ml) 5,000 units EVERY 12 HOURS SUBQ 06/30/19 21:00 07/21/19 20:59 07/02/19 20:20 Lorazepam (Ativan 2mg/ml 1ml) 2 mg Q1H PRN IV seizures 06/30/19 13:00 07/03/19 15:59 Morphine Sulfate (Morphine Sulfate) 1 mg Q4H PRN IVP For Pain 06/30/19 12:15 07/03/19 12:14 Ondansetron HCl (Zofran) 4 mg Q6H PRN IVP Nausea & Vomiting 06/30/19 12:15 07/26/19 12:14 Polyethylene Glycol (Miralax) 17 gm HSPRN PRN ORAL Constipation 06/30/19 12:15 07/27/19 12:14 Quetiapine Fumarate (SEROqueL) 100 mg BEDTIME ORAL 06/30/19 21:00 07/26/19 20:59 07/02/19 20:18 Zolpidem Tartrate (Ambien) 5 mg HSPRN PRN ORAL Insomnia 06/30/19 12:15 07/04/19 12:14 Allergies: Coded Allergies: No Known Allergies (Unverified , 10/11/13) Objective Data Height (Feet): 6 Height (Inches): 0.00 Weight (Pounds): 230 General Appearance: WD/WN, no apparent distress, alert, overweight, alert oriented x3 Appearance: no abnormalities noted Behavior Mannerisms: good eye contact Mental Status Exam - Mood: anxious Mental Status Exam - Suicidal: not present Assessment/Plan Problem List: (1) Schizo-affective schizophrenia ICD Codes: F25.0 - Schizoaffective disorder, bipolar type SNOMED: 268082249 (2) Parkinson disease ICD Codes: G20 - Parkinson's disease SNOMED: 32944628 Assessment/Plan: 1. The patient will be continued on Cymbalta. 2. Seroquel to bedtime. 3. Clozaril 50 mg at bedtime Klaudia Little MD Jul 02, 2019 22:19
[2019-07-03] VITALS: BP 107/66
[2019-07-03 04:00] VITALS: BP 106/66
[2019-07-03 07:12] LABS: ANION GAP 3 mmol/L (5-15); BLOOD UREA NITROGEN 20 mg/dL (7-18); CALCIUM 8.5 MG/DL (8.5-10.1); CARBON DIOXIDE 31 MMOL/L (21-32); CHLORIDE 106 MMOL/L (98-107); CREATININE 0.8 MG/DL (0.55-1.30); POTASSIUM 4.2 MMOL/L (3.5-5.1); SODIUM 140 MMOL/L (136-145)
[2019-07-03 07:14] LABS: BASOPHILS % (AUTO) 0.7 % (0.0-2.0); HEMOGLOBIN 12.4 G/DL (14.2-18.0); LYMPHOCYTES % (AUTO) 45.6 % (20.0-45.0); MEAN CORPUSCULAR VOLUME 92 FL (80-99); MONOCYTES % (AUTO) 11.1 % (1.0-10.0); NEUTROPHILS % (AUTO) 40.6 % (45.0-75.0); PLATELET COUNT 149 K/UL (150-450); RED CELL DISTRIBUTION WIDTH 12.1 % (11.6-14.8); WHITE BLOOD COUNT 3.5 K/UL (4.8-10.8)
--- NOTE | 2019-07-03 07:35 | NUR ---
NURSE NOTES: WALKING ROUNDS DONE WITH OUTGOING RN. PATIENT AWAKE AT BEDSIDE HAVING BREAKFAST. DENIES ANY ISSUES. QUESTIONS ANSWERED; NEEDS MET.CALL LIGHT WITHIN REACH.SIDERAILS PADDED. BED IN LOW AND LOCKED POSITION.
--- NOTE | 2019-07-03 07:42 | NUR ---
HAND-OFF: Report given to GEORGIA Boateng. Patient is stable.
[2019-07-03 08:44] VITALS: BP 114/78
[2019-07-03] MEDS: DULoxetine 30mg cap ORAL SCH (08:54)
[2019-07-03] MEDS: Depakote ER 500mg tab ORAL SCH (08:54)
[2019-07-03] MEDS: Heparin 5000 units/ml inj SUBQ SCH ×2 (08:58→21:41)
[2019-07-03 12:00] VITALS: BP 103/72
--- NOTE | 2019-07-03 12:09 | Pulmonology Progress Note ---
Assessment/Plan Problems: (1) Epileptic seizure, generalized (2) Schizo-affective schizophrenia Assessment/Plan no new complains f/u neuro recommendations pt/ot evaluation on depakote neuro evaluation reviewed and appreciated med/surg dvt prophylaxis continue psychiatric meds all meds reviewed dc planning in process Subjective ROS Limited/Unobtainable: No Interval Events: very anxious Constitutional: Reports: no symptoms HEENT: Repors: no symptoms Respiratory: Reports: no symptoms Allergies: Coded Allergies: No Known Allergies (Unverified , 04/27/13) Objective Last 24 Hour Vital Signs Date Time Temp Pulse Resp B/P (MAP) Pulse Ox O2 Delivery O2 Flow Rate FiO2 07/03/19 09:00 Room Air 07/03/19 08:44 97.4 107 20 114/78 (90) 96 07/03/19 04:00 97.3 89 18 106/66 (79) 97 07/03/19 00:00 97.2 88 18 107/66 (80) 98 07/02/19 21:00 Room Air 07/02/19 20:00 97.9 90 20 102/66 (78) 95 07/02/19 16:00 97.3 91 20 112/64 (80) 97 Intake and Output 07/02/19 07/03/19 19:00 07:00 Intake Total 120 ml Output Total 700 ml Balance -700 ml 120 ml Intake Oral 120 ml Output Urine Total 700 ml # Voids 1 Objective General Appearance: WD/WN, no apparent distress Lines, tubes and drains: peripheral HEENT: normocephalic, atraumatic Neck: non-tender, normal alignment Respiratory/Chest: chest wall non-tender, lungs clear Breasts: no masses Cardiovascular/Chest: normal peripheral pulses Abdomen: non tender Extremities: normal range of motion Skin Exam: normal pigmentation Laboratory Tests 07/03/19 05:20: White Blood Count 3.5L, Red Blood Count 4.00L, Hemoglobin 12.4L, Hematocrit 37.0L, Mean Corpuscular Volume 92, Mean Corpuscular Hemoglobin 31.0, Mean Corpuscular Hemoglobin Concent 33.5, Red Cell Distribution Width 12.1, Platelet Count 149L, Mean Platelet Volume 7.3, Neutrophils (%) (Auto) 40.6L, Lymphocytes (%) (Auto) 45.6H, Monocytes (%) (Auto) 11.1H, Eosinophils (%) (Auto) 2.0, Basophils (%) (Auto) 0.7, Sodium Level 140, Potassium Level 4.2, Chloride Level 106, Carbon Dioxide Level 31, Anion Gap 3L, Blood Urea Nitrogen 20H, Creatinine 0.8, Estimat Glomerular Filtration Rate > 60, Glucose Level 79, Calcium Level 8.5 Current Medications Medications (Trade) Dose Ordered Sig/Jonathan Route PRN Reason Start Time Stop Time Status Last Admin Dose Admin Acetaminophen (Tylenol) 650 mg Q4H PRN ORAL fever 06/30/19 12:15 07/26/19 12:14 Clozapine (Clozaril) 50 mg BEDTIME ORAL 06/30/19 21:00 07/03/19 20:59 07/02/19 20:18 Dextrose (Dextrose 50%) 25 ml Q30M PRN IV Hypoglycemia 06/30/19 12:30 07/21/19 16:59 Dextrose (Dextrose 50%) 25 ml Q30M PRN IV Hypoglycemia 06/30/19 12:30 07/21/19 16:59 Divalproex Sodium (Depakote ER) 1,000 mg EVERY 12 HOURS ORAL 06/30/19 21:00 07/21/19 22:59 07/03/19 08:54 Duloxetine HCl (Cymbalta) 30 mg DAILY ORAL 07/01/19 09:00 07/22/19 08:59 07/03/19 08:54 Heparin Sodium (Porcine) (Heparin 5000 units/ml) 5,000 units EVERY 12 HOURS SUBQ 06/30/19 21:00 07/21/19 20:59 07/03/19 08:58 Lorazepam (Ativan 2mg/ml 1ml) 2 mg Q1H PRN IV seizures 06/30/19 13:00 07/03/19 15:59 Morphine Sulfate (Morphine Sulfate) 1 mg Q4H PRN IVP For Pain 06/30/19 12:15 07/03/19 12:14 Ondansetron HCl (Zofran) 4 mg Q6H PRN IVP Nausea & Vomiting 06/30/19 12:15 07/26/19 12:14 Polyethylene Glycol (Miralax) 17 gm HSPRN PRN ORAL Constipation 06/30/19 12:15 07/27/19 12:14 Quetiapine Fumarate (SEROqueL) 100 mg BEDTIME ORAL 06/30/19 21:00 07/26/19 20:59 07/02/19 20:18 Zolpidem Tartrate (Ambien) 5 mg HSPRN PRN ORAL Insomnia 06/30/19 12:15 07/04/19 12:14 Faviola Savage MD Jul 03, 2019 12:09
[2019-07-03] MEDS ORDERED: LORazepam Inj 2mg/ml 1ml IV STA (12:55)
--- NOTE | 2019-07-03 13:00 | NUR ---
NURSE NOTES: PATIENT UP TO CHAIR AFTER LUNCH STATES THEY DO NOT FEEL WELL. C/O LL ABD PAIN AND BLE PAIN. STATES THEY WOULD LIKE TO GET BACK IN THE BED. NOTED PATIENT HAVING SEIZURE IN CHAIR BEFORE MOVING ONTO BED @ 1235 EYES FIXATED, RR 22, O2 @ 3L NC PLACED ON PATIENT. BP 119/81 HR 100 RR 22 SPO2 100% WITH NC @ 3L. PATIENT NOT RESPONDING TO NAME. DYER AND WASHER AND CHARGE NURSE AT BEDSIDE. ATTEMPTED TO GET PATIENT INTO BED BUT UNSUCCESSFUL LTA ZACHARY CALLED BY CN TO ASSIST. VITALS CONTINOUSLY TAKENED BP 127/86 HR 100 RR 22 100% O2 @ 3L NC. PLACED CALL TO DR. BUTT MED ORDERS. ADMINISTERED ATIVAN 2 MG IVP. ABLE TO GET PATIENT INTO BED X4 ASSIST. VITALS AFTER ADMINISTRATION OF ATIVAN BP 125/71 HR 92 RR 16 SPO2 100% O2 @ 3L NC. SIDERAILS PADDED AND UP. BED IN LOW AND LOCKED POSITION. BED ALARM ON. WILL PLACE CALL TO DR. WHYTE TO REPORT SEIZURE ACTIVITY THIS AFTERNOON.
--- NOTE | 2019-07-03 13:44 | NUR ---
*-* DISCHARGE PLANNING *-* PATIENT HAS BEEN REFERRED TO: [facility] P: [phone]. F: [phone]
--- NOTE | 2019-07-03 15:30 | NUR ---
NURSE NOTES: PLACED CALL TO DR. WHYTE. REPORTED DEPAKOTE LEVEL 105. NEW ORDERS RECEIVED. PER DR. WHYTE, PATIENT NEEDS TO BE MOVED TO [facility] UNDER THE CARE OF DR. CHANELL CHRISTOPHER. PLACED CALL TO DR. BUTT, MADE AWARE DR. YOUNG IS THE ATTENDING. PLACED CALL TO DR. YOUNG'S OFFICE; AWAITING RETURN CALL TO GET TRANSFER ORDER.
[2019-07-03 16:00] VITALS: BP 105/58
--- NOTE | 2019-07-03 16:15 | Internal Med Progress Note ---
Subjective Date of Service: Jul 03, 2019 Physician Name Regis Jauregui Attending Physician Maximus Carrillo MD Current Medications Medications (Trade) Dose Ordered Sig/Jonathan Route PRN Reason Start Time Stop Time Status Last Admin Dose Admin Acetaminophen (Tylenol) 650 mg Q4H PRN ORAL fever 06/30/19 12:15 07/26/19 12:14 Clozapine (Clozaril) 50 mg BEDTIME ORAL 06/30/19 21:00 07/03/19 20:59 07/02/19 20:18 Dextrose (Dextrose 50%) 25 ml Q30M PRN IV Hypoglycemia 06/30/19 12:30 07/21/19 16:59 Dextrose (Dextrose 50%) 25 ml Q30M PRN IV Hypoglycemia 06/30/19 12:30 07/21/19 16:59 Duloxetine HCl (Cymbalta) 30 mg DAILY ORAL 07/01/19 09:00 07/22/19 08:59 07/03/19 08:54 Heparin Sodium (Porcine) (Heparin 5000 units/ml) 5,000 units EVERY 12 HOURS SUBQ 06/30/19 21:00 07/21/19 20:59 07/03/19 08:58 Ondansetron HCl (Zofran) 4 mg Q6H PRN IVP Nausea & Vomiting 06/30/19 12:15 07/26/19 12:14 Polyethylene Glycol (Miralax) 17 gm HSPRN PRN ORAL Constipation 06/30/19 12:15 07/27/19 12:14 Quetiapine Fumarate (SEROqueL) 100 mg BEDTIME ORAL 06/30/19 21:00 07/26/19 20:59 07/02/19 20:18 Zolpidem Tartrate (Ambien) 5 mg HSPRN PRN ORAL Insomnia 06/30/19 12:15 07/04/19 12:14 Allergies: Coded Allergies: No Known Allergies (Unverified , 04/27/13) ROS Limited/Unobtainable: Yes Subjective 59 YO M admitted with seizure. Cover for Int Med-Dr Carrillo. Witnessed seizure taday; Post ictal. Objective Last Vital Signs Date Time Temp Pulse Resp B/P (MAP) Pulse Ox O2 Delivery O2 Flow Rate FiO2 07/03/19 12:00 97.8 102 20 103/72 (82) 98 07/03/19 09:00 Room Air 06/27/19 12:00 2.0 Laboratory Tests Test 07/03/19 05:20 07/03/19 14:15 White Blood Count 3.5 K/UL (4.8-10.8) L Red Blood Count 4.00 M/UL (4.70-6.10) L Hemoglobin 12.4 G/DL (14.2-18.0) L Hematocrit 37.0 % (42.0-52.0) L Mean Corpuscular Volume 92 FL (80-99) Mean Corpuscular Hemoglobin 31.0 PG (27.0-31.0) Mean Corpuscular Hemoglobin Concent 33.5 G/DL (32.0-36.0) Red Cell Distribution Width 12.1 % (11.6-14.8) Platelet Count 149 K/UL (150-450) L Mean Platelet Volume 7.3 FL (6.5-10.1) Neutrophils (%) (Auto) 40.6 % (45.0-75.0) L Lymphocytes (%) (Auto) 45.6 % (20.0-45.0) H Monocytes (%) (Auto) 11.1 % (1.0-10.0) H Eosinophils (%) (Auto) 2.0 % (0.0-3.0) Basophils (%) (Auto) 0.7 % (0.0-2.0) Sodium Level 140 MMOL/L (136-145) Potassium Level 4.2 MMOL/L (3.5-5.1) Chloride Level 106 MMOL/L (98-107) Carbon Dioxide Level 31 MMOL/L (21-32) Anion Gap 3 mmol/L (5-15) L Blood Urea Nitrogen 20 mg/dL (7-18) H Creatinine 0.8 MG/DL (0.55-1.30) Estimat Glomerular Filtration Rate > 60 mL/min (>60) Glucose Level 79 MG/DL (74-106) Calcium Level 8.5 MG/DL (8.5-10.1) Valproic Acid (Depakene) Level 105 MCG/ML (50-100) H Intake and Output 07/02/19 07/03/19 19:00 07:00 Intake Total 120 ml Output Total 700 ml Balance -700 ml 120 ml Intake Oral 120 ml Output Urine Total 700 ml # Voids 1 Objective PHYSICAL EXAMINATION: GENERAL: The patient is awake, responsive, in no acute distress. HEAD AND NECK: Pupils are equal and reactive to light. Anicteric. Neck was supple. No JVD. Poor dentition with maxillary protrusion. LUNGS: Good air entry. No wheezes or rales. HEART: S1, S2. Regular rhythm. No gallops. ABDOMEN: Soft, nondistended, and nontender. Morbid obesity. EXTREMITIES: No cyanosis, clubbing, or edema. NEUROLOGIC: Cranial nerves II through XII grossly intact. Motor is 5/5 in all extremities. Gait was not assessed due to patient's status. RECTAL: Refused and deferred. GENITOURINARY: Refused and deferred. PSYCHIATRIC: Mood and affect is intact at this time. Assessment/Plan Assessment/Plan ASSESSMENT: 1. Acute tonic-colonic seizure, uncontrolled. 2. Schizophrenia. 3. Parkinson disease. 4. Morbid obesity. 5. Prior history of stroke. PLAN: 1. Admit the patient to monitor unit. 2. We will follow up laboratory. 3. Seizure precaution. 4. Code status is Full Code. 5. Resume home medication. 6. Neurology consultation=Dr Santillan 7. continue depakote per neurology 8. Discharge planning: transfer to [facility]-Dr Jean Monique neurology Regis Jauregui MD Jul 03, 2019 16:15
--- NOTE | 2019-07-03 16:26 | NUR ---
NURSE NOTES: PATIENT AOX4. PATIENT DOES NOT RECALL EARLIER EVENTS HAPPENING. VSS. SEEN BY DR. BUTT THIS EVENING.
--- NOTE | 2019-07-03 17:26 | NUR ---
NURSE NOTES: TRANSFER TO [facility] DR BUTT HERE ROUNDING. STATES HE WILL PLACE TRANSFER ORDER FOR DR. YOUNG.
--- NOTE | 2019-07-03 19:00 | Progress Note ---
DATE: 07/03/2019 SUBJECTIVE: The patient just had seizure. His Depakote was readjusted from 1000 mg b.i.d. to 1250 mg b.i.d. Valproic acid was ordered. The patient received Ativan, has had waxing and waning consciousness due to administration of Ativan. No anxiety noted. Calm, manageable. MENTAL STATUS EXAMINATION: As above. Unable to assess the details. ASSESSMENT: Schizoaffective disorder. PLAN: 1. The patient will be continued on Cymbalta. 2. Seroquel bedtime. 3. bedtime. 4. Provide the patient with reality orientation and supportive therapy. Klaudia Little M.D. DR: Maciel JOB#: [id number] CC:
--- NOTE | 2019-07-03 19:44 | NUR ---
HAND-OFF: Report given to NEIL SHARMA RN.
--- NOTE | 2019-07-03 19:45 | NUR ---
NURSE NOTES: Received report from Tasneem Martinez RN. Patient is resting in bed semi-fowlers position, bed low and locked with side rails up and padded. Patient began staring ahead and not responding to prompts by outgoing nurse. Given 2L oxygen via NC then responded to RN after being called out by name; alert and oriented x4. Vital signs stable. Patient is talkative and friendly. Instructed to call RN if need assistance. Will continue to monitor.
[2019-07-03 20:00] VITALS: BP 101/63
[2019-07-03] MEDS ORDERED: Depakote ER 250mg tab ORAL SCH (21:00)
--- NOTE | 2019-07-03 21:15 | Progress Note ---
DATE: 07/03/2019 SUBJECTIVE: The patient had a seizure today, was given 2 mg of IV Valium, but now is "feeling fine." It was a generalized seizure. PHYSICAL EXAMINATION: VITAL SIGNS: Blood pressure is 105/58, pulse is 86, respiration rate is 20, temperature is 98.2 degrees. MENTAL STATUS: The patient is alert and awake. Date, he does not know the date, thinks it is June. Place, he knows he is in [place]. Does not know the name of the hospital. Person, he is oriented to person. World, he cannot spell it forwards or backwards. However, he is alert and awake. CRANIAL NERVE EXAMINATION: CRANIAL NERVE II: There is no change. CRANIAL NERVES III, IV, AND : Extraocular motility is full with saccadic smooth pursuit. CRANIAL NERVE V: Facial and corneal sensation are intact to fine touch. CRANIAL NERVE VII: Facial strength is 5/5. CRANIAL NERVE VIII: Auditory acuity is basically intact. CRANIAL NERVE XI: Sternocleidomastoid strength is 5/5. CRANIAL NERVE XII: Tongue is in the midline. MUSCLE EXAMINATION: Muscle bulk and tone are normal. Strength is 5/5. REFLEXES: +2.5 in the upper extremities, +2 at the knees, +1.5 to 2 at the ankles. COORDINATION: [id number], [id number] testing are intact. IMPRESSION: This patient may not have a real seizure disorder, probably may have pseudoseizures. Therefore, I made a second opinion. His Depakote level was 105 today, which is little over the high normal range 50 to 100 of the usual dose. I would rather send him to see Dr. Monique or his associates at [facility]. I will not start any new medication such as Vimpat or other anticonvulsant. PLAN: 1. the patient over to [facility] tomorrow. 2. Second opinion. Possibly may need telemetry. Terry Santillan MD DR: EDWARD JOB#: [id number] CC:
[2019-07-04] VITALS (7 sets, daily range): BP systolic 103–129; BP diastolic 64–90
[2019-07-04 05:50] LABS: HEMATOCRIT 37.5 % (42.0-52.0); HEMOGLOBIN 12.5 G/DL (14.2-18.0); MEAN CORPUSCULAR VOLUME 93 FL (80-99); PLATELET COUNT 149 K/UL (150-450); RED BLOOD COUNT 4.04 M/UL (4.70-6.10); WHITE BLOOD COUNT 3.3 K/UL (4.8-10.8)
[2019-07-04 06:04] LABS: ANION GAP 4 mmol/L (5-15); BLOOD UREA NITROGEN 20 mg/dL (7-18); CALCIUM 8.3 MG/DL (8.5-10.1); CARBON DIOXIDE 30 MMOL/L (21-32); CHLORIDE 106 MMOL/L (98-107); CREATININE 0.8 MG/DL (0.55-1.30); POTASSIUM 4.3 MMOL/L (3.5-5.1); SODIUM 140 MMOL/L (136-145)
--- NOTE | 2019-07-04 07:29 | NUR ---
HAND-OFF: Report given to GEORGIA Toribio. Patient is stable.
--- NOTE | 2019-07-04 07:30 | NUR ---
NURSE NOTES: Patient is in bed awake and able to verbalize needs. Stable. Denies pain or SOB. No seizure activity noted at this time. Breathing is even and unlabored. Patient instructed to use call light for assistance, verbalized understanding. Side rails padded. Patient in bed in locked and lowest position with call light within reach. All safety measures provided. Will continue to monitor. All needs met at this time.
[2019-07-04] MEDS: DULoxetine 30mg cap ORAL SCH (08:06)
[2019-07-04] MEDS: Heparin 5000 units/ml inj SUBQ SCH ×2 (08:06→20:37)
--- NOTE | 2019-07-04 13:53 | NUR ---
NURSE NOTES: Spoke to Dr. Santillan regarding transfer to [facility]. RN gave Dr. Santillan phone number for [place]'s transfer list . Dr. Santillan will call [facility] to initiate transfer.
--- NOTE | 2019-07-04 13:53 | Pulmonology Progress Note ---
Assessment/Plan Problems: (1) Epileptic seizure, generalized (2) Schizo-affective schizophrenia Assessment/Plan no new complains f/u neuro recommendations pt/ot evaluation on depakote neuro evaluation reviewed and appreciated med/surg dvt prophylaxis continue psychiatric meds all meds reviewed dc planning in process Subjective Allergies: Coded Allergies: No Known Allergies (Unverified , 04/27/13) Objective Last 24 Hour Vital Signs Date Time Temp Pulse Resp B/P (MAP) Pulse Ox O2 Delivery O2 Flow Rate FiO2 07/04/19 12:00 97.5 104 18 116/90 (99) 96 07/04/19 08:46 Room Air 07/04/19 08:00 97.3 95 17 103/71 (82) 97 07/04/19 04:00 97.3 86 18 120/74 (89) 98 07/04/19 00:00 98.2 86 18 104/69 (81) 98 07/03/19 21:00 Room Air 07/03/19 20:00 97.6 88 18 101/63 (76) 98 07/03/19 16:00 98.2 86 20 105/58 (74) 97 Intake and Output 07/03/19 07/04/19 19:00 07:00 Intake Total 1320 ml 240 ml Output Total 400 ml Balance 920 ml 240 ml Intake Oral 1320 ml 240 ml Output Urine Total 400 ml # Voids 1 1 Objective General Appearance: WD/WN, no apparent distress Lines, tubes and drains: peripheral HEENT: normocephalic, atraumatic Neck: non-tender, normal alignment Respiratory/Chest: chest wall non-tender, lungs clear Breasts: no masses Cardiovascular/Chest: normal peripheral pulses Abdomen: non tender Extremities: normal range of motion Skin Exam: normal pigmentation Laboratory Tests 07/03/19 14:15: Valproic Acid (Depakene) Level 105H 07/04/19 05:00: Valproic Acid (Depakene) Level 79, White Blood Count 3.3L, Red Blood Count 4.04L , Hemoglobin 12.5L, Hematocrit 37.5L, Mean Corpuscular Volume 93, Mean Corpuscular Hemoglobin 30.9, Mean Corpuscular Hemoglobin Concent 33.2, Red Cell Distribution Width 12.0, Platelet Count 149L, Mean Platelet Volume 7.3, Neutrophils (%) (Auto) , Lymphocytes (%) (Auto) , Monocytes (%) (Auto) , Eosinophils (%) (Auto) , Basophils (%) (Auto) , Differential Total Cells Counted 100, Neutrophils % (Manual) 47, Lymphocytes % (Manual) 38, Monocytes % ( Manual) 12H, Eosinophils % (Manual) 3, Basophils % (Manual) 0, Band Neutrophils 0, Platelet Estimate Adequate, Platelet Morphology Normal, Red Blood Cell Morphology Normal, Sodium Level 140, Potassium Level 4.3, Chloride Level 106, Carbon Dioxide Level 30, Anion Gap 4L, Blood Urea Nitrogen 20H, Creatinine 0.8, Estimat Glomerular Filtration Rate > 60, Glucose Level 87, Calcium Level 8.3L Current Medications Medications (Trade) Dose Ordered Sig/Jonathan Route PRN Reason Start Time Stop Time Status Last Admin Dose Admin Acetaminophen (Tylenol) 650 mg Q4H PRN ORAL fever 06/30/19 12:15 07/26/19 12:14 Dextrose (Dextrose 50%) 25 ml Q30M PRN IV Hypoglycemia 06/30/19 12:30 07/21/19 16:59 Dextrose (Dextrose 50%) 25 ml Q30M PRN IV Hypoglycemia 06/30/19 12:30 07/21/19 16:59 Duloxetine HCl (Cymbalta) 30 mg DAILY ORAL 07/01/19 09:00 07/22/19 08:59 07/04/19 08:06 Heparin Sodium (Porcine) (Heparin 5000 units/ml) 5,000 units EVERY 12 HOURS SUBQ 06/30/19 21:00 07/21/19 20:59 07/03/19 21:41 Ondansetron HCl (Zofran) 4 mg Q6H PRN IVP Nausea & Vomiting 06/30/19 12:15 07/26/19 12:14 Polyethylene Glycol (Miralax) 17 gm HSPRN PRN ORAL Constipation 06/30/19 12:15 07/27/19 12:14 Quetiapine Fumarate (SEROqueL) 100 mg BEDTIME ORAL 06/30/19 21:00 07/26/19 20:59 07/03/19 21:41 Faviola Savage MD Jul 04, 2019 13:53
--- NOTE | 2019-07-04 14:46 | NUR ---
RD ASSESSMENT & RECOMMENDATIONS SEE CARE ACTIVITY FOR COMPLETE ASSESSMENT DAILY ESTIMATED NEEDS: Needs based on cardiac, 84kg abw 25-30 kcals/kg 7187-7453 total kcals 1-1.2 g protein/kg 84-101 g total protein 25-30 mL/kg 2100/2520 total fluid mLs NUTRITION DIAGNOSIS: Altered nutrition related lab values r/t clinical status, as evidenced by uglu 3+ on adm, low WBC (3.3). CURRENT DIET: Regular PO DIET RECOMMENDATIONS: Maintain Regular diet/ texture as tolerated ADDITIONAL RECOMMENDATIONS: 1) Obtain a calibrated bed scale wt OR standing wt 2) Rec daily bowel regimen -> last recorded BM on 06/28 3) H/o Parkinson's Disease, CVA-> rec [employer] eval for appropriate texture 4) Uglu 3+ on adm, monitor BG, need for diet change -> consider checking A1C
--- NOTE | 2019-07-04 15:42 | NUR ---
NURSE NOTES: RN spoke to Dr. Santillan regarding Depakote level results. Dr. Santillan gave new orders to start Depakote 1000mg PO BID. New orders read back and carried out.
--- NOTE | 2019-07-04 15:51 | NUR ---
NURSE NOTES: No seizure activity noted at this time. Patient is in bed in locked and lowest position with side rails padded and call light within reach. Will continue to monitor.
--- NOTE | 2019-07-04 15:54 | NUR ---
CASE MANAGEMENT:REVIEW 07/04/19 SI: UNCONTROLLED SEIZURES 97.5 104 18 116/90 96% ON RA H/H-12.5/37.5 PLT-149 IS: CYMBALTA PO QD CLOZAPINE PO QHS DEPAKOTE 1,000MG PO Q12 HEPARIN SQ Q12 SEROQUEL PO QHS : MED/SURG STATUS DCP: FROM [facility]: STILL HAVING SEIZURES REFERRED TO [facility]
--- NOTE | 2019-07-04 15:58 | NUR ---
TRANSFER UPDATE FAXED FACE-SHEET AND DR WHYTE'S PROGRESS NOTE TO [facility] T: [phone] F: [phone]
--- NOTE | 2019-07-04 18:16 | Internal Med Progress Note ---
Subjective Date of Service: Jul 04, 2019 Physician Name Regis Jauregui Attending Physician Maximus Carrillo MD Current Medications Medications (Trade) Dose Ordered Sig/Jonathan Route PRN Reason Start Time Stop Time Status Last Admin Dose Admin Acetaminophen (Tylenol) 650 mg Q4H PRN ORAL fever 06/30/19 12:15 07/26/19 12:14 Dextrose (Dextrose 50%) 25 ml Q30M PRN IV Hypoglycemia 06/30/19 12:30 07/21/19 16:59 Dextrose (Dextrose 50%) 25 ml Q30M PRN IV Hypoglycemia 06/30/19 12:30 07/21/19 16:59 Divalproex Sodium (Depakote) 1,000 mg EVERY 12 HOURS ORAL 07/04/19 21:00 08/03/19 20:59 Duloxetine HCl (Cymbalta) 30 mg DAILY ORAL 07/01/19 09:00 07/22/19 08:59 07/04/19 08:06 Heparin Sodium (Porcine) (Heparin 5000 units/ml) 5,000 units EVERY 12 HOURS SUBQ 06/30/19 21:00 07/21/19 20:59 07/03/19 21:41 Ondansetron HCl (Zofran) 4 mg Q6H PRN IVP Nausea & Vomiting 06/30/19 12:15 07/26/19 12:14 Polyethylene Glycol (Miralax) 17 gm HSPRN PRN ORAL Constipation 06/30/19 12:15 07/27/19 12:14 Quetiapine Fumarate (SEROqueL) 100 mg BEDTIME ORAL 06/30/19 21:00 07/26/19 20:59 07/03/19 21:41 Allergies: Coded Allergies: No Known Allergies (Unverified , 04/27/13) ROS Limited/Unobtainable: No Constitutional: Reports: no symptoms HEENT: Reports: no symptoms Cardiovascular: Reports: no symptoms Respiratory: Reports: no symptoms Gastrointestinal/Abdominal: Reports: no symptoms Genitourinary: Reports: no symptoms Neurologic/Psychiatric: Reports: no symptoms Subjective 59 YO M admitted with seizure. Cover for Int Med-Dr Carrillo. Await transfer to [facility] Objective Last Vital Signs Date Time Temp Pulse Resp B/P (MAP) Pulse Ox O2 Delivery O2 Flow Rate FiO2 07/04/19 16:00 97.6 107 18 129/84 (99) 97 07/04/19 08:46 Room Air 06/27/19 12:00 2.0 Laboratory Tests Test 07/04/19 05:00 White Blood Count 3.3 K/UL (4.8-10.8) L Red Blood Count 4.04 M/UL (4.70-6.10) L Hemoglobin 12.5 G/DL (14.2-18.0) L Hematocrit 37.5 % (42.0-52.0) L Mean Corpuscular Volume 93 FL (80-99) Mean Corpuscular Hemoglobin 30.9 PG (27.0-31.0) Mean Corpuscular Hemoglobin Concent 33.2 G/DL (32.0-36.0) Red Cell Distribution Width 12.0 % (11.6-14.8) Platelet Count 149 K/UL (150-450) L Mean Platelet Volume 7.3 FL (6.5-10.1) Neutrophils (%) (Auto) % (45.0-75.0) Lymphocytes (%) (Auto) % (20.0-45.0) Monocytes (%) (Auto) % (1.0-10.0) Eosinophils (%) (Auto) % (0.0-3.0) Basophils (%) (Auto) % (0.0-2.0) Differential Total Cells Counted 100 Neutrophils % (Manual) 47 % (45-75) Lymphocytes % (Manual) 38 % (20-45) Monocytes % (Manual) 12 % (1-10) H Eosinophils % (Manual) 3 % (0-3) Basophils % (Manual) 0 % (0-2) Band Neutrophils 0 % (0-8) Platelet Estimate Adequate Platelet Morphology Normal Red Blood Cell Morphology Normal Sodium Level 140 MMOL/L (136-145) Potassium Level 4.3 MMOL/L (3.5-5.1) Chloride Level 106 MMOL/L (98-107) Carbon Dioxide Level 30 MMOL/L (21-32) Anion Gap 4 mmol/L (5-15) L Blood Urea Nitrogen 20 mg/dL (7-18) H Creatinine 0.8 MG/DL (0.55-1.30) Estimat Glomerular Filtration Rate > 60 mL/min (>60) Glucose Level 87 MG/DL (74-106) Calcium Level 8.3 MG/DL (8.5-10.1) L Valproic Acid (Depakene) Level 79 MCG/ML (50-100) Intake and Output 07/03/19 07/04/19 19:00 07:00 Intake Total 1320 ml 240 ml Output Total 400 ml Balance 920 ml 240 ml Intake Oral 1320 ml 240 ml Output Urine Total 400 ml # Voids 1 1 Objective PHYSICAL EXAMINATION: GENERAL: The patient is awake, responsive, in no acute distress. HEAD AND NECK: Pupils are equal and reactive to light. Anicteric. Neck was supple. No JVD. Poor dentition with maxillary protrusion. LUNGS: Good air entry. No wheezes or rales. HEART: S1, S2. Regular rhythm. No gallops. ABDOMEN: Soft, nondistended, and nontender. Morbid obesity. EXTREMITIES: No cyanosis, clubbing, or edema. NEUROLOGIC: Cranial nerves II through XII grossly intact. Motor is 5/5 in all extremities. Gait was not assessed due to patient's status. RECTAL: Refused and deferred. GENITOURINARY: Refused and deferred. PSYCHIATRIC: Mood and affect is intact at this time. Assessment/Plan Assessment/Plan ASSESSMENT: 1. Acute tonic-colonic seizure, uncontrolled. 2. Schizophrenia. 3. Parkinson disease. 4. Morbid obesity. 5. Prior history of stroke. PLAN: 1. Admit the patient to monitor unit. 2. We will follow up laboratory. 3. Seizure precaution. 4. Code status is Full Code. 5. Resume home medication. 6. Neurology consultation=Dr Santillan 7. continue depakote per neurology 8. Discharge planning: transfer to [facility]-Dr Jean Monique neurology Regis Jauregui MD Jul 04, 2019 18:16
--- NOTE | 2019-07-04 19:28 | NUR ---
HAND-OFF: Report given to Shalonda HO. Patient is stable.
[2019-07-04] MEDS: Depakote 500mg tab ORAL SCH (20:36)
--- NOTE | 2019-07-04 22:04 | NUR ---
NURSE NOTE: Orders reviewed. Pt denies any pain. Seizure and fall precautions maintained. The call dawson is within reach, will continue to monitor.
[2019-07-05] VITALS (8 sets, daily range): BP systolic 91–122; BP diastolic 60–85
[2019-07-05 05:26] LABS: BASOPHILS % (AUTO) 0.5 % (0.0-2.0); EOSINOPHILS % (AUTO) 4.1 % (0.0-3.0); HEMATOCRIT 38.6 % (42.0-52.0); HEMOGLOBIN 12.5 G/DL (14.2-18.0); LYMPHOCYTES % (AUTO) 40.9 % (20.0-45.0); MEAN CORPUSCULAR VOLUME 94 FL (80-99); MONOCYTES % (AUTO) 11.8 % (1.0-10.0); NEUTROPHILS % (AUTO) 42.7 % (45.0-75.0); PLATELET COUNT 150 K/UL (150-450); RED CELL DISTRIBUTION WIDTH 12.1 % (11.6-14.8); WHITE BLOOD COUNT 3.7 K/UL (4.8-10.8)
[2019-07-05] MEDS ORDERED: LORazepam Inj 2mg/ml 1ml ONE (05:28)
[2019-07-05 06:03] LABS: ANION GAP 8 mmol/L (5-15); BLOOD UREA NITROGEN 16 mg/dL (7-18); CALCIUM 8.5 MG/DL (8.5-10.1); CARBON DIOXIDE 29 MMOL/L (21-32); CHLORIDE 104 MMOL/L (98-107); CREATININE 0.8 MG/DL (0.55-1.30); POTASSIUM 3.9 MMOL/L (3.5-5.1); SODIUM 141 MMOL/L (136-145)
--- NOTE | 2019-07-05 07:30 | NUR ---
NURSE NOTES: Patient is in bed awake and able to verbalize needs. Stable. Denies pain or SOB. No seizure activity noted at this time. Neuro checks done. Breathing is even and unlabored. Suction and oxygen at bedside. Patient is in bed in locked and lowest position with call light within reach and bed alarm on. All safety measures provided, seizure precautions in place. Will continue to monitor.
--- NOTE | 2019-07-05 07:35 | NUR ---
RAPID RESPONSE: See Rapid Response sheet which remains on paper. Dr. Carrillo was paged at [phone] after waiting [address] Savage and Laurel Jauregui were paged at [phone]. No returned a page so the nurse driver supervisor was contacted at [phone]. The driver supervisor recommended contacting the attending once more which was done at [phone].
--- NOTE | 2019-07-05 07:40 | NUR ---
HAND-OFF: Report given to Malu. Endorsed rapid response event and thier the HEALTH CARE MARKETING MANAGER reccommendation to transfer pt to telemetry. Also endorsed awaiting for return phone call from Janette Moses, or Shania.
[2019-07-05] MEDS: DULoxetine 30mg cap ORAL SCH (08:30)
[2019-07-05] MEDS: Depakote 500mg tab ORAL SCH ×2 (08:30→21:20)
[2019-07-05] MEDS: Heparin 5000 units/ml inj SUBQ SCH ×2 (08:30→21:00)
--- NOTE | 2019-07-05 09:05 | NUR ---
PT NOTE Patient s/p Rapid Response call earlier this morning with possible transfer to tele. PT placed on hold, will need MD order to resume PT intervention when appropriate. Notified Malu HO, will follow.
--- NOTE | 2019-07-05 12:43 | Pulmonology Progress Note ---
Assessment/Plan Problems: (1) Epileptic seizure, generalized (2) Schizo-affective schizophrenia Assessment/Plan had another episode of seizure this morning f/u neuro recommendations pt/ot evaluation on depakote neuro evaluation reviewed and appreciated med/surg dvt prophylaxis continue psychiatric meds all meds reviewed dc planning in process Subjective ROS Limited/Unobtainable: No Constitutional: Reports: no symptoms HEENT: Repors: no symptoms Allergies: Coded Allergies: No Known Allergies (Unverified , 04/27/13) Objective Last 24 Hour Vital Signs Date Time Temp Pulse Resp B/P (MAP) Pulse Ox O2 Delivery O2 Flow Rate FiO2 07/05/19 09:00 Room Air 07/05/19 09:00 86 120/75 (90) 07/05/19 08:00 98.1 93 15 122/85 (97) 98 07/05/19 05:25 82 97 07/05/19 04:00 97.4 97 18 109/66 (80) 97 07/04/19 23:44 98.1 94 19 121/64 (83) 96 07/04/19 21:00 Room Air 07/04/19 20:00 98.3 100 18 119/67 (84) 96 07/04/19 16:00 97.6 107 18 129/84 (99) 97 Intake and Output 07/04/19 07/05/19 18:59 06:59 Intake Total 240 ml Balance 240 ml Intake Oral 240 ml # Voids 1 Objective General Appearance: WD/WN, no apparent distress Lines, tubes and drains: peripheral HEENT: normocephalic, atraumatic Neck: non-tender, normal alignment Respiratory/Chest: chest wall non-tender, lungs clear Breasts: no masses Cardiovascular/Chest: normal peripheral pulses Abdomen: non tender Extremities: normal range of motion Skin Exam: normal pigmentation Laboratory Tests 07/05/19 05:10: White Blood Count 3.7L, Red Blood Count 4.10L, Hemoglobin 12.5L, Hematocrit 38.6L, Mean Corpuscular Volume 94, Mean Corpuscular Hemoglobin 30.6, Mean Corpuscular Hemoglobin Concent 32.5, Red Cell Distribution Width 12.1, Platelet Count 150, Mean Platelet Volume 6.8, Neutrophils (%) (Auto) 42.7L, Lymphocytes ( %) (Auto) 40.9, Monocytes (%) (Auto) 11.8H, Eosinophils (%) (Auto) 4.1H, Basophils (%) (Auto) 0.5, Sodium Level 141, Potassium Level 3.9, Chloride Level 104, Carbon Dioxide Level 29, Anion Gap 8, Blood Urea Nitrogen 16, Creatinine 0.8, Estimat Glomerular Filtration Rate > 60, Glucose Level 126H, Calcium Level 8.5 Current Medications Medications (Trade) Dose Ordered Sig/Jonathan Route PRN Reason Start Time Stop Time Status Last Admin Dose Admin Acetaminophen (Tylenol) 650 mg Q4H PRN ORAL fever 06/30/19 12:15 07/26/19 12:14 Dextrose (Dextrose 50%) 25 ml Q30M PRN IV Hypoglycemia 06/30/19 12:30 07/21/19 16:59 Dextrose (Dextrose 50%) 25 ml Q30M PRN IV Hypoglycemia 06/30/19 12:30 07/21/19 16:59 Divalproex Sodium (Depakote) 1,000 mg EVERY 12 HOURS ORAL 07/04/19 21:00 08/03/19 20:59 07/05/19 08:30 Duloxetine HCl (Cymbalta) 30 mg DAILY ORAL 07/01/19 09:00 07/22/19 08:59 07/05/19 08:30 Heparin Sodium (Porcine) (Heparin 5000 units/ml) 5,000 units EVERY 12 HOURS SUBQ 06/30/19 21:00 07/21/19 20:59 07/03/19 21:41 Ondansetron HCl (Zofran) 4 mg Q6H PRN IVP Nausea & Vomiting 06/30/19 12:15 07/26/19 12:14 Polyethylene Glycol (Miralax) 17 gm HSPRN PRN ORAL Constipation 06/30/19 12:15 07/27/19 12:14 Quetiapine Fumarate (SEROqueL) 100 mg BEDTIME ORAL 06/30/19 21:00 07/26/19 20:59 07/04/19 20:36 Faviola Savage MD Jul 05, 2019 12:43
--- NOTE | 2019-07-05 17:53 | Internal Med Progress Note ---
Subjective Date of Service: Jul 05, 2019 Physician Name Regis Jauregui Attending Physician Maximus Carrillo MD Current Medications Medications (Trade) Dose Ordered Sig/Jonathan Route PRN Reason Start Time Stop Time Status Last Admin Dose Admin Acetaminophen (Tylenol) 650 mg Q4H PRN ORAL fever 06/30/19 12:15 07/26/19 12:14 Clozapine (Clozaril) 50 mg QHS ORAL 07/05/19 21:00 07/12/19 20:59 Dextrose (Dextrose 50%) 25 ml Q30M PRN IV Hypoglycemia 06/30/19 12:30 07/21/19 16:59 Dextrose (Dextrose 50%) 25 ml Q30M PRN IV Hypoglycemia 06/30/19 12:30 07/21/19 16:59 Divalproex Sodium (Depakote) 1,000 mg EVERY 12 HOURS ORAL 07/04/19 21:00 08/03/19 20:59 07/05/19 08:30 Duloxetine HCl (Cymbalta) 30 mg DAILY ORAL 07/01/19 09:00 07/22/19 08:59 07/05/19 08:30 Heparin Sodium (Porcine) (Heparin 5000 units/ml) 5,000 units EVERY 12 HOURS SUBQ 06/30/19 21:00 07/21/19 20:59 07/03/19 21:41 Lacosamide (Vimpat) 100 mg Q12HR ORAL 07/05/19 21:00 08/04/19 20:59 Ondansetron HCl (Zofran) 4 mg Q6H PRN IVP Nausea & Vomiting 06/30/19 12:15 07/26/19 12:14 Polyethylene Glycol (Miralax) 17 gm HSPRN PRN ORAL Constipation 06/30/19 12:15 07/27/19 12:14 Quetiapine Fumarate (SEROqueL) 100 mg BEDTIME ORAL 06/30/19 21:00 07/26/19 20:59 07/04/19 20:36 Allergies: Coded Allergies: No Known Allergies (Unverified , 04/27/13) ROS Limited/Unobtainable: No Constitutional: Reports: no symptoms HEENT: Reports: no symptoms Cardiovascular: Reports: no symptoms Respiratory: Reports: no symptoms Gastrointestinal/Abdominal: Reports: no symptoms Genitourinary: Reports: no symptoms Neurologic/Psychiatric: Reports: no symptoms Subjective 59 YO M admitted with seizure. Cover for Int Med-Dr Carrillo. Await transfer to [facility]. Witnessed seizure this morning-see rapid response note Objective Last Vital Signs Date Time Temp Pulse Resp B/P (MAP) Pulse Ox O2 Delivery O2 Flow Rate FiO2 07/05/19 16:00 98.0 109 15 102/68 (79) 98 07/05/19 09:00 Room Air 06/27/19 12:00 2.0 Laboratory Tests Test 07/05/19 05:10 White Blood Count 3.7 K/UL (4.8-10.8) L Red Blood Count 4.10 M/UL (4.70-6.10) L Hemoglobin 12.5 G/DL (14.2-18.0) L Hematocrit 38.6 % (42.0-52.0) L Mean Corpuscular Volume 94 FL (80-99) Mean Corpuscular Hemoglobin 30.6 PG (27.0-31.0) Mean Corpuscular Hemoglobin Concent 32.5 G/DL (32.0-36.0) Red Cell Distribution Width 12.1 % (11.6-14.8) Platelet Count 150 K/UL (150-450) Mean Platelet Volume 6.8 FL (6.5-10.1) Neutrophils (%) (Auto) 42.7 % (45.0-75.0) L Lymphocytes (%) (Auto) 40.9 % (20.0-45.0) Monocytes (%) (Auto) 11.8 % (1.0-10.0) H Eosinophils (%) (Auto) 4.1 % (0.0-3.0) H Basophils (%) (Auto) 0.5 % (0.0-2.0) Sodium Level 141 MMOL/L (136-145) Potassium Level 3.9 MMOL/L (3.5-5.1) Chloride Level 104 MMOL/L (98-107) Carbon Dioxide Level 29 MMOL/L (21-32) Anion Gap 8 mmol/L (5-15) Blood Urea Nitrogen 16 mg/dL (7-18) Creatinine 0.8 MG/DL (0.55-1.30) Estimat Glomerular Filtration Rate > 60 mL/min (>60) Glucose Level 126 MG/DL (74-106) H Calcium Level 8.5 MG/DL (8.5-10.1) Intake and Output 07/04/19 07/05/19 19:00 07:00 Intake Total 240 ml Balance 240 ml Intake Oral 240 ml # Voids 1 Objective PHYSICAL EXAMINATION: GENERAL: The patient is awake, responsive, in no acute distress. HEAD AND NECK: Pupils are equal and reactive to light. Anicteric. Neck was supple. No JVD. Poor dentition with maxillary protrusion. LUNGS: Good air entry. No wheezes or rales. HEART: S1, S2. Regular rhythm. No gallops. ABDOMEN: Soft, nondistended, and nontender. Morbid obesity. EXTREMITIES: No cyanosis, clubbing, or edema. NEUROLOGIC: Cranial nerves II through XII grossly intact. Motor is 5/5 in all extremities. Gait was not assessed due to patient's status. RECTAL: Refused and deferred. GENITOURINARY: Refused and deferred. PSYCHIATRIC: Mood and affect is intact at this time. Assessment/Plan Assessment/Plan ASSESSMENT: 1. Acute tonic-colonic seizure, uncontrolled. 2. Schizophrenia. 3. Parkinson disease. 4. Morbid obesity. 5. Prior history of stroke. PLAN: 1. Admit the patient to monitor unit. 2. We will follow up laboratory. 3. Seizure precaution. 4. Code status is Full Code. 5. Resume home medication. 6. Neurology consultation=Dr Santillan 7. continue depakote per neurology 8. Discharge planning: transfer to [facility]-Dr Jean Monique neurology Regis Jauregui MD Jul 05, 2019 17:53
--- NOTE | 2019-07-05 18:56 | NUR ---
NURSE NOTES: After Dr. Santillan came to see patient, patient began clenching jaws and raising arms. RN reoriented patient. Patient is stable. Dr. Santillan called to report activity, awaiting return call. Oxygen applied via NC, tolerated well. Patient able to verbalize needs. Suction at bedside. Side rails padded. Patient kept in bed in locked and lowest position with all seizure precautions and safety measures provided. Will continue to monitor.
--- NOTE | 2019-07-05 19:00 | NUR ---
NURSE NOTES: Received new orders for Ativan 1mg q3hr PRN seizures. Administered Ativan x1 as ordered, wasted 1mg Ativan with other RN. Patient is stable. Suction and oxygen at bedside. Patient in bed in locked and lowest position with call light within reach and seizure precautions in place. All safety measures provided.
[2019-07-05] MEDS: LORazepam Inj 2mg/ml 1ml IV PRN (19:09)
--- NOTE | 2019-07-05 19:30 | NUR ---
HAND-OFF: Report given to Shalonda HO. Patient is stable.
[2019-07-05] MEDS: Lacosamide 50mg tablet ORAL SCH (21:20)
--- NOTE | 2019-07-05 21:30 | Progress Note ---
DATE: 07/05/2019 SUBJECTIVE: The patient hopefully will be sent over to [facility] over the epilepsy unit to exclude possible pseudoseizures. He had a seizure today and in fact he is having right now. I was called to his bedside. He is also complaining of left lower extremity pain in the calf. He initially stares with his eyes open, does not respond at all. There was no movement of his extremities and is following with his tongue protrusion. His tongue is between his teeth, but there was no really bitten tongue. He has slight shaking of the upper extremities bilaterally fairly symmetrically. He is moving back and forth to the left and right side in bed. However, there is no shaking of the lower extremities. Afterwards, he is still staring, but he blinks to eye threat. Does not respond to voice either initially or now. PHYSICAL EXAMINATION: VITAL SIGNS: Blood pressure is 102/68, pulse is 109, temperature is 98, respiration rate is 16. MENTAL STATUS: The patient initially is awake and alert. He could answer question now. Not really responding. CRANIAL NERVE EXAMINATION: CRANIAL NERVE II: Visual mathew are intact to confrontation. CRANIAL NERVES III, IV, AND : Extraocular motility was full before seizure. Pupils are about 5 mm . CRANIAL NERVE V: Facial and corneal sensation is intact. CRANIAL NERVE VII: Facial strength is 5/5. CRANIAL NERVE VIII: Auditory acuity is intact. CRANIAL NERVES IX AND X: Gag is decreased. CRANIAL NERVE XI: Sternocleidomastoid strength is 5/5. CRANIAL NERVE XII: Tongue protrudes in the midline without fasciculations or atrophy. MUSCLE EXAMINATION: Muscle bulk and tone are normal. Initially, he had some stiffness during his seizure attack in the upper extremities. Muscle strength is 5/5. REFLEXES: Trace in the upper and lower extremities with downgoing toes and testing for Babinski response. COORDINATION: [id number], [id number] testing were intact. GAIT AND STATION: He has a normal based unsteady gait. Romberg is probably negative. IMPRESSION: This seizure is somewhat different than from a previous seizure that I witnessed where his right arm would start shaking first. Also he never stick his tongue out. This could be pseudoseizures. He will need to be transferred over. I am little concerned about the pain in his left lower extremity and I am going to obtain a duplex scan and Doppler of the lower extremities to see if there is probable phlebitis of the left lower extremity. Initially, I do not want to start a second anticonvulsant on him; however, I was hoping that he would be transferred. I will start him on Vimpat. PLAN: 1. Duplex and Doppler of the lower extremities. 2. Vimpat 100 mg b.i.d. Terry Santillan MD DR: EDWARD JOB#: [id number] CC:
--- NOTE | 2019-07-05 21:55 | NUR ---
NURSE NOTE: Pt is A/Ox4 with stable VS. Pt is resting comfortably. Orders reviewed. Seizure (suction setup,o2,padded rails) and fall precautions maintained. Will continue to monitor.
[2019-07-06 00:31] VITALS: BP 106/57
[2019-07-06] MEDS: LORazepam Inj 2mg/ml 1ml IV PRN (04:25)
[2019-07-06 04:30] VITALS: BP 111/66
--- NOTE | 2019-07-06 05:03 | NUR ---
NURSE NOTE: 0420: After assisting pt to restroom, he began starring into space and did not respond verbal stimuli or shoulder tap. Blank stare lasted 1 minute and 30 secs in which pt did respond appropriately. VS assessed (see VS charting) and Ativan 1mg was administered at 0425. Pt resting comfortably, will continue to monitor.
[2019-07-06 05:59] LABS: HEMATOCRIT 33.7 % (42.0-52.0); MEAN CORPUSCULAR VOLUME 94 FL (80-99); PLATELET COUNT 139 K/UL (150-450); WHITE BLOOD COUNT 3.4 K/UL (4.8-10.8)
[2019-07-06 06:18] LABS: ANION GAP 5 mmol/L (5-15); BLOOD UREA NITROGEN 17 mg/dL (7-18); CALCIUM 8.2 MG/DL (8.5-10.1); CARBON DIOXIDE 29 MMOL/L (21-32); CHLORIDE 108 MMOL/L (98-107); CREATININE 0.9 MG/DL (0.55-1.30); SODIUM 142 MMOL/L (136-145)
--- NOTE | 2019-07-06 07:15 | NUR ---
NURSE NOTES received patient in bed, asleep no sign of distress, on fall, seizure precaution observed, kept clean dry and comfortable in bed, need met and anticipated, will continue to monitor, dany travis
[2019-07-06 08:00] VITALS: BP 102/68
--- NOTE | 2019-07-06 08:19 | Pulmonology Progress Note ---
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 pseudoseizures Parkinson's disease with predominantly tremor morbid obesity history of CVA schizoaffective schizophrenia PLAN OF CARE MS floor seizure precaution a/convulsant as per neuro recs/Vimpat added EEG- no clear epileptiform discharge seen DVT prophylaxis venous duplex BLE home meds continued dc plan to higher level of care for neurology/[facility] neuro) psych meds as per psych recs awaiting for transfer case discussed and evaluated by supervising physician Subjective Allergies: Coded Allergies: No Known Allergies (Unverified , 04/27/13) Subjective no seizure overnight no signs of resp distress Objective Last 24 Hour Vital Signs Date Time Temp Pulse Resp B/P (MAP) Pulse Ox O2 Delivery O2 Flow Rate FiO2 07/06/19 04:30 98.0 98 19 111/66 (81) 99 07/06/19 00:31 98.3 96 20 106/57 (73) 99 07/05/19 21:25 98.1 93 16 91/60 (70) 98 07/05/19 21:00 Nasal Cannula 1.0 07/05/19 16:00 98.0 109 15 102/68 (79) 98 07/05/19 12:00 98.4 72 15 105/67 (80) 98 07/05/19 09:00 Room Air 07/05/19 09:00 86 120/75 (90) General Appearance: no acute distress HEENT: normocephalic, atraumatic, anicteric, mucous membranes moist Respiratory/Chest: lungs clear, no respiratory distress, no accessory muscle use Cardiovascular: normal peripheral pulses, normal rate Abdomen: normal bowel sounds, soft, non tender Extremities: no edema, pedal pulses normal Neurologic/Psychiatric: abnormal gait, alert, responsive Musculoskeletal: normal muscle bulk Laboratory Tests 07/06/19 05:05: White Blood Count 3.4L, Red Blood Count 3.60L, Hemoglobin 11.0L, Hematocrit 33.7L, Mean Corpuscular Volume 94, Mean Corpuscular Hemoglobin 30.7, Mean Corpuscular Hemoglobin Concent 32.7, Red Cell Distribution Width 12.0, Platelet Count 139L, Mean Platelet Volume 7.3, Neutrophils (%) (Auto) , Lymphocytes (%) ( Auto) , Monocytes (%) (Auto) , Eosinophils (%) (Auto) , Basophils (%) (Auto) , Sodium Level 142, Potassium Level 4.0, Chloride Level 108H, Carbon Dioxide Level 29, Anion Gap 5, Blood Urea Nitrogen 17, Creatinine 0.9, Estimat Glomerular Filtration Rate > 60, Glucose Level 89, Calcium Level 8.2L Current Medications Medications (Trade) Dose Ordered Sig/Jonathan Route PRN Reason Start Time Stop Time Status Last Admin Dose Admin Acetaminophen (Tylenol) 650 mg Q4H PRN ORAL fever 06/30/19 12:15 07/26/19 12:14 Clozapine (Clozaril) 50 mg QHS ORAL 07/05/19 21:00 07/12/19 20:59 07/05/19 21:20 Dextrose (Dextrose 50%) 25 ml Q30M PRN IV Hypoglycemia 06/30/19 12:30 07/21/19 16:59 Dextrose (Dextrose 50%) 25 ml Q30M PRN IV Hypoglycemia 06/30/19 12:30 07/21/19 16:59 Divalproex Sodium (Depakote) 1,000 mg EVERY 12 HOURS ORAL 07/04/19 21:00 08/03/19 20:59 07/05/19 21:20 Duloxetine HCl (Cymbalta) 30 mg DAILY ORAL 07/01/19 09:00 07/22/19 08:59 07/05/19 08:30 Heparin Sodium (Porcine) (Heparin 5000 units/ml) 5,000 units EVERY 12 HOURS SUBQ 06/30/19 21:00 07/21/19 20:59 07/03/19 21:41 Lacosamide (Vimpat) 100 mg Q12HR ORAL 07/05/19 21:00 08/04/19 20:59 07/05/19 21:20 Lorazepam (Ativan 2mg/ml 1ml) 1 mg Q3H PRN IV For Seizures 07/05/19 19:15 07/12/19 19:14 07/06/19 04:25 Ondansetron HCl (Zofran) 4 mg Q6H PRN IVP Nausea & Vomiting 06/30/19 12:15 07/26/19 12:14 Polyethylene Glycol (Miralax) 17 gm HSPRN PRN ORAL Constipation 06/30/19 12:15 07/27/19 12:14 Quetiapine Fumarate (SEROqueL) 100 mg BEDTIME ORAL 06/30/19 21:00 07/26/19 20:59 07/05/19 21:20 Wanda Coates NP Jul 06, 2019 08:19
[2019-07-06] MEDS: Lacosamide 50mg tablet ORAL SCH ×2 (08:32→20:11)
[2019-07-06] MEDS: DULoxetine 30mg cap ORAL SCH (08:32)
[2019-07-06] MEDS: Depakote 500mg tab ORAL SCH ×2 (08:32→20:12)
[2019-07-06] MEDS: Heparin 5000 units/ml inj SUBQ SCH ×2 (08:33→20:13)
[2019-07-06 12:00] VITALS: BP 118/70
--- NOTE | 2019-07-06 15:57 | Internal Med Progress Note ---
Subjective Physician Name Maximus Carrillo Attending Physician Maximus Carrillo MD Current Medications Medications (Trade) Dose Ordered Sig/Jonathan Route PRN Reason Start Time Stop Time Status Last Admin Dose Admin Acetaminophen (Tylenol) 650 mg Q4H PRN ORAL fever 06/30/19 12:15 07/26/19 12:14 Clozapine (Clozaril) 50 mg QHS ORAL 07/05/19 21:00 07/12/19 20:59 07/05/19 21:20 Dextrose (Dextrose 50%) 25 ml Q30M PRN IV Hypoglycemia 06/30/19 12:30 07/21/19 16:59 Dextrose (Dextrose 50%) 25 ml Q30M PRN IV Hypoglycemia 06/30/19 12:30 07/21/19 16:59 Divalproex Sodium (Depakote) 1,000 mg EVERY 12 HOURS ORAL 07/04/19 21:00 08/03/19 20:59 07/06/19 08:32 Duloxetine HCl (Cymbalta) 30 mg DAILY ORAL 07/01/19 09:00 07/22/19 08:59 07/06/19 08:32 Heparin Sodium (Porcine) (Heparin 5000 units/ml) 5,000 units EVERY 12 HOURS SUBQ 06/30/19 21:00 07/21/19 20:59 07/03/19 21:41 Lacosamide (Vimpat) 100 mg Q12HR ORAL 07/05/19 21:00 08/04/19 20:59 07/06/19 08:32 Lorazepam (Ativan 2mg/ml 1ml) 1 mg Q3H PRN IV For Seizures 07/05/19 19:15 07/12/19 19:14 07/06/19 04:25 Ondansetron HCl (Zofran) 4 mg Q6H PRN IVP Nausea & Vomiting 06/30/19 12:15 07/26/19 12:14 Polyethylene Glycol (Miralax) 17 gm HSPRN PRN ORAL Constipation 06/30/19 12:15 07/27/19 12:14 Quetiapine Fumarate (SEROqueL) 100 mg BEDTIME ORAL 06/30/19 21:00 07/26/19 20:59 07/05/19 21:20 Allergies: Coded Allergies: No Known Allergies (Unverified , 04/27/13) Subjective awake, alert, responsive, NAD, NO CP or SOB, sitting up in a chair drawing pictures. Objective Last Vital Signs Date Time Temp Pulse Resp B/P (MAP) Pulse Ox O2 Delivery O2 Flow Rate FiO2 07/06/19 12:00 98.6 86 19 118/70 (86) 96 07/06/19 08:20 Nasal Cannula 1.0 Laboratory Tests Test 07/06/19 05:05 White Blood Count 3.4 K/UL (4.8-10.8) L Red Blood Count 3.60 M/UL (4.70-6.10) L Hemoglobin 11.0 G/DL (14.2-18.0) L Hematocrit 33.7 % (42.0-52.0) L Mean Corpuscular Volume 94 FL (80-99) Mean Corpuscular Hemoglobin 30.7 PG (27.0-31.0) Mean Corpuscular Hemoglobin Concent 32.7 G/DL (32.0-36.0) Red Cell Distribution Width 12.0 % (11.6-14.8) Platelet Count 139 K/UL (150-450) L Mean Platelet Volume 7.3 FL (6.5-10.1) Neutrophils (%) (Auto) % (45.0-75.0) Lymphocytes (%) (Auto) % (20.0-45.0) Monocytes (%) (Auto) % (1.0-10.0) Eosinophils (%) (Auto) % (0.0-3.0) Basophils (%) (Auto) % (0.0-2.0) Sodium Level 142 MMOL/L (136-145) Potassium Level 4.0 MMOL/L (3.5-5.1) Chloride Level 108 MMOL/L (98-107) H Carbon Dioxide Level 29 MMOL/L (21-32) Anion Gap 5 mmol/L (5-15) Blood Urea Nitrogen 17 mg/dL (7-18) Creatinine 0.9 MG/DL (0.55-1.30) Estimat Glomerular Filtration Rate > 60 mL/min (>60) Glucose Level 89 MG/DL (74-106) Calcium Level 8.2 MG/DL (8.5-10.1) L Intake and Output 07/05/19 07/06/19 19:00 07:00 Intake Total 140 ml Balance 140 ml Intake Oral 140 ml Objective GENERAL: The patient is awake, responsive, in no acute distress. HEAD AND NECK: Pupils are equal and reactive to light. Anicteric. Neck was supple. No JVD,poor dentition with maxillary protrusion. LUNGS: Good air entry. No wheezes or rales. HEART: S1, S2. Regular rhythm. No gallops. ABDOMEN: Soft, nondistended, and nontender. Morbid obesity. EXTREMITIES: No cyanosis, clubbing, or edema. NEUROLOGIC: Cranial nerves II through XII grossly intact. Motor is 5/5 in all extremities. Gait was not assessed due to patient's status. RECTAL: Refused and deferred. GENITOURINARY: Refused and deferred. PSYCHIATRIC: Mood and affect is intact at this time. Assessment/Plan Assessment/Plan ASSESSMENT: 1. Epileptic seizure 2. Schizophrenia. 3. Parkinson disease. 4. Morbid obesity. 5. Prior history of stroke. PLAN: 1. In Medical unit. 2. Monitor laboratory. 3. Seizure precaution. 4. Code status is Full Code. 5. Plan to transfer to [facility] for close monitoring. Maximus Carrillo MD Jul 06, 2019 15:57
[2019-07-06 16:00] VITALS: BP 116/75
--- NOTE | 2019-07-06 17:14 | NUR ---
CASE MANAGEMENT:REVIEW 07/06/19 SI: UNCONTROLLED SEIZURES 96.6 81 18 116/75 99% ON 1L WBC-3.4 H/H-11.0/33.7 PLT-139 IS: CYMBALTA PO QD CLOZAPINE PO QHS VIMPAT PO Q12 DEPAKOTE 1,000MG PO Q12 HEPARIN SQ Q12 SEROQUEL PO QHS : MED/SURG STATUS DCP: [facility] PLAN: REFERRED TO [facility]
--- NOTE | 2019-07-06 17:16 | NUR ---
TRANSFER UPDATE [facility] HAS NOW DENIED PATIENT FOR TRANSFER D/T FINANCIAL REASONS
--- NOTE | 2019-07-06 19:15 | NUR ---
NURSE NOTES: Pt received in bed asleep, able to make needs known, call light within reach, no c/o pain, pt w/o sz during day shift, will monitor.
--- NOTE | 2019-07-06 19:27 | NUR ---
HAND-OFF: Report given to Ms David RN patient resting comfortably in bed, no sign of distress,denies pain or discomfort dany Multani
[2019-07-06 20:00] VITALS: BP 125/76
[2019-07-07] VITALS: BP 103/66
[2019-07-07 04:00] VITALS: BP 118/72
--- NOTE | 2019-07-07 07:05 | NUR ---
HAND-OFF: Report given to GEORGIA Laurent.
--- NOTE | 2019-07-07 07:33 | NUR ---
NURSE NOTES: Received pt from GEORGIA Mayes. pt was eating, no acute distress, no pain. side rails are padded. call light w/in reach.
[2019-07-07 08:00] VITALS: BP 106/69
[2019-07-07] MEDS: Heparin 5000 units/ml inj SUBQ SCH ×2 (09:00→21:00)
[2019-07-07] MEDS: DULoxetine 30mg cap ORAL SCH (09:43)
[2019-07-07] MEDS: Depakote 500mg tab ORAL SCH ×2 (09:43→21:55)
[2019-07-07] MEDS: Lacosamide 50mg tablet ORAL SCH ×2 (09:44→21:55)
[2019-07-07 12:00] VITALS: BP 105/75
--- NOTE | 2019-07-07 12:37 | Pulmonology Progress Note ---
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 pseudoseizures Parkinson's disease with predominantly tremor morbid obesity history of CVA schizoaffective schizophrenia PLAN OF CARE MS floor seizure precaution a/convulsant as per neuro recs/Vimpat added EEG- no clear epileptiform discharge seen DVT prophylaxis venous duplex BLE-negative home meds continued dc plan to higher level of care for neurology/[facility]) psych meds as per psych recs awaiting for transfer case discussed and evaluated by supervising physician Subjective Allergies: Coded Allergies: No Known Allergies (Unverified , 04/27/13) Subjective no seizure overnight no signs of resp distress Objective Last 24 Hour Vital Signs Date Time Temp Pulse Resp B/P (MAP) Pulse Ox O2 Delivery O2 Flow Rate FiO2 07/07/19 08:06 Nasal Cannula 1.0 07/07/19 08:00 97.6 92 18 106/69 (81) 99 07/07/19 04:00 97.3 89 18 118/72 (87) 96 07/07/19 00:00 97.5 89 18 103/66 (78) 98 07/06/19 21:00 Nasal Cannula 1.0 07/06/19 20:00 97.5 84 18 125/76 (92) 99 07/06/19 16:00 96.6 81 18 116/75 (89) 99 Intake and Output 07/06/19 07/07/19 19:00 07:00 Intake Total 680 ml 240 ml Output Total 1450 ml Balance 680 ml -1210 ml Intake Oral 680 ml 240 ml Output Urine Total 1450 ml # Voids 3 Objective General Appearance: no acute distress HEENT: normocephalic, atraumatic, anicteric, mucous membranes moist Respiratory/Chest: lungs clear, no respiratory distress, no accessory muscle use Cardiovascular: normal peripheral pulses, normal rate Abdomen: normal bowel sounds, soft, non tender Extremities: no edema, pedal pulses normal Neurologic/Psychiatric: abnormal gait, alert, responsive Musculoskeletal: normal muscle bulk Current Medications Medications (Trade) Dose Ordered Sig/Jonathan Route PRN Reason Start Time Stop Time Status Last Admin Dose Admin Acetaminophen (Tylenol) 650 mg Q4H PRN ORAL fever 06/30/19 12:15 07/26/19 12:14 Clozapine (Clozaril) 50 mg QHS ORAL 07/05/19 21:00 07/12/19 20:59 07/06/19 20:11 Dextrose (Dextrose 50%) 25 ml Q30M PRN IV Hypoglycemia 06/30/19 12:30 07/21/19 16:59 Dextrose (Dextrose 50%) 25 ml Q30M PRN IV Hypoglycemia 06/30/19 12:30 07/21/19 16:59 Divalproex Sodium (Depakote) 1,000 mg EVERY 12 HOURS ORAL 07/04/19 21:00 08/03/19 20:59 07/07/19 09:43 Duloxetine HCl (Cymbalta) 30 mg DAILY ORAL 07/01/19 09:00 07/22/19 08:59 07/07/19 09:43 Heparin Sodium (Porcine) (Heparin 5000 units/ml) 5,000 units EVERY 12 HOURS SUBQ 06/30/19 21:00 07/21/19 20:59 07/06/19 20:13 Lacosamide (Vimpat) 100 mg Q12HR ORAL 07/05/19 21:00 08/04/19 20:59 07/07/19 09:44 Lorazepam (Ativan 2mg/ml 1ml) 1 mg Q3H PRN IV For Seizures 07/05/19 19:15 07/12/19 19:14 07/06/19 04:25 Ondansetron HCl (Zofran) 4 mg Q6H PRN IVP Nausea & Vomiting 06/30/19 12:15 07/26/19 12:14 Polyethylene Glycol (Miralax) 17 gm HSPRN PRN ORAL Constipation 06/30/19 12:15 07/27/19 12:14 Quetiapine Fumarate (SEROqueL) 100 mg BEDTIME ORAL 06/30/19 21:00 07/26/19 20:59 07/06/19 20:12 Wanda Coates NP Jul 07, 2019 12:37
[2019-07-07 16:00] VITALS: BP 117/79
--- NOTE | 2019-07-07 16:59 | Internal Med Progress Note ---
Subjective Date of Service: Jul 07, 2019 Physician Name Regis Jauregui Attending Physician Maximus Carrillo MD Current Medications Medications (Trade) Dose Ordered Sig/Jonathan Route PRN Reason Start Time Stop Time Status Last Admin Dose Admin Acetaminophen (Tylenol) 650 mg Q4H PRN ORAL fever 06/30/19 12:15 07/26/19 12:14 Clozapine (Clozaril) 50 mg QHS ORAL 07/05/19 21:00 07/12/19 20:59 07/06/19 20:11 Dextrose (Dextrose 50%) 25 ml Q30M PRN IV Hypoglycemia 06/30/19 12:30 07/21/19 16:59 Dextrose (Dextrose 50%) 25 ml Q30M PRN IV Hypoglycemia 06/30/19 12:30 07/21/19 16:59 Divalproex Sodium (Depakote) 1,000 mg EVERY 12 HOURS ORAL 07/04/19 21:00 08/03/19 20:59 07/07/19 09:43 Duloxetine HCl (Cymbalta) 30 mg DAILY ORAL 07/01/19 09:00 07/22/19 08:59 07/07/19 09:43 Heparin Sodium (Porcine) (Heparin 5000 units/ml) 5,000 units EVERY 12 HOURS SUBQ 06/30/19 21:00 07/21/19 20:59 07/06/19 20:13 Lacosamide (Vimpat) 100 mg Q12HR ORAL 07/05/19 21:00 08/04/19 20:59 07/07/19 09:44 Lorazepam (Ativan 2mg/ml 1ml) 1 mg Q3H PRN IV For Seizures 07/05/19 19:15 07/12/19 19:14 07/06/19 04:25 Ondansetron HCl (Zofran) 4 mg Q6H PRN IVP Nausea & Vomiting 06/30/19 12:15 07/26/19 12:14 Polyethylene Glycol (Miralax) 17 gm HSPRN PRN ORAL Constipation 06/30/19 12:15 07/27/19 12:14 Quetiapine Fumarate (SEROqueL) 100 mg BEDTIME ORAL 06/30/19 21:00 07/26/19 20:59 07/06/19 20:12 Allergies: Coded Allergies: No Known Allergies (Unverified , 04/27/13) ROS Limited/Unobtainable: No Constitutional: Reports: no symptoms HEENT: Reports: no symptoms Cardiovascular: Reports: no symptoms Respiratory: Reports: no symptoms Gastrointestinal/Abdominal: Reports: no symptoms Genitourinary: Reports: no symptoms Neurologic/Psychiatric: Reports: no symptoms Subjective 59 YO M admitted with seizure. Cover for [facility]-Dr Carrillo. Await transfer to [facility]. No new seizure Objective Last Vital Signs Date Time Temp Pulse Resp B/P (MAP) Pulse Ox O2 Delivery O2 Flow Rate FiO2 07/07/19 16:00 97.5 89 18 117/79 (92) 97 07/07/19 08:06 Nasal Cannula 1.0 Intake and Output 07/06/19 07/07/19 19:00 07:00 Intake Total 680 ml 240 ml Output Total 1450 ml Balance 680 ml -1210 ml Intake Oral 680 ml 240 ml Output Urine Total 1450 ml # Voids 3 Objective PHYSICAL EXAMINATION: GENERAL: The patient is awake, responsive, in no acute distress. HEAD AND NECK: Pupils are equal and reactive to light. Anicteric. Neck was supple. No JVD. Poor dentition with maxillary protrusion. LUNGS: Good air entry. No wheezes or rales. HEART: S1, S2. Regular rhythm. No gallops. ABDOMEN: Soft, nondistended, and nontender. Morbid obesity. EXTREMITIES: No cyanosis, clubbing, or edema. NEUROLOGIC: Cranial nerves II through XII grossly intact. Motor is 5/5 in all extremities. Gait was not assessed due to patient's status. RECTAL: Refused and deferred. GENITOURINARY: Refused and deferred. PSYCHIATRIC: Mood and affect is intact at this time. Assessment/Plan Assessment/Plan ASSESSMENT: 1. Acute tonic-colonic seizure, uncontrolled. 2. Schizophrenia. 3. Parkinson disease. 4. Morbid obesity. 5. Prior history of stroke. PLAN: 1. Admit the patient to monitor unit. 2. We will follow up laboratory. 3. Seizure precaution. 4. Code status is Full Code. 5. Resume home medication. 6. Neurology consultation=Dr Santillan 7. continue depakote per neurology 8. Discharge planning: transfer to [facility]-Dr Jean Monique neurology Regis Jauregui MD Jul 07, 2019 16:59
--- NOTE | 2019-07-07 19:47 | NUR ---
HAND-OFF: Report given to GEORGIA Carvajal. pt was stable condition.
[2019-07-07 20:00] VITALS: BP 119/61
--- NOTE | 2019-07-07 20:00 | NUR ---
NURSE NOTES: Recieved report from Mehran Keenan RN. Patient is sleeping in bed. Side rails up and padded. Bed in low and locked position with call light within reach. Yellow socks on and fall risk sign next to door. No s/s of seizure activity at this time. Will continue to monitor.
[2019-07-08] VITALS: BP 99/59
[2019-07-08 04:00] VITALS: BP 107/65
[2019-07-08 06:06] LABS: HEMATOCRIT 35.2 % (42.0-52.0); HEMOGLOBIN 11.5 G/DL (14.2-18.0); MEAN CORPUSCULAR VOLUME 94 FL (80-99); PLATELET COUNT 149 K/UL (150-450); RED BLOOD COUNT 3.76 M/UL (4.70-6.10); RED CELL DISTRIBUTION WIDTH 12.3 % (11.6-14.8); WHITE BLOOD COUNT 3.7 K/UL (4.8-10.8)
[2019-07-08 06:38] LABS: ANION GAP 5 mmol/L (5-15); BLOOD UREA NITROGEN 16 mg/dL (7-18); CALCIUM 8.4 MG/DL (8.5-10.1); CARBON DIOXIDE 30 MMOL/L (21-32); CHLORIDE 107 MMOL/L (98-107); CREATININE 0.8 MG/DL (0.55-1.30); POTASSIUM 4.2 MMOL/L (3.5-5.1); SODIUM 142 MMOL/L (136-145)
--- NOTE | 2019-07-08 07:50 | NUR ---
NURSE NOTES: WALKING ROUNDS DONE WITH OUTGOING RN.PATIENT AWAKE UP TO CHAIR FOR BREAKFAST. AOX4. SMILING AND HAPPY. NO SEIZURE ACTIVITY NOTED. DISCUSSED PLAN OF CARE FOR THE DAY WITH PATIENT.QUESTIONS ANSWERED, NEEDS MET AT THIS TIME. PATIENT REMINDED TO PLEASE USE CALL LIGHT FOR ASSISTANCE. VERBALIZED UNDERSTANDING BUT NEEDS REINFORCEMENT. BE DIN LOW AND LOCKED POSITION. CALL LIGHT WITHIN ARM'S REACH.
--- NOTE | 2019-07-08 07:58 | NUR ---
HAND-OFF: Report given to Tasneem Martinez RN. 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 Patient in stable condition.
[2019-07-08 08:00] VITALS: BP 108/74
[2019-07-08] MEDS: DULoxetine 30mg cap ORAL SCH (09:22)
[2019-07-08] MEDS: Lacosamide 50mg tablet ORAL SCH ×2 (09:22→21:30)
[2019-07-08] MEDS: Depakote 500mg tab ORAL SCH ×2 (09:22→21:30)
[2019-07-08] MEDS: Heparin 5000 units/ml inj SUBQ SCH ×2 (09:28→21:32)
[2019-07-08 12:00] VITALS: BP 119/74
--- NOTE | 2019-07-08 13:04 | Pulmonology Progress Note ---
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 pseudoseizures Parkinson's disease with predominantly tremor morbid obesity history of CVA schizoaffective schizophrenia PLAN OF CARE MS floor seizure precaution a/convulsant as per neuro recs/Vimpat added EEG- no clear epileptiform discharge seen DVT prophylaxis venous duplex BLE-negative home meds continued dc plan to higher level of care for neurology/[facility] neuro) psych meds as per psych recs still awaiting for transfer case discussed and evaluated by supervising physician Subjective Allergies: Coded Allergies: No Known Allergies (Unverified , 04/27/13) Subjective another seizure eepisode 07/08, no seizure today no signs of resp distress Objective Last 24 Hour Vital Signs Date Time Temp Pulse Resp B/P (MAP) Pulse Ox O2 Delivery O2 Flow Rate FiO2 07/08/19 12:00 97.7 85 19 119/74 (89) 97 07/08/19 09:00 Room Air 07/08/19 08:00 97.9 87 19 108/74 (85) 96 07/08/19 04:00 97.7 84 20 107/65 (79) 95 07/08/19 00:00 97.7 92 20 99/59 (72) 97 07/07/19 21:00 Room Air 07/07/19 20:00 97.0 80 19 119/61 (80) 98 07/07/19 16:00 97.5 89 18 117/79 (92) 97 Intake and Output 07/07/19 07/08/19 19:00 07:00 Output Total 600 ml Balance -600 ml Output Urine Total 600 ml Objective General Appearance: no acute distress HEENT: normocephalic, atraumatic, anicteric, mucous membranes moist Respiratory/Chest: lungs clear, no respiratory distress, no accessory muscle use Cardiovascular: normal peripheral pulses, normal rate Abdomen: normal bowel sounds, soft, non tender Extremities: no edema, pedal pulses normal Neurologic/Psychiatric: abnormal gait, alert, responsive Musculoskeletal: normal muscle bulk Laboratory Tests 07/08/19 05:10: White Blood Count 3.7L, Red Blood Count 3.76L, Hemoglobin 11.5L, Hematocrit 35.2L, Mean Corpuscular Volume 94, Mean Corpuscular Hemoglobin 30.5, Mean Corpuscular Hemoglobin Concent 32.5, Red Cell Distribution Width 12.3, Platelet Count 149L, Mean Platelet Volume 7.2, Neutrophils (%) (Auto) , Lymphocytes (%) ( Auto) , Monocytes (%) (Auto) , Eosinophils (%) (Auto) , Basophils (%) (Auto) , Differential Total Cells Counted 100, Neutrophils % (Manual) 39L, Lymphocytes % (Manual) 45, Monocytes % (Manual) 13H, Eosinophils % (Manual) 3, Basophils % ( Manual) 0, Band Neutrophils 0, Platelet Estimate Adequate, Platelet Morphology Normal, Red Blood Cell Morphology Normal, Sodium Level 142, Potassium Level 4.2 , Chloride Level 107, Carbon Dioxide Level 30, Anion Gap 5, Blood Urea Nitrogen 16, Creatinine 0.8, Estimat Glomerular Filtration Rate > 60, Glucose Level 83, Calcium Level 8.4L Current Medications Medications (Trade) Dose Ordered Sig/Jonathan Route PRN Reason Start Time Stop Time Status Last Admin Dose Admin Acetaminophen (Tylenol) 650 mg Q4H PRN ORAL fever 06/30/19 12:15 07/26/19 12:14 Clozapine (Clozaril) 50 mg QHS ORAL 07/05/19 21:00 07/12/19 20:59 07/07/19 21:56 Dextrose (Dextrose 50%) 25 ml Q30M PRN IV Hypoglycemia 06/30/19 12:30 07/21/19 16:59 Dextrose (Dextrose 50%) 25 ml Q30M PRN IV Hypoglycemia 06/30/19 12:30 07/21/19 16:59 Divalproex Sodium (Depakote) 1,000 mg EVERY 12 HOURS ORAL 07/04/19 21:00 08/03/19 20:59 07/08/19 09:22 Duloxetine HCl (Cymbalta) 30 mg DAILY ORAL 07/01/19 09:00 07/22/19 08:59 07/08/19 09:22 Heparin Sodium (Porcine) (Heparin 5000 units/ml) 5,000 units EVERY 12 HOURS SUBQ 06/30/19 21:00 07/21/19 20:59 07/08/19 09:28 Lacosamide (Vimpat) 100 mg Q12HR ORAL 07/05/19 21:00 08/04/19 20:59 07/08/19 09:22 Lorazepam (Ativan 2mg/ml 1ml) 1 mg Q3H PRN IV For Seizures 07/05/19 19:15 07/12/19 19:14 07/06/19 04:25 Ondansetron HCl (Zofran) 4 mg Q6H PRN IVP Nausea & Vomiting 06/30/19 12:15 07/26/19 12:14 Polyethylene Glycol (Miralax) 17 gm HSPRN PRN ORAL Constipation 06/30/19 12:15 07/27/19 12:14 Quetiapine Fumarate (SEROqueL) 100 mg BEDTIME ORAL 06/30/19 21:00 07/26/19 20:59 07/07/19 21:56 Wanda Coates NP Jul 08, 2019 13:04
--- NOTE | 2019-07-08 15:43 | Internal Med Progress Note ---
Subjective Date of Service: Jul 08, 2019 Physician Name Regis Jauregui Attending Physician Maximus Carrillo MD Current Medications Medications (Trade) Dose Ordered Sig/Jonathan Route PRN Reason Start Time Stop Time Status Last Admin Dose Admin Acetaminophen (Tylenol) 650 mg Q4H PRN ORAL fever 06/30/19 12:15 07/26/19 12:14 Clozapine (Clozaril) 50 mg QHS ORAL 07/05/19 21:00 07/12/19 20:59 07/07/19 21:56 Dextrose (Dextrose 50%) 25 ml Q30M PRN IV Hypoglycemia 06/30/19 12:30 07/21/19 16:59 Dextrose (Dextrose 50%) 25 ml Q30M PRN IV Hypoglycemia 06/30/19 12:30 07/21/19 16:59 Divalproex Sodium (Depakote) 1,000 mg EVERY 12 HOURS ORAL 07/04/19 21:00 08/03/19 20:59 07/08/19 09:22 Duloxetine HCl (Cymbalta) 30 mg DAILY ORAL 07/01/19 09:00 07/22/19 08:59 07/08/19 09:22 Heparin Sodium (Porcine) (Heparin 5000 units/ml) 5,000 units EVERY 12 HOURS SUBQ 06/30/19 21:00 07/21/19 20:59 07/08/19 09:28 Lacosamide (Vimpat) 100 mg Q12HR ORAL 07/05/19 21:00 08/04/19 20:59 07/08/19 09:22 Lorazepam (Ativan 2mg/ml 1ml) 1 mg Q3H PRN IV For Seizures 07/05/19 19:15 07/12/19 19:14 07/06/19 04:25 Ondansetron HCl (Zofran) 4 mg Q6H PRN IVP Nausea & Vomiting 06/30/19 12:15 07/26/19 12:14 Polyethylene Glycol (Miralax) 17 gm HSPRN PRN ORAL Constipation 06/30/19 12:15 07/27/19 12:14 Quetiapine Fumarate (SEROqueL) 100 mg BEDTIME ORAL 06/30/19 21:00 07/26/19 20:59 07/07/19 21:56 Allergies: Coded Allergies: No Known Allergies (Unverified , 04/27/13) ROS Limited/Unobtainable: No Constitutional: Reports: no symptoms HEENT: Reports: no symptoms Cardiovascular: Reports: no symptoms Respiratory: Reports: no symptoms Gastrointestinal/Abdominal: Reports: no symptoms Genitourinary: Reports: no symptoms Neurologic/Psychiatric: Reports: no symptoms Subjective 59 YO M admitted with seizure. Cover for [facility]-Dr Carrillo. Transfer to [facility] denied due to financial reasons. No new seizure Objective Last Vital Signs Date Time Temp Pulse Resp B/P (MAP) Pulse Ox O2 Delivery O2 Flow Rate FiO2 07/08/19 12:00 97.7 85 19 119/74 (89) 97 07/08/19 09:00 Room Air 07/07/19 08:06 1.0 Laboratory Tests Test 07/08/19 05:10 White Blood Count 3.7 K/UL (4.8-10.8) L Red Blood Count 3.76 M/UL (4.70-6.10) L Hemoglobin 11.5 G/DL (14.2-18.0) L Hematocrit 35.2 % (42.0-52.0) L Mean Corpuscular Volume 94 FL (80-99) Mean Corpuscular Hemoglobin 30.5 PG (27.0-31.0) Mean Corpuscular Hemoglobin Concent 32.5 G/DL (32.0-36.0) Red Cell Distribution Width 12.3 % (11.6-14.8) Platelet Count 149 K/UL (150-450) L Mean Platelet Volume 7.2 FL (6.5-10.1) Neutrophils (%) (Auto) % (45.0-75.0) Lymphocytes (%) (Auto) % (20.0-45.0) Monocytes (%) (Auto) % (1.0-10.0) Eosinophils (%) (Auto) % (0.0-3.0) Basophils (%) (Auto) % (0.0-2.0) Differential Total Cells Counted 100 Neutrophils % (Manual) 39 % (45-75) L Lymphocytes % (Manual) 45 % (20-45) Monocytes % (Manual) 13 % (1-10) H Eosinophils % (Manual) 3 % (0-3) Basophils % (Manual) 0 % (0-2) Band Neutrophils 0 % (0-8) Platelet Estimate Adequate Platelet Morphology Normal Red Blood Cell Morphology Normal Sodium Level 142 MMOL/L (136-145) Potassium Level 4.2 MMOL/L (3.5-5.1) Chloride Level 107 MMOL/L (98-107) Carbon Dioxide Level 30 MMOL/L (21-32) Anion Gap 5 mmol/L (5-15) Blood Urea Nitrogen 16 mg/dL (7-18) Creatinine 0.8 MG/DL (0.55-1.30) Estimat Glomerular Filtration Rate > 60 mL/min (>60) Glucose Level 83 MG/DL (74-106) Calcium Level 8.4 MG/DL (8.5-10.1) L Intake and Output 07/07/19 07/08/19 19:00 07:00 Output Total 600 ml Balance -600 ml Output Urine Total 600 ml Objective PHYSICAL EXAMINATION: GENERAL: The patient is awake, responsive, in no acute distress. HEAD AND NECK: Pupils are equal and reactive to light. Anicteric. Neck was supple. No JVD. Poor dentition with maxillary protrusion. LUNGS: Good air entry. No wheezes or rales. HEART: S1, S2. Regular rhythm. No gallops. ABDOMEN: Soft, nondistended, and nontender. Morbid obesity. EXTREMITIES: No cyanosis, clubbing, or edema. NEUROLOGIC: Cranial nerves II through XII grossly intact. Motor is 5/5 in all extremities. Gait was not assessed due to patient's status. RECTAL: Refused and deferred. GENITOURINARY: Refused and deferred. PSYCHIATRIC: Mood and affect is intact at this time. Assessment/Plan Assessment/Plan ASSESSMENT: 1. Acute tonic-colonic seizure, uncontrolled. 2. Schizophrenia. 3. Parkinson disease. 4. Morbid obesity. 5. Prior history of stroke. PLAN: 1. Admit the patient to monitor unit. 2. We will follow up laboratory. 3. Seizure precaution. 4. Code status is Full Code. 5. Resume home medication. 6. Neurology consultation=Dr Santillan 7. continue depakote per neurology 8. Discharge planning: transfer to [facility] DENIED due to financial reasons Regis Jauregui MD Jul 08, 2019 15:43
[2019-07-08 16:00] VITALS: BP 127/73
--- NOTE | 2019-07-08 18:19 | NUR ---
NURSE NOTES: PATIENT REMAINS STABLE THROUGHOUT THE SHIFT. NO SEIZURE ACTIVITY NOTED.UP TO CHAIR MOST OF THE DAY DRAWING. VSS.[id number]. CALL LIGHT WITHIN REACH.
--- NOTE | 2019-07-08 19:17 | NUR ---
HAND-OFF: Report given to NEIL JADE RN.
--- NOTE | 2019-07-08 19:48 | NUR ---
NURSE NOTES: Received report from GEORGIA Boateng. Patient is sleeping in bed. No evidence of seizure activity. IV site is c/d/i. Bed in low and locked position. Side rails up with padding on. Patient is yellow gown with yellow socks. Fall risk sign on door. Will continue to monitor.
[2019-07-08 20:00] VITALS: BP 98/62
[2019-07-09] VITALS: BP 92/60
[2019-07-09 04:00] VITALS: BP 110/68
[2019-07-09 06:30] LABS: BASOPHILS % (AUTO) 0.8 % (0.0-2.0); EOSINOPHILS % (AUTO) 3.3 % (0.0-3.0); HEMATOCRIT 34.8 % (42.0-52.0); HEMOGLOBIN 11.5 G/DL (14.2-18.0); LYMPHOCYTES % (AUTO) 39.8 % (20.0-45.0); MEAN CORPUSCULAR VOLUME 93 FL (80-99); PLATELET COUNT 165 K/UL (150-450); RED BLOOD COUNT 3.72 M/UL (4.70-6.10); RED CELL DISTRIBUTION WIDTH 12.4 % (11.6-14.8)
[2019-07-09 06:47] LABS: ANION GAP 5 mmol/L (5-15); BLOOD UREA NITROGEN 16 mg/dL (7-18); CALCIUM 8.2 MG/DL (8.5-10.1); CARBON DIOXIDE 30 MMOL/L (21-32); CHLORIDE 108 MMOL/L (98-107); CREATININE 0.7 MG/DL (0.55-1.30); POTASSIUM 4.2 MMOL/L (3.5-5.1); SODIUM 143 MMOL/L (136-145)
--- NOTE | 2019-07-09 07:35 | NUR ---
HAND-OFF: Report given to GEORGIA Lewis. Patient is stable.
--- NOTE | 2019-07-09 07:44 | NUR ---
NURSE NOTES: AWAKE/ALERT. NO C/O PAIN. ON SEIZURE PRECAUTION. IN NO DISTRESS.
[2019-07-09 08:00] VITALS: BP 113/71
[2019-07-09] MEDS: Lacosamide 50mg tablet ORAL SCH (08:38)
[2019-07-09] MEDS: Depakote 500mg tab ORAL SCH (08:39)
[2019-07-09] MEDS: DULoxetine 30mg cap ORAL SCH (08:39)
[2019-07-09] MEDS: Heparin 5000 units/ml inj SUBQ SCH (08:41)
[2019-07-09 12:00] VITALS: BP 118/72
--- NOTE | 2019-07-09 12:42 | NUR ---
CASE MANAGEMENT:REVIEW 07/09/19 SI: UNCONTROLLED SEIZURES 97.8 96 18 118/72 98% ON RA H/H-11.5/34.8 IS: CLOZAPINE PO QHS CYMBALTA PO QD CLOZAPINE PO QHS VIMPAT PO Q12 DEPAKOTE 1,000MG PO Q12 HEPARIN SQ Q12 SEROQUEL PO QHS : MED/SURG STATUS DCP: FROM [facility]
--- NOTE | 2019-07-09 12:48 | NUR ---
DISCHARGE PLANNING [facility] DECLINED TO ACCEPT PATIENT REFERRED TO [facility]. IF THEY DO NOT ACCEPT THEN PATIENT WILL RETURN TO HIS ASSISTED LIVING [facility]...WILL NEED PRESCRIPTIONS AND ORDER FOR AMBULANCE TRANSPORT
--- NOTE | 2019-07-09 13:15 | Internal Med Progress Note ---
Subjective Date of Service: Jul 09, 2019 Physician Name Regis Jauregui Attending Physician Maximus Carrillo MD Current Medications Medications (Trade) Dose Ordered Sig/Jonathan Route PRN Reason Start Time Stop Time Status Last Admin Dose Admin Acetaminophen (Tylenol) 650 mg Q4H PRN ORAL fever 06/30/19 12:15 07/26/19 12:14 Clozapine (Clozaril) 50 mg QHS ORAL 07/05/19 21:00 07/12/19 20:59 07/08/19 21:31 Dextrose (Dextrose 50%) 25 ml Q30M PRN IV Hypoglycemia 06/30/19 12:30 07/21/19 16:59 Dextrose (Dextrose 50%) 25 ml Q30M PRN IV Hypoglycemia 06/30/19 12:30 07/21/19 16:59 Divalproex Sodium (Depakote) 1,000 mg EVERY 12 HOURS ORAL 07/04/19 21:00 08/03/19 20:59 07/09/19 08:39 Duloxetine HCl (Cymbalta) 30 mg DAILY ORAL 07/01/19 09:00 07/22/19 08:59 07/09/19 08:39 Heparin Sodium (Porcine) (Heparin 5000 units/ml) 5,000 units EVERY 12 HOURS SUBQ 06/30/19 21:00 07/21/19 20:59 07/09/19 08:41 Lacosamide (Vimpat) 100 mg Q12HR ORAL 07/05/19 21:00 08/04/19 20:59 07/09/19 08:38 Lorazepam (Ativan 2mg/ml 1ml) 1 mg Q3H PRN IV For Seizures 07/05/19 19:15 07/12/19 19:14 07/06/19 04:25 Ondansetron HCl (Zofran) 4 mg Q6H PRN IVP Nausea & Vomiting 06/30/19 12:15 07/26/19 12:14 Polyethylene Glycol (Miralax) 17 gm HSPRN PRN ORAL Constipation 06/30/19 12:15 07/27/19 12:14 Quetiapine Fumarate (SEROqueL) 100 mg BEDTIME ORAL 06/30/19 21:00 07/26/19 20:59 07/08/19 21:30 Allergies: Coded Allergies: No Known Allergies (Unverified , 04/27/13) ROS Limited/Unobtainable: No Constitutional: Reports: no symptoms HEENT: Reports: no symptoms Cardiovascular: Reports: no symptoms Respiratory: Reports: no symptoms Gastrointestinal/Abdominal: Reports: no symptoms Genitourinary: Reports: no symptoms Neurologic/Psychiatric: Reports: no symptoms Subjective 59 YO M admitted with seizure. Cover for [facility]-Dr Carrillo. Transfer to [facility] denied due to financial reasons. No new seizure Objective Last Vital Signs Date Time Temp Pulse Resp B/P (MAP) Pulse Ox O2 Delivery O2 Flow Rate FiO2 07/09/19 12:00 97.8 96 18 118/72 (87) 98 07/09/19 09:19 Room Air 07/07/19 08:06 1.0 Laboratory Tests Test 07/09/19 05:30 White Blood Count 4.0 K/UL (4.8-10.8) L Red Blood Count 3.72 M/UL (4.70-6.10) L Hemoglobin 11.5 G/DL (14.2-18.0) L Hematocrit 34.8 % (42.0-52.0) L Mean Corpuscular Volume 93 FL (80-99) Mean Corpuscular Hemoglobin 30.9 PG (27.0-31.0) Mean Corpuscular Hemoglobin Concent 33.0 G/DL (32.0-36.0) Red Cell Distribution Width 12.4 % (11.6-14.8) Platelet Count 165 K/UL (150-450) Mean Platelet Volume 7.0 FL (6.5-10.1) Neutrophils (%) (Auto) 45.0 % (45.0-75.0) Lymphocytes (%) (Auto) 39.8 % (20.0-45.0) Monocytes (%) (Auto) 11.0 % (1.0-10.0) H Eosinophils (%) (Auto) 3.3 % (0.0-3.0) H Basophils (%) (Auto) 0.8 % (0.0-2.0) Sodium Level 143 MMOL/L (136-145) Potassium Level 4.2 MMOL/L (3.5-5.1) Chloride Level 108 MMOL/L (98-107) H Carbon Dioxide Level 30 MMOL/L (21-32) Anion Gap 5 mmol/L (5-15) Blood Urea Nitrogen 16 mg/dL (7-18) Creatinine 0.7 MG/DL (0.55-1.30) Estimat Glomerular Filtration Rate > 60 mL/min (>60) Glucose Level 81 MG/DL (74-106) Calcium Level 8.2 MG/DL (8.5-10.1) L Intake and Output 07/08/19 07/09/19 19:00 07:00 Intake Total 972 ml Balance 972 ml Intake Oral 972 ml # Voids 3 3 Objective PHYSICAL EXAMINATION: GENERAL: The patient is awake, responsive, in no acute distress. HEAD AND NECK: Pupils are equal and reactive to light. Anicteric. Neck was supple. No JVD. Poor dentition with maxillary protrusion. LUNGS: Good air entry. No wheezes or rales. HEART: S1, S2. Regular rhythm. No gallops. ABDOMEN: Soft, nondistended, and nontender. Morbid obesity. EXTREMITIES: No cyanosis, clubbing, or edema. NEUROLOGIC: Cranial nerves II through XII grossly intact. Motor is 5/5 in all extremities. Gait was not assessed due to patient's status. RECTAL: Refused and deferred. GENITOURINARY: Refused and deferred. PSYCHIATRIC: Mood and affect is intact at this time. Assessment/Plan Assessment/Plan ASSESSMENT: 1. Acute tonic-colonic seizure, uncontrolled. 2. Schizophrenia. 3. Parkinson disease. 4. Morbid obesity. 5. Prior history of stroke. PLAN: 1. Admit the patient to monitor unit. 2. We will follow up laboratory. 3. Seizure precaution. 4. Code status is Full Code. 5. Resume home medication. 6. Neurology consultation=Dr Santillan 7. continue depakote per neurology 8. Discharge planning: transfer to [facility] DENIED due to financial reasons; Await [facility] Regis Jauregui MD Jul 09, 2019 13:15
--- NOTE | 2019-07-09 14:03 | NUR ---
DISCHARGE PLAN RECEIVED DC ORDER FROM DR BUTT PATIENT IS DISCHARGING TO 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
[2019-07-09 16:00] VITALS: BP 133/69
--- NOTE | 2019-07-09 17:35 | NUR ---
NURSE NOTES: DISCHARGED TO [facility]ULANCE IN STABLE CONDITION. TRANSFERS PAPERS AND ORDERS SENT WITH PT. REPORT GIVEN TO MARK REINA. PT SISTER (COREY JAVIER)NOTIFIED OF PT'S TRANSFER TO [facility]
--- NOTE | 2019-07-10 09:49 | Discharge Summary ---
Discharge Summary Discharge Summary _ DATE OF ADMISSION: 06/21/2019 DATE OF DISCHARGE: 07/09/2019 DISCHARGED BY: Dr. Carrillo REASON FOR ADMISSION: 59 years old male with past medical history significant for seizure disorder, schizophrenia, Parkinson disease, obesity presented to the hospital after having tonic-clonic seizure activity, lasting few minutes. Patient passed out and after after that was confused upon presentation. Shortly after initial evaluation in emergency room patient was admitted with uncontrolled seizure , possibly epilepsy. t CONSULTANTS: neurologist Dr. Santillan pulmonary/ technical specialist cytology Dr. Savage psychiatrist [facility] COURSE: Patient admitted to monitored floor. eizure precaution maintained. Home medication resumed. Neurologist followed. CT of the head revealed no evidence of acute intracranial bleeding or mass- effect. Chronic changes, including periventricular deep white matter ischemic changes and possible old deep white matter lacunar infarcts noted. Chest x-ray revealed no acute cardiopulmonary pathology. Anticonvulsant provided as per neurologist recommendation. Vimpat was added to current regimen. EEG revealed no clear epileptiform discharge Per neurologist patient may have pseudoseizures. Neurologist recommended transfer him to neurology services at [facility]. Venous duplex bilateral extremity revealed no evidence of acute DVT. DVT prophylaxis provided. Home medication continued. Psychiatrist followed. Psychiatric medication regimen was optimized. Reality orientation and supportive therapy provided. [facility] declined to accept the patient due to insurance reasons. Placement was found atthe shelter facility. Patient was stable for transfer. FINAL DIAGNOSES: Acute tonic-clonic seizure uncontrolled Schizophrenia Parkinson disease with predominantly tremor Obesity History of stroke Schizoaffective schizophrenia DISCHARGE MEDICATIONS: See Medication Reconciliation list. DISCHARGE INSTRUCTIONS: Patient was discharged to the shelter facility. Follow up with medical doctor at the facility . Wanda Coates NP Jul 10, 2019 09:49
== END 2019-07-09 17:30 | DRG 101 ==
LOC: EDBD 14:46 → EDBEDREQ 15:42 → EMR 16:18 → 2E 16:20 → EDBEDREQ 19:50 → 3E 06-23 17:48 → 2E 06-25 21:22 → ICU 06-26 08:30 → 2E 06-27 15:55 → 3E 06-30 12:06
DX: G40.804 Other epilepsy, intractable, without status epilepticus (principal); G93.40 Encephalopathy, unspecified; E66.01 Morbid (severe) obesity due to excess calories; F25.9 Schizoaffective disorder, unspecified; G20 Parkinson's disease; F02.80 Dementia in other diseases classified elsewhere, unspecified severity, without behavioral disturbance, psychotic disturbance, mood disturbance, and anxiety; Z86.73 Personal history of transient ischemic attack (TIA), and cerebral infarction without residual deficits; Z68.31 Body mass index [BMI] 31.0-31.9, adult
CPT/HCPCS: 36415; 36600; 70450; 71045; 80048; 80053; 80156; 80164; 80184; 80185; 80307; 81003; 82803; 82962; 83735; 84100; 84484; 85007; 85025; 85651; 86140; 87081; 93005; 93970; 95819; 96360; 99285; G0480